=== PATIENT | male | born 1950 | race Caucasian/White ===

== ENCOUNTER 2016-06-27 01:14 | Inpatient (IN) | payer OTHER ==
[~2016-06-27] VITALS: Ht 172.7 cm; Wt 87.2 kg
[2016-06-27] VITALS (7 sets, daily range): BP systolic 112–150; BP diastolic 68–91; PULSE 66–81; RESP 16–22; TEMP 97–98.2; O2SAT 94–98
[~2016-06-27 01:14] MED LIST: HYDR-3583 PO; LEVA500T PO; TAMS5CAP PO
[2016-06-27] MEDS ORDERED: SODIUM CHLOR 0.9% 1000 ML INJ 1,000 ML IV SCH (01:55)
[2016-06-27] MEDS ORDERED: SODIUM CHLORIDE 0.9% FLUSH 5 ML FLUSH IVF PRN (02:00)
[2016-06-27] MEDS ORDERED: ONDANSETRON HCL 4 MG/2 ML VIAL IVP ONE (02:00)
[2016-06-27 02:39] LABS: AUTOMATED NEUTROPHIL # 8.5 TH/MM3 (1.8-7.7); BASOPHIL # 0.1 TH/MM3 (0-0.2); BASOPHIL % 0.7 % (0.0-2.0); EOSINOPHIL # 0.1 TH/MM3 (0-0.4); HEMATOCRIT 48.7 % (39.0-51.0); HEMO FLAGS DIFF FINAL; LYMPHOCYTE # 1.6 TH/MM3 (1.0-4.8); MEAN CELL VOLUME 86.3 FL (80.0-100.0); MEAN CORPUSCULAR HEMOGLOBIN 29.5 PG (27.0-34.0); MEAN CORPUSCULAR HGB CONC 34.1 % (32.0-36.0); MONO % 10.2 % (0.0-8.0); NEUT % 74.1 % (16.0-70.0); PLATELET COUNT 202 TH/MM3 (150-450); RED BLOOD COUNT 5.64 MIL/MM3 (4.50-5.90); RED CELL DISTRIBUTION WIDTH 14.2 % (11.6-17.2); WHITE BLOOD COUNT 11.4 TH/MM3 (4.0-11.0)
[2016-06-27 02:47] LABS: APTT (PATIENT) 28.5 SEC (24.3-30.1); PROTHROMBIN TIME - PATIENT 11.4 SEC (9.8-11.6)
--- NOTE | 2016-06-27 02:55 | RADRPT ---
EXAM DATE/TIME: 06/27/2016 02:05 [place] COMPARISON: CT ABDOMEN & PELVIS W/O CONTRAST, June 09, 2016, 2:24. INDICATIONS : Right lower quadrant and groin pain. ORAL CONTRAST: No oral contrast ingested. RADIATION DOSE: 10.47 CTDIvol (mGy) MEDICAL HISTORY : Renal calculi. SURGICAL HISTORY : None. ENCOUNTER: Initial ACUITY: 1 day PAIN SCALE: 7/10 LOCATION: Right lower quadrant abdomen TECHNIQUE: Volumetric scanning of the abdomen and pelvis was performed. Using automated exposure control and ad justment of the mA and/or kV according to patient size, radiation dose was kept as low as reasonably achievable to obtain optimal diagnostic quality images. FINDINGS: Examination of the lung bases demonstrates no abnormality. No pleural fluid is identified. No pulmona ry nodules are present. The liver and spleen are normal in size and no focal defects are identified. The gallbladder and pancreas are unremarkable. No intrahepatic or extrahepatic ductal dilatation is s een. The adrenal glands are unremarkable. There are nonobstructing stones measuring 3-4 mm in the mid pole of a small left kidney. The 7 mm stone at the right ureter pelvic junction is unchanged with mod erate right hydronephrosis. Examination of the pelvis demonstrates no evidence of free fluid or pelvic mass. No abnormally enlarg ed inguinal or retroperitoneal lymph nodes are present. The bladder is unremarkable. The prostate gla nd is moderately enlarged impinging on the bladder base. The prostate gland is moderately enlarged im pinging on the bladder base. CONCLUSION: 1. Persistent 7 mm x 5 mm stone at the right ureteropelvic junction unchanged from the prior exam. French Mahoney MD on June 27, 2016 at 2:40 Board Certified Radiologist. This report was verified electronically.
[2016-06-27 03:04] LABS: ALT (GPT) 20 U/L (12-78); ANION GAP 8 MEQ/L (5-15); AST (GOT) 11 U/L (15-37); BICARBONATE 24.3 MEQ/L (21.0-32.0); BLOOD UREA NITROGEN 23 MG/DL (7-18); CHLORIDE 108 MEQ/L (98-107); GLOMERULAR FILTRATION RATE 22 ML/MIN (>89); POTASSIUM 3.8 MEQ/L (3.5-5.1); SODIUM (NA) 140 MEQ/L (136-145)
[2016-06-27 03:05] LABS: ALKALINE PHOSPHATASE 101 U/L (45-117); TOTAL BILIRUBIN ADULT 0.4 MG/DL (0.2-1.0)
[2016-06-27] MEDS ORDERED: MORPHINE SULFATE 8 MG/ML INJ IV PUSH ONE (03:15)
--- NOTE | 2016-06-27 03:46 | PD ---
HPI Chief Complaint: Complaint Time Seen by Provider: 01:47 Travel History International Travel<30 days: No Contact w/Intl Traveler<30days: No Traveled to known affect area: No History of Present Illness HPI Patient is 66-year-old male with a history kidney stone being worked up by the MD presents emergency department with increasing right flank pain. Patient states he has a 10 mm kidney stone in the right renal system and given the level of pain decided to come in numerous permanent be seen. Patient was seen here in mid May and had kidney stone in the right system at that time. He also states the lab work at the MD shows that his kidney function had been gradually worsening. Denies any fever mild nausea without vomiting. PFSH Past Medical History Hx Anticoagulant Therapy: Yes (ASA) Autoimmune Disease: No Anxiety: No Depression: No Cancer: No Cardiac Catheterization: Yes Cardiovascular Problems: Yes (SVT) Endocrine: No Genitourinary: No Musculoskeletal: No Neurologic: No Psychiatric: No Respiratory: Yes (PNEUMONIA) Immunizations Current: Yes Tetanus Vaccination: Unknown Influenza Vaccination: No Past Surgical History Abdominal Surgery: No Cardiac Surgery: No Ear Surgery: No Endocrine Surgery: No Eye Surgery: No Genitourinary Surgery: No Gynecologic Surgery: No Oral Surgery: No Thoracic Surgery: No Other Surgery: Yes (LEFT CHEST TUBE) Social History Alcohol Use: No Tobacco Use: Yes (2 PPD) Substance Use: No Allergies-Medications (Allergen,Severity, Reaction): Coded Allergies: No Known Allergies (Verified , 06/27/16) Reported Meds & Prescriptions Reported Meds & Active Scripts Active Flomax (Tamsulosin HCl) 0.4 Mg Cap 0.4 Mg PO HS Reported Hydrocodone-Acetaminophen 10-325 mg Tab 1 Tab PO DAILY PRN Review of Systems Except as stated in HPI: all other systems reviewed are Neg Physical Exam Narrative GENERAL: Well-developed and well-nourished in no apparent distress. Disheveled. SKIN: Warm and dry. HEAD: Atraumatic. Normocephalic. EYES: Pupils equal and round. No scleral icterus. No injection or drainage. ENT: No nasal bleeding or discharge. Mucous membranes pink and moist. NECK: Trachea midline. No JVD. CARDIOVASCULAR: Regular rate and rhythm. No murmur appreciated. RESPIRATORY: No accessory muscle use. Clear to auscultation. Breath sounds equal bilaterally. GASTROINTESTINAL: Abdomen soft, non-tender, nondistended. Hepatic and splenic margins not palpable. MUSCULOSKELETAL: No obvious deformities. No clubbing. No cyanosis. No edema. NEUROLOGICAL: Awake and alert. No obvious cranial nerve deficits. Motor grossly within normal limits. Normal speech. PSYCHIATRIC: Appropriate mood and affect; insight and judgment normal. Data Data Last Documented VS Vital Signs Date Time Temp Pulse Resp B/P Pulse Ox O2 Delivery O2 Flow Rate FiO2 06/27/16 01:17 98.1 81 22 148/89 98 Room Air Orders Complete Blood Count With Diff (06/27/16 01:55) Comprehensive Metabolic Panel (06/27/16 01:55) Prothrombin Time / Inr (Pt) (06/27/16 01:55) Act Partial Throm Time (Ptt) (06/27/16 01:55) Urinalysis - C+S If Indicated (06/27/16 01:55) Ct Abd/Pel W/O Iv Contrast (06/27/16 01:55) Iv Access Insert/Monitor (06/27/16 01:55) Ecg Monitoring (06/27/16 01:55) Oximetry (06/27/16 01:55) Ondansetron Inj (Zofran Inj) (06/27/16 02:00) Sodium Chlor 0.9% 1000 Ml Inj (Ns 1000 M (06/27/16 01:55) Sodium Chloride 0.9% Flush (Ns Flush) (06/27/16 02:00) Electrocardiogram (06/27/16 01:55) Morphine Inj (Morphine Inj) (06/27/16 03:15) Admit Order (Ed Use Only) (06/27/16 ) Consult Urology (06/27/16 ) (Hub Use Only)Inp Phy Cons/Ref (06/27/16 ) Labs Laboratory Tests Test 06/27/16 06/27/16 02:21 03:40 White Blood Count 11.4 TH/MM3 Red Blood Count 5.64 MIL/MM3 Hemoglobin 16.6 GM/DL Hematocrit 48.7 % Mean Corpuscular Volume 86.3 FL Mean Corpuscular Hemoglobin 29.5 PG Mean Corpuscular Hemoglobin 34.1 % Concent Red Cell Distribution Width 14.2 % Platelet Count 202 TH/MM3 Mean Platelet Volume 8.3 FL Neutrophils (%) (Auto) 74.1 % Lymphocytes (%) (Auto) 14.0 % Monocytes (%) (Auto) 10.2 % Eosinophils (%) (Auto) 1.0 % Basophils (%) (Auto) 0.7 % Neutrophils # (Auto) 8.5 TH/MM3 Lymphocytes # (Auto) 1.6 TH/MM3 Monocytes # (Auto) 1.2 TH/MM3 Eosinophils # (Auto) 0.1 TH/MM3 Basophils # (Auto) 0.1 TH/MM3 CBC Comment DIFF FINAL Differential Comment Prothrombin Time 11.4 SEC Prothromb Time International 1.0 RATIO Ratio Activated Partial 28.5 SEC Thromboplast Time Sodium Level 140 MEQ/L Potassium Level 3.8 MEQ/L Chloride Level 108 MEQ/L Carbon Dioxide Level 24.3 MEQ/L Anion Gap 8 MEQ/L Blood Urea Nitrogen 23 MG/DL Creatinine 2.94 MG/DL Estimat Glomerular Filtration 22 ML/MIN Rate Random Glucose 103 MG/DL Calcium Level 8.5 MG/DL Total Bilirubin 0.4 MG/DL Aspartate Amino Transf 11 U/L (AST/SGOT) Alanine Aminotransferase 20 U/L (ALT/SGPT) Alkaline Phosphatase 101 U/L Total Protein 6.7 GM/DL Albumin 3.3 GM/DL Urine Color YELLOW Urine Turbidity CLEAR Urine pH 5.5 Urine Specific [place] 1.014 Urine Protein 30 mg/dL Urine Glucose (UA) NEG mg/dL Urine Ketones NEG mg/dL Urine Occult Blood MOD Urine Nitrite NEG Urine Bilirubin NEG Urine Urobilinogen LESS THAN 2.0 MG/DL Urine Leukocyte Esterase NEG Urine RBC 7 /hpf Urine WBC 3 /hpf Urine Squamous Epithelial <1 /hpf Cells Urine Hyaline Casts 1 /lpf Microscopic Urinalysis Comment CULT NOT INDICATED MDM Medical Decision Making Medical Screen Exam Complete: Yes Emergency Medical Condition: Yes Differential Diagnosis Kidney stone, obstructive uropathy, UTI. Narrative Course Patient seen and examined by me hasn't 8 mm obstructing kidney stone in the right system proximal ureter. Significant obstructive uropathy. Creatinine has increased approximately 50% since he was seen in May and the kidney stone has not moved since then. Discussed with the patient he should strongly consider intervention at this time given his starting to affect his kidneys. He is agreeable this time. Patient discussed with Dr. Quiñonez, nothing by mouth probable intervention the morning. Admitted to Dr. Celaya Diagnosis Primary Impression: Right ureteral stone Additional Impression: Renal insufficiency Admitting Information Admitting Physician Requests: Admit Condition: Stable Brown Ansari MD Jun 27, 2016 03:46
[2016-06-27] MEDS ORDERED: ONDANSETRON HCL 4 MG/2 ML VIAL IVP PRN (04:00)
[2016-06-27] MEDS ORDERED: ACETAMINOPHEN 325 MG TAB PO PRN (04:00)
[2016-06-27] MEDS ORDERED: BISACODYL 10 MG SUPP PR PRN (04:00)
[2016-06-27] MEDS ORDERED: SODIUM CHLORIDE 0.9% FLUSH 5 ML FLUSH FLUSH PRN (04:00)
[2016-06-27 04:05] LABS: BLOOD, URINE MOD (NEG); COMMENT (UR) CULT NOT INDICATED; CULTURE IF INDICATED CULT NOT INDICATED; GLUCOSE,URINE NEG (NEG); HYALINE CAST, URINE 1 /lpf (RARE); KETONE, URINE NEG (NEG); NITRITE,URINE NEG (NEG); PH, URINE 5.5 (5.0-8.5); SQUAMOUS EPITHELIAL CELL URINE <1 /hpf (0-5); URINE COLOR YELLOW (YELLW/STRAW)
[2016-06-27] MEDS: cefTRIAXone INJ 1,000 MG in SODIUM CHLORIDE 0.9% INJ 100 ML IV SCH (04:29)
[2016-06-27] MEDS: SODIUM CHLOR 0.9% 1000 ML INJ 1,000 ML IV SCH ×3 (04:30→21:25)
--- NOTE | 2016-06-27 08:25 | HHI.HP ---
[facility] Service [facility] Primary Care Physician [facility] Admission Diagnosis Obstructive Uropathy, Kidney stone Diagnoses: Chief Complaint: right flank pain Travel History International Travel<30 Days: No Contact w/Intl Traveler <30 Da: No Traveled to Known Affected Are: No History of Present Illness 66-year-old male with PMH of tobacco use, history of kidney stone being worked up by the [place] presents emergency department with increasing right flank pain. Patient states he has a 10 mm kidney stone in the right renal system and given the level of pain decided to come in numerous permanent be seen. Patient was seen here in mid May and had kidney stone in the right system at that time. He also states the lab work at the [place] shows that his kidney function had been gradually worsening. Denies any fever mild nausea without vomiting. Review of Systems Other ROS: 14 point review of systems otherwise negative. Past Family Social History Past Medical History Tobacco Abuse Past Surgical History Chest Tube. Right wrist fracture and surgery Reported Medications Reported Meds & Active Scripts Active Flomax (Tamsulosin HCl) 0.4 Mg Cap 0.4 Mg PO HS Reported Hydrocodone-Acetaminophen 10-325 mg Tab 1 Tab PO DAILY PRN Allergies: Coded Allergies: No Known Allergies (Verified , 06/27/16) Family History No h/o DM or CAD Social History Denies alcohol or drugs use. + Tobacco Abuse, previously 6ppd, now down to 3ppd. Physical Exam Vital Signs Vital Signs Date Time Temp Pulse Resp B/P Pulse Ox O2 Delivery O2 Flow Rate FiO2 06/27/16 05:09 69 16 124/79 98 06/27/16 03:53 98.2 75 18 138/84 97 06/27/16 01:17 98.1 81 22 148/89 98 Room Air Physical Exam GENERAL: This is a well-nourished, well-developed patient, in no apparent distress. SKIN: No rashes, ecchymoses or lesions. Cool and dry. HEAD: Atraumatic. Normocephalic. No temporal or scalp tenderness. EYES: Pupils equal round and reactive. Extraocular motions intact. No scleral icterus. No injection or drainage. ENT: Nose without bleeding, purulent drainage or septal hematoma. Throat without erythema, tonsillar hypertrophy or exudate. Uvula midline. Airway patent. NECK: Trachea midline. No JVD or lymphadenopathy. Supple, nontender, no meningeal signs. CARDIOVASCULAR: Regular rate and rhythm without murmurs, gallops, or rubs. RESPIRATORY: Clear to auscultation. Breath sounds equal bilaterally. No wheezes , rales, or rhonchi. GASTROINTESTINAL: Abdomen soft, non-tender, nondistended. No hepato-splenomegaly , or palpable masses. No guarding. MUSCULOSKELETAL: Extremities without clubbing, cyanosis, or edema. No joint tenderness, effusion, or edema noted. No calf tenderness. Negative Homans sign bilaterally. NEUROLOGICAL: Awake and alert. Cranial nerves II through XII intact. Motor and sensory grossly within normal limits. Five out of 5 muscle strength in all muscle groups. Normal speech. Laboratory Laboratory Tests Test 06/27/16 06/27/16 02:21 03:40 White Blood Count 11.4 Red Blood Count 5.64 Hemoglobin 16.6 Hematocrit 48.7 Mean Corpuscular Volume 86.3 Mean Corpuscular Hemoglobin 29.5 Mean Corpuscular Hemoglobin 34.1 Concent Red Cell Distribution Width 14.2 Platelet Count 202 Mean Platelet Volume 8.3 Neutrophils (%) (Auto) 74.1 Lymphocytes (%) (Auto) 14.0 Monocytes (%) (Auto) 10.2 Eosinophils (%) (Auto) 1.0 Basophils (%) (Auto) 0.7 Neutrophils # (Auto) 8.5 Lymphocytes # (Auto) 1.6 Monocytes # (Auto) 1.2 Eosinophils # (Auto) 0.1 Basophils # (Auto) 0.1 CBC Comment DIFF FINAL Differential Comment Prothrombin Time 11.4 Prothromb Time International 1.0 Ratio Activated Partial 28.5 Thromboplast Time Sodium Level 140 Potassium Level 3.8 Chloride Level 108 Carbon Dioxide Level 24.3 Anion Gap 8 Blood Urea Nitrogen 23 Creatinine 2.94 Estimat Glomerular Filtration 22 Rate Random Glucose 103 Calcium Level 8.5 Total Bilirubin 0.4 Aspartate Amino Transf 11 (AST/SGOT) Alanine Aminotransferase 20 (ALT/SGPT) Alkaline Phosphatase 101 Total Protein 6.7 Albumin 3.3 Urine Color YELLOW Urine Turbidity CLEAR Urine pH 5.5 Urine Specific [place] 1.014 Urine Protein 30 Urine Glucose (UA) NEG Urine Ketones NEG Urine Occult Blood MOD Urine Nitrite NEG Urine Bilirubin NEG Urine Urobilinogen LESS THAN 2.0 Urine Leukocyte Esterase NEG Urine RBC 7 Urine WBC 3 Urine Squamous Epithelial <1 Cells Urine Hyaline Casts 1 Microscopic Urinalysis Comment CULT NOT INDICATED Result Diagram: 06/27/1622006/27/16 022 Imaging Last Impressions Abdomen/Pelvis CT 06/27/16 0155 Signed Impressions: Service Date/Time: Wednesday, June 27, 2016 02:05 - CONCLUSION: 1. Persistent 7 mm x 5 mm stone at the right ureteropelvic junction unchanged from the prior exam. French Mahoney MD Assessment and Plan Assessment and Plan Right ureteral stone. CT reviewed: persistent 7 mm x 5 mm stone at the right ureteropelvic junction unchanged from the prior exam. NPO, Dr Quiñonez nephro plan for surgical intervention 06/27/16 stent placement Pain meds per pain scale IVF Antiemetics as need. Laxatives/stool softeners as need. Renal Insufficiency: Acute on Chronic. IVF, repeat labs in am. H/O Lung Nodule: per previous records CT Chest w/ 8mm LLL nodule, recommendation for repeat CT in 3-6 months as pt is high risk due to h/o heavy tobacco abuse. Pt is aware of need to repeat CT. DuoNeb prn. Tobacco Abuse: h/o 6ppd, now cut down to 3ppd. Pt counselled on the need to quit. NicoDerm prn if needed. Liver Lesion: CT Abd/Pelvis w/ 1.7cm nondescript low density lesion of right lobe of liver, recommendation for outpatient MRI to further evaluate. Pt aware. DVT Prophylaxis: SCD/Teds. CM for d/c planning as needed. DC plan: DC home today per Dr Quiñonez after stent placed Diet: Healthy heart diet Activity: Ambulate ad gino Meds per med reconciliations F/u as OP with PCP and consultants Code Status full Discussed Condition With patient, nurse, Dr Quiñonez from urology Physician Certification 2 Midnight Certification Type: Admission for Inpatient Services Order for Inpatient Services The services are ordered in accordance with Medicare regulations or non- Medicare payer requirements, as applicable. In the case of services not specified as inpatient-only, they are appropriately provided as inpatient services in accordance with the 2-midnight benchmark. Estimated LOS (days): 3 days is the estimated time the patient will need to remain in the hospital, assuming treatment plan goals are met and no additional complications. Post-Hospital Plan: Home Dominga Kaur MD Jun 27, 2016 08:25
[2016-06-27] MEDS: MORPHINE SULFATE 4 MG/ML INJ IV PRN ×3 (08:55→23:57)
[2016-06-27] MEDS: SODIUM CHLORIDE 0.9% FLUSH 5 ML FLUSH FLUSH SCH ×2 (09:00→20:17)
--- NOTE | 2016-06-27 09:37 | PD.CONS ---
[facility] Service Urology Consult Requested By Reason for Consult Right ureteral calculus. Primary Care Physician [facility] Diagnosis: History of Present Illness Consulted to evaluate this 66 year-old gentleman with history nephrolithiasis for an obstructing right proximal ureteral calculus. Patient presented to the emergency room back in May 2016 with symptoms of right flank pain and was diagnosed with an 8 mm right proximal ureteral stone. Patient was treated and released and advised to follow up with a urologist as an outpatient. He presents now with worsening symptoms and a subsequent CT scan once again demonstrated an approximately 8 mm right proximal ureteral stone. Due to the severity of the patient's symptoms he was admitted for further management. Patient has been afebrile. Review of Systems Constitutional: DENIES: Fever, Night Sweats Endocrine: DENIES: Heat/cold intolerance Eyes: DENIES: Blurred vision Ears, nose, mouth, throat: DENIES: Tinnitus Respiratory: DENIES: Cough Cardiovascular: DENIES: Chest pain Gastrointestinal: DENIES: Abdominal pain Genitourinary: DENIES: Hematuria Musculoskeletal: COMPLAINS OF: Back pain (right flank) Integumentary: DENIES: Rash Hematologic/lymphatic: DENIES: Bruising Immunologic/allergic: DENIES: Eczema Neurologic: DENIES: Abnormal gait Psychiatric: DENIES: Anxiety Other All others negative. Past Family Social History Past Medical History Nephrolithiasis Past Surgical History Status post placement of chest tube in the past Reported Medications Refer to EMR Allergies: Coded Allergies: No Known Allergies (Verified , 06/27/16) Active Ordered Medications Refer to EMR Family History Reviewed and noncontributory Social History Heavy smoker times many years, presently smokes 2 packs per day Denies alcohol or intravenous drug abuse Physical Exam Vital Signs Vital Signs Date Time Temp Pulse Resp B/P Pulse Ox O2 Delivery O2 Flow Rate FiO2 06/27/16 08:00 97.2 69 18 137/77 98 06/27/16 05:09 69 16 124/79 98 06/27/16 03:53 98.2 75 18 138/84 97 06/27/16 01:17 98.1 81 22 148/89 98 Room Air Physical Exam GENERAL: This is a well-nourished, well-developed patient, in no apparent distress. SKIN: No rashes, ecchymoses or lesions. Cool and dry. HEAD: Atraumatic. Normocephalic. No temporal or scalp tenderness. EYES: Pupils equal round and reactive. Extraocular motions intact. No scleral icterus. No injection or drainage. ENT: Nose without bleeding, purulent drainage or septal hematoma. Throat without erythema, tonsillar hypertrophy or exudate. Uvula midline. Airway patent. NECK: Trachea midline. No JVD or lymphadenopathy. Supple, nontender, no meningeal signs. CARDIOVASCULAR: Regular rate and rhythm without murmurs, gallops, or rubs. RESPIRATORY: Clear to auscultation. Breath sounds equal bilaterally. No wheezes , rales, or rhonchi. GASTROINTESTINAL: Abdomen soft, non-tender, nondistended. No hepato-splenomegaly , or palpable masses. No guarding. MUSCULOSKELETAL: Extremities without clubbing, cyanosis, or edema. No joint tenderness, effusion, or edema noted. No calf tenderness. Negative Homans sign bilaterally. NEUROLOGICAL: Awake and alert. Cranial nerves II through XII intact. Motor and sensory grossly within normal limits. Five out of 5 muscle strength in all muscle groups. Normal speech. Laboratory Laboratory Tests Test 06/27/16 06/27/16 02:21 03:40 White Blood Count 11.4 Red Blood Count 5.64 Hemoglobin 16.6 Hematocrit 48.7 Mean Corpuscular Volume 86.3 Mean Corpuscular Hemoglobin 29.5 Mean Corpuscular Hemoglobin 34.1 Concent Red Cell Distribution Width 14.2 Platelet Count 202 Mean Platelet Volume 8.3 Neutrophils (%) (Auto) 74.1 Lymphocytes (%) (Auto) 14.0 Monocytes (%) (Auto) 10.2 Eosinophils (%) (Auto) 1.0 Basophils (%) (Auto) 0.7 Neutrophils # (Auto) 8.5 Lymphocytes # (Auto) 1.6 Monocytes # (Auto) 1.2 Eosinophils # (Auto) 0.1 Basophils # (Auto) 0.1 CBC Comment DIFF FINAL Differential Comment Prothrombin Time 11.4 Prothromb Time International 1.0 Ratio Activated Partial 28.5 Thromboplast Time Sodium Level 140 Potassium Level 3.8 Chloride Level 108 Carbon Dioxide Level 24.3 Anion Gap 8 Blood Urea Nitrogen 23 Creatinine 2.94 Estimat Glomerular Filtration 22 Rate Random Glucose 103 Calcium Level 8.5 Total Bilirubin 0.4 Aspartate Amino Transf 11 (AST/SGOT) Alanine Aminotransferase 20 (ALT/SGPT) Alkaline Phosphatase 101 Total Protein 6.7 Albumin 3.3 Urine Color YELLOW Urine Turbidity CLEAR Urine pH 5.5 Urine Specific [place] 1.014 Urine Protein 30 Urine Glucose (UA) NEG Urine Ketones NEG Urine Occult Blood MOD Urine Nitrite NEG Urine Bilirubin NEG Urine Urobilinogen LESS THAN 2.0 Urine Leukocyte Esterase NEG Urine RBC 7 Urine WBC 3 Urine Squamous Epithelial <1 Cells Urine Hyaline Casts 1 Microscopic Urinalysis Comment CULT NOT INDICATED Result Diagram: 06/27/1622006/27/16[address] scan with findings as outlined above Assessment and Plan Assessment and Plan Urologic impression: Right flank pain secondary to 8 mm obstructing right proximal ureteral calculus Plan: #1 keep patient nothing by mouth #2 bring the patient to the OR suite this morning for cystoscopy, right retrograde pyelogram and right ureteral stent placement #3 anticipate discharge home later today #4 patient will require shockwave lithotripsy of the stone as an outpatient Evans Quiñonez MD Jun 27, 2016 09:37
--- NOTE | 2016-06-27 11:35 | HHI.DCPOC ---
Discharge Care Plan Goals to Promote Your Health * To prevent worsening of your condition and complications * To maintain your health at the optimal level Directions to Meet Your Goals Take your medications as prescribed Follow your dietary instruction Follow activity as directed Keep your appointments as scheduled Take your immunizations and boosters as scheduled If your symptoms worsen call your PCP, if no PCP go to Urgent Care Center or Emergency Room Smoking is Dangerous to Your Health. Avoid second hand smoke Call the 24-hour hour crisis hotline for domestic abuse at Dominga Kaur MD Jun 27, 2016 11:35
[2016-06-27] MEDS ORDERED: PROPOFOL 200 MG/20 ML AMP IV ONE (11:53)
[2016-06-27] MEDS ORDERED: ONDANSETRON HCL 4 MG/2 ML VIAL IV PUSH ONE (11:53)
--- NOTE | 2016-06-27 14:25 | EKG ---
Date Performed: 06/27/2016 Time Performed: 02:21:54 PTAGE: 66 years EKG: Sinus rhythm INCOMPLETE RIGHT BUNDLE BRANCH BLOCK POSSIBLE RIGHT VENTRICULAR HYPERTROPHY ABNORMAL ECG Compared to prior tracing no significant change PREVIOUS TRACING : 06/09/2016 01.06 DOCTOR: Lul Bal Interpretating Date/Time 06/27/2016 14:24:04
[2016-06-27] MEDS ORDERED: ceFAZolin INJ 1,000 MG VIAL ONE (15:56)
[2016-06-27] MEDS ORDERED: IOHEXOL 350 MG/ML 50 ML BTL (for Cath Lab) ONE (16:50)
[2016-06-27] MEDS ORDERED: CEPH-459 PO (17:09)
[2016-06-27] MEDS ORDERED: *morphine SULFATE 8 MG/ML PERIprocedure ONLY ONE (17:15)
[2016-06-27] MEDS ORDERED: DO NOT ADM ANY ANTICOAGULANT DRUGS XX PRN (17:30)
[2016-06-27] MEDS: ACETAMINOPHEN/HYDROcodone 325 MG/5 MG TAB PO PRN ×2 (18:27→22:33)
[2016-06-27 18:50] LABS: POTASSIUM 3.7 MEQ/L (3.5-5.1)
[2016-06-27] MEDS ORDERED: TAMSULOSIN HCL 0.4 MG CAP PO SCH (21:00)
[2016-06-28] VITALS: BP 105/64; PULSE 68; RESP 18; TEMP 97.4; O2SAT 96
[2016-06-28] MEDS: cefTRIAXone INJ 1,000 MG in SODIUM CHLORIDE 0.9% INJ 100 ML IV SCH (03:39)
[2016-06-28] MEDS: ACETAMINOPHEN/HYDROcodone 325 MG/5 MG TAB PO PRN (03:41)
[2016-06-28 04:00] VITALS: BP 108/64; PULSE 78; RESP 18; TEMP 97.5; O2SAT 96
[2016-06-28] MEDS: SODIUM CHLOR 0.9% 1000 ML INJ 1,000 ML IV SCH (05:25)
[2016-06-28 07:10] LABS: AUTOMATED NEUTROPHIL # 6.2 TH/MM3 (1.8-7.7); BASOPHIL # 0.1 TH/MM3 (0-0.2); BASOPHIL % 0.6 % (0.0-2.0); EOSINOPHIL # 0.2 TH/MM3 (0-0.4); EOSINOPHIL % 1.9 % (0.0-4.0); HEMATOCRIT 48.1 % (39.0-51.0); HEMO FLAGS DIFF FINAL; LYMPH % 18.5 % (9.0-44.0); LYMPHOCYTE # 1.6 TH/MM3 (1.0-4.8); MEAN CELL VOLUME 86.7 FL (80.0-100.0); MEAN CORPUSCULAR HEMOGLOBIN 29.2 PG (27.0-34.0); MEAN CORPUSCULAR HGB CONC 33.7 % (32.0-36.0); MONO % 6.9 % (0.0-8.0); NEUT % 72.1 % (16.0-70.0); PLATELET COUNT 200 TH/MM3 (150-450); RED BLOOD COUNT 5.55 MIL/MM3 (4.50-5.90); RED CELL DISTRIBUTION WIDTH 14.8 % (11.6-17.2); WHITE BLOOD COUNT 8.6 TH/MM3 (4.0-11.0)
[2016-06-28 07:35] VITALS: O2SAT 94
[2016-06-28 07:37] LABS: ALKALINE PHOSPHATASE 103 U/L (45-117); ALT (GPT) 16 U/L (12-78); ANION GAP 10 MEQ/L (5-15); AST (GOT) 8 U/L (15-37); BICARBONATE 23.8 MEQ/L (21.0-32.0); BLOOD UREA NITROGEN 21 MG/DL (7-18); CHLORIDE 108 MEQ/L (98-107); GLOMERULAR FILTRATION RATE 31 ML/MIN (>89); POTASSIUM 3.8 MEQ/L (3.5-5.1); SODIUM (NA) 142 MEQ/L (136-145); TOTAL BILIRUBIN ADULT 0.3 MG/DL (0.2-1.0)
[2016-06-28 08:00] VITALS: BP 127/69; PULSE 81; RESP 20; TEMP 96.6; O2SAT 97
[2016-06-28] MEDS: SODIUM CHLORIDE 0.9% FLUSH 5 ML FLUSH FLUSH SCH (08:35)
--- NOTE | 2016-06-28 09:06 | HHI.PR ---
Subjective Remarks Patient says he had pain and could not urinate last night after the procedure. He has good urine output now and he has less pain. No fever or chills. Denies chest pain. Denies n/v/d/c. Objective Vitals Vital Signs Date Time Temp Pulse Resp B/P Pulse Ox O2 Delivery O2 Flow Rate FiO2 06/28/16 07:35 94 21 06/28/16 04:41 18 06/28/16 04:00 97.5 78 18 108/64 96 06/28/16 00:06 17 06/28/16 00:00 97.4 68 18 105/64 96 06/27/16 20:00 97.1 78 20 112/68 98 06/27/16 17:30 81 14 152/90 95 Nasal Cannula 4 06/27/16 17:15 72 14 147/83 97 Nasal Cannula 4 06/27/16 17:10 97.4 71 14 112/74 99 Nasal Cannula 4 06/27/16 16:00 98.1 78 16 150/91 94 06/27/16 12:00 97.4 66 18 127/77 97 I/O 06/27/16 06/27/16 06/27/16 06/28/16 06/28/16 06/28/16 07:00 15:00 23:00 07:00 15:00 23:00 Intake Total 0 ml 2241 ml Output Total 900 ml 2000 ml 125 ml Balance -900 ml 241 ml -125 ml Intake Oral 0 ml 480 ml IV Total 1611 ml Other 150 ml Output Urine Total 900 ml 2000 ml 125 ml Estimated Blood Loss 0 ml Other 0 ml Result Diagram: 06/28/16 0642 06/28/16 0642 Imaging Last Impressions Abdomen/Pelvis CT 06/27/16 0155 Signed Impressions: Service Date/Time: Monday, June 27, 2016 02:05 - CONCLUSION: 1. Persistent 7 mm x 5 mm stone at the right ureteropelvic junction unchanged from the prior exam. French Mahoney MD Objective Remarks GENERAL: This is a well-nourished, well-developed patient, in no apparent distress. SKIN: No rashes, ecchymoses or lesions. Cool and dry. HEAD: Atraumatic. Normocephalic. No temporal or scalp tenderness. EYES: Pupils equal round and reactive. Extraocular motions intact. No scleral icterus. No injection or drainage. ENT: Nose without bleeding, purulent drainage or septal hematoma. Throat without erythema, tonsillar hypertrophy or exudate. Uvula midline. Airway patent. NECK: Trachea midline. No JVD or lymphadenopathy. Supple, nontender, no meningeal signs. CARDIOVASCULAR: Regular rate and rhythm without murmurs, gallops, or rubs. RESPIRATORY: Clear to auscultation. Breath sounds equal bilaterally. No wheezes , rales, or rhonchi. GASTROINTESTINAL: Abdomen soft, non-tender, nondistended. No hepato-splenomegaly , or palpable masses. No guarding. MUSCULOSKELETAL: Extremities without clubbing, cyanosis, or edema. No joint tenderness, effusion, or edema noted. No calf tenderness. Negative Homans sign bilaterally. NEUROLOGICAL: Awake and alert. Cranial nerves II through XII intact. Motor and sensory grossly within normal limits. Five out of 5 muscle strength in all muscle groups. Normal speech. A/P Assessment and Plan Right ureteral stone. CT reviewed: persistent 7 mm x 5 mm stone at the right ureteropelvic junction unchanged from the prior exam. Dr Quiñonez nephro consulted 06/27/16 s/p cystoscopy, right retrograde pyelogram and right ureteral stent placement by Dr Quiñonez, urology Patient will require shockwave lithotripsy of the stone as an outpatient per DR Quiñonez urology. Pain meds per pain scale IVF Antiemetics as need. Laxatives/stool softeners as need. Renal Insufficiency: Acute on Chronic. IVF, repeat labs in am. H/O Lung Nodule: per previous records CT Chest w/ 8mm LLL nodule, recommendation for repeat CT in 3-6 months as pt is high risk due to h/o heavy tobacco abuse. Pt is aware of need to repeat CT. DuoNeb prn. Tobacco Abuse: h/o 6ppd, now cut down to 3ppd. Pt counselled on the need to quit. NicoDerm prn if needed. Liver Lesion: CT Abd/Pelvis w/ 1.7cm nondescript low density lesion of right lobe of liver, recommendation for outpatient MRI to further evaluate. Pt aware. DVT Prophylaxis: SCD/Teds. CM for d/c planning as needed. DC plan: DC home today per Dr Quiñonez after stent placed Diet: Healthy heart diet Activity: Ambulate ad gino Meds per med reconciliations F/u as OP with PCP and consultants Code Status full Discussed Condition With patient, nurse, Dr Quiñonez from urology Dominga Kaur MD Jun 28, 2016 09:06
--- NOTE | 2016-07-01 08:25 | MP ---
cc: HARLEEN QUIÑONEZ MD DATE OF SURGERY: June 27, 2016 INDICATIONS FOR PROCEDURE Case of a pleasant 66-year-old gentleman with a history of recurrent nephrolithiasis, who presented to the emergency room with an obstructing 8 mm right proximal ureteral calculus. The patient presents now for cystoscopy, right retrograde pyelogram study and right ureteral stent placement. PREOPERATIVE DIAGNOSIS Obstructing right proximal ureteral calculus. POSTOPERATIVE DIAGNOSIS Obstructing right proximal ureteral calculus. ATTENDING SURGEON Dr. Quiñonez. ANESTHESIA General. PROCEDURES PERFORMED Cystoscopy, right retrograde pyelogram, right stone manipulation and insertion of right ureteral stent. COMPLICATIONS None. ESTIMATED BLOOD LOSS None. SPECIMENS None. OPERATIVE PROCEDURE IN DETAIL The patient was brought to the operating room suite, placed supine on the cystoscopy table. He was then placed under general anesthesia. He was then repositioned in the dorsal lithotomy position and prepped and draped in normal sterile fashion. After an appropriate time-out was undertaken I proceeded with cystoscopic evaluation utilizing the rigid cystoscope with the 20-Salvadorean sheath and 30 degree lens. There was some narrowing of the bulbar urethra. However, by virtue of passing the cystoscope I was able to gently dilate this area. Further passage of the cystoscope demonstrated bladder wall trabeculation. Both right and left ureteral orifices were in correct anatomic position. There was clear efflux on the left, no efflux on the right. Next a sensor .035 wire was advanced up the patient's right ureter, negotiated around the proximal stone and further advanced within the right kidney. I then advanced a 6-Salvadorean open-ended ureteral catheter over the wire and was able to gently manipulate the stone back up into the right renal pelvis. The guidewire was removed and a retrograde pyelogram study was performed. Next, the guidewire was reintroduced through the open-ended catheter back up into the kidney and the open-ended catheter was exchanged for a 6-Salvadorean 24 cm double-J stent. The stent was passed under both cystoscopic and fluoroscopic guidance without difficulty. Once the stent was in proper position the trailing string was removed. The bladder was next drained of all irrigant fluid and a 16-Salvadorean 10 cc Valladares catheter was placed and connected to gravity drainage. The patient tolerated the procedures without complications and was transferred to the PACU in satisfactory condition. MD AGUSTÍN Donald/ROGER /5:08 PM /8:11 AM
== END 2016-06-28 13:57 | disposition home or self-care (01) | DRG 670 ==
LOC: NEPC 01:14 → NEDA 03:48 → HOCB 05:28
PROVIDERS: ADMIT Hospitalist; ATTEND Hospitalist
PROC: 0T768DZ Dilation of Right Ureter with Intraluminal Device, Via Natural or Artificial Opening Endoscopic (ICD-10-PCS; 2016-06-27)
PROC: 0TC68ZZ Extirpation of Matter from Right Ureter, Via Natural or Artificial Opening Endoscopic (ICD-10-PCS; principal; 2016-06-27 16:16)
DX: N20.2 Calculus of kidney with calculus of ureter (principal); F17.210 Nicotine dependence, cigarettes, uncomplicated; K76.9 Liver disease, unspecified; N18.9 Chronic kidney disease, unspecified
CPT/HCPCS: 74176; 74420; 80048; 80053; 81001; 85025; 85610; 85730; 93005; 96361; 96374; 96375; C1769; C2617; J0690; J0696; J2270; J2405; J7030; Q9967

== ENCOUNTER 2016-11-26 17:42 | Emergency (ER) | payer OTHER ==
[~2016-11-26 17:42] MED LIST changes: +CEPH-459 PO; -LEVA500T PO
[2016-11-26 17:44] VITALS: BP 173/97; PULSE 91; RESP 24; TEMP 97.7; O2SAT 95
--- NOTE | 2016-11-26 17:49 | PD ---
Physical Exam Time Seen by Provider: 17:46 Narrative 66yo M c/o abd pain started this morning; mostly LLQ. Went to [facility] and was given antibiotics. Was told to come to ER if worsened. Denies fever,. +nausea w/o vomiting. Denies urinary symptoms. Difficulty having bowel movements. Patient seen in triage. VS reviewed. Awaiting bed placement. Data Data Last Documented VS Vital Signs Date Time Temp Pulse Resp B/P Pulse Ox O2 Delivery O2 Flow Rate FiO2 11/26/16 17:44 97.7 91 24 173/97 95 Room Air MDM Supervised Visit with RUBEN: Shawanda Wallace Nov 26, 2016 17:49
[2016-11-26 18:25] VITALS: BP 193/104; PULSE 92; RESP 22; TEMP 98.2; O2SAT 97
[2016-11-26] MEDS ORDERED: MORPHINE SULFATE 4 MG/ML INJ IV PUSH ONE (18:30)
[2016-11-26] MEDS ORDERED: SODIUM CHLORIDE 0.9% FLUSH 10 ML FLUSH IV FLUSH PRN (18:30)
[2016-11-26] MEDS ORDERED: ONDANSETRON HCL 4 MG/2 ML VIAL IVP ONE (18:30)
[2016-11-26 18:32] VITALS: O2SAT 97
--- NOTE | 2016-11-26 18:35 | PD ---
HPI Chief Complaint: GI Complaint Time Seen by Provider: 18:31 Travel History International Travel<30 days: No Contact w/Intl Traveler<30days: No Traveled to known affect area: No History of Present Illness HPI Patient comes in complaining of sharp stabbing left lower quadrant abdominal pain that began earlier today. Patient states he went to the [place] was prescribed Flagyl and Cipro for possible diverticulitis. Patient states he took one dose of each however the pain is not getting any better he was told if it did not get better or if it became Worse to come to the emergency department. Patient states he was told not to take his hydrocodone so as to not mask the abdominal pain. He states he takes hydrocodone for his back pain. Patient reports associated nausea and feeling the need to go to have bowel movements frequently however only has a little bit of stool come out each time. Patient denies any blood in the stool or darkening of the stool. Patient states he has white so much he's started getting some blood on the toilet paper though. Patient denies any history of diverticulitis. Patient denies anything like this in the past. Denies any fevers, chest pain, shortness of breath, vomiting, loss or change of bladder, or radiation of the pain. PFSH Past Medical History Hx Anticoagulant Therapy: Yes (ASA) Autoimmune Disease: No Anxiety: No Depression: No Cancer: No Cardiac Catheterization: Yes Cardiovascular Problems: Yes (SVT) Endocrine: No Genitourinary: Yes (kidney stones) Kidney Stones: Yes Musculoskeletal: No Neurologic: No Psychiatric: No Respiratory: Yes (PNEUMONIA) Immunizations Current: Yes Renal Failure: No Past Surgical History Abdominal Surgery: No Body Medical Devices: titanium plate in right wrist Cardiac Surgery: No Ear Surgery: No Endocrine Surgery: No Eye Surgery: No Genitourinary Surgery: No Gynecologic Surgery: No Oral Surgery: No Thoracic Surgery: No Other Surgery: Yes (LEFT CHEST TUBE) Social History Alcohol Use: No Tobacco Use: Yes (2 PPD) Substance Use: No Allergies-Medications (Allergen,Severity, Reaction): Coded Allergies: No Known Allergies (Verified , 11/26/16) Reported Meds & Prescriptions Reported Meds & Active Scripts Active Flomax (Tamsulosin HCl) 0.4 Mg Cap 0.4 Mg PO HS Reported Metronidazole 500 Mg Tab 500 Mg PO TID Ciprofloxacin (Ciprofloxacin HCl) 500 Mg Tab 500 Mg PO BID Hydrocodone-Acetaminophen 10-325 mg Tab 1 Tab PO DAILY PRN Review of Systems Except as stated in HPI: all other systems reviewed are Neg Physical Exam Narrative GENERAL: Well-developed, overly nourished, in no acute distress, and non-ill appearing. SKIN: Focused skin assessment warm and dry. HEAD: Atraumatic. Normocephalic. EYES: Pupils equal and round. EOMI. No scleral icterus. No injection or drainage. ENT: No nasal bleeding or discharge. Mucous membranes pink and moist. NECK: Trachea midline. Supple. No nuclear rigidity. CARDIOVASCULAR: Regular rate and rhythm. No murmur appreciated. RESPIRATORY: No accessory muscle use. No respiratory distress. Clear to auscultation. Breath sounds equal bilaterally. GASTROINTESTINAL: Abdomen soft, nondistended, and without guarding. Hepatic and splenic margins not palpable. Normal bowel sounds 4. No pulsatile mass. Patient reports tenderness to palpation left lower quadrant. MUSCULOSKELETAL: No obvious deformities. No clubbing. No cyanosis. No edema. Full range of motion. NEUROLOGICAL: Awake and alert. No obvious cranial nerve deficits. Motor grossly within normal limits. Normal speech. PSYCHIATRIC: Appropriate mood and affect; insight and judgment normal. Data Data Last Documented VS Vital Signs Date Time Temp Pulse Resp B/P Pulse Ox O2 Delivery O2 Flow Rate FiO2 11/26/16 19:22 84 18 158/90 96 Room Air 11/26/16 18:25 98.2 Orders Complete Blood Count With Diff (11/26/16 17:50) Comprehensive Metabolic Panel (11/26/16 17:50) Urinalysis - C+S If Indicated (11/26/16 17:50) Iv Access Insert/Monitor (11/26/16 17:50) Lipase (11/26/16 17:50) Ct Abd/Pel W/O Iv Contrast (11/26/16 18:30) Ecg Monitoring (11/26/16 18:30) Oximetry (11/26/16 18:30) Morphine Inj (Morphine Inj) (11/26/16 18:30) Ondansetron Inj (Zofran Inj) (11/26/16 18:30) Sodium Chloride 0.9% Flush (Ns Flush) (11/26/16 18:30) Ketorolac Inj (Toradol Inj) (11/26/16 19:15) Labs Laboratory Tests Test 11/26/16 11/26/16 18:00 18:05 Urine Color YELLOW Urine Turbidity CLEAR Urine pH 5.5 Urine Specific [place] 1.026 Urine Protein 30 mg/dL Urine Glucose (UA) NEG mg/dL Urine Ketones NEG mg/dL Urine Occult Blood LARGE Urine Nitrite NEG Urine Bilirubin NEG Urine Urobilinogen LESS THAN 2.0 MG/DL Urine Leukocyte Esterase NEG Urine RBC 122 /hpf Urine WBC 1 /hpf Urine Squamous Epithelial <1 /hpf Cells Urine Mucus FEW /lpf Microscopic Urinalysis Comment CULT NOT INDICATED White Blood Count 14.6 TH/MM3 Red Blood Count 6.38 MIL/MM3 Hemoglobin 18.5 GM/DL Hematocrit 56.0 % Mean Corpuscular Volume 87.8 FL Mean Corpuscular Hemoglobin 29.0 PG Mean Corpuscular Hemoglobin 33.0 % Concent Red Cell Distribution Width 14.7 % Platelet Count 231 TH/MM3 Mean Platelet Volume 8.3 FL Neutrophils (%) (Auto) 79.0 % Lymphocytes (%) (Auto) 12.0 % Monocytes (%) (Auto) 8.0 % Eosinophils (%) (Auto) 0.2 % Basophils (%) (Auto) 0.8 % Neutrophils # (Auto) 11.5 TH/MM3 Lymphocytes # (Auto) 1.7 TH/MM3 Monocytes # (Auto) 1.2 TH/MM3 Eosinophils # (Auto) 0.0 TH/MM3 Basophils # (Auto) 0.1 TH/MM3 CBC Comment DIFF FINAL Differential Comment Sodium Level 137 MEQ/L Potassium Level 4.0 MEQ/L Chloride Level 105 MEQ/L Carbon Dioxide Level 21.0 MEQ/L Anion Gap 11 MEQ/L Blood Urea Nitrogen 19 MG/DL Creatinine 1.56 MG/DL Estimat Glomerular Filtration 45 ML/MIN Rate Random Glucose 102 MG/DL Calcium Level 9.1 MG/DL Total Bilirubin 0.4 MG/DL Aspartate Amino Transf 13 U/L (AST/SGOT) Alanine Aminotransferase 26 U/L (ALT/SGPT) Alkaline Phosphatase 108 U/L Total Protein 7.8 GM/DL Albumin 3.8 GM/DL Lipase 171 U/L [facility] Medical Decision Making Medical Screen Exam Complete: Yes Emergency Medical Condition: Yes Interpretation(s) CT abdomen and pelvis read by the radiologist shows: Stones of the left ureterovesical junction and distal ureter with moderate obstructive uropathy. Differential Diagnosis Diverticulitis, constipation, ulcerative colitis, renal calculi, UTI, electrolyte abnormality, other Narrative Course The patient presented with history, exam and evaluation consistent with kidney stone. CT scan showed evidence of stone with obstruction and hydronephrosis/ hydroureter. There was no evidence to suggest obstructive infection. The patient s pain was well controlled and the patient is tolerating fluids. There was no clinical evidence to support appendicitis, bowel obstruction, cholecystitis/ cholelithiasis, pancreatitis, perforation of gastric ulcer, colitis, diverticulitis, bacterial peritonitis, obstruction, volvulus, hernial incarceration or strangulation at this time. There was no evidence to support vascular pathology such as AAA, mesenteric ischemia. There was also no clinical evidence by history, exam or risk factors to suggest atypical presentation of cardiac disease such as ACS, AMI or atypical angina. Diagnosis, plan of care, management and acute outpatient follow up with with primary care and/or Urology was discussed with the patient. Warnings to return immediately, such as worsening pain not controlled by pain medications, vomiting, fever or chills or worsening of condition were discussed. The patient agreed with plan. Patient in no obvious distress upon re-evaluation. All pertinent laboratory/ Radiology result(s) discussed with patient. Patient reports he has a full prescription of 800 mg ibuprofen at home with his hydrocodone for pain. Discussed patient with Dr. Urrutia, who saw and evaluated the patient and is in agreement with plan of care and disposition. Any questions/concerns in reference to patient diagnosis/condition discussed and clarified prior to patient's discharge. Reinforced sheer importance of close follow up with patient 's primary physician or primary care clinic and/or urologist. Instructed patient to return to ED immediately, if symptoms return/worsen. Pt showed understanding of above instructions. Further instructions and recommendations were detailed in discharge paperwork. Pt ambulated without difficulty out of ED at discharge. Diagnosis Primary Impression: Kidney stone on left side Patient Instructions: General Instructions, Kidney Stones (ED) Additional Instructions: Follow-up with your primary care physician and/or urologist in one to 3 days for reevaluation. Take all medication as prescribed. Take your hydrocodone and 800 mg ibuprofen as prescribed for pain control. Return to the emergency department if symptoms get worse. Med/Other Pt SpecificInfo: Prescription(s) given Scripts Tamsulosin (Flomax)0.4 Mg Cap0.4 Mg PO HS #7 CAP Ref 0 Prov:Sara Urrutia MD 11/26/16 Disposition: 01 DISCHARGE HOME Condition: Stable [place] Nov 26, 2016 18:35
[2016-11-26 18:37] LABS: AUTOMATED NEUTROPHIL # 11.5 TH/MM3 (1.8-7.7); BASOPHIL # 0.1 TH/MM3 (0-0.2); BASOPHIL % 0.8 % (0.0-2.0); EOSINOPHIL % 0.2 % (0.0-4.0); HEMO FLAGS DIFF FINAL; LYMPHOCYTE # 1.7 TH/MM3 (1.0-4.8); MEAN CELL VOLUME 87.8 FL (80.0-100.0); PLATELET COUNT 231 TH/MM3 (150-450); RED BLOOD COUNT 6.38 MIL/MM3 (4.50-5.90); RED CELL DISTRIBUTION WIDTH 14.7 % (11.6-17.2); WHITE BLOOD COUNT 14.6 TH/MM3 (4.0-11.0)
[2016-11-26] MEDS ORDERED: CIPR500T2 PO (18:45)
[2016-11-26] MEDS ORDERED: METR500T10 PO ×2 (18:45)
[2016-11-26 18:56] LABS: ANION GAP 11 MEQ/L (5-15); AST (GOT) 13 U/L (15-37); BLOOD UREA NITROGEN 19 MG/DL (7-18); CHLORIDE 105 MEQ/L (98-107); GLOMERULAR FILTRATION RATE 45 ML/MIN (>89); SODIUM (NA) 137 MEQ/L (136-145)
[2016-11-26 18:57] LABS: ALT (GPT) 26 U/L (12-78)
[2016-11-26 18:59] LABS: ALKALINE PHOSPHATASE 108 U/L (45-117); TOTAL BILIRUBIN ADULT 0.4 MG/DL (0.2-1.0)
[2016-11-26 19:00] LABS: BLOOD, URINE LARGE (NEG); COMMENT (UR) CULT NOT INDICATED; CULTURE IF INDICATED CULT NOT INDICATED; GLUCOSE,URINE NEG (NEG); KETONE, URINE NEG (NEG); MUCUS URINE FEW /lpf (OCC); NITRITE,URINE NEG (NEG); PH, URINE 5.5 (5.0-8.5); SQUAMOUS EPITHELIAL CELL URINE <1 /hpf (0-5); URINE COLOR YELLOW (YELLW/STRAW)
[2016-11-26] MEDS ORDERED: KETOROLAC TROMETHAMINE 30 MG/ML (IVP) VIAL IV PUSH ONE (19:15)
[2016-11-26 19:22] VITALS: BP 158/90; PULSE 84; RESP 18; O2SAT 96
--- NOTE | 2016-11-26 20:09 | RADRPT ---
EXAM DATE/TIME: 11/26/2016 19:40 [facility] COMPARISON: CT ABDOMEN & PELVIS W/O CONTRAST, June 27, 2016, 2:05. INDICATIONS : Left lower quadrant pain. ORAL CONTRAST: No oral contrast ingested. RADIATION DOSE: 10.29 CTDIvol (mGy) MEDICAL HISTORY : Renal calculi. SURGICAL HISTORY : None. ENCOUNTER: Initial ACUITY: 1 day PAIN SCALE: 8/10 LOCATION: Left lower quadrant abdomen TECHNIQUE: Volumetric scanning of the abdomen and pelvis was performed. Using automated exposure control and ad justment of the mA and/or kV according to patient size, radiation dose was kept as low as reasonably achievable to obtain optimal diagnostic quality images. FINDINGS: There is a 2 mm stone at the left ureterovesical junction, a 3 mm stone just above it and a 4 mm ston e about 1 cm more proximal. There is associated moderate hydroureter and hydronephrosis. Mild left pe rinephric edema. There is a 3 mm nonobstructing stone in the left upper pole. There is a 2 mm nonobstructing stone in the mid zone of the right kidney. No right ureteral calculus or hydronephrosis/hydroureter. Noncontrast appearance of the liver, spleen, pancreas and adrenal glands within normal limits. No obs truction or acute inflammatory changes are seen in the gastrointestinal tract. There is no free fluid . Mild atelectasis seen at both lung bases. No acute osseous abnormality demonstrated. There is atherosclerosis of the abdominal aorta. No aneurysm. CONCLUSION: 1. Stones of the left ureterovesical junction and distal ureter with moderate obstructive uropathy. P lease see above. 2. Solitary nonobstructing stones in both kidneys. George Lopez MD on November 26, 2016 at 20:02 Board Certified Radiologist. This report was verified electronically.
[2016-11-26] MEDS ORDERED: TAMS5CAP PO (20:28)
--- NOTE | 2016-11-26 20:32 | PD ---
Data Data Last Documented VS Vital Signs Date Time Temp Pulse Resp B/P Pulse Ox O2 Delivery O2 Flow Rate FiO2 11/26/16 19:22 84 18 158/90 96 Room Air 11/26/16 18:25 98.2 Orders Complete Blood Count With Diff (11/26/16 17:50) Comprehensive Metabolic Panel (11/26/16 17:50) Urinalysis - C+S If Indicated (11/26/16 17:50) Iv Access Insert/Monitor (11/26/16 17:50) Lipase (11/26/16 17:50) Ct Abd/Pel W/O Iv Contrast (11/26/16 18:30) Ecg Monitoring (11/26/16 18:30) Oximetry (11/26/16 18:30) Morphine Inj (Morphine Inj) (11/26/16 18:30) Ondansetron Inj (Zofran Inj) (11/26/16 18:30) Sodium Chloride 0.9% Flush (Ns Flush) (11/26/16 18:30) Ketorolac Inj (Toradol Inj) (11/26/16 19:15) Labs Laboratory Tests Test 11/26/16 11/26/16 18:00 18:05 Urine Color YELLOW Urine Turbidity CLEAR Urine pH 5.5 Urine Specific [place] 1.026 Urine Protein 30 mg/dL Urine Glucose (UA) NEG mg/dL Urine Ketones NEG mg/dL Urine Occult Blood LARGE Urine Nitrite NEG Urine Bilirubin NEG Urine Urobilinogen LESS THAN 2.0 MG/DL Urine Leukocyte Esterase NEG Urine RBC 122 /hpf Urine WBC 1 /hpf Urine Squamous Epithelial <1 /hpf Cells Urine Mucus FEW /lpf Microscopic Urinalysis Comment CULT NOT INDICATED White Blood Count 14.6 TH/MM3 Red Blood Count 6.38 MIL/MM3 Hemoglobin 18.5 GM/DL Hematocrit 56.0 % Mean Corpuscular Volume 87.8 FL Mean Corpuscular Hemoglobin 29.0 PG Mean Corpuscular Hemoglobin 33.0 % Concent Red Cell Distribution Width 14.7 % Platelet Count 231 TH/MM3 Mean Platelet Volume 8.3 FL Neutrophils (%) (Auto) 79.0 % Lymphocytes (%) (Auto) 12.0 % Monocytes (%) (Auto) 8.0 % Eosinophils (%) (Auto) 0.2 % Basophils (%) (Auto) 0.8 % Neutrophils # (Auto) 11.5 TH/MM3 Lymphocytes # (Auto) 1.7 TH/MM3 Monocytes # (Auto) 1.2 TH/MM3 Eosinophils # (Auto) 0.0 TH/MM3 Basophils # (Auto) 0.1 TH/MM3 CBC Comment DIFF FINAL Differential Comment Sodium Level 137 MEQ/L Potassium Level 4.0 MEQ/L Chloride Level 105 MEQ/L Carbon Dioxide Level 21.0 MEQ/L Anion Gap 11 MEQ/L Blood Urea Nitrogen 19 MG/DL Creatinine 1.56 MG/DL Estimat Glomerular Filtration 45 ML/MIN Rate Random Glucose 102 MG/DL Calcium Level 9.1 MG/DL Total Bilirubin 0.4 MG/DL Aspartate Amino Transf 13 U/L (AST/SGOT) Alanine Aminotransferase 26 U/L (ALT/SGPT) Alkaline Phosphatase 108 U/L Total Protein 7.8 GM/DL Albumin 3.8 GM/DL Lipase 171 U/L MDM Supervised Visit with RUBEN: Yes Narrative Course The history, exam, and medical decision-making in the associated midlevel provider note were completed with my assistance. I reviewed and agree with the findings presented. I attest that I had a [id number] encounter with the patient on the same day, and personally performed and documented my assessment and findings in the medical record. *My assessment and Findings: This is a 66-year-old male who presents to the emergency department with headache and high blood pressure. He has a normal neurologic exam. Blood pressure was quite high on arrival. He was given hydralazine and clonidine by Dr. Weaver. CT of the head was reassuring. Patient's blood pressure continues to be high. He'll be placed on a Cardene drip and admitted to the CICU. I discussed the patient with Dr. Godfrey. Critical Care Narrative Aggregate critical care time was 35 minutes. Time to perform other separately billable procedures was not included in the critical care time. My time did not include minutes spent treating any other patients simultaneously or on activities that did not directly contribute to the patient's treatment. The services I provided to this patient were to treat and/or prevent clinically significant deterioration that could result in: Disability, I provided critical care services requiring my management, as noted below: Chart data review, documentation time, medication orders and management, vital sign assessments/reviewing monitor data, ordering and reviewing lab tests, ordering and interpreting/reviewing x-rays and diagnostic studies, care of the patient and discussion of the patient with the admitting physicians. Physician Communication Physician Communication Discussed with Dr. Godfrey Diagnosis Primary Impression: Kidney stone on left side Admitting Information Admitting Physician Requests: Admit Patient Instructions: General Instructions, Kidney Stones (ED) Additional Instruction: Follow-up with your primary care physician and/or urologist in one to 3 days for reevaluation. Take all medication as prescribed. Take your hydrocodone and 800 mg ibuprofen as prescribed for pain control. Return to the emergency department if symptoms get worse. Scripts Tamsulosin (Flomax)0.4 Mg Cap0.4 Mg PO HS #7 CAP Ref 0 Prov:Sara Urrutia MD 11/26/16 Disposition: 01 DISCHARGE HOME Condition: Stable Sara Urrutia MD Nov 26, 2016 20:32
--- NOTE | 2016-11-26 21:12 | PD ---
Data Data Last Documented VS Vital Signs Date Time Temp Pulse Resp B/P Pulse Ox O2 Delivery O2 Flow Rate FiO2 11/26/16 19:22 84 18 158/90 96 Room Air 11/26/16 18:25 98.2 Orders Complete Blood Count With Diff (11/26/16 17:50) Comprehensive Metabolic Panel (11/26/16 17:50) Urinalysis - C+S If Indicated (11/26/16 17:50) Iv Access Insert/Monitor (11/26/16 17:50) Lipase (11/26/16 17:50) Ct Abd/Pel W/O Iv Contrast (11/26/16 18:30) Ecg Monitoring (11/26/16 18:30) Oximetry (11/26/16 18:30) Morphine Inj (Morphine Inj) (11/26/16 18:30) Ondansetron Inj (Zofran Inj) (11/26/16 18:30) Sodium Chloride 0.9% Flush (Ns Flush) (11/26/16 18:30) Ketorolac Inj (Toradol Inj) (11/26/16 19:15) Labs Laboratory Tests Test 11/26/16 11/26/16 18:00 18:05 Urine Color YELLOW Urine Turbidity CLEAR Urine pH 5.5 Urine Specific Mccammon 1.026 Urine Protein 30 mg/dL Urine Glucose (UA) NEG mg/dL Urine Ketones NEG mg/dL Urine Occult Blood LARGE Urine Nitrite NEG Urine Bilirubin NEG Urine Urobilinogen LESS THAN 2.0 MG/DL Urine Leukocyte Esterase NEG Urine RBC 122 /hpf Urine WBC 1 /hpf Urine Squamous Epithelial <1 /hpf Cells Urine Mucus FEW /lpf Microscopic Urinalysis Comment CULT NOT INDICATED White Blood Count 14.6 TH/MM3 Red Blood Count 6.38 MIL/MM3 Hemoglobin 18.5 GM/DL Hematocrit 56.0 % Mean Corpuscular Volume 87.8 FL Mean Corpuscular Hemoglobin 29.0 PG Mean Corpuscular Hemoglobin 33.0 % Concent Red Cell Distribution Width 14.7 % Platelet Count 231 TH/MM3 Mean Platelet Volume 8.3 FL Neutrophils (%) (Auto) 79.0 % Lymphocytes (%) (Auto) 12.0 % Monocytes (%) (Auto) 8.0 % Eosinophils (%) (Auto) 0.2 % Basophils (%) (Auto) 0.8 % Neutrophils # (Auto) 11.5 TH/MM3 Lymphocytes # (Auto) 1.7 TH/MM3 Monocytes # (Auto) 1.2 TH/MM3 Eosinophils # (Auto) 0.0 TH/MM3 Basophils # (Auto) 0.1 TH/MM3 CBC Comment DIFF FINAL Differential Comment Sodium Level 137 MEQ/L Potassium Level 4.0 MEQ/L Chloride Level 105 MEQ/L Carbon Dioxide Level 21.0 MEQ/L Anion Gap 11 MEQ/L Blood Urea Nitrogen 19 MG/DL Creatinine 1.56 MG/DL Estimat Glomerular Filtration 45 ML/MIN Rate Random Glucose 102 MG/DL Calcium Level 9.1 MG/DL Total Bilirubin 0.4 MG/DL Aspartate Amino Transf 13 U/L (AST/SGOT) Alanine Aminotransferase 26 U/L (ALT/SGPT) Alkaline Phosphatase 108 U/L Total Protein 7.8 GM/DL Albumin 3.8 GM/DL Lipase 171 U/L MDM Supervised Visit with RUBEN: Yes Narrative Course The history, exam, and medical decision-making in the associated midlevel provider note were completed with my assistance. I reviewed and agree with the findings presented. I attest that I had a [id number] encounter with the patient on the same day, and personally performed and documented my assessment and findings in the medical record. *My assessment and Findings: This is a 66-year-old male who presents to the emergency department with left-sided abdominal pain. He has a history of kidney stones in the past. He has several small stones at the UVJ on the left. He is otherwise well-appearing with no evidence of infection in his urine. He does have a white blood cell count of 14 which I suspect is a stress response. Patient will be discharged on pain control. He will follow-up with the urologist as needed. Diagnosis Primary Impression: Kidney stone on left side Patient Instructions: General Instructions, Kidney Stones (ED) Departure Forms: Tests/Procedures Additional Instruction: Follow-up with your primary care physician and/or urologist in one to 3 days for reevaluation. Take all medication as prescribed. Take your hydrocodone and 800 mg ibuprofen as prescribed for pain control. Return to the emergency department if symptoms get worse. Scripts Tamsulosin (Flomax)0.4 Mg Cap0.4 Mg PO HS #7 CAP Ref 0 Prov:Sara Urrutia MD 6/15/17 Disposition: 01 DISCHARGE HOME Condition: Stable Highet,Sara H. MD Nov 26, 2016 21:12
== END 2016-11-26 20:55 | disposition home or self-care (01) ==
LOC: NEPE 17:42
DX: N20.0 Calculus of kidney (principal); Z87.442 Personal history of urinary calculi; I47.1 Supraventricular tachycardia
CPT/HCPCS: 74176; 80053; 81001; 83690; 85025; 96374; 96375; 99291; J1885; J2270; J2405

== ENCOUNTER 2017-09-15 16:56 | Inpatient (IN) | payer OTHER, MEDICARE ==
[~2017-09-15] VITALS: Ht 172.7 cm; Wt 98.4 kg
[~2017-09-15 16:56] MED LIST changes: -CEPH-459 PO; +CIPR500T2 PO; +METR1TAB76 PO
[2017-09-15 17:02] VITALS: BP 138/72; PULSE 94; RESP 24; O2SAT 96
[2017-09-15] MEDS ORDERED: IBUP1TAB7 PO (17:27)
[2017-09-15] MEDS ORDERED: ALBUAER3 INH (17:27)
[2017-09-15] MEDS ORDERED: ZOLP10TA3 PO (17:27)
[2017-09-15] MEDS ORDERED: VIAG100T PO (17:27)
[2017-09-15] MEDS ORDERED: SODIUM CHLORIDE 0.9% FLUSH 10 ML FLUSH IVF PRN (17:45)
[2017-09-15] MEDS ORDERED: NITROGLYCERIN 0.4 MG SL 25 TABS/BTL SL ONE (18:00)
--- NOTE | 2017-09-15 18:21 | RADRPT ---
EXAM DATE/TIME: 09/15/2017 17:59 [facility] COMPARISON: CHEST SINGLE AP, April 24, 2016, 23:09. INDICATIONS : Chest pain starting today MEDICAL HISTORY : Chronic obstructive pulmonary disease SURGICAL HISTORY : None. ENCOUNTER: Initial ACUITY: 1 day PAIN SCORE: 5/10 LOCATION: Bilateral chest FINDINGS: The lungs are clear. The heart is minimally enlarged. The pulmonary vascularity is normal. There is n o evidence for infiltrate or failure. The portion of the bony skeleton visualized is unremarkable. CONCLUSION: Compensated cardiomegaly otherwise negative Nabil Lawson MD FACR on September 15, 2017 at 18:19 Board Certified Radiologist. This report was verified electronically.
[2017-09-15 18:34] LABS: AUTOMATED NEUTROPHIL # 6.7 TH/MM3 (1.8-7.7); BASOPHIL # 0.1 TH/MM3 (0-0.2); BASOPHIL % 1.2 % (0.0-2.0); EOSINOPHIL # 0.1 TH/MM3 (0-0.4); EOSINOPHIL % 1.3 % (0.0-4.0); HEMATOCRIT 53.4 % (39.0-51.0); HEMOGLOBIN 18.6 GM/DL (13.0-17.0); LYMPH % 20.9 % (9.0-44.0); LYMPHOCYTE # 2.1 TH/MM3 (1.0-4.8); MEAN CELL VOLUME 87.8 FL (80.0-100.0); MEAN CORPUSCULAR HEMOGLOBIN 30.6 PG (27.0-34.0); MEAN CORPUSCULAR HGB CONC 34.9 % (32.0-36.0); MEAN PLATELET VOLUME 8.7 FL (7.0-11.0); MONO % 9.4 % (0.0-8.0); MONOCYTE # 0.9 TH/MM3 (0-0.9); NEUT % 67.2 % (16.0-70.0); PLATELET COUNT 256 TH/MM3 (150-450); RED BLOOD COUNT 6.09 MIL/MM3 (4.50-5.90); WHITE BLOOD COUNT 9.9 TH/MM3 (4.0-11.0)
[2017-09-15 18:42] LABS: PROTHROMBIN TIME - PATIENT 10.6 SEC (9.8-11.6)
[2017-09-15 18:49] LABS: ALBUMIN 3.4 GM/DL (3.4-5.0); AST (GOT) 27 U/L (15-37); BICARBONATE 22.1 MEQ/L (21.0-32.0); BLOOD UREA NITROGEN 18 MG/DL (7-18); CALCIUM 8.6 MG/DL (8.5-10.1); CHLORIDE 109 MEQ/L (98-107); GLOMERULAR FILTRATION RATE 55 ML/MIN (>89); GLUCOSE,RANDOM 106 MG/DL (74-106); MAGNESIUM 2.2 MG/DL (1.5-2.5); SODIUM (NA) 141 MEQ/L (136-145)
[2017-09-15 18:54] LABS: ALKALINE PHOSPHATASE 111 U/L (45-117); ALT (GPT) 32 U/L (12-78); TOTAL BILIRUBIN ADULT 0.4 MG/DL (0.2-1.0); TOTAL PROTEIN 7.3 GM/DL (6.4-8.2); TROPONIN I LESS THAN 0.02 NG/ML (0.02-0.05)
[2017-09-15 19:05] VITALS: BP 137/82; PULSE 87; RESP 18; O2SAT 98
[2017-09-15] MEDS ORDERED: IOHEXOL 350 MG/ML 100 ML BTL (for Cath Lab) OTHER ONE ×2 (19:38)
[2017-09-15] MEDS ORDERED: SODIUM CHLORIDE 0.9% FLUSH 10 ML FLUSH IV FLUSH PRN (19:45)
[2017-09-15] MEDS ORDERED: ACETAMINOPHEN 500 MG CPLT PO PRN (19:45)
--- NOTE | 2017-09-15 19:45 | PD ---
HPI Chief Complaint: Chest Pain Time Seen by Provider: 17:39 Travel History International Travel<30 days: No Contact w/Intl Traveler<30days: No Traveled to known affect area: No History of Present Illness HPI 67-year-old male that presents to the ED for evaluation of chest pain. Patient was brought here by ambulance for evaluation of this. Per patient has a history of heart disease in the past. Per patient he had a heart cath and had what appears to be an ablation for an arrhythmia about 2 years ago. Per patient he has not followed with any bail bondsman since and [facility] He does continue to smoke and has a history of high blood pressure and high cholesterol. He states that today he developed severe chest pain that moves to both sides of his chest and causes numbness and tingling to both arms. He denies ever having to like this over time when he had his episode 2 years ago. He denies any palpitations. States that the pain feels like a burning underneath his stroke but states in his mid chest. Denies any urinary or bowel movement issues. No trauma. Patient was given nitroglycerin as well as aspirin by ambulance. Patient was brought here by ambulance as the [facility] told [facility] that he needed to get [facility] out. Patient states that his pain currently is 1 out of 10 and appears to have improved from the nitroglycerin when I went into the room he tells me that he is also feeling like is coming back. 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 ) Genitourinary: Yes (HEMATURIA, MALEERECTILE DISORDER) Kidney Stones: Yes Medical other: Yes (BLEPHARITIS, PRESBYOPHIA) Musculoskeletal: Yes (LUMBAR RADICULOPATHY , DISC DEGENERATIVE, ARTHROPATHY) Neurologic: No Psychiatric: No Respiratory: Yes (PNEUMOTHORAX, PLEURISY) Immunizations Current: Yes Pneumonia: Yes Renal Failure: No Past Surgical History Abdominal Surgery: No Body Medical Devices: titanium plate in right wrist Cardiac Surgery: No Ear Surgery: No Endocrine Surgery: No Eye Surgery: No Genitourinary Surgery: No Gynecologic Surgery: No Oral Surgery: No Thoracic Surgery: No Other Surgery: Yes (LEFT CHEST TUBE) Social History Alcohol Use: Yes Tobacco Use: Yes ( PPD) Substance Use: No Allergies-Medications (Allergen,Severity, Reaction): Coded Allergies: No Known Allergies (Verified Adverse Reaction, Unknown, 09/15/17) Reported Meds & Prescriptions Reported Meds & Active Scripts Active Reported Viagra (Sildenafil Citrate) 100 Mg Tab 100 Mg PO DAILY PRN Zolpidem (Zolpidem Tartrate) 10 Mg Tab 10 Mg PO HS PRN Ibuprofen 800 Mg Tab 800 Mg PO Q12HR PRN Proair Hfa 8.5 GM Inh (Albuterol Sulfate) 90 Mcg/Act Aer 2 Puff INH Q6H PRN 108 mcg/actuation Hydrocodone-Acetaminophen 10-325 mg Tab 1 Tab PO DAILY PRN Review of Systems Except as stated in HPI: all other systems reviewed are Neg Physical Exam Narrative GENERAL: SKIN: Warm and dry. HEAD: Atraumatic. Normocephalic. EYES: Pupils equal and round. No scleral icterus. No injection or drainage. ENT: No nasal bleeding or discharge. Mucous membranes pink and moist. Tongue is midline. No uvula deviation. NECK: Trachea midline. No JVD. CARDIOVASCULAR: Regular rate and rhythm. No murmurs, S3, S4. RESPIRATORY: No accessory muscle use. Clear to auscultation. Breath sounds equal bilaterally. GASTROINTESTINAL: Abdomen soft, non-tender, nondistended. Hepatic and splenic margins not palpable. MUSCULOSKELETAL: Extremities without clubbing, cyanosis, or edema. No obvious deformities. Full range of motion of the upper and lower extremities bilaterally. 2+ pulses bilaterally. NEUROLOGICAL: Awake and alert. No obvious cranial nerve deficits. Motor grossly within normal limits. Five out of 5 muscle strength in the arms and legs. Normal speech. PSYCHIATRIC: Appropriate mood and affect; insight and judgment normal. Data Data Last Documented VS Vital Signs Date Time Temp Pulse Resp B/P (MAP) Pulse Ox O2 Delivery O2 Flow Rate FiO2 09/15/17 19:05 87 18 137/82 (100) 98 Nasal Cannula 2.00 Orders Orders Electrocardiogram (09/15/17 17:41) Ckmb (Isoenzyme) Profile (09/15/17 17:41) Complete Blood Count With Diff (09/15/17 17:41) Comprehensive Metabolic Panel (09/15/17 17:41) Magnesium (Mg) (09/15/17 17:41) Prothrombin Time / Inr (Pt) (09/15/17 17:41) Act Partial Throm Time (Ptt) (09/15/17 17:41) Troponin I (09/15/17 17:41) Lipase (09/15/17 17:41) Chest, Single Ap (09/15/17 17:41) Ecg Monitoring (09/15/17 17:41) Bilateral Bp Monitoring (09/15/17 17:41) Iv Access Insert/Monitor (09/15/17 17:41) Oximetry (09/15/17 17:41) Oxygen Administration (09/15/17 17:41) Sodium Chloride 0.9% Flush (Ns Flush) (09/15/17 17:45) Nitroglycerin Sl (Nitrostat Sl) (09/15/17 18:00) Admit Order (Ed Use Only) (09/15/17 19:36) Activity Bed Rest With Brp (09/15/17 19:37) Vital Signs (Adult) Q4H (09/15/17 19:37) Cardiac Rhythm .As Directed (09/15/17 19:37) Notify Dr: Other .PRN (09/15/17 19:37) Notify DrYin Parameters (09/15/17:37) Resp Oxygen Nasal Cannula (09/15/17 ) Diet Npo (09/16/17 Breakfast) Ckmb (Isoenzyme) Profile (09/15/17 20:10) Ckmb (Isoenzyme) Profile (09/15/17 23:10) Troponin I (09/15/17 20:10) Troponin I (09/15/17 23:10) Electrocardiogram (09/15/17 20:10) Electrocardiogram (09/15/17 23:10) ^ Obtain (09/15/17 19:37) Sodium Chloride 0.9% Flush (Ns Flush) (09/15/17 19:45) Sodium Chloride 0.9% Flush (Ns Flush) (09/15/17 21:00) Acetaminophen (Tylenol) (09/15/17 19:45) Sign Erector And Repairer / Telemetry VITALY.Q8H (09/15/17 19:37) Labs Laboratory Tests Test 09/15/17 17:10 White Blood Count 9.9 TH/MM3 Red Blood Count 6.09 MIL/MM3 Hemoglobin 18.6 GM/DL Hematocrit 53.4 % Mean Corpuscular Volume 87.8 FL Mean Corpuscular Hemoglobin 30.6 PG Mean Corpuscular Hemoglobin Concent 34.9 % Red Cell Distribution Width 15.0 % Platelet Count 256 TH/MM3 Mean Platelet Volume 8.7 FL Neutrophils (%) (Auto) 67.2 % Lymphocytes (%) (Auto) 20.9 % Monocytes (%) (Auto) 9.4 % Eosinophils (%) (Auto) 1.3 % Basophils (%) (Auto) 1.2 % Neutrophils # (Auto) 6.7 TH/MM3 Lymphocytes # (Auto) 2.1 TH/MM3 Monocytes # (Auto) 0.9 TH/MM3 Eosinophils # (Auto) 0.1 TH/MM3 Basophils # (Auto) 0.1 TH/MM3 CBC Comment DIFF FINAL Differential Comment Prothrombin Time 10.6 SEC Prothromb Time International Ratio 1.0 RATIO Activated Partial Thromboplast Time 27.0 SEC Blood Urea Nitrogen 18 MG/DL Creatinine 1.30 MG/DL Random Glucose 106 MG/DL Total Protein 7.3 GM/DL Albumin 3.4 GM/DL Calcium Level 8.6 MG/DL Magnesium Level 2.2 MG/DL Alkaline Phosphatase 111 U/L Aspartate Amino Transf (AST/SGOT) 27 U/L Alanine Aminotransferase (ALT/SGPT) 32 U/L Total Bilirubin 0.4 MG/DL Sodium Level 141 MEQ/L Potassium Level 4.0 MEQ/L Chloride Level 109 MEQ/L Carbon Dioxide Level 22.1 MEQ/L Anion Gap 10 MEQ/L Estimat Glomerular Filtration Rate 55 ML/MIN Total Creatine Kinase 78 U/L Troponin I LESS THAN 0.02 NG/ML Lipase 159 U/L [facility] Medical Decision Making Medical Screen Exam Complete: Yes Emergency Medical Condition: Yes Medical Record Reviewed: Yes Interpretation(s) CBC & BMP Diagram 09/15/17 17:10 Total Protein 7.3, Albumin 3.4, Calcium Level 8.6, Magnesium Level 2.2, Alkaline Phosphatase 111, Aspartate Amino Transf (AST/SGOT) 27, Alanine Aminotransferase (ALT/SGPT) 32, Total Bilirubin 0.4 Last Impressions Chest X-Ray 09/15/17 [id number] Signed Impressions: Service Date/Time: Friday, September 15, 2017 17:59 - CONCLUSION: Compensated cardiomegaly otherwise negative Nabil Lawson MD FACR troponin and CKMB negative Differential Diagnosis Chest pain versus atypical chest pain versus ACS versus angina versus WI versus NSTEMI Narrative Course 67-year-old male that presents to the ED for evaluation of chest pain. Patient was properly examined and was found to have signs and symptoms consistent appears to be chest pain. The concern for ACS as patient had improvement of symptoms with nitroglycerin. Labs and imaging order. Patient was given nitroglycerin here. Patient agrees to aspirin today. Labs and imaging were essentially unremarkable. The recommend admission to the chest pain center for further evaluation of the chest discomfort as I am concerned for ACS as patient does have risk factors including smoking, high blood pressure and cholesterol as well as age. Patient agrees with this plan. Patient was admitted to the chest pain center. Diagnosis Primary Impression: Chest pain in adult Admitting Information Admitting Physician Requests: Observation Eliu De La Rosa Sep 15, 2017 19:45
[2017-09-15 20:13] VITALS: BP 123/69; PULSE 92; RESP 14; TEMP 98.5; O2SAT 97
[2017-09-15] MEDS ORDERED: SODIUM CHLORIDE 0.9% FLUSH 10 ML FLUSH IV FLUSH SCH (21:00)
[2017-09-15 22:44] LABS: TROPONIN I 0.06 NG/ML (0.02-0.05)
[2017-09-16] VITALS (14 sets, daily range): BP systolic 90–159; BP diastolic 55–91; PULSE 74–120; RESP 12–20; TEMP 97.6–99.8; O2SAT 91–99
[2017-09-16 00:31] LABS: TROPONIN I 0.07 NG/ML (0.02-0.05)
[2017-09-16] MEDS ORDERED: SODIUM CHLOR 0.9% 1000 ML INJ 1,000 ML IV SCH (02:58)
[2017-09-16] MEDS ORDERED: BISACODYL 10 MG SUPP RECTAL PRN (03:00)
[2017-09-16] MEDS ORDERED: ACETAMINOPHEN 325 MG TAB PO PRN (03:00)
[2017-09-16] MEDS ORDERED: LACTULOSE SYRUP 20 GM/30 ML CUP PO PRN (03:00)
[2017-09-16] MEDS ORDERED: NALOXONE HCL 0.4 MG/ML AMP IV PUSH PRN (03:00)
[2017-09-16] MEDS ORDERED: SODIUM CHLORIDE 0.9% FLUSH 10 ML FLUSH IV FLUSH PRN ×2 (03:00→10:00)
[2017-09-16] MEDS ORDERED: HEPARIN SODIUM - SQ 10,000 UNITS/ML VIAL SQ SCH (03:00)
[2017-09-16] MEDS ORDERED: MAGNESIUM HYDROXIDE SUSP 30 ML CUP PO PRN (03:00)
[2017-09-16] MEDS ORDERED: SENNOSIDES 8.6 MG TAB PO PRN (03:00)
--- NOTE | 2017-09-16 05:09 | HHI.HP ---
[facility] Service [facility] Primary Care Physician [facility] Admission Diagnosis acute chest pain, r/o ACS Diagnoses: Travel History International Travel<30 Days: No Contact w/Intl Traveler <30 Da: No Traveled to Known Affected Are: No History of Present Illness 67-year-old male with a past medical history significant for chronic back pain presents to the emergency department evaluation of chest and abdominal pain. The patient states that his chest pain began yesterday which started as a burning in his throat and became a bilateral chest pressure that radiated to his bilateral shoulders and down his arms. He went to the MD for evaluation and was told he was diaphoretic with blue lips at that time. He was sent to the ED for further evaluation and admitted to the chest pain center. The patient's initial troponin was less than 0.02 with subsequent troponin 0.06 and 0.07. He is not currently having any chest pain. His chief complaint is 5/10 abdominal pain which she describes as crampy and tender. He denies any nausea/ vomiting/diarrhea. No shortness of breath. No lateralizing signs/symptoms. Review of Systems Except as stated in HPI: all other systems reviewed are Neg Past Family Social History Past Medical History Chronic low back pain Unspecified cardiac dysrhythmia Past Surgical History Cardiac ablation for dysrhythmia Right wrist surgery Reported Medications Reported Meds & Active Scripts Active Reported Viagra (Sildenafil Citrate) 100 Mg Tab 100 Mg PO DAILY PRN Zolpidem (Zolpidem Tartrate) 10 Mg Tab 10 Mg PO HS PRN Ibuprofen 800 Mg Tab 800 Mg PO Q12HR PRN Proair Hfa 8.5 GM Inh (Albuterol Sulfate) 90 Mcg/Act Aer 2 Puff INH Q6H PRN 108 mcg/actuation Hydrocodone-Acetaminophen 10-325 mg Tab 1 Tab PO DAILY PRN Allergies: Coded Allergies: No Known Allergies (Verified Adverse Reaction, Unknown, 09/15/17) Family History Negative for CAD/DM Social History Smokes approximately 2-3 packs per day. Denies alcohol and illicit drugs. Physical Exam Vital Signs Vital Signs Date Time Temp Pulse Resp B/P (MAP) Pulse Ox O2 Delivery O2 Flow Rate FiO2 09/16/17 04:42 97.6 86 16 125/85 (98) 96 09/16/17 00:59 97.8 74 12 159/87 (111) 99 09/15/17 20:13 98.5 92 14 123/69 (87) 97 09/15/17 20:00 09/15/17 19:05 87 18 137/82 (100) 98 Nasal Cannula 2.00 09/15/17 17:15 Room Air 09/15/17 17:05 100 Nasal Cannula 2.00 09/15/17 17:02 94 24 138/72 (94) 96 09/15/17 17:02 94 138/72 (94) Physical Exam GENERAL: male lying in bed SKIN: No rashes, ecchymoses or lesions. Cool and dry. HEAD: Atraumatic. Normocephalic. No temporal or scalp tenderness. EYES: Pupils equal round and reactive. Extraocular motions intact. No scleral icterus. No injection or drainage. ENT: Nose without bleeding, purulent drainage or septal hematoma. Throat without erythema, tonsillar hypertrophy or exudate. Uvula midline. Airway patent. NECK: Trachea midline. No JVD or lymphadenopathy. Supple, nontender, no meningeal signs. CARDIOVASCULAR: Regular rate and rhythm without murmurs, gallops, or rubs. RESPIRATORY: Bilateral expiratory wheezes GASTROINTESTINAL: Abdomen soft, non-tender, nondistended. No hepato-splenomegaly , or palpable masses. No guarding. MUSCULOSKELETAL: Extremities without clubbing, cyanosis, or edema. No joint tenderness, effusion, or edema noted. No calf tenderness. Negative Homans sign bilaterally. NEUROLOGICAL: Awake and alert. Cranial nerves II through XII intact. Motor and sensory grossly within normal limits. Five out of 5 muscle strength in all muscle groups. Normal speech. Laboratory Laboratory Tests Test 09/15/17 17:10 09/15/17 20:40 09/15/17 23:50 White Blood Count 9.9 Red Blood Count 6.09 Hemoglobin 18.6 Hematocrit 53.4 Mean Corpuscular Volume 87.8 Mean Corpuscular Hemoglobin 30.6 Mean Corpuscular Hemoglobin Concent 34.9 Red Cell Distribution Width 15.0 Platelet Count 256 Mean Platelet Volume 8.7 Neutrophils (%) (Auto) 67.2 Lymphocytes (%) (Auto) 20.9 Monocytes (%) (Auto) 9.4 Eosinophils (%) (Auto) 1.3 Basophils (%) (Auto) 1.2 Neutrophils # (Auto) 6.7 Lymphocytes # (Auto) 2.1 Monocytes # (Auto) 0.9 Eosinophils # (Auto) 0.1 Basophils # (Auto) 0.1 CBC Comment DIFF FINAL Differential Comment Prothrombin Time 10.6 Prothromb Time International Ratio 1.0 Activated Partial Thromboplast Time 27.0 Blood Urea Nitrogen 18 Creatinine 1.30 Random Glucose 106 Total Protein 7.3 Albumin 3.4 Calcium Level 8.6 Magnesium Level 2.2 Alkaline Phosphatase 111 Aspartate Amino Transf (AST/SGOT) 27 Alanine Aminotransferase (ALT/SGPT) 32 Total Bilirubin 0.4 Sodium Level 141 Potassium Level 4.0 Chloride Level 109 Carbon Dioxide Level 22.1 Anion Gap 10 Estimat Glomerular Filtration Rate 55 Total Creatine Kinase 78 65 56 Troponin I LESS THAN 0.02 0.06 0.07 Lipase 159 Result Diagram: 09/15/17 1710 09/15/17 1710 Caprini VTE Risk Assessment Caprini VTE Risk Assessment: Mod/High Risk (score >= 2) Caprini Risk Assessment Model Point Value = 1 Point Value = 2 Point Value = 3 Point Value = 5 Age 41-60 Minor surgery BMI > 25 kg/m2 Swollen legs Varicose veins or History of unexplained or recurrent spontaneous Oral contraceptives or hormone replacement Sepsis (< 1 month) Serious lung disease, including pneumonia (< 1 month) Abnormal pulmonary function Acute myocardial infarction Congestive heart failure (< 1 month) History of inflammatory bowel disease Medical patient at bed rest Age 61-74 Arthroscopic surgery Major open surgery (> 45 min) Laparoscopic surgery (> 45 min) Malignancy Confined to bed (> 72 hours) Immobilizing plaster cast Central venous access Age >= 75 History of VTE Family history of VTE Factor V Leiden Prothrombin [id number] Lupus anticoagulant Anticardiolipin antibodies Elevated serum homocysteine Heparin-induced thrombocytopenia Other congenital or acquired thrombophilia Stroke (< 1 month) Elective arthroplasty Hip, pelvis, or leg fracture Acute spinal cord injury (< 1 month) Prophylaxis Regimen Total Risk Factor Score Risk Level Prophylaxis Regimen 0-1 Low Early ambulation 2 Moderate Order ONE of the following: *Sequential Compression Device (SCD) *Heparin 5000 units SQ BID 3-4 Higher Order ONE of the following medications: *Heparin 5000 units SQ TID *Enoxaparin/Lovenox 40 mg SQ daily (WT < 150 kg, CrCl > 30 mL/min) *Enoxaparin/Lovenox 30 mg SQ daily (WT < 150 kg, CrCl > 10-29 mL/min) *Enoxaparin/Lovenox 30 mg SQ BID (WT < 150 kg, CrCl > 30 mL/min) AND/OR *Sequential Compression Device (SCD) 5 or more Highest Order ONE of the following medications: *Heparin 5000 units SQ TID (Preferred with Epidurals) *Enoxaparin/Lovenox 40 mg SQ daily (WT < 150 kg, CrCl > 30 mL/min) *Enoxaparin/Lovenox 30 mg SQ daily (WT < 150 kg, CrCl > 10-29 mL/min) *Enoxaparin/Lovenox 30 mg SQ BID (WT < 150 kg, CrCl > 30 mL/min) AND *Sequential Compression Device (SCD) Assessment and Plan Assessment and Plan Assessment/plan: 1. Chest pain/elevated troponin Chest pain resolved EKG significant for an incomplete right bundle-branch block, no ST segment elevations or depressions, personally reviewed Troponins 0.02, 0.06, 0.07 Cardiology consulted, appreciate recommendations 2. Chronic back pain Holding home narcotics 3. Wheezing Patient was significant tobacco history without diagnosis of COPD DuoNeb's FEN NPO Electrolytes: Monitor and replete when necessary NS 100 cc/hr Heparin Farzaneh Moya MD Sep 16, 2017 05:09
[2017-09-16] MEDS ORDERED: RESP: ALBUTEROL 2.5 MG/IPRATROPIUM 0.5 MG NEB (PRN) NEB (05:15)
[2017-09-16] MEDS: SODIUM CHLOR 0.9% 1000 ML INJ 1,000 ML IV SCH ×2 (05:40→10:53)
--- NOTE | 2017-09-16 08:25 | HHI.PR ---
Subjective Remarks Follow up for chest pain, abdominal pain. The patient reports continue diffuse abdominal pain, worse at epigastric and periumbilical region. He reports associated belching. Denies nausea/vomiting. He did have a loose stool yesterday , but no intractable diarrhea. Prior to symptom onset, he ate pizza the night before, and then the next morning he ate a bologna sandwich, then symptoms began 1-2 hours later. He reports taking 1-2 ibuprofen 800mg tablets daily for his chronic back pain. He has not had any further chest pain since yesterday. He states the pain was located near the upper anterior sternum without any radiation, but this was relieved by nitro spray administered en route via [facility]. He denies any prior cardiac history. He reports a walking treadmill test 10+ years ago that was reportedly unremarkable. Denies any recent cardiac work up. He initially tells me that he's never had a cardiac catheterization, then later states he may have had this done but he is not sure and it would've been many years ago. Objective Vitals Vital Signs Date Time Temp Pulse Resp B/P (MAP) Pulse Ox O2 Delivery O2 Flow Rate FiO2 09/16/17 07:27 97.8 83 20 126/79 (95) 96 09/16/17 04:42 97.6 86 16 125/85 (98) 96 09/16/17 00:59 97.8 74 12 159/87 (111) 99 09/15/17 20:13 98.5 92 14 123/69 (87) 97 09/15/17 20:00 09/15/17 19:05 87 18 137/82 (100) 98 Nasal Cannula 2.00 09/15/17 17:15 Room Air 09/15/17 17:05 100 Nasal Cannula 2.00 09/15/17 17:02 94 24 138/72 (94) 96 09/15/17 17:02 94 138/72 (94) Result Diagram: 09/15/17 1710 09/15/17 1710 Imaging Last Impressions Chest X-Ray 09/15/17 1741 Signed Impressions: Service Date/Time: Friday, September 15, 2017 17:59 - CONCLUSION: Compensated cardiomegaly otherwise negative Nabil Lawson MD FACR Objective Remarks GENERAL: Well-nourished, well-developed pleasant male patient in NAD. SKIN: Warm and dry. No rash. Multiple tattoos. HEENT: Normocephalic. Atraumatic.Pupils equal and round. Mucous membranes pink and moist. NECK: Trachea midline. CARDIOVASCULAR: Regular rate and rhythm. No murmur appreciated. RESPIRATORY: No accessory muscle use. Clear to auscultation. Breath sounds equal bilaterally. GASTROINTESTINAL: Abdomen soft, nondistended, diffuse abdominal TTP, worse at epigastric area, with +Reno's sign. Normoactive bowel sounds x4. MUSCULOSKELETAL: No obvious deformities. Extremities without clubbing, cyanosis , or edema. NEUROLOGICAL: Awake and alert. No obvious cranial nerve deficits. Motor grossly within normal limits. Normal speech. PSYCHIATRIC: Appropriate mood and affect; insight and judgment normal. Medications and IVs Current Medications Medications (Trade) Dose Ordered Sig/Anny Route Start Time Stop Time Status Last Admin (Tylenol) 500 mg Q4H PRN PO 09/15/17 19:45 (NS Flush) 2 ml UNSCH PRN IV FLUSH 09/16/17 03:00 (NS Flush) 2 ml BID IV FLUSH 09/16/17 09:00 (Tylenol) 650 mg Q4H PRN PO 09/16/17 03:00 (Zofran Inj) 4 mg Q6H PRN IVP 09/16/17 03:00 (Heparin Inj) 5,000 units Q8H SQ 09/16/17 03:00 09/16/17 03:47 (Narcan Inj) 0.4 mg UNSCH PRN IV PUSH 09/16/17 03:00 (Bernadette-Colace) 1 tab BID PO 09/16/17 09:00 (Milk Of Magnesia Liq) 30 ml Q12H PRN PO 09/16/17 03:00 (Senokot) 17.2 mg Q12H PRN PO 09/16/17 03:00 (Dulcolax Supp) 10 mg DAILY PRN RECTAL 09/16/17 03:00 (Lactulose Liq) 30 ml DAILY PRN PO 09/16/17 03:00 (Duoneb Neb) 1 ampule Q4HR NEB PRN NEB 09/16/17 05:15 Sodium Chloride 1,000 ml @ 100 mls/hr Q10H IV 09/16/17 05:15 09/16/17 05:40 (Flonase Elgin Spr) 2 spray DAILY EACH NARE 09/16/17 09:00 A/P Assessment and Plan 67-year-old male with history of chronic back pain, tobacco use, presents with acute onset of chest and abdominal pain. Initially presented to the CT, then sent to [place] [facility] via [facility]. Chest Pain, suspected NSTEMI: No reports of CAD, however pain relieved by nitro , and +risk factors with tobacco use -Troponins trended, 0.02 --> 0.06 --> 0.07 -EKG reviewed, shows incomplete RBBB, otherwise no acute ischemic changes -Monitor on telemetry -Given aspirin, start on metoprolol 25mg bid, and start on statin for now pending lipid panel (LFTs wnl) -Check lipid panel and HgbA1c -Consult cardiology, seen by Dr. Mata, plan for cardiac catheterization today Abdominal Pain: patient's main complaint is abdominal pain. Symptom onset after eating pizza and bologna sandwich. +RUQ tenderness on exam. Also takes ibuprofen 800mg 1-2x per day. -Lipase and LFTs wnl -check abdominal CT -supportive treatment with IVF, antiemetics prn Tobacco Abuse: chronic -counseled on cessation -avoid nicotine patch due to vasoconstriction Chronic Back Pain: patient denies any acute worsening -continue patient's [place] prn DVT Prophylaxis: heparin sq Discharge Planning Discharge pending cardiac catheterization, and abdominal CT. Ashley Le PA-C Sep 16, 2017 8:24 am
[2017-09-16] MEDS ORDERED: HEPARIN-NS/PF FLUSH BAG 1,000 ML IV FLUSH ONE ×2 (08:39→09:29)
[2017-09-16] MEDS ORDERED: HEPARIN SODIUM - IV 10,000 UNITS/10 ML VIAL ONE (08:45)
[2017-09-16] MEDS ORDERED: SODIUM CHLORIDE 0.9% FLUSH 10 ML FLUSH IV FLUSH SCH (09:00)
[2017-09-16] MEDS: DOCUSATE SODIUM 50 MG/SENNA 8.6 MG TAB PO SCH ×2 (09:00→20:21)
[2017-09-16] MEDS ORDERED: LIDOCAINE HCL 1% PF 30 ML VIAL ONE ×2 (09:02→09:03)
[2017-09-16] MEDS ORDERED: MIDAZOLAM HCL 2 MG/2 ML VIAL ONE (09:03)
[2017-09-16] MEDS ORDERED: TIROFIBAN INFUSION INJ 250 ML IV ONE (09:21)
--- NOTE | 2017-09-16 09:22 | MB ---
cc: Esvin Mata MD DATE: 09/16/2017 HISTORY OF PRESENT ILLNESS: Holger is a very pleasant 67-year-old gentleman who is followed at the [place]. He states he had some sort of procedure years ago. He presents with moderate to severe chest pain, abdominal pain, still having the pain actually as I am speaking to him this morning. Otherwise, denies any fevers, chills, cough, GI or bleeding, orthopnea, syncope or dizziness. In the ER, it was noted that his pain improved with nitro. PAST MEDICAL HISTORY: Includes SVT, coronary artery disease, colonic polyps, hematuria, kidney stones, lumbar radiculopathy, disk degenerative arthropathy, pneumothorax. He is a titanium plate in the right wrist. He has a left chest tube. SOCIAL HISTORY: He does drink alcohol and he does smoke a pack of cigarettes a day. ALLERGIES: NONE. MEDICATIONS PRIOR TO ADMISSION: 1. Viagra. 2. Zolpidem. 3. Ibuprofen. 4. ProAir. 5. Hydrocodone. MEDICATIONS IN THE HOSPITAL: 1. Fluticasone. 2. Heparin 5000 subcutaneous every 8 hours. PHYSICAL EXAMINATION: VITAL SIGNS: Blood pressure 126/79, pulse 83, respiratory rate 20, temperature 97.8. GENERAL: He is alert and oriented x3, in no acute distress. NECK: Supple. No JVD or bruit. CARDIOVASCULAR: S1, S2. No murmurs, rubs, gallops. LUNGS: Clear to auscultation bilaterally. ABDOMEN: Soft, nontender, nondistended with positive bowel sounds. EXTREMITIES: No lower extremity edema. LABORATORY DATA: Chest x-ray shows compensated cardiomegaly, otherwise negative. LABORATORY DATA: White count 9.9, hemoglobin 18.6, hematocrit 53.4, platelet count 256. Troponin is 0.02, 0.06 and 0.7. Sodium 141, potassium 4.0, chloride 109, bicarbonate 22.1, BUN 18, creatinine 1.30. LFTs normal. INR is 1.0. First EKG: Normal sinus rhythm at 94 beats per minute, nonspecific ST-T wave changes. Second EKG: Normal sinus rhythm at 78 beats per minute, normal sinus rhythm at 72 beats per minutes, otherwise normal. DIAGNOSES: 1. Non-ST elevation myocardial infarction. 2. Tobacco abuse. 3. Polycythemia. DISCUSSION: At this point in time, the patient is having active chest pain. His troponins continue to rise. He has multiple cardiac risk factors, high pretest probability for significant coronary artery disease. Therefore, I do think left heart catheterization is urgently indicated. I explained to the patient that the risk of catheterization with PCI has a 5-10% chance of , stroke, heart attack, bleeding, infection, need for bypass surgery, dialysis, blood transfusion, bleeding, infection anaphylaxis and arrhythmia. The patient understands and consents to proceed with the procedure. MD RONIT Casillas/WILBER , 09:06 AM , 09:22 AM
[2017-09-16] MEDS ORDERED: ASPIRIN 81 MG CHEW TAB ONE (09:24)
[2017-09-16] MEDS ORDERED: PRASUGREL 10 MG TAB ONE (09:37)
[2017-09-16] MEDS: TIROFIBAN INFUSION INJ 250 ML IV SCH ×2 (09:54→22:07)
[2017-09-16] MEDS ORDERED: MISC INFORMATION XX ONE (10:00)
[2017-09-16] MEDS ORDERED: PRASUGREL 10 MG TAB PO ONE (10:00)
--- NOTE | 2017-09-16 10:01 | CATHPROC ---
Energy Excelerator HIS Report Study Information Study Number Admission Scheduled Start Study Start [id number] Sep 15 2017 7:37PM 09/16/2017 Sep 16 2017 8:42AM [facility] Cardiac Catheterization Admit Source Facility Department Emergency department [facility] - Dental Director Physician and Clinical Staff Initial Esvin Bell Porcelain Enamel RepairerAbbie Marlow RN Porcelain Enamel RepairerTejinder Verdin RN Other Radha Lopez RN Recorder Connie Singh,RELAY DISPATCHER TECH2 Recorder Madonna Bhandari,RT(R) (BS) Scrub Levi Shi,RT(R) Procedures Performed Procedure Location (Site) Vessel Name L Heart Cath LV Gram-hand inj. LV LV Ventricle PTCA ADD ON'S Stent PDA Prox Right Coronary Wire insertion Fem Art (right) Femoral Art Equipment Time Packaging Engineer Description Size Mfg Part Number Used/Scraped [id number] 09:25 [employer] WIRE, ASAHI PROWATER 180CM 180CM Used *[id number] 09:25 [employer] WIRE, ASAHI PROWATER 180CM 180CM Used *[id number] TRANSDUCER, TRUWAVE [id number] 09:02 BOX [place] * Used W/STOCKCOCK *[id number] *[id number] *[id number] *[id number] 08:43 [employer] INDUSTRIES PACK, CCL CUSTOM * Used *[id number] 09:02 [employer] PACER PEN, SKIN DUAL W/ RULER * Used *[id number] 09:30 [employer] STENT, 2.5 8 INTEGRITY 2.5 8 Used *[id number] 09:24 [employer] MEDICAL 30 YOLA INDEFLATOR Used *[id number] 09:25 [employer] MEDICAL SHEATH, FR6.5 PRELUDE 11CM FR 6.5 038ACT Used *[id number] 09:02 [employer] MEDICAL WIRE, 3MMJ .035 180CM 180CM Used *[id number] 08:43 [employer] MEDICAL WIRE, 3MMJ .035 180CM 180CM Used *[id number] 08:43 NAMIC MANIFOLD, 4 PORT * Used *[id number] 08:43 [employer] OMNIPAQUE, 350 MG, 150ML 150ML [id number] Used 09:02 [employer]ED OMNIPAQUE, 350 MG, 150ML 150ML [id number] Used [id number] 09:02 [employer] MEDICAL BLANKET,WARM AIR CCL * Used *[id number] 08:43 [employer]UM[employer] MEDICAL SHEATH, FR4 TERUMO (10CM) FR 4 Used *[id number] Equipment Model, Serial, Lot Number and Expiration Data Description Model Number Serial Number Lot Number Expiration Date STENT, 2.5 8 INTEGRITY [id number] 12-17-2018 History: Current Medications Medication Dosage/Unit Route Frequency Last Date/Time Taken ASA History: Allergies Allergy Reaction No Known Allergies History: Risk Factors Family History of Hypertension Dyslipidemia Previous ME Previous Heart Failure Premature CAD Yes No No No No Prior Valve Prior PCI Prior CABG Surgery No No No Cerebrovascular Peripheral Artery Chronic Lung On Dialysis Diabetes Disease Disease Disease No No No No No History: Stress Tests Stress or Imaging Studies Performed No History: Other Current Smoker Method Packs a Day Years Used Pack Years Yes Cigarettes 3 58 174 Labs Hgb (g/dl) Hct (%) WBC (l/cumm) Platelets (thousands) 11.60-17.00 35.00-51.00 4.00-11.00 150.00-450.00 18.6 53.4 9.9 256 Glucose (mg/dl) BUN (mg/dl) Creatinine (mg/dl) BUN:Creatinine (1:x) 74.00-106.00 7.00-18.00 0.50-1.30 10.00-20.00 106 18 1.3 13.8 Na (meq/l) K (meq/l) 136.00-145.00 3.50-5.10 141 4 INR (PTT:PT) 0.90-1.10 1 Troponin I (ng/ml) CPK (u/l) CPK-MB (ng/ML) 0.02-0.05 26.00-308.00 0.50-3.60 6.07 56 Not Drawn Medication Medication Total Dose (Bolus/Oral) Medication Total Dosage/Unit 1% XYLOCAINE 20 mL AGGRASTAT BOLUS 47.5 mL ASPIRIN 162 mg EFFIENT 60 mg FENTANYL 37.5 mcg HEPARIN 6600 units NTG (IC) 200 mcg Medications (Bolus/Oral) Medication Time Given Dosage/Unit Administered By Reason 1% XYLOCAINE 09/16/2017 9:16:40 AM 20 mL Esvin Mata 20 mL 1% XYLOCAINE given in lab by Esvin Mata in Right Groin via Subcutaneous. FENTANYL 09/16/2017 9:18:10 AM 12.5 mcg Radha Lopez 12.5 mcg FENTANYL given in lab by Radha Lopez RN in Left Forearm via Peripheral IV. HEPARIN 09/16/2017 9:25:26 AM 6600 units Radha Lopez 6600 units HEPARIN given in lab by Radha Lopez RN in Left Forearm via Peripheral IV. FENTANYL 09/16/2017 9:25:57 AM 12.5 mcg Radha Lopez 12.5 mcg FENTANYL given in lab by Radha Lopez RN in Left Forearm via Peripheral IV. FENTANYL 09/16/2017 9:26:48 AM 12.5 mcg Radha Lopez 12.5 mcg FENTANYL given in lab by Radha Lopez RN in Left Forearm via Peripheral IV. ASPIRIN 09/16/2017 9:29:41 AM 162 mg Radha Lopez 162 mg ASPIRIN given in lab by Radha Lopez RN via Oral. NTG (IC) 09/16/2017 9:37:38 AM 200 mcg Levi Shi 200 mcg NTG (IC) given in lab by Levi Shi, RT(R) in Right Groin via Intra-coronary. AGGRASTAT BOLUS 09/16/2017 9:42:42 AM 47.5 mL Radha Lopez 47.5 mL AGGRASTAT BOLUS given in lab by Radha Lopez RN via Peripheral IV. EFFIENT 09/16/2017 9:48:22 AM 60 mg Radha Lopez 60 mg EFFIENT given in lab by Radha Lpoez RN via Oral. Medication (Drip) Medication Time Given Dosage/Unit Concentration/Unit Diluent (ml) Solution AGGRASTAT DRIP 09/16/2017 9:44:54 AM 0.15 mcg/kg/min 12.5 mg 250 NaCl .9 0.15 mcg/kg/min AGGRASTAT DRIP given in lab by Radha Lopez RN via Peripheral IV. Pump/Drip Flow = 17.1 ml/hr using NaCl .9 with a concentration of 12.5 mg in 250 ml. IV Solutions 09/16/2017 8:58:07 AM 0 mL (IV) 500 NaCl .9 IV Solutions given in lab by Radha Lopez RN in Left Forearm via Peripheral IV. Pump/Drip Flow = 30 ml/hr using NaCl .9. Initial Case Assessment Cardiovascular HR Rhythm NIBP Chest Pain 79 reg 144/83 0 Edema Present Skin color Skin None Normal Warm Dry Circulatory - Right Pulses Dorsalis Pedis Femoral 2 2 Scale (0,1,2,3,4,d) Circulatory - Left Pulses Dorsalis Pedis Femoral 2 2 Scale (0,1,2,3,4,d) Circulatory - Lower Extremities Color Lower Right Color Lower Left Normal Normal Neurological State Oriented to time-place- Alert Moves all extremities person Respiration - General Respiration Rate SpO2 (%) (B/min) 11 96 Chronological Log Time Study Chronological Log 8:55:48 Patient arrived via Bed. 8:55:51 Patient Name, D.O.B, / Armband Verified By R.N. 8:57:54 Consent signed by the physician and the patient and verified by the Dental Director staff. 8:57:54 Pre-op and post- op instructions given; patient acknowledges understanding of instructions. 8:57:56 Verbal Stimulation=2 Physical Stimulation=2 Airway=2 Respiration=2 TOTAL=8. (0=absent, 1=li mited, 2=present) 8:57:58 Presedation assessment performed by Dental Director RN. 8:58:01 Patient has been NPO for More than 6Hrs. 8:58:03 Skin Breakdown none per pt 8:58:04 Patient Warmer Placed on the Table. 8:58:05 Sharee Prominences Protected 8:58:07 A # 20 IV was noted in the Forearm (left). Grade = 0 IV Solutions given in lab by Radha Lopez, RN in Left Forearm via Peripheral IV. Pump/Drip Flow = 30 ml/hr using 8:58:07 NaCl .9. 8:58:08 History and physical on the chart or being dictated. Assessment: Initial Case, HR=79 BPM, Rhythm=reg, VAZY=796/83 mmhg, Chest Pain=0, Edema=None, Col or=Normal, Skin = Warm, Dry Right Pulses: Mumtaz Ped=2, Femoral=2 Left Pulses: Mumtaz Ped=2, Femoral=2 8:58:12 Lower Right Extremities: Color=Normal Lower Left Extremities: Color=Normal Neurological: State=Alert, Ox3, ESTRELLA Respiration: Resp=11 B/min, SpO2=96 % Vitals capture started with the following parameters, Patient=Adult, Interval=5 min, Initial Pre lldph=394 mmHg, 9:02:50 Deflation Rate=5 mmHg, Cuff placed on Unknown 9:03:12 Bilateral groins prepped with 2% chlorhexidine, and draped after a 3 minute waiting time. 9:03:30 HR=76 bpm, QVNQ=838/83 mmhg, SpO2=97.0 %, Resp=7 B/min, Pain=0, Cisco=10, Escobedo=2 9:06:39 MD paged 9:06:56 MD responded 9:08:27 HR=83 bpm, LAAD=362/85 mmhg, SpO2=95.0 %, Resp=20 B/min, Pain=0, Cisco=10, Escobedo=2 9:09:33 Pressure channel 1 zeroed. 9:13:07 MD arrived. 9:13:24 HR=87 bpm, JORG=586/109 mmhg, SpO2=97.0 %, Resp=15 B/min, Pain=0, Cisco=10, Escobedo=2 9:15:16 Reference ECG taken Time Out. Correct patient, correct procedure, correct physician, power injector not loaded with contrast with surgical 9:15:57 team present. Time Out Concurred by MD and individual staff in procedure. 9:16:13 Case Start 9:16:40 20 mL 1% XYLOCAINE given in lab by Esvin Mata in Right Groin via Subcutaneous. 9:17:45 Access site was Right Femoral Artery. 9:17:55 A SHEATH, FR4 TERUMO (10CM) FR 4 was advanced into the Fem Art (right) using the Percutaneou s technique. 9:18:10 12.5 mcg FENTANYL given in lab by Radha Lopez, ASHTYN in Left Forearm via Peripheral IV. A JR 4.0 INFINITI CATHETER FR 4 was advanced over a wire. OMNIPAQUE, 350 MG, 150ML 150ML was use d for 9:18:21 injections. 9:18:27 HR=81 bpm, DPDI=193/85 mmhg, SpO2=97.0 %, Resp=11 B/min, Pain=0, Cisco=10, Escobedo=2 Recorded Pressure: LV, HR=77, Condition=Condition 1 9:18:59 (Left Ventricle) LV 140/14/24 9:19:05 The LV was manually injected with 8 cc's and visualized. OMNIPAQUE, 350 MG, 150ML 150ML used . Recorded Pressure: LV, Ao, HR=76, Condition=Condition 1 9:19:09 (Left Ventricle) LV 131/19/17, (Aorta) Ao 122/75/95 Recorded Pressure: Ao, HR=79, Condition=Condition 1 9:19:59 (Aorta) Ao 138/82/106 9:20:46 Catheter was removed A JL 4.0 INFINITI CATHETER FR 4 was advanced over a wire. OMNIPAQUE, 350 MG, 150ML 150ML was use d for ::49 injections. 9:22:39 Catheter was removed 9:24:03 HR=85 bpm, MZQI=729/94 mmhg, SpO2=95.0 %, Resp=22 B/min, Pain=0, Cisco=10, Escobedo=2 9:24:07 OMNIPAQUE, 350 MG, 150ML 150ML and 30 YOLA INDEFLATOR added. A SHEATH, FR6.5 PRELUDE 11CM FR 6.5 was exchanged in the Fem Art (right). This was necessary in order to 9:24:49 accomodate a larger catheter. 9:25:26 6600 units HEPARIN given in lab by Radha Lopez RN in Left Forearm via Peripheral IV. 9:25:57 12.5 mcg FENTANYL given in lab by Radha Lopez RN in Left Forearm via Peripheral IV. 9:26:48 12.5 mcg FENTANYL given in lab by Radha Lopez RN in Left Forearm via Peripheral IV. A JR 4.0 GUIDE CATHETER FR 6 was advanced over a wire. OMNIPAQUE, 350 MG, 150ML 150ML was used f or ::49 injections. 9:28:27 A WIRE, [employer] PROWATER 180CM 180CM was inserted via Fem Art (right). 9:28:30 HR=85 bpm, BVOX=225/100 mmhg, SpO2=96.0 %, Resp=18 B/min, Pain=0, Cisco=10, Escobedo=2 9:29:41 162 mg ASPIRIN given in lab by Radha Lopez, RN via Oral. 9:31:38 A WIRE, ASAHI PROWATER 180CM 180CM was inserted via Fem Art (right). 9:32:46 Called DOCU. Advised pt is undergoing intervention and will need a bed. 9:32:53 Activated Clotting Time Drawn An STENT, 2.5 8 INTEGRITY 2.5 8 Bare Metal Stent was inserted through a JR 4.0 GUIDE CATHETER F R 6 over a 9:33:24 WIRE, ASAHI PROWATER 180CM 180CM. 9:33:33 HR=81 bpm, ZSHC=735/87 mmhg, SpO2=96.0 %, Resp=18 B/min, Pain=0, Cisco=10, Escobedo=2 A STENT, 2.5 8 INTEGRITY 2.5 8 was deployed using a 30 YOLA INDEFLATOR at 10 atmospheres for 10 seconds in the 9:34:52 PDA Prox. 9:36:01 Delivery device removed 9:37:38 200 mcg NTG (IC) given in lab by Levi Shi, RT(R) in Right Groin via Intra-coronary. 9:38:28 HR=86 bpm, YOMW=675/82 mmhg, SpO2=95.0 %, Resp=16 B/min, Pain=0, Cisco=10, Escobedo=2 9:39:35 Wire removed 9:39:37 Wire removed 9:40:18 Catheter was removed 9:40:29 Case End 9:42:08 DOCU called. Advised a-line needed. Pt will go to DOCU 9. 9:42:36 Catheter(s) removed without difficulty 9:42:40 In the Fem Art (right) the SHEATH, FR6.5 PRELUDE 11CM FR 6.[address] by Levi Dougherty RT(R). 9:42:42 47.5 mL AGGRASTAT BOLUS given in lab by Radha Lopez, RN via Peripheral IV. 9:42:48 No case complications noted. 9:43:13 Implantable Device card placed in patient's chart. 9:43:18 A Left Heart Cath was performed. 9:43:33 HR=85 bpm, ESHT=913/74 mmhg, SpO2=91.0 %, Resp=19 B/min, Pain=0, Cisco=10, Escobedo=2 0.15 mcg/kg/min AGGRASTAT DRIP given in lab by Radha Lopez, ASHTYN via Peripheral IV. Pump/Dri p Flow = 17.1 9:44:54 ml/hr using NaCl .9 with a concentration of 12.5 mg in 250 ml. 9:48:22 60 mg EFFIENT given in lab by Radha Lopez, ASHTYN via Oral. 9:48:31 Vitals capture stopped. 9:50:[address] [facility] End Study - Contrast Media Used In Study Contrast Total Opened (mL) Total Used (mL) Total Wasted (mL) Omnipaque 60 60 0 End Study - Maximum Contrast Load Max Contrast Load (mL) 365.4 End Study - Radiation Exposure Fluoro Time (minutes) 5.6 End Study - Patient Disposition Complications Transferred To Interventional Outcome No Dental Director Holding successful
--- NOTE | 2017-09-16 10:03 | EKG ---
Date Performed: 09/15/2017 Time Performed: 23:43:02 PTAGE: 67 years EKG: Sinus rhythm INCOMPLETE RIGHT BUNDLE BRANCH BLOCK POSSIBLE RIGHT VENTRICULAR HYPERTROPHY ABNORMAL ECG No change PREVIOUS TRACING : 09/15/2017 22.05 DOCTOR: Lul Bal Interpretating Date/Time 09/16/2017 10:02:15
--- NOTE | 2017-09-16 10:04 | EKG ---
Date Performed: 09/15/2017 Time Performed: 17:07:34 PTAGE: 67 years EKG: Sinus rhythm MARKED LEFT AXIS DEVIATION INCOMPLETE RIGHT BUNDLE BRANCH BLOCK ABNORMAL ECG No significant change NO PREVIOUS TRACING DOCTOR: Lul Bal Interpretating Date/Time 09/17/2017 06:47:21
--- NOTE | 2017-09-16 10:04 | EKG ---
Date Performed: 09/15/2017 Time Performed: 22:05:56 PTAGE: 67 years EKG: Sinus rhythm WITH 2ND DEGREE AV BLOCK, MOBITZ TYPE II INCOMPLETE RIGHT BUNDLE BRANCH BLOCK POSSIBLE RIGHT VENTRIC ULAR HYPERTROPHY ABNORMAL ECG No significant change PREVIOUS TRACING : 09/15/2017 17.07 DOCTOR: Lul Bal Interpretating Date/Time 09/16/2017 10:03:02
[2017-09-16] MEDS: FLUTICASONE PROPIONATE 50 MCG/ACT 16 GM NASAL SPRAY EACH NARE SCH (10:39)
[2017-09-16] MEDS ORDERED: DIATRIZOATE MEGLUM/DIATRIZOATE SOD 9 ML CUP PO ONE (12:15)
--- NOTE | 2017-09-16 12:18 | MA ---
cc: Esvin Mata MD DATE: 09/16/2017 PROCEDURE PERFORMED: Left heart catheterization, left ventriculography, coronary angiography, direct PCI with bare metal stent of the ostial proximal right PDA. INDICATIONS FOR SURGERY: Non-STEMI. Coronary artery disease. PROCEDURE: The patient was brought to the cardiac catheterization laboratory, prepped and draped in the usual sterile fashion. A 10 mL of 1% lidocaine was used to locally anesthetize the right common femoral artery. A 4-Central African sheath with placed in the right common femoral artery. 4-Central African JR4 and JL4 catheter were used to perform left and right coronary angiography, left ventriculography. FINDINGS: The LV pressure is 150/9-10. EF is 60%. The right coronary artery is dominant; it has moderate diffuse disease in the proximal midsegment up to perhaps 50% angiographically. The right PDA has an ostial proximal 90% stenosis. The right posterolateral artery has an ostial proximal 70% stenosis. The left main coronary artery has no significant disease angiographically, but it does appear to be angiographically small. No focal obstructive disease. Reference vessel diameter probably 3.25 mm in diameter. The left circumflex vessel has mild diffuse disease in the proximal AV groove up to 10% angiographically. First obtuse marginal vessel has mild to moderate ostial proximal disease up to 30-40% angiographically, reference vessel diameter 2.5 mm. There is a bifurcation in the midsegment. Second and third obtuse marginal vessels are small vessels, 1-1.5 mm vessels with no significant obstructive disease. The LAD is transapical. There is a 60-70% stenosis at a bifurcation with a small to medium-sized diagonal vessel, which probably has a reference vessel diameter of 2 mm. The LAD is transapical. DISCUSSION: The highest grade lesion is the ostial proximal right PDA. I do think this is the culprit lesion. I discussed with the patient the option of considering bypass, although prior to consideration of any revascularization of the LAD, I do think FFR would be indicated to document this is hemodynamically significant as angiographically it is not definitely significant. The patient declined CABG. INTERVENTION: Therefore, the 6-Central African sheath was exchanged for a 4-Central African sheath. 70 units per kilo of heparin was given. ACT 252. A 6-Central African JR4 guide with 0.014 [place] guidewire was placed into the right PDA and then a second 0.014 [place] guide wire was placed into the right ELLIOT to protect the ELLIOT. I then placed a 2.5/8 Integrity stent at the ostial proximal segment of the right PDA. Without the stent deployed the patient developed his typical angina. When the stent was deployed to 10 atmospheres, his angina intensified. The stent was deployed to 10 atmospheres. Stenosis went from 90% to 0% with SANDY-3 flow. There was no significant compromise of the right posterolateral artery. I did try to place this stent just distal to the os of the right ELLIOT, although angiographically it does appear that a corner of the stent is possibly jailing the right ELLIOT. Again, the os of the ELLIOT remained at about 60-70% angiographically. The patient's chest pain completely resolved. He also had some jaw pain which also completely resolved at the end of the case. Flow was SANDY-3 into the right ELLIOT. CONCLUSION: 1. [id number] myocardial infarction, culprit 90% ostial proximal right posterior diagonal artery, as detailed above. 2. A 70% proximal mid-left anterior descending at a bifurcation with a small to medium-sized diagonal vessel, as detailed above. 3. Mild to moderate diffuse disease in the proximal mid-right coronary artery. There is also a 50-60% stenosis in the mid-right posterior diagonal artery. 4. Normal left ventricular systolic function with ejection fraction 60%. 5. Successful direct percutaneous coronary intervention with bare metal stent of the ostial proximal right posterior descending artery from 90% to 0% with SANDY-3 flow. NOTE: ACT was 252. RECOMMENDATIONS: 1. The patient was given 162 mg of aspirin in the label tacker as he did not receive any aspirin in the ER. 2. Also, we will start him on 60 of Effient at 10 mg p.o. daily. 3. Aggrastat drip per protocol and aspirin mg daily. 4. We will check fasting lipids, ALT and treat to NCCP guidelines. 5. MARY inhibitor and beta blockers as clinically and hemodynamically tolerated. 6. I strongly recommended to the patient that he stop smoking. Esvin Mata MD AWC/SB/johny , 09:53 AM , 10:38 AM
[2017-09-16] MEDS ORDERED: LORazepam 2 MG/ML VIAL IV PUSH ONE (14:30)
[2017-09-16] MEDS ORDERED: METOPROLOL TARTRATE 5 MG/5 ML VIAL ONE ×2 (15:57→16:11)
[2017-09-16] MEDS ORDERED: RAMIPRIL 2.5 MG CAP PO ONE (16:00)
[2017-09-16] MEDS ORDERED: ENALAPRILAT 1.25 MG/ML VIAL IV PUSH PRN (16:00)
[2017-09-16] MEDS: METOPROLOL TARTRATE 5 MG/5 ML VIAL IV PUSH SCH ×2 (16:21→16:25)
[2017-09-16] MEDS: ONDANSETRON HCL 4 MG/2 ML VIAL IVP PRN (16:22)
[2017-09-16] MEDS: METOPROLOL TARTRATE 25 MG TAB PO SCH ×2 (16:26→23:45)
[2017-09-16] MEDS: ACETAMINOPHEN/HYDROcodone 325 MG/10 MG TAB PO PRN (17:10)
--- NOTE | 2017-09-16 20:10 | EKG ---
Date Performed: 09/16/2017 Time Performed: 15:51:58 PTAGE: 67 years EKG: Sinus rhythm with bigeminal PVCs. Right axis deviation rSr'(V1) - probable normal variant Inferior T wave changes are nonspecific Abnormal ECG PREVIOUS TRACING : 09/15/2017 23.43 Compared to previous tracing, PVCs are now present. DOCTOR: Jared Lenz Interpretating Date/Time 09/16/2017 20:09:58
[2017-09-16] MEDS: SODIUM CHLORIDE 0.9% FLUSH 10 ML FLUSH IV FLUSH SCH (20:22)
[2017-09-16] MEDS: CARVEDILOL 3.125 MG TAB PO SCH (20:22)
[2017-09-16 21:00] LABS: CHOLESTEROL 217 MG/DL (120-200); TRIGLYCERIDES 393 MG/DL (42-150)
[2017-09-16] MEDS ORDERED: ATORVASTATIN 20 MG TAB PO SCH (21:00)
[2017-09-16] MEDS ORDERED: ATORVASTATIN 10 MG TAB PO SCH (21:00)
[2017-09-16] MEDS ORDERED: METOPROLOL TARTRATE 25 MG TAB PO SCH (21:00)
[2017-09-16 21:03] LABS: CHOLESTEROL/ HDL RATIO 10.58 RATIO; HDL CHOLESTEROL 20.5 MG/DL (40.0-60.0); LDL CHOLESTEROL 118 MG/DL (0-99)
[2017-09-17] VITALS (25 sets, daily range): BP systolic 93–110; BP diastolic 62–70; PULSE 54–122; RESP 18; TEMP 97.9–99.5; O2SAT 94–97
[2017-09-17] MEDS: SODIUM CHLOR 0.9% 1000 ML INJ 1,000 ML IV SCH ×2 (01:15→14:00)
[2017-09-17] MEDS: METOPROLOL TARTRATE 25 MG TAB PO SCH ×2 (05:12→13:11)
[2017-09-17 06:53] LABS: AUTOMATED NEUTROPHIL # 13.1 TH/MM3 (1.8-7.7); BASOPHIL # 0.1 TH/MM3 (0-0.2); BASOPHIL % 0.4 % (0.0-2.0); EOSINOPHIL # 0.3 TH/MM3 (0-0.4); EOSINOPHIL % 2.3 % (0.0-4.0); HEMATOCRIT 53.2 % (39.0-51.0); HEMOGLOBIN 18.2 GM/DL (13.0-17.0); LYMPH % 5.3 % (9.0-44.0); LYMPHOCYTE # 0.8 TH/MM3 (1.0-4.8); MEAN CELL VOLUME 88.2 FL (80.0-100.0); MEAN CORPUSCULAR HEMOGLOBIN 30.2 PG (27.0-34.0); MEAN CORPUSCULAR HGB CONC 34.3 % (32.0-36.0); MEAN PLATELET VOLUME 8.5 FL (7.0-11.0); MONO % 3.8 % (0.0-8.0); MONOCYTE # 0.6 TH/MM3 (0-0.9); NEUT % 88.2 % (16.0-70.0); PLATELET COUNT 239 TH/MM3 (150-450); RED BLOOD COUNT 6.03 MIL/MM3 (4.50-5.90); RED CELL DISTRIBUTION WIDTH 14.6 % (11.6-17.2); WHITE BLOOD COUNT 14.9 TH/MM3 (4.0-11.0)
[2017-09-17 07:20] LABS: BICARBONATE 21.2 MEQ/L (21.0-32.0); CREATININE 1.76 MG/DL (0.60-1.30)
[2017-09-17 07:25] LABS: CHOLESTEROL/ HDL RATIO 8.48 RATIO; HDL CHOLESTEROL 21.1 MG/DL (40.0-60.0)
--- NOTE | 2017-09-17 08:46 | EKG ---
Date Performed: 09/17/2017 Time Performed: 05:22:06 PTAGE: 67 years EKG: Sinus tachycardia with frequent PVCs Right axis deviation Abnormal ECG PREVIOUS TRACING : 09/16/2017 15.51 No significant change from previous tracing noted. DOCTOR: Jared Lenz Interpretating Date/Time 09/17/2017 08:44:16
[2017-09-17] MEDS ORDERED: RAMIPRIL 2.5 MG CAP PO SCH (09:00)
[2017-09-17] MEDS: DOCUSATE SODIUM 50 MG/SENNA 8.6 MG TAB PO SCH ×2 (09:00→20:52)
[2017-09-17] MEDS: CARVEDILOL 3.125 MG TAB PO SCH (09:05)
[2017-09-17] MEDS: PRASUGREL 10 MG TAB PO SCH (09:06)
[2017-09-17] MEDS: SODIUM CHLORIDE 0.9% FLUSH 10 ML FLUSH IV FLUSH SCH ×2 (09:07→20:53)
[2017-09-17] MEDS: FLUTICASONE PROPIONATE 50 MCG/ACT 16 GM NASAL SPRAY EACH NARE SCH (09:07)
[2017-09-17] MEDS: ASPIRIN 81 MG CHEW TAB PO SCH (09:07)
[2017-09-17] MEDS ORDERED: SODIUM CHLOR 0.9% 1000 ML INJ 1,000 ML IV ONE (13:45)
--- NOTE | 2017-09-17 14:36 | RADRPT ---
EXAM DATE/TIME: 09/17/2017 14:16 [facility] COMPARISON: CT ABDOMEN & PELVIS W/O CONTRAST, November 26, 2016, 19:40. INDICATIONS : Abdominal pain, hematuria, blood in stool for 2 days. ORAL CONTRAST: No oral contrast ingested. RADIATION DOSE: 13.50 CTDIvol (mGy) MEDICAL HISTORY : Cardiovascular disease. Renal calculi. Renal disease, polyps in colon, epiditimytis, supraventricular tachycardia. SURGICAL HISTORY : None. ENCOUNTER: Initial ACUITY: 1 day PAIN SCALE: 4/10 LOCATION: Abdomen TECHNIQUE: Volumetric scanning of the abdomen and pelvis was performed. Using automated exposure control and ad justment of the mA and/or kV according to patient size, radiation dose was kept as low as reasonably achievable to obtain optimal diagnostic quality images. DICOM format image data is available electro nically for review and comparison. FINDINGS: LOWER LUNGS: Minimal groundglass opacities at the lung bases LIVER: Homogeneous density without lesion. There is no dilation of the biliary tree. Dense material in the gallbladder which may reflect sludge. SPLEEN: Normal size without lesion. PANCREAS: Within normal limits. KIDNEYS: Asymmetric renal size with smaller left kidney. 5 x 6 mm calcified calculus in the mid left kidney. N o hydronephrosis or significant contour deforming abnormality. ADRENAL GLANDS: Within normal limits. VASCULAR: There is no aortic aneurysm. 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 BOWEL/MESENTERY: The stomach, small bowel, and colon demonstrate no acute abnormality. Mild scattered colonic divertic ulosis. Appendix is within normal limits. There is no free intraperitoneal air or fluid. ABDOMINAL WALL: Within normal limits. RETROPERITONEUM: There is no lymphadenopathy. BLADDER: Unremarkable. No radiopaque bladder calculi. REPRODUCTIVE: Within normal limits. INGUINAL: Small bilateral fat-containing inguinal hernias. MUSCULOSKELETAL: Within normal limits for patient age. CONCLUSION: 1. No acute CT abnormality in the abdomen or pelvis. 2. 5 x 6 mm nonobstructing calcified calyceal calculus in the mid left kidney. 3. Mild scattered colonic diverticulosis without evidence for diverticulitis. 4. Additional ancillary findings include probable gallbladder sludge, asymmetrical renal size, and sm all fat-containing inguinal hernias. Dann Azar MD on September 17, 2017 at 14:25 Board Certified Radiologist. This report was verified electronically.
[2017-09-17] MEDS ORDERED: HEPARIN-NS/PF FLUSH BAG 2,000 ML IV FLUSH ONE (14:51)
[2017-09-17] MEDS ORDERED: MIDAZOLAM HCL 2 MG/2 ML VIAL ONE (15:03)
[2017-09-17] MEDS ORDERED: HEPARIN SODIUM - IV 10,000 UNITS/10 ML VIAL ONE (15:04)
--- NOTE | 2017-09-17 15:34 | HHI.PR ---
Subjective Remarks 67-year-old male with a past medical history significant for chronic back pain presents to the emergency department evaluation of chest and abdominal pain. The patient states that his chest pain began yesterday which started as a burning in his throat and became a bilateral chest pressure that radiated to his bilateral shoulders and down his arms. He went to the [place] for evaluation and was told he was diaphoretic with blue lips at that time. He was sent to the ED for further evaluation and admitted to the chest pain center. The patient's initial troponin was less than 0.02 with subsequent troponin 0.06 and 0.07. He is not currently having any chest pain. His chief complaint is 5/10 abdominal pain which she describes as crampy and tender. He denies any nausea/ vomiting/diarrhea. No shortness of breath. No lateralizing signs/symptoms. Follow up for chest pain, abdominal pain. The patient reports continue diffuse abdominal pain, worse at epigastric and periumbilical region. He reports associated belching. Denies nausea/vomiting. He did have a loose stool yesterday , but no intractable diarrhea. Prior to symptom onset, he ate pizza the night before, and then the next morning he ate a bologna sandwich, then symptoms began 1-2 hours later. He reports taking 1-2 ibuprofen 800mg tablets daily for his chronic back pain. He has not had any further chest pain since yesterday. He states the pain was located near the upper anterior sternum without any radiation, but this was relieved by nitro spray administered en route via [facility]. He denies any prior cardiac history. He reports a walking treadmill test 10+ years ago that was reportedly unremarkable. Denies any recent cardiac work up. He initially tells me that he's never had a cardiac catheterization, then later states he may have had this done but he is not sure and it would've been many years ago. 4-6 had a catheterization yesterday. Going for another cardiac catheterization later today with cardiology AM LABS RENAL FUNCTIONS DW PATIENT AND RN AND CM CONTINUE IV FLUIDS Objective Vitals Vital Signs Date Time Temp Pulse Resp B/P (MAP) Pulse Ox O2 Delivery O2 Flow Rate FiO2 09/17/17 13:00 87 09/17/17 12:00 84 09/17/17 11:30 98.6 79 18 106/64 (78) 94 09/17/17 11:00 86 09/17/17 10:00 98 09/17/17 09:49 97 21 09/17/17 09:00 90 09/17/17 08:00 84 09/17/17 07:30 99.0 90 18 93/62 (72) 94 09/17/17 07:00 86 09/17/17 05:00 100 09/17/17 04:12 99.5 96 104/70 (81) 96 09/17/17 04:00 102 09/17/17 03:00 97 09/17/17 02:00 100 09/17/17 01:00 102 09/17/17 00:00 100 09/16/17 23:50 99.1 101 90/55 (67) 91 09/16/17 23:00 102 09/16/17 22:00 110 09/16/17 21:00 102 09/16/17 20:00 99.8 105 111/75 (87) 94 09/16/17 20:00 108 09/16/17 20:00 95 09/16/17 19:00 108 09/16/17 18:00 106 09/16/17 17:01 99.1 108 18 137/91 (106) 97 09/16/17 17:00 108 09/16/17 15:45 98.9 120 20 97 Automatic Cuff I/O 09/16/17 09/16/17 09/16/17 09/17/17 09/17/17 09/17/17 07:00 15:00 23:00 07:00 15:00 23:00 Intake Total 0 ml 1240 ml 240 ml 1000 ml Output Total 200 ml Balance 0 ml 1240 ml 40 ml 1000 ml Intake Oral 240 ml 240 ml IV Total 0 ml 1000 ml 1000 ml Output Urine Total 200 ml # Voids 1 # Bowel Movements 2 Result Diagram: 09/17/17 0449 09/17/17 0449 Other Results Laboratory Tests Test 09/15/17 17:10 09/15/17 20:40 09/15/17 23:50 09/16/17 20:08 White Blood Count 9.9 TH/MM3 Red Blood Count 6.09 MIL/MM3 Hemoglobin 18.6 GM/DL Hematocrit 53.4 % Mean Corpuscular Volume 87.8 FL Mean Corpuscular Hemoglobin 30.6 PG Mean Corpuscular Hemoglobin Concent 34.9 % Red Cell Distribution Width 15.0 % Platelet Count 256 TH/MM3 Mean Platelet Volume 8.7 FL Neutrophils (%) (Auto) 67.2 % Lymphocytes (%) (Auto) 20.9 % Monocytes (%) (Auto) 9.4 % Eosinophils (%) (Auto) 1.3 % Basophils (%) (Auto) 1.2 % Neutrophils # (Auto) 6.7 TH/MM3 Lymphocytes # (Auto) 2.1 TH/MM3 Monocytes # (Auto) 0.9 TH/MM3 Eosinophils # (Auto) 0.1 TH/MM3 Basophils # (Auto) 0.1 TH/MM3 CBC Comment DIFF FINAL Differential Comment Prothrombin Time 10.6 SEC Prothromb Time International Ratio 1.0 RATIO Activated Partial Thromboplast Time 27.0 SEC Blood Urea Nitrogen 18 MG/DL Creatinine 1.30 MG/DL Random Glucose 106 MG/DL Total Protein 7.3 GM/DL Albumin 3.4 GM/DL Calcium Level 8.6 MG/DL Magnesium Level 2.2 MG/DL Alkaline Phosphatase 111 U/L Aspartate Amino Transf (AST/SGOT) 27 U/L Alanine Aminotransferase (ALT/SGPT) 32 U/L Total Bilirubin 0.4 MG/DL Sodium Level 141 MEQ/L Potassium Level 4.0 MEQ/L Chloride Level 109 MEQ/L Carbon Dioxide Level 22.1 MEQ/L Anion Gap 10 MEQ/L Estimat Glomerular Filtration Rate 55 ML/MIN Total Creatine Kinase 78 U/L 65 U/L 56 U/L Troponin I LESS THAN 0.02 NG/ML 0.06 NG/ML 0.07 NG/ML Lipase 159 U/L Triglycerides Level 393 MG/DL Cholesterol Level 217 MG/DL LDL Cholesterol 118 MG/DL HDL Cholesterol 20.5 MG/DL Cholesterol/HDL Ratio 10.58 RATIO Test 09/17/17 04:49 White Blood Count 14.9 TH/MM3 Red Blood Count 6.03 MIL/MM3 Hemoglobin 18.2 GM/DL Hematocrit 53.2 % Mean Corpuscular Volume 88.2 FL Mean Corpuscular Hemoglobin 30.2 PG Mean Corpuscular Hemoglobin Concent 34.3 % Red Cell Distribution Width 14.6 % Platelet Count 239 TH/MM3 Mean Platelet Volume 8.5 FL Neutrophils (%) (Auto) 88.2 % Lymphocytes (%) (Auto) 5.3 % Monocytes (%) (Auto) 3.8 % Eosinophils (%) (Auto) 2.3 % Basophils (%) (Auto) 0.4 % Neutrophils # (Auto) 13.1 TH/MM3 Lymphocytes # (Auto) 0.8 TH/MM3 Monocytes # (Auto) 0.6 TH/MM3 Eosinophils # (Auto) 0.3 TH/MM3 Basophils # (Auto) 0.1 TH/MM3 CBC Comment DIFF FINAL Differential Comment Blood Urea Nitrogen 23 MG/DL Creatinine 1.76 MG/DL Random Glucose 90 MG/DL Calcium Level 8.0 MG/DL Sodium Level 137 MEQ/L Potassium Level 3.8 MEQ/L Chloride Level 105 MEQ/L Carbon Dioxide Level 21.2 MEQ/L Anion Gap 11 MEQ/L Estimat Glomerular Filtration Rate 39 ML/MIN Total Creatine Kinase 69 U/L Triglycerides Level 289 MG/DL Cholesterol Level 179 MG/DL LDL Cholesterol 100 MG/DL HDL Cholesterol 21.1 MG/DL Cholesterol/HDL Ratio 8.48 RATIO Imaging Last Impressions Abdomen/Pelvis CT 09/17/17 0000 Signed Impressions: Service Date/Time: Sunday, September 17, 2017 14:16 - CONCLUSION: 1. No acute CT abnormality in the abdomen or pelvis. 2. 5 x 6 mm nonobstructing calcified calyceal calculus in the mid left kidney. 3. Mild scattered colonic diverticulosis without evidence for diverticulitis. 4. Additional ancillary findings include probable gallbladder sludge, asymmetrical renal size, and small fat-containing inguinal hernias. Dann Azar MD Chest X-Ray 09/15/17 1741 Signed Impressions: Service Date/Time: Friday, September 15, 2017 17:59 - CONCLUSION: Compensated cardiomegaly otherwise negative Nabil Lawson MD FACR Objective Remarks GENERAL: Awake alert and oriented 3 talkative and cooperative appears to be in no acute distress at this time SKIN: Warm and dry. Multiple tattoos HEAD: Atraumatic. Normocephalic. EYES: Pupils equal and round. No scleral icterus. No injection or drainage. Extraocular muscles intact ENT: No nasal bleeding or discharge. Mucous membranes pink and moist. Tongue is midline NECK: Trachea midline. No JVD. Supple CARDIOVASCULAR: Regular rate and rhythm. S1-S2 no S3 or S4 RESPIRATORY: No accessory muscle use. Clear to auscultation. Breath sounds equal bilaterally. GASTROINTESTINAL: Abdomen soft, non-tender, nondistended. Hepatic and splenic margins not palpable. Obese MUSCULOSKELETAL: Extremities without clubbing, cyanosis, or edema. No obvious deformities. NEUROLOGICAL: Awake and alert. No obvious cranial nerve deficits. Motor grossly within normal limits. Five out of 5 muscle strength in the arms and legs. Normal speech. PSYCHIATRIC: Appropriate mood and affect; insight and judgment normal. Procedures 09/16/2017 PROCEDURE PERFORMED: Left heart catheterization, left ventriculography, coronary angiography, direct PCI with bare metal stent of the ostial proximal right PDA. INDICATIONS FOR SURGERY: Non-STEMI. Coronary artery disease. PROCEDURE: The patient was brought to the cardiac catheterization laboratory, prepped and draped in the usual sterile fashion. A 10 mL of 1% lidocaine was used to locally anesthetize the right common femoral artery. A 4-[place] sheath with placed in the right common femoral artery. 4-[place] JR4 and JL4 catheter were used to perform left and right coronary angiography, left ventriculography. FINDINGS: The LV pressure is 150/9-10. EF is 60%. The right coronary artery is dominant; it has moderate diffuse disease in the proximal midsegment up to perhaps 50% angiographically. The right PDA has an ostial proximal 90% stenosis. The right posterolateral artery has an ostial proximal 70% stenosis. The left main coronary artery has no significant disease angiographically, but it does appear to be angiographically small. No focal obstructive disease. Reference vessel diameter probably 3.25 mm in diameter. The left circumflex vessel has mild diffuse disease in the proximal AV groove up to 10% angiographically. First obtuse marginal vessel has mild to moderate ostial proximal disease up to 30-40% angiographically, reference vessel diameter 2.5 mm. There is a bifurcation in the midsegment. Second and third obtuse marginal vessels are small vessels, 1-1.5 mm vessels with no significant obstructive disease. The LAD is transapical. There is a 60-70% stenosis at a bifurcation with a small to medium-sized diagonal vessel, which probably has a reference vessel diameter of 2 mm. The LAD is transapical. DISCUSSION: The highest grade lesion is the ostial proximal right PDA. I do think this is the culprit lesion. I discussed with the patient the option of considering bypass, although prior to consideration of any revascularization of the LAD, I do think FFR would be indicated to document this is hemodynamically significant as angiographically it is not definitely significant. The patient declined CABG. INTERVENTION: Therefore, the 6-[place] sheath was exchanged for a 4-[place] sheath. 70 units per kilo of heparin was given. ACT 252. A 6-[place] JR4 guide with 0.014 [place] guidewire was placed into the right PDA and then a second 0.014 [place] guide wire was placed into the right ELLIOT to protect the ELLIOT. I then placed a 2.5/8 Integrity stent at the ostial proximal segment of the right PDA. Without the stent deployed the patient developed his typical angina. When the stent was deployed to 10 atmospheres, his angina intensified. The stent was deployed to 10 atmospheres. Stenosis went from 90% to 0% with SANDY-3 flow. There was no significant compromise of the right posterolateral artery. I did try to place this stent just distal to the os of the right ELLIOT, although angiographically it does appear that a corner of the stent is possibly jailing the right ELLIOT. Again, the os of the ELLIOT remained at about 60-70% angiographically. The patient's chest pain completely resolved. He also had some jaw pain which also completely resolved at the end of the case. Flow was SANDY-3 into the right ELLIOT. CONCLUSION: 1. [id number] myocardial infarction, culprit 90% ostial proximal right posterior diagonal artery, as detailed above. 2. A 70% proximal mid-left anterior descending at a bifurcation with a small to medium-sized diagonal vessel, as detailed above. 3. Mild to moderate diffuse disease in the proximal mid-right coronary artery. There is also a 50-60% stenosis in the mid-right posterior diagonal artery. 4. Normal left ventricular systolic function with ejection fraction 60%. 5. Successful direct percutaneous coronary intervention with bare metal stent of the ostial proximal right posterior descending artery from 90% to 0% with SANDY-3 flow. NOTE: ACT was 252. RECOMMENDATIONS: 1. The patient was given 162 mg of aspirin in the oil laboratory analyst as he did not receive any aspirin in the ER. 2. Also, we will start him on 60 of Effient at 10 mg p.o. daily. 3. Aggrastat drip per protocol and aspirin mg daily. 4. We will check fasting lipids, ALT and treat to NCCP guidelines. 5. MARY inhibitor and beta blockers as clinically and hemodynamically tolerated. 6. I strongly recommended to the patient that he stop smoking. Medications and IVs Current Medications Sodium Chloride (NS Flush) 2 ml UNSCH PRN IVF FLUSH AFTER USING IV ACCESS; Start 09/15/17 at 17:45; Stop 09/16/17 at 03:07; Status DC Nitroglycerin (Nitrostat Sl) 0.4 mg ONCE ONCE SL Last administered on at 19:06; Start 09/15/17 at 18:00; Stop 09/15/17 at 18:01; Status DC Sodium Chloride (NS Flush) 2 ml UNSCH PRN IV FLUSH FLUSH AFTER USING IV ACCESS ; Start 09/15/17 at 19:45; Stop 09/16/17 at 03:07; Status DC Sodium Chloride (NS Flush) 2 ml BID IV FLUSH ; Start 09/15/17 at 21:00; Stop 09/16 at 03:07; Status DC Acetaminophen (Tylenol) 500 mg Q4H PRN PO HEADACHE; Start 09/15/17 at 19:45 Sodium Chloride 1,000 ml @ 100 mls/hr Q10H IV ; Start 09/16/17 at 02:58; Stop at 05:25; Status DC Sodium Chloride (NS Flush) 2 ml UNSCH PRN IV FLUSH FLUSH AFTER USING IV ACCESS ; Start 09/16/17 at 03:00; Stop 09/16/17 at 10:11; Status DC Sodium Chloride (NS Flush) 2 ml BID IV FLUSH ; Start 09/16/17 at 09:00; Stop 09/16 at 10:11; Status DC Acetaminophen (Tylenol) 650 mg Q4H PRN PO TEMP > 100.4; Start 09/16/17 at 03:00 Ondansetron HCl (Zofran Inj) 4 mg Q6H PRN IVP NAUSEA OR VOMITING Last administered on 09/16/17at 16:22; Start 09/16/17 at 03:00 Heparin Sodium (Porcine) (Heparin Inj) 5,000 units Q8H SQ Last administered on 09/16/17at 03:47; Start 09/16/17 at 03:00; Stop 09/16/17 at 10:05; Status DC Naloxone HCl (Narcan Inj) 0.4 mg UNSCH PRN IV PUSH SEE LABEL COMMENTS; Start at 03:00 Senna/Docusate Sodium (Bernadette-Colace) 1 tab BID PO ; Start 09/16/17 at 09:00 Magnesium Hydroxide (Milk Of Magnesia Liq) 30 ml Q12H PRN PO Mild constipation ; Start 09/16/17 at 03:00 Sennosides (Senokot) 17.2 mg Q12H PRN PO Moderate constipation; Start 09/16/17 at 03:00 Bisacodyl (Dulcolax Supp) 10 mg DAILY PRN RECTAL SEVERE CONSITIPATION; Start at 03:00 Lactulose (Lactulose Liq) 30 ml DAILY PRN PO SEVERE CONSITIPATION; Start at 03:00 Albuterol/ Ipratropium (Duoneb Neb) 1 ampule Q4HR NEB PRN NEB SOB/Wheezing; Start 09/16/17 at 05:15 Sodium Chloride 1,000 ml @ 100 mls/hr Q10H IV Last administered on 09/17/17at 01 :15; Start 09/16/17 at 05:15; Stop 09/17/17 at 13:36; Status DC Fluticasone Propionate (Flonase [place] Spr) 2 spray DAILY EACH NARE Last administered on 09/17/17at 09:07; Start 09/16/17 at 09:00 Heparin Sodium/ Sodium Chloride 1,000 ml @ As Directed STK-MED ONCE IV FLUSH Last administered on 09/16/17at 08:39; Start 09/16/17 at 08:39; Stop 09/16/17 at 08: 40; Status DC Heparin Sodium (Porcine) (Heparin Inj) 10,000 units STK-MED ONCE .ROUTE Last administered on 09/16/17at 09:25; Start 09/16/17 at 08:45; Stop 09/16/17 at 08:46; Status DC Lidocaine HCl (Xylocaine-Mpf 1% Inj) 30 ml STK-MED ONCE .ROUTE Last administered on 09/16/17at 09:02; Start 09/16/17 at 09:02; Stop 09/16/17 at 09:03; Status DC Lidocaine HCl (Xylocaine-Mpf 1% Inj) 30 ml STK-MED ONCE .ROUTE Last administered on 09/16/17 09:03; Start 09/16/17 at 09:03; Stop 09/16/17 at 09:04; Status DC Midazolam HCl (Versed Inj) 2 mg STK-MED ONCE .ROUTE ; Start 09/16/17 at 09:03; Stop 09/16/17 at 09:04; Status DC Fentanyl Citrate (fentaNYL INJ) 100 mcg STK-MED ONCE .ROUTE Last administered on 09/16/17 09:18; Start 09/16/17 at 09:04; Stop 09/16/17 at 09:05; Status DC Tirofiban/Sodium Chloride 250 ml @ As Directed STK-MED ONCE IV Last administered on 09/16/17 09:42; Start 09/16/17 at 09:21; Stop 09/16/17 at 09:22; Status DC Aspirin (Aspirin Chew) 162 mg STK-MED ONCE .ROUTE Last administered on 09:29; Start 09/16/17 at 09:24; Stop 09/16/17 at 09:25; Status DC Heparin Sodium/ Sodium Chloride 1,000 ml @ As Directed STK-MED ONCE IV FLUSH Last administered on 09/16/17at 09:29; Start 09/16/17 at 09:29; Stop 09/16/17 at 09: 30; Status DC Prasugrel (Effient) 60 mg STK-MED ONCE .ROUTE Last administered on 09/16/17 09: 48; Start 09/16/17 at 09:37; Stop 09/16/17 at 09:38; Status DC Metoprolol Tartrate (Lopressor) 25 mg Q12HR PO ; Start 09/16/17 at 21:00; Stop at 21:00; Status DC Atorvastatin Calcium (Lipitor) 20 mg HS PO ; Start 09/16/17 at 21:00; Status UNV Acetaminophen/ Hydrocodone Bitart ([place] 10-325 Mg) 1 tab Q8H PRN PO pain scale 3-10 Last administered on 09/16/17at 17:10; Start 09/16/17 at 10:00 Sodium Chloride (NS Flush) 2 ml UNSCH PRN IV FLUSH FLUSH AFTER USING IV ACCESS ; Start 09/16/17 at 10:00 Sodium Chloride (NS Flush) 2 ml BID IV FLUSH Last administered on 09/17/17 09: 07; Start 09/16/17 at 21:00 Aspirin (Aspirin Chew) 162 mg DAILY PO Last administered on 09/17/17at 09:07; Start 09/17/17 at 09:00 Prasugrel (Effient) 60 mg ONCE ONCE PO ; Start 09/16/17 at 10:00; Stop 09/16/17 at 10:11; Status DC Prasugrel (Effient) 10 mg DAILY PO Last administered on 09/17/17at 09:06; Start 09/17/17 at 09:00 Tirofiban/Sodium Chloride 250 ml @ 17.1 mls/hr [id number] IV Last administered on 09/16/17 22:07; Start 09/16/17 at 09:54; Stop 09/17/17 at 03:53; Status DC Miscellaneous Information 1 ONCE ONCE XX ; Start 09/16/17 at 10:00; Stop at 10:05; Status DC Carvedilol (Coreg) 3.125 mg BID PO Last administered on 09/17/17at 09:05; Start 09/16/17 at 21:00 Ramipril (Altace) 2.5 mg DAILY PO Last administered on 09/17/17 09:05; Start at 09:00 Atorvastatin Calcium (Lipitor) 10 mg HS PO Last administered on 09/16/17at 20:21 ; Start 09/16/17 at 21:00 Diatrizoate Meglum/ Diatrizoate Sod ( Gastroview Liq) 18 ml ONCE ONCE PO ; Start 09/16/17 at 12:15; Stop 09/16/17 at 12:16; Status DC Iohexol (OMNIPAQUE 350 INJ (Reeling And Tubing Machine Operator)) 100 ml STK-MED ONCE OTHER Last administered on 09/15/17at 19:38; Start 09/15/17 at 19:38; Stop 09/16/17 at 13:23; Status DC Lorazepam (Ativan Inj) 0.5 mg ONCE ONCE IV PUSH Last administered on 09/16/17at 14:45; Start 09/16/17 at 14:30; Stop 09/16/17 at 15:31; Status DC Ramipril (Altace) 2.5 mg ONCE ONCE PO Last administered on 09/16/17at 17:09; Start 09/16/17 at 16:00; Stop 09/17/17 at 10:24; Status DC Enalaprilat (Vasotec Inj) 1.25 mg Q6H PRN IV PUSH SBP> OR = 180, DBP> OR = 100 ; Start 09/16/17 at 16:00 Metoprolol Tartrate (Lopressor Inj) 5 mg STK-MED ONCE .ROUTE Last administered on 09/16/17at 16:01; Start 09/16/17 at 15:57; Stop 09/16/17 at 15:58; Status DC Metoprolol Tartrate (Lopressor Inj) 5 mg Q5M IV PUSH Last administered on at 16:21; Start 09/16/17 at 16:15; Stop 09/16/17 at 16:26; Status DC Metoprolol Tartrate (Lopressor) 25 mg Q6HR PO Last administered on 09/17/17at 13: 11; Start 09/16/17 at 16:11 Metoprolol Tartrate (Lopressor Inj) 5 mg STK-MED ONCE .ROUTE Last administered on 09/16/17at 16:12; Start 09/16/17 at 16:11; Stop 09/16/17 at 16:12; Status DC Sodium Chloride 1,000 ml @ 1,000 mls/hr Q1H ONCE IV Last administered on at 13:45; Start 09/17/17 at 13:45; Stop 09/17/17 at 14:44; Status DC Sodium Chloride 1,000 ml @ 150 mls/hr Q6H40M IV Last administered on 09/17/17at 14:00; Start 09/17/17 at 14:00 Heparin Sodium/ Sodium Chloride 2,000 ml @ As Directed STK-MED ONCE IV FLUSH ; Start 09/17/17 at 14:51; Stop 09/17/17 at 14:52; Status DC Midazolam HCl (Versed Inj) 2 mg STK-MED ONCE .ROUTE ; Start 09/17/17 at 15:03; Stop 09/17/17 at 15:04; Status DC Fentanyl Citrate (fentaNYL INJ) 100 mcg STK-MED ONCE .ROUTE ; Start 4/6/18 at 15:04; Stop 09/17/17 at 15:05; Status DC Heparin Sodium (Porcine) (Heparin Inj) 10,000 units STK-MED ONCE .ROUTE ; Start 09/17/17 at 15:04; Stop 09/17/17 at 15:05; Status DC A/P Assessment and Plan 67-year-old male with history of chronic back pain, tobacco use, presents with acute onset of chest and abdominal pain. Initially presented to the [place], then sent to [place] [facility] via [facility]. Chest Pain, suspected NSTEMI: No reports of CAD, however pain relieved by nitro , and +risk factors with tobacco use -Troponins trended, 0.02 --> 0.06 --> 0.07 -EKG reviewed, shows incomplete RBBB, otherwise no acute ischemic changes -Monitor on telemetry -Given aspirin, start on metoprolol 25mg bid, and start on statin for now pending lipid panel (LFTs wnl) -Check lipid panel and HgbA1c -Consult cardiology, seen by Dr. Mata, plan for cardiac catheterization today HAD CATH 4-5 HAVING REPEAT CATH 4-6 Abdominal Pain: patient's main complaint is abdominal pain. Symptom onset after eating pizza and bologna sandwich. +RUQ tenderness on exam. Also takes ibuprofen 800mg 1-2x per day. -Lipase and LFTs wnl -check abdominal CT -supportive treatment with IVF, antiemetics prn CAT SCAN OF ABDOMEN SHOWS NOW ACUTE ISSUES RENAL INSUFFICIENCY AM LABS Tobacco Abuse: chronic -counseled on cessation -avoid nicotine patch due to vasoconstriction Chronic Back Pain: patient denies any acute worsening -continue patient's [place] prn DVT Prophylaxis: heparin sq Discharge Planning HOPEFULLY TOMORROW IF RENAL FUNCTIONS ARE STABLE AND CLEARED BY CARDIOLOGY Nabil Chase DO Sep 17, 2017 15:34
[2017-09-17] MEDS ORDERED: TIROFIBAN INFUSION INJ 250 ML IV ONE (15:44)
--- NOTE | 2017-09-17 16:01 | CATHPROC ---
[facility] HIS Report Study Information Study Number Admission Scheduled Start Study Start [id number] Sep 15 2017 7:37PM 09/17/2017 Sep 17 2017 2:32PM [place] [facility] Cardiac Catheterization Admit Source Facility Department Emergency department [facility] - Clinical Technician Physician and Clinical Staff Initial Esvin Bell Change Control Specialist Tejinder Rowe,RN Recorder Valentín CHAMORRO, Alok Gutierrez, Silvino,RT(R) Procedures Performed Procedure Location (Site) Vessel Name Coronary Angiograms LCA Left Coronary Coronary Angiograms RCA Right Coronary Drug Eluting Inflatio LAD Mid Left Coronary L Heart Cath LV Gram-hand inj. LV LV Ventricle Wire insertion Fem Art (right) Femoral Art Equipment Time Videogame Designer Description Size Mfg Part Number Used/Scraped [id number] 15:30 [employer] WIRE, ASAHI PROWATER 180CM 180CM Used *[id number] TRANSDUCER, TRUWAVE [id number] 15:07 Drivable STOCKTON * Used W/STOCKCOCK *[id number] [id number] *[id number] [id number] *[id number] 05- *[id number] 15:07 MEDLINE IND[employer] PACK, CCL CUSTOM * Used *[id number] 15:07 RRsat PACER PEN, SKIN DUAL W/ RULER * Used *[id number] 15:31 MEDTRONIC STENT, 3.0 9 INTEGRITY 3.0 9 Used *[id number] 15:35 [employer] MEDICAL 30 YOLA INDEFLATOR Used *[id number] 15:23 [employer] MEDICAL SHEATH, FR6.5 PRELUDE 11CM FR 6.5 038ACT Used *[id number] 15:07 [employer] MEDICAL WIRE, 3MMJ .035 180CM 180CM Used *[id number] 15:07 NAMIC MANIFOLD, 4 PORT * Used *[id number] 15:07 NYCOMED OMNIPAQUE, 350 MG, 150ML 150ML [id number] Used [id number] 15:07 ONEIL MEDICAL BLANKET,WARM AIR CCL * Used *[id number] 15:07 TERUMO MEDICAL SHEATH, FR4 TERUMO (10CM) FR 4 Used *[id number] 15:25 [employer] PRIME WIRE, VERRATA 185CM 185CM 39932 *[id number] Used Equipment Model, Serial, Lot Number and Expiration Data Description Model Number Serial Number Lot Number Expiration Date SYD ZAVALA 185CM [id number] 08-11-2020 STENT, 3.0 9 INTEGRITY [id number] 03-25-2019 History: Current Medications Medication Dosage/Unit Route Frequency Last Date/Time Taken ASA EFFIENT History: Allergies Allergy Reaction No Known Allergies History: Risk Factors Family History of Hypertension Dyslipidemia Previous CA Previous Heart Failure Premature CAD Yes Yes No No No Prior Valve Prior PCI Prior PCIDate Prior CABG Surgery No Yes 09/16/2017 No Cerebrovascular Peripheral Artery Chronic Lung On Dialysis Diabetes Disease Disease Disease No No No No No History: Risk Factors Selection Items Current Smoker History: Symptoms/Diagnosis Selection Items Chest pain Palpitations History: Stress Tests Stress or Imaging Studies Performed No History: Arrhythmias Selection Items Non-sustained VT History: Other Current Smoker Method Packs a Day Years Used Pack Years Yes Cigarettes 1 60 60 Labs Hgb (g/dl) Hct (%) WBC (l/cumm) Platelets (thousands) 11.60-17.00 35.00-51.00 4.00-11.00 150.00-450.00 18.2 53.2 14.9 239 Glucose (mg/dl) BUN (mg/dl) Creatinine (mg/dl) BUN:Creatinine (1:x) 74.00-106.00 7.00-18.00 0.50-1.30 10.00-20.00 90 23 1.7 13.5 Na (meq/l) K (meq/l) 136.00-145.00 3.50-5.10 137 3.8 INR (PTT:PT) 0.90-1.10 1 Troponin I (ng/ml) CPK-MB (ng/ML) 0.02-0.05 0.50-3.60 0.07 Not Drawn Medication Medication Total Dose (Bolus/Oral) Medication Total Dosage/Unit 1% XYLOCAINE 20 mL AGGRASTAT BOLUS 0.519 meq/kg FENTANYL 87.5 mcg HEPARIN 6700 units NTG (IC) 200 mcg VERSED 1 mg Medications (Bolus/Oral) Medication Time Given Dosage/Unit Administered By Reason FENTANYL 09/17/2017 3:08:28 PM 25 mcg Tejinder Rowe Patient arrived on 25 mcg FENTANYL given by Tejinder Rowe RN in Left Forearm via Peripheral IV. Ord ered by Esvin Maat. VERSED 09/17/2017 3:08:50 PM 1 mg Tejinder Rowe 1 mg VERSED given in lab by Tejinder Rowe RN in Left Forearm via Peripheral IV. FENTANYL 09/17/2017 3:08:53 PM 25 mcg Tejinder Rowe 25 mcg FENTANYL given in lab by Tejinder Rowe RN via Peripheral IV. FENTANYL 09/17/2017 3:13:13 PM 12.5 mcg Tejinder Rowe 12.5 mcg FENTANYL given in lab by Tejinder Rowe RN via Peripheral IV. Ordered by Esvin Mata. 1% XYLOCAINE 09/17/2017 3:17:01 PM 20 mL Esvin Mata 20 mL 1% XYLOCAINE given in lab by Esvin Mata in Right Groin via Subcutaneous. FENTANYL 09/17/2017 3:17:22 PM 12.5 mcg Tejinder Rowe 12.5 mcg FENTANYL given in lab by Tejinder Rowe RN via Peripheral IV. FENTANYL 09/17/2017 3:17:44 PM 12.5 mcg Tejinder Rowe 12.5 mcg FENTANYL given in lab by Tejinder Rowe RN via Peripheral IV. Ordered by Esvin Mata. HEPARIN 09/17/2017 3:24:40 PM 6700 units Tejinder Rowe 6700 units HEPARIN given in lab by Tejinder Rowe RN via Peripheral IV. NTG (IC) 09/17/2017 3:38:45 PM 200 mcg Esvin Mata 200 mcg NTG (IC) given in lab by Esvin Mata via Intra-coronary. AGGRASTAT BOLUS 09/17/2017 3:48:56 PM 0.519 meq/kg Tejinder Rowe 0.519 meq/kg AGGRASTAT BOLUS given in lab by Tejinder Rowe RN via Peripheral IV. Amount given = 50 meq. Medication (Drip) Medication Time Given Dosage/Unit Concentration/Unit Diluent (ml) Solution AGGRASTAT DRIP 09/17/2017 3:53:17 PM 0.078 mcg/kg/min 12.5 mg 250 NaCl .9 0.078 mcg/kg/min AGGRASTAT DRIP given in lab by Tejinder Rowe, ASHTYN via Peripheral IV. Pump/Drip Flow = 9 ml/hr using NaCl .9 with a concentration of 12.5 mg in 250 ml. IV Solutions 09/17/2017 2:49:15 PM 0 mL (IV) 1000 NaCl .9 Patient arrived on IV Solutions in Left Forearm via Peripheral IV. Pump/Drip Flow = 20 ml/hr using Na Cl .9. Initial Case Assessment Cardiovascular HR Rhythm NIBP Chest Pain 81 sr 119/65 0 Circulatory - Right Pulses Dorsalis Pedis Femoral 1 2 Scale (0,1,2,3,4,d) Circulatory - Left Pulses Dorsalis Pedis Femoral d 2 Scale (0,1,2,3,4,d) Neurological State Oriented to time-place- Alert Moves all extremities person Respiration - General Respiration Rate SpO2 (%) (B/min) 24 97 Final Case Assessment Cardiovascular HR Rhythm NIBP Chest Pain 84 reg 110/55 0 Edema Present Skin color Skin None Normal Warm Neurological State Oriented to time-place- Alert Moves all extremities person Chronological Log Time Study Chronological Log 14:47:27 Patient arrived via Bed. 14:47:35 Patient Name, D.O.B, / Armband Verified By R.N. 14:48:36 Consent signed by the physician and the patient and verified by the Clinical Technician staff. 14:48:38 Pre-op and post- op instructions given; patient acknowledges understanding of instructions. 14:48:40 Verbal Stimulation=2 Physical Stimulation=2 Airway=2 Respiration=2 TOTAL=8. (0=absent, 1=li mited, 2=present) 14:48:49 Presedation assessment performed by Clinical Technician RN. 14:49:09 Patient has been NPO for More than 6Hrs. 14:49:10 Skin Breakdown-eccymotic right groin from YESTERDAYS cath 14:49:12 Sharee Prominences Protected 14:49:15 A # 20 IV was noted in the Forearm (left). Grade = patent 14:49:15 Patient arrived on IV Solutions in Left Forearm via Peripheral IV. Pump/Drip Flow = 20 ml/h r using NaCl .9. 14:49:17 History and physical on the chart or being dictated. Vitals capture started with the following parameters, Patient=Adult, Interval=5 min, Initial Pr elvlkw=437 mmHg, 14:58:31 Deflation Rate=5 mmHg, Cuff placed on Left Arm 14:58:33 Reference ECG taken 14:59:09 HR=82 bpm, JFHL=751/65 mmhg, SpO2=97.0 %, Resp=22 B/min Assessment: Initial Case, HR=81 BPM, Rhythm=sr, FCXV=630/65 mmhg, Chest Pain=0 Right Pulses: Mumtaz Ped=1, Femoral=2 15:00:16 Left Pulses: Mumtaz Ped=d, Femoral=2 Neurological: State=Alert, Ox3, ESTRELLA Respiration: Resp=24 B/min, SpO2=97 % 15:02:22 MD arrived. 15:03:33 Bilateral groins prepped with 2% chlorhexidine, and draped after a 3 minute waiting time. 15:04:06 HR=83 bpm, KULN=200/74 mmhg, SpO2=99.0 %, Resp=25 B/min Patient arrived on 25 mcg FENTANYL given by Tejinder Rowe RN in Left Forearm via Peripheral I V. Ordered by 15:08:28 Esvin Mata. 15:08:50 1 mg VERSED given in lab by Tejinder Rowe RN in Left Forearm via Peripheral IV. 15:08:53 25 mcg FENTANYL given in lab by Tejinder Rowe RN via Peripheral IV. 15:09:11 HR=82 bpm, BIHO=387/73 mmhg, SpO2=99.0 %, Resp=19 B/min 15:10:01 Pressure channel 1 zeroed. 15:13:13 12.5 mcg FENTANYL given in lab by Tejinder Rowe RN via Peripheral IV. Ordered by Esvin Mata. 15:14:10 HR=82 bpm, OOUK=012/68 mmhg, SpO2=96.0 %, Resp=20 B/min, Pain=0, Cisco=10, [place]=2 15:16:27 Case Start 15:16:30 Verbal Stimulation=2 Physical Stimulation=2 Airway=2 Respiration=2 TOTAL=8. (0=absent, 1=li mited, 2=present) 15:17:01 20 mL 1% XYLOCAINE given in lab by Esvin Mata in Right Groin via Subcutaneous. 15:17:22 12.5 mcg FENTANYL given in lab by Tejinder Rowe, ASHTYN via Peripheral IV. 15:17:44 12.5 mcg FENTANYL given in lab by Tejinder Rowe RN via Peripheral IV. Ordered by Esvin Mata. 15:18:36 Access site was Right Femoral Artery. 15:18:41 A wire was inserted via Fem Art (right). 15:18:48 A SHEATH, FR4 TERUMO (10CM) FR 4 was advanced into the Fem Art (right) using the [place] us technique. 15:19:09 HR=82 bpm, RMVH=461/64 mmhg, Resp=16 B/min, Pain=0, Cisco=10, [place]=2 A JR 4.0 INFINITI CATHETER FR 4 was advanced over a wire. OMNIPAQUE, 350 MG, 150ML 150ML was us ed for 15:19:46 injections. Recorded Pressure: LV, HR=85, Condition=Condition 1 15:20:36 (Left Ventricle) LV 95/13/21 15:20:49 The LV was manually injected with 8 cc's and visualized. OMNIPAQUE, 350 MG, 150ML 150ML use d. Recorded Pressure: LV, Ao, UZ=644, Condition=Condition 1 15:20:52 (Left Ventricle) LV 117/14/61, (Aorta) Ao 80/35/62 15:21:27 The RCA was injected and visualized at various angles. OMNIPAQUE, 350 MG, 150ML 150ML used . Recorded Pressure: Ao, HR=83, Condition=Condition 1 15:21:44 (Aorta) Ao 89/58/72 15:21:46 Catheter was removed A SHEATH, FR6.5 PRELUDE 11CM FR 6.5 was exchanged in the Fem Art (right). This was necessary in order to 15:23:13 accomodate a larger catheter. 15:24:08 HR=86 bpm, IPKG=941/63 mmhg, SpO2=94.0 %, Resp=13 B/min, Pain=0, Cisco=10, [place]=2 15:24:40 6700 units HEPARIN given in lab by Tejinder Rowe, ASHTYN via Peripheral IV. A XB 3.5 GUIDE CATHETER FR 6 was advanced over a wire. OMNIPAQUE, 350 MG, 150ML 150ML was used for 15:24:57 injections. 15:25:38 The LCA was injected and visualized at various angles. OMNIPAQUE, 350 MG, 150ML 150ML used . 15:27:43 A PRIME WIRE, VERRATA 185CM 185CM was inserted via Fem Art (right). 15:29:07 HR=86 bpm, NIBP=97/62 mmhg, Resp=24 B/min, Pain=0, Cisco=10, [place]=2 15:29:43 Interventional wire has crossed the lesion 15:31:17 Flow Wire was was placed in the LAD Mid. The FFR measures ~FFR~ percent. The IFR measures 0 .76 Percent. 15:32:43 A WIRE, [employer] PROWATER 180CM 180CM was inserted via Fem Art (right). diagonal 15:33:27 Activated Clotting Time Drawn A STENT, 3.0 9 INTEGRITY 3.0 9 was advanced through a XB 3.5 GUIDE CATHETER FR 6 over a PRIME W DANIELA, 15:34:04 VERRATA 185CM 185CM. 15:34:07 HR=82 bpm, SEDX=559/66 mmhg, SpO2=96 %, Resp=22 B/min, Pain=0, Cisco=10, [place]=2 A STENT, 3.0 9 INTEGRITY 3.0 9 was deployed using a 30 YOLA INDEFLATOR at 9 atmospheres for 16 s econds in the 15:34:45 LAD Mid. 15:35:55 Delivery device removed 15:36:00 The LCA was injected and visualized at various angles. OMNIPAQUE, 350 MG, 150ML 150ML used . 15:38:10 repositioned flow wire into diagonal. 15:38:36 prowater Wire removed 15:38:45 200 mcg NTG (IC) given in lab by Esvin Mata via Intra-coronary. 15:39:08 HR=84 bpm, YWAC=515/78 mmhg, SpO2=98.0 %, Resp=18 B/min, Pain=0, Cisco=10, [place]=2 15:40:00 The LCA was injected and visualized at various angles. OMNIPAQUE, 350 MG, 150ML 150ML used . 15:41:41 Ifr was not done in diagonal 15:43:05 ACT (Normal Range 90-180) = 266 15:44:15 HR=83 bpm, GHZK=536/55 mmhg, SpO2=94.0 %, Resp=21 B/min, Pain=0, Cisco=10, [place]=2 15:44:48 The PRIME WIRE, VERRATA 185CM 185CM was removed. 15:45:06 Case End Assessment: Final Case, HR=84 BPM, Rhythm=reg, KXUC=719/55 mmhg, Chest Pain=0, Edema=None, [place] r=Normal, 15:45:10 Skin = Warm Neurological: State=Alert, Ox3, ESTRELLA 15:46:24 Catheter(s) removed without difficulty 15:46:26 In the Fem Art (right) the SHEATH, FR6.5 PRELUDE 11CM FR 6.[address] by Esvin Aj. 15:46:31 Sterile dressing applied to site 15:46:31 No case complications noted. 15:46:32 Cine recording checked. 15:46:35 Bedside Report will be given. 15:46:38 Implantable Device card placed in patient's chart. 15:46:47 A Left Heart Cath was performed. 15:47:02 Clinical correlaton risk stratification. 15:48:56 0.519 meq/kg AGGRASTAT BOLUS given in lab by Tejinder Rowe, ASHTYN via Peripheral IV. Amount g iven = 50 meq. 15:49:12 HR=81 bpm, OPBZ=624/63 mmhg, SpO2=93.0 %, Resp=22 B/min, Pain=0, Cisco=10, [place]=2 0.078 mcg/kg/min AGGRASTAT DRIP given in lab by Teijnder Rowe, RN via Peripheral IV. Pump/Drip Flow = 9 ml/hr 15:53:17 using NaCl .9 with a concentration of 12.5 mg in 250 ml. 15:53:56 Vitals capture stopped. End Study - Contrast Media Used In Study Contrast Total Opened (mL) Total Used (mL) Total Wasted (mL) Omnipaque 80 80 0 End Study - Maximum Contrast Load Max Contrast Load (mL) 283.3 End Study - Radiation Exposure Fluoro Time (minutes) 4.4 End Study - Patient Disposition Complications Transferred To Interventional Outcome No Regular Bed successful
[2017-09-17] MEDS ORDERED: TIROFIBAN INFUSION INJ 250 ML IV SCH (16:20)
[2017-09-17] MEDS ORDERED: MISC INFORMATION XX ONE (16:30)
[2017-09-17] MEDS ORDERED: BACITRACIN OINT 0.9 GM PKT TOP ONE (16:30)
[2017-09-17] MEDS ORDERED: SODIUM CHLORIDE 0.9% FLUSH 10 ML FLUSH IV FLUSH PRN (16:30)
--- NOTE | 2017-09-17 16:42 | MA ---
cc: Esvin Mata MD DATE: 09/16/2017 PROCEDURE: 1. Left heart catheterization. 2. Left ventriculography. 3. Coronary angiography. 4. IFR of the proximal mid-LAD and direct stent of the proximal LAD. INDICATION: Nonsustained ventricular tachycardia, frequent ectopy, post-PCI of the ostial right PDA on 09/16/2017, coronary artery disease, multiple cardiac risk factors. PROCEDURE: The patient was brought to the Cardiac Catheterization Laboratory and prepped in the usual sterile fashion. 10 mL of 1% lidocaine was used to locally anesthetize the right common femoral artery. A 4-[place] sheath was placed in the right common femoral artery. A 4-[place] JR4 and 6-[place] XB 3.5 guide catheters were used to perform the left and right coronary angiography, left ventriculography. FINDINGS: LV pressure is 95/15-18. Ejection fraction is 60%. The posterior wall and mid-inferior wall appeared to be at least mildly hypokinetic. The right coronary artery is dominant, has a 50-60% proximal stenosis, mild diffuse disease at the mid-segment up to 30% angiographically. The stent in the ostial right PDA is widely patent. There remains a 70% stenosis at the ostium of the right posterolateral artery. The left main coronary artery has no significant disease angiographically, actually has some subtle tapering distally. It is a relatively small vessel for a left main, reference vessel diameter is probably 3.25 mm with about a 20% tapering stenosis distally. The LAD has a 70% proximal mid-stenosis at a bifurcation with a small to medium-sized diagonal vessel, which has reference vessel diameter of 2.25 mm diameter, which has an ostial smooth 30% stenosis. Based on the patient's frequent ectopy, frequent nonsustained V-tach, I did not think it was medically necessary perform FFR of the proximal LAD. I did discuss prior to the procedure with the patient the option of doing bypass surgery. The patient ultimately deferred the decision to me as this was in the proximal mid-segment and technically actually mid because it was slightly beyond the first diagonal artery. I did not think it was appropriate to perform PCI should the IFR or FFR be positive. INTERVENTION: The patient was given 70 units per kilo of heparin. ACT was 266. A 6-[place] sheath was replaced for the 4-[place] sheath, 6-[place] XB 3.5 guide and a 0.014 [place] pressure wire was placed in the proximal LAD. The introducer was removed. The guide catheter was thoroughly flushed with 20 mL of normal saline. Pressure waveforms were then normalized. The 0.014 [place] pressure wire was placed into the distal LAD. IFR was 0.76. Therefore, decision was made to proceed with PCI of the proximal mid-LAD. I placed a 0.014 [place] wire into the diagonal vessel to protect it. We did a direct stent of the proximal LAD with a 3.0/9 Integrity stent, one inflation at 10 atmospheres for 20 seconds. Stenosis went from 70% to 0% with SANDY-3 flow. The patient had a burning-like chest pain with the stent balloon inflated that was similar to the pain he had prior to admission. His pain improved significantly; however, there was a slight ostial jailing of a diagonal vessel. SANDY-3 flow did remain into the diagonal vessel. We gave the patient 200 mcg of intracoronary nitroglycerin. Within about 5 minutes, the patient's chest pain was completely resolved. I did multiple INDONESIAN cranial views of the diagonal vessel. I was actually able to rewire it as well with the [place] pressure wire and I removed the original Prowater which was essentially jailed between the os and the LAD stent. Multiple views revealed no significant change in stenosis at the ostium of the diagonal vessel still remained to have about a 30% stenosis. Flow is SANDY-3 in the vessel and the patient was completely chest pain free at the end of the procedure. CONCLUSION: 1. Nonsustained ventricular tachycardia, frequent ectopy, 70% proximal mid-left anterior descending lesion with an IFR of 0.76. 2. Widely patent stent in the ostial proximal right posterior descending artery. 3. A 70% stenosis in the ostial proximal right posterolateral artery. 4. Normal left ventricular systolic function with ejection fraction of 60%. 5. Successful direct percutaneous coronary intervention with bare metal stent of the proximal left anterior descending from 70% to 0% with SANDY-3 flow. NOTE: The patient was chest pain free. There is SANDY-3 flow into the jailed diagonal artery with no significant change in the ostial 20-30% stenosis seen prior to stenting. Note also that after stenting the left anterior descending, the patient's blood pressure increased from about 90 systolic to about 120 systolic. RECOMMENDATIONS: 1. We will continue Effient 10 mg daily. 2. Aspirin 162 mg daily. 3. We will start Aggrastat drip per renal dose protocol. 4. The patient was given 1 liter of normal saline periprocedurally. We will also hang another liter of normal saline after this bag is completed. Esvin Mata MD AWJuan/SB , 03:55 PM , 04:41 PM
[2017-09-17 17:23] LABS: HEMOGLOBIN A1C 5.5 % (4.3-6.0)
[2017-09-17] MEDS: ATORVASTATIN 40 MG TAB PO SCH (20:51)
[2017-09-17] MEDS: ACETAMINOPHEN/HYDROcodone 325 MG/10 MG TAB PO PRN (20:53)
[2017-09-17] MEDS ORDERED: CARVEDILOL 3.125 MG TAB PO SCH (21:00)
[2017-09-17] MEDS: ONDANSETRON HCL 4 MG/2 ML VIAL IVP PRN (22:15)
[2017-09-17] MEDS ORDERED: LORazepam 2 MG/ML VIAL IV PUSH ONE (22:45)
[2017-09-18] VITALS (26 sets, daily range): BP systolic 93–126; BP diastolic 43–79; PULSE 50–119; RESP 20; TEMP 97.7–100; O2SAT 93–99
[2017-09-18] MEDS ORDERED: CARVEDILOL 3.125 MG TAB PO ONE (00:45)
[2017-09-18] MEDS: SODIUM CHLOR 0.9% 1000 ML INJ 1,000 ML IV SCH ×4 (03:20→23:20)
[2017-09-18 07:07] LABS: AUTOMATED NEUTROPHIL # 8.9 TH/MM3 (1.8-7.7); BASOPHIL % 0.2 % (0.0-2.0); EOSINOPHIL # 0.4 TH/MM3 (0-0.4); EOSINOPHIL % 3.7 % (0.0-4.0); HEMATOCRIT 46.5 % (39.0-51.0); LYMPH % 5.7 % (9.0-44.0); LYMPHOCYTE # 0.6 TH/MM3 (1.0-4.8); MEAN CELL VOLUME 88.6 FL (80.0-100.0); MEAN CORPUSCULAR HEMOGLOBIN 30.5 PG (27.0-34.0); MEAN CORPUSCULAR HGB CONC 34.4 % (32.0-36.0); MEAN PLATELET VOLUME 8.4 FL (7.0-11.0); MONO % 3.6 % (0.0-8.0); MONOCYTE # 0.4 TH/MM3 (0-0.9); NEUT % 86.8 % (16.0-70.0); PLATELET COUNT 206 TH/MM3 (150-450); RED BLOOD COUNT 5.24 MIL/MM3 (4.50-5.90); RED CELL DISTRIBUTION WIDTH 14.5 % (11.6-17.2); WHITE BLOOD COUNT 10.2 TH/MM3 (4.0-11.0)
[2017-09-18 07:23] LABS: ALBUMIN 2.5 GM/DL (3.4-5.0); ALKALINE PHOSPHATASE 83 U/L (45-117); ALT (GPT) 21 U/L (12-78); AST (GOT) 16 U/L (15-37); BICARBONATE 18.8 MEQ/L (21.0-32.0); BLOOD UREA NITROGEN 24 MG/DL (7-18); CALCIUM 7.7 MG/DL (8.5-10.1); CHLORIDE 110 MEQ/L (98-107); CREATININE 1.52 MG/DL (0.60-1.30); FREE T4 0.94 NG/DL (0.76-1.46); GLOMERULAR FILTRATION RATE 46 ML/MIN (>89); GLUCOSE,RANDOM 87 MG/DL (74-106); MAGNESIUM 1.8 MG/DL (1.5-2.5); PHOSPHORUS 2.2 MG/DL (2.5-4.9); SODIUM (NA) 139 MEQ/L (136-145); TOTAL PROTEIN 5.6 GM/DL (6.4-8.2)
[2017-09-18] MEDS: SODIUM CHLORIDE 0.9% FLUSH 10 ML FLUSH IV FLUSH SCH ×2 (07:43→21:07)
[2017-09-18] MEDS: DOCUSATE SODIUM 50 MG/SENNA 8.6 MG TAB PO SCH ×2 (09:25→21:08)
[2017-09-18] MEDS: PRASUGREL 10 MG TAB PO SCH (09:26)
[2017-09-18] MEDS: ASPIRIN 81 MG CHEW TAB PO SCH (09:26)
[2017-09-18] MEDS: FLUTICASONE PROPIONATE 50 MCG/ACT 16 GM NASAL SPRAY EACH NARE SCH (09:26)
[2017-09-18] MEDS: CARVEDILOL 6.25 MG TAB PO SCH ×2 (09:26→21:07)
--- NOTE | 2017-09-18 09:39 | PD.CARD.PN ---
Subjective Subjective Remarks assymptomatic, states he feels much better Objective Medications Current Medications Medications (Trade) Dose Ordered Sig/Anny Route Start Time Stop Time Status Last Admin (Tylenol) 500 mg Q4H PRN PO 09/15/17 19:45 (Tylenol) 650 mg Q4H PRN PO 09/16/17 03:00 (Zofran Inj) 4 mg Q6H PRN IVP 09/16/17 03:00 09/17/17 22:15 (Narcan Inj) 0.4 mg UNSCH PRN IV PUSH 09/16/17 03:00 (Bernadette-Colace) 1 tab BID PO 09/16/17 09:00 (Milk Of Magnesia Liq) 30 ml Q12H PRN PO 09/16/17 03:00 (Senokot) 17.2 mg Q12H PRN PO 09/16/17 03:00 (Dulcolax Supp) 10 mg DAILY PRN RECTAL 09/16/17 03:00 (Lactulose Liq) 30 ml DAILY PRN PO 09/16/17 03:00 (Duoneb Neb) 1 ampule Q4HR NEB PRN NEB 09/16/17 05:15 (Flonase [place] Spr) 2 spray DAILY EACH NARE 09/16/17 09:00 09/18/17 09:26 ([place] 10-325 Mg) 1 tab Q8H PRN PO 09/16/17 10:00 09/17/17 20:53 (Aspirin Chew) 162 mg DAILY PO 09/17/17 09:00 09/18/17 09:26 (Effient) 10 mg DAILY PO 09/17/17 09:00 09/18/17 09:26 (Vasotec Inj) 1.25 mg Q6H PRN IV PUSH 09/16/17 16:00 Sodium Chloride 1,000 ml @ 150 mls/hr Q6H40M IV 09/17/17 14:00 09/18/17 09:26 (NS Flush) 2 ml UNSCH PRN IV FLUSH 09/17/17 16:30 (NS Flush) 2 ml BID IV FLUSH 09/17/17 21:00 09/17/17 20:53 (Lipitor) 40 mg HS PO 09/17/17 21:00 09/17/17 20:51 (Coreg) 6.25 mg Q12HR PO 09/18/17 09:00 09/18/17 09:26 Vital Signs / I&O Vital Signs Date Time Temp Pulse Resp B/P (MAP) Pulse Ox O2 Delivery O2 Flow Rate FiO2 09/18/17 09:30 93 21 09/18/17 07:00 93 09/18/17 06:12 111 09/18/17 05:04 103 09/18/17 04:29 99.7 78 117/54 (75) 95 09/18/17 04:00 104 09/18/17 03:00 103 09/18/17 02:00 110 09/18/17 01:00 116 09/18/17 00:00 98.0 119 101/43 (62) 96 09/18/17 00:00 116 09/17/17 23:00 119 09/17/17 22:00 122 09/17/17 21:00 112 09/17/17 20:00 97.9 101 110/62 (78) 97 09/17/17 20:00 98 09/17/17 19:00 95 09/17/17 18:00 89 09/17/17 17:00 89 09/17/17 16:06 82 18 99/69 (79) 97 09/17/17 13:00 87 09/17/17 12:00 84 09/17/17 11:30 98.6 79 18 106/64 (78) 94 09/17/17 11:00 86 09/17/17 10:00 98 09/17/17 09:49 97 21 I/O 09/17/17 09/17/17 09/17/17 09/18/17 09/18/17 09/18/17 07:00 15:00 23:00 07:00 15:00 23:00 Intake Total 240 ml 1000 ml 600 ml 240 ml 1000 ml Output Total 200 ml 640 ml 400 ml Balance 40 ml 1000 ml -40 ml -160 ml 1000 ml Intake Oral 240 ml 600 ml 240 ml IV Total 1000 ml 1000 ml Output Urine Total 200 ml 640 ml 400 ml # Bowel Movements 2 Laboratory Laboratory Tests Test 09/18/17 04:19 White Blood Count 10.2 TH/MM3 Red Blood Count 5.24 MIL/MM3 Hemoglobin 16.0 GM/DL Hematocrit 46.5 % Mean Corpuscular Volume 88.6 FL Mean Corpuscular Hemoglobin 30.5 PG Mean Corpuscular Hemoglobin Concent 34.4 % Red Cell Distribution Width 14.5 % Platelet Count 206 TH/MM3 Mean Platelet Volume 8.4 FL Neutrophils (%) (Auto) 86.8 % Lymphocytes (%) (Auto) 5.7 % Monocytes (%) (Auto) 3.6 % Eosinophils (%) (Auto) 3.7 % Basophils (%) (Auto) 0.2 % Neutrophils # (Auto) 8.9 TH/MM3 Lymphocytes # (Auto) 0.6 TH/MM3 Monocytes # (Auto) 0.4 TH/MM3 Eosinophils # (Auto) 0.4 TH/MM3 Basophils # (Auto) 0.0 TH/MM3 CBC Comment DIFF FINAL Differential Comment Blood Urea Nitrogen 24 MG/DL Creatinine 1.52 MG/DL Random Glucose 87 MG/DL Total Protein 5.6 GM/DL Albumin 2.5 GM/DL Calcium Level 7.7 MG/DL Phosphorus Level 2.2 MG/DL Magnesium Level 1.8 MG/DL Alkaline Phosphatase 83 U/L Aspartate Amino Transf (AST/SGOT) 16 U/L Alanine Aminotransferase (ALT/SGPT) 21 U/L Total Bilirubin 1.0 MG/DL Sodium Level 139 MEQ/L Potassium Level 3.6 MEQ/L Chloride Level 110 MEQ/L Carbon Dioxide Level 18.8 MEQ/L Anion Gap 10 MEQ/L Estimat Glomerular Filtration Rate 46 ML/MIN Total Creatine Kinase 54 U/L Free Thyroxine 0.94 NG/DL Thyroid Stimulating Hormone 3rd Gen 3.120 uIU/ML Imaging GENERAL: SKIN: Warm and dry. HEAD: Normocephalic. EYES: No scleral icterus. No injection or drainage. NECK: Supple, trachea midline. No JVD or lymphadenopathy. CARDIOVASCULAR: Regular rate and rhythm without murmurs, gallops, or rubs. RESPIRATORY: Breath sounds equal bilaterally. No accessory muscle use. GASTROINTESTINAL: Abdomen soft, non-tender, nondistended. MUSCULOSKELETAL: No cyanosis, or edema. BACK: Nontender without obvious deformity. No CVA tenderness. Assessment and Plan Problem List: (1) NSVT (nonsustained ventricular tachycardia) ICD Codes: I47.2 - Ventricular tachycardia (2) CAD (coronary artery disease) ICD Codes: I25.10 - Atherosclerotic heart disease of [place] coronary artery without angina pectoris (3) NSTEMI (non-ST elevated myocardial infarction) ICD Codes: I21.4 - Non-ST elevation (NSTEMI) myocardial infarction (4) Renal insufficiency ICD Codes: N28.9 - Disorder of kidney and ureter, unspecified Status: Acute (5) Tobacco abuse ICD Codes: Z72.0 - Tobacco use Status: Acute Assessment and Plan 1.) CAD - s/p bms ost rpda and mid lad, continue aspirin, effient, coreg, lipitor; robert held due to arf; creatinine improving 2.) NSVT - unimproved after bms mid lad, he may need ptca of ostial rpla; will get EP consult with Dr Demarco 09/20/17; replete electrolytes; unable to increase coreg due to relative hypotension and resolving arf Esvin Mata MD Sep 18, 2017 09:39
[2017-09-18] MEDS ORDERED: MAGNESIUM OXIDE 400 MG TAB PO ONE (10:00)
[2017-09-18] MEDS: MAGNESIUM SULFATE 1 GM PREMIX 100 ML IV SCH ×2 (10:52→11:54)
--- NOTE | 2017-09-18 12:28 | HHI.PR ---
Subjective Remarks 67-year-old male with a past medical history significant for chronic back pain presents to the emergency department evaluation of chest and abdominal pain. The patient states that his chest pain began yesterday which started as a burning in his throat and became a bilateral chest pressure that radiated to his bilateral shoulders and down his arms. He went to the [place] for evaluation and was told he was diaphoretic with blue lips at that time. He was sent to the ED for further evaluation and admitted to the chest pain center. The patient's initial troponin was less than 0.02 with subsequent troponin 0.06 and 0.07. He is not currently having any chest pain. His chief complaint is 5/10 abdominal pain which she describes as crampy and tender. He denies any nausea/ vomiting/diarrhea. No shortness of breath. No lateralizing signs/symptoms. Follow up for chest pain, abdominal pain. The patient reports continue diffuse abdominal pain, worse at epigastric and periumbilical region. He reports associated belching. Denies nausea/vomiting. He did have a loose stool yesterday , but no intractable diarrhea. Prior to symptom onset, he ate pizza the night before, and then the next morning he ate a bologna sandwich, then symptoms began 1-2 hours later. He reports taking 1-2 ibuprofen 800mg tablets daily for his chronic back pain. He has not had any further chest pain since yesterday. He states the pain was located near the upper anterior sternum without any radiation, but this was relieved by nitro spray administered en route via [facility]. He denies any prior cardiac history. He reports a walking treadmill test 10+ years ago that was reportedly unremarkable. Denies any recent cardiac work up. He initially tells me that he's never had a cardiac catheterization, then later states he may have had this done but he is not sure and it would've been many years ago. 4-6 had a catheterization yesterday. Going for another cardiac catheterization later today with cardiology AM LABS RENAL FUNCTIONS DW PATIENT AND RN AND CM CONTINUE IV FLUIDS CAD - s/p bms ost rpda and mid lad, continue aspirin, effient, coreg, lipitor; mary held due to arf; creatinine improving 4-7 HAD BMS TO OST RPDA AND MID LAD ON - DR LOCKETT HAS BEEN CONSULTED FOR NSVT NOT CLEARED BY CARDIOLOGY FOR DISCHARGE YET AM LABS WATCH RENAL FUNCTIONS Objective Vitals Vital Signs Date Time Temp Pulse Resp B/P (MAP) Pulse Ox O2 Delivery O2 Flow Rate FiO2 09/18/17 11:00 97.7 88 20 93/55 (68) 94 09/18/17 11:00 88 09/18/17 10:00 97 09/18/17 09:30 93 21 09/18/17 09:30 98.2 09/18/17 09:00 98 09/18/17 08:20 100.0 105 20 106/65 (79) 96 09/18/17 08:20 105 09/18/17 07:00 93 09/18/17 06:12 111 09/18/17 05:04 103 09/18/17 04:29 99.7 78 117/54 (75) 95 09/18/17 04:00 104 09/18/17 03:00 103 09/18/17 02:00 110 09/18/17 01:00 116 09/18/17 00:00 98.0 119 101/43 (62) 96 09/18/17 00:00 116 09/17/17 23:00 119 09/17/17 22:00 122 09/17/17 21:00 112 09/17/17 20:00 97.9 101 110/62 (78) 97 09/17/17 20:00 98 09/17/17 19:00 95 09/17/17 18:00 89 09/17/17 17:00 89 09/17/17 16:06 82 18 99/69 (79) 97 09/17/17 13:00 87 I/O 09/17/17 09/17/17 09/17/17 09/18/17 09/18/17 09/18/17 07:00 15:00 23:00 07:00 15:00 23:00 Intake Total 240 ml 1000 ml 600 ml 240 ml 1350 ml Output Total 200 ml 640 ml 400 ml Balance 40 ml 1000 ml -40 ml -160 ml 1350 ml Intake Oral 240 ml 600 ml 240 ml IV Total 1000 ml 1350 ml Output Urine Total 200 ml 640 ml 400 ml # Bowel Movements 2 Result Diagram: 09/18/17 0419 09/18/17 0419 Other Results Laboratory Tests Test 09/15/17 17:10 09/15/17 20:40 09/15/17 23:50 09/16/17 20:08 White Blood Count 9.9 TH/MM3 Red Blood Count 6.09 MIL/MM3 Hemoglobin 18.6 GM/DL Hematocrit 53.4 % Mean Corpuscular Volume 87.8 FL Mean Corpuscular Hemoglobin 30.6 PG Mean Corpuscular Hemoglobin Concent 34.9 % Red Cell Distribution Width 15.0 % Platelet Count 256 TH/MM3 Mean Platelet Volume 8.7 FL Neutrophils (%) (Auto) 67.2 % Lymphocytes (%) (Auto) 20.9 % Monocytes (%) (Auto) 9.4 % Eosinophils (%) (Auto) 1.3 % Basophils (%) (Auto) 1.2 % Neutrophils # (Auto) 6.7 TH/MM3 Lymphocytes # (Auto) 2.1 TH/MM3 Monocytes # (Auto) 0.9 TH/MM3 Eosinophils # (Auto) 0.1 TH/MM3 Basophils # (Auto) 0.1 TH/MM3 CBC Comment DIFF FINAL Differential Comment Prothrombin Time 10.6 SEC Prothromb Time International Ratio 1.0 RATIO Activated Partial Thromboplast Time 27.0 SEC Blood Urea Nitrogen 18 MG/DL Creatinine 1.30 MG/DL Random Glucose 106 MG/DL Total Protein 7.3 GM/DL Albumin 3.4 GM/DL Calcium Level 8.6 MG/DL Magnesium Level 2.2 MG/DL Alkaline Phosphatase 111 U/L Aspartate Amino Transf (AST/SGOT) 27 U/L Alanine Aminotransferase (ALT/SGPT) 32 U/L Total Bilirubin 0.4 MG/DL Sodium Level 141 MEQ/L Potassium Level 4.0 MEQ/L Chloride Level 109 MEQ/L Carbon Dioxide Level 22.1 MEQ/L Anion Gap 10 MEQ/L Estimat Glomerular Filtration Rate 55 ML/MIN Total Creatine Kinase 78 U/L 65 U/L 56 U/L Troponin I LESS THAN 0.02 NG/ML 0.06 NG/ML 0.07 NG/ML Lipase 159 U/L Hemoglobin A1c 5.5 % Triglycerides Level 393 MG/DL Cholesterol Level 217 MG/DL LDL Cholesterol 118 MG/DL HDL Cholesterol 20.5 MG/DL Cholesterol/HDL Ratio 10.58 RATIO Test 09/17/17 04:49 09/18/17 04:19 White Blood Count 14.9 TH/MM3 10.2 TH/MM3 Red Blood Count 6.03 MIL/MM3 5.24 MIL/MM3 Hemoglobin 18.2 GM/DL 16.0 GM/DL Hematocrit 53.2 % 46.5 % Mean Corpuscular Volume 88.2 FL 88.6 FL Mean Corpuscular Hemoglobin 30.2 PG 30.5 PG Mean Corpuscular Hemoglobin Concent 34.3 % 34.4 % Red Cell Distribution Width 14.6 % 14.5 % Platelet Count 239 TH/MM3 206 TH/MM3 Mean Platelet Volume 8.5 FL 8.4 FL Neutrophils (%) (Auto) 88.2 % 86.8 % Lymphocytes (%) (Auto) 5.3 % 5.7 % Monocytes (%) (Auto) 3.8 % 3.6 % Eosinophils (%) (Auto) 2.3 % 3.7 % Basophils (%) (Auto) 0.4 % 0.2 % Neutrophils # (Auto) 13.1 TH/MM3 8.9 TH/MM3 Lymphocytes # (Auto) 0.8 TH/MM3 0.6 TH/MM3 Monocytes # (Auto) 0.6 TH/MM3 0.4 TH/MM3 Eosinophils # (Auto) 0.3 TH/MM3 0.4 TH/MM3 Basophils # (Auto) 0.1 TH/MM3 0.0 TH/MM3 CBC Comment DIFF FINAL DIFF FINAL Differential Comment Blood Urea Nitrogen 23 MG/DL 24 MG/DL Creatinine 1.76 MG/DL 1.52 MG/DL Random Glucose 90 MG/DL 87 MG/DL Calcium Level 8.0 MG/DL 7.7 MG/DL Sodium Level 137 MEQ/L 139 MEQ/L Potassium Level 3.8 MEQ/L 3.6 MEQ/L Chloride Level 105 MEQ/L 110 MEQ/L Carbon Dioxide Level 21.2 MEQ/L 18.8 MEQ/L Anion Gap 11 MEQ/L 10 MEQ/L Estimat Glomerular Filtration Rate 39 ML/MIN 46 ML/MIN Total Creatine Kinase 69 U/L 54 U/L Triglycerides Level 289 MG/DL Cholesterol Level 179 MG/DL LDL Cholesterol 100 MG/DL HDL Cholesterol 21.1 MG/DL Cholesterol/HDL Ratio 8.48 RATIO Total Protein 5.6 GM/DL Albumin 2.5 GM/DL Phosphorus Level 2.2 MG/DL Magnesium Level 1.8 MG/DL Alkaline Phosphatase 83 U/L Aspartate Amino Transf (AST/SGOT) 16 U/L Alanine Aminotransferase (ALT/SGPT) 21 U/L Total Bilirubin 1.0 MG/DL Free Thyroxine 0.94 NG/DL Thyroid Stimulating Hormone 3rd Gen 3.120 uIU/ML Imaging Last Impressions Abdomen/Pelvis CT 09/17/17 0000 Signed Impressions: Service Date/Time: Sunday, September 17, 2017 14:16 - CONCLUSION: 1. No acute CT abnormality in the abdomen or pelvis. 2. 5 x 6 mm nonobstructing calcified calyceal calculus in the mid left kidney. 3. Mild scattered colonic diverticulosis without evidence for diverticulitis. 4. Additional ancillary findings include probable gallbladder sludge, asymmetrical renal size, and small fat-containing inguinal hernias. Dann Azar MD Chest X-Ray 09/15/17 1741 Signed Impressions: Service Date/Time: Friday, September 15, 2017 17:59 - CONCLUSION: Compensated cardiomegaly otherwise negative Nabil Lawson MD FACR Objective Remarks GENERAL: Awake alert and oriented 3 talkative and cooperative appears to be in no acute distress at this time SKIN: Warm and dry. Multiple tattoos HEAD: Atraumatic. Normocephalic. EYES: Pupils equal and round. No scleral icterus. No injection or drainage. Extraocular muscles intact ENT: No nasal bleeding or discharge. Mucous membranes pink and moist. Tongue is midline NECK: Trachea midline. No JVD. Supple CARDIOVASCULAR: Regular rate and rhythm. S1-S2 no S3 or S4 RESPIRATORY: No accessory muscle use. Clear to auscultation. Breath sounds equal bilaterally. GASTROINTESTINAL: Abdomen soft, non-tender, nondistended. Hepatic and splenic margins not palpable. Obese MUSCULOSKELETAL: Extremities without clubbing, cyanosis, or edema. No obvious deformities. NEUROLOGICAL: Awake and alert. No obvious cranial nerve deficits. Motor grossly within normal limits. Five out of 5 muscle strength in the arms and legs. Normal speech. PSYCHIATRIC: Appropriate mood and affect; insight and judgment normal. Procedures 09/16/2017 PROCEDURE PERFORMED: Left heart catheterization, left ventriculography, coronary angiography, direct PCI with bare metal stent of the ostial proximal right PDA. INDICATIONS FOR SURGERY: Non-STEMI. Coronary artery disease. PROCEDURE: The patient was brought to the cardiac catheterization laboratory, prepped and draped in the usual sterile fashion. A 10 mL of 1% lidocaine was used to locally anesthetize the right common femoral artery. A 4-Azerbaijani sheath with placed in the right common femoral artery. 4-Azerbaijani JR4 and JL4 catheter were used to perform left and right coronary angiography, left ventriculography. FINDINGS: The LV pressure is 150/9-10. EF is 60%. The right coronary artery is dominant; it has moderate diffuse disease in the proximal midsegment up to perhaps 50% angiographically. The right PDA has an ostial proximal 90% stenosis. The right posterolateral artery has an ostial proximal 70% stenosis. The left main coronary artery has no significant disease angiographically, but it does appear to be angiographically small. No focal obstructive disease. Reference vessel diameter probably 3.25 mm in diameter. The left circumflex vessel has mild diffuse disease in the proximal AV groove up to 10% angiographically. First obtuse marginal vessel has mild to moderate ostial proximal disease up to 30-40% angiographically, reference vessel diameter 2.5 mm. There is a bifurcation in the midsegment. Second and third obtuse marginal vessels are small vessels, 1-1.5 mm vessels with no significant obstructive disease. The LAD is transapical. There is a 60-70% stenosis at a bifurcation with a small to medium-sized diagonal vessel, which probably has a reference vessel diameter of 2 mm. The LAD is transapical. DISCUSSION: The highest grade lesion is the ostial proximal right PDA. I do think this is the culprit lesion. I discussed with the patient the option of considering bypass, although prior to consideration of any revascularization of the LAD, I do think FFR would be indicated to document this is hemodynamically significant as angiographically it is not definitely significant. The patient declined CABG. INTERVENTION: Therefore, the 6-Azerbaijani sheath was exchanged for a 4-Azerbaijani sheath. 70 units per kilo of heparin was given. ACT 252. A 6-Azerbaijani JR4 guide with 0.014 Prowater guidewire was placed into the right PDA and then a second 0.014 Prowater guide wire was placed into the right ELLIOT to protect the ELLIOT. I then placed a 2.5/8 Integrity stent at the ostial proximal segment of the right PDA. Without the stent deployed the patient developed his typical angina. When the stent was deployed to 10 atmospheres, his angina intensified. The stent was deployed to 10 atmospheres. Stenosis went from 90% to 0% with SANDY-3 flow. There was no significant compromise of the right posterolateral artery. I did try to place this stent just distal to the os of the right ELLIOT, although angiographically it does appear that a corner of the stent is possibly jailing the right ELLIOT. Again, the os of the ELLIOT remained at about 60-70% angiographically. The patient's chest pain completely resolved. He also had some jaw pain which also completely resolved at the end of the case. Flow was SANDY-3 into the right ELLIOT. CONCLUSION: 1. Vnc-RN-makzghdsg myocardial infarction, culprit 90% ostial proximal right posterior diagonal artery, as detailed above. 2. A 70% proximal mid-left anterior descending at a bifurcation with a small to medium-sized diagonal vessel, as detailed above. 3. Mild to moderate diffuse disease in the proximal mid-right coronary artery. There is also a 50-60% stenosis in the mid-right posterior diagonal artery. 4. Normal left ventricular systolic function with ejection fraction 60%. 5. Successful direct percutaneous coronary intervention with bare metal stent of the ostial proximal right posterior descending artery from 90% to 0% with SANDY-3 flow. NOTE: ACT was 252. RECOMMENDATIONS: 1. The patient was given 162 mg of aspirin in the radiographer cardiac catheterization as he did not receive any aspirin in the ER. 2. Also, we will start him on 60 of Effient at 10 mg p.o. daily. 3. Aggrastat drip per protocol and aspirin mg daily. 4. We will check fasting lipids, ALT and treat to NCCP guidelines. 5. MARY inhibitor and beta blockers as clinically and hemodynamically tolerated. 6. I strongly recommended to the patient that he stop smoking. Medications and IVs Current Medications Sodium Chloride (NS Flush) 2 ml UNSCH PRN IVF FLUSH AFTER USING IV ACCESS; Start 09/15/17 at 17:45; Stop 09/16/17 at 03:07; Status DC Nitroglycerin (Nitrostat Sl) 0.4 mg ONCE ONCE SL Last administered on at 19:06; Start 09/15/17 at 18:00; Stop 09/15/17 at 18:01; Status DC Sodium Chloride (NS Flush) 2 ml UNSCH PRN IV FLUSH FLUSH AFTER USING IV ACCESS ; Start 09/15/17 at 19:45; Stop 09/16/17 at 03:07; Status DC Sodium Chloride (NS Flush) 2 ml BID IV FLUSH ; Start 09/15/17 at 21:00; Stop 09/16 at 03:07; Status DC Acetaminophen (Tylenol) 500 mg Q4H PRN PO HEADACHE; Start 09/15/17 at 19:45 Sodium Chloride 1,000 ml @ 100 mls/hr Q10H IV ; Start 09/16/17 at 02:58; Stop at 05:25; Status DC Sodium Chloride (NS Flush) 2 ml UNSCH PRN IV FLUSH FLUSH AFTER USING IV ACCESS ; Start 09/16/17 at 03:00; Stop 09/16/17 at 10:11; Status DC Sodium Chloride (NS Flush) 2 ml BID IV FLUSH ; Start 09/16/17 at 09:00; Stop 09/16 at 10:11; Status DC Acetaminophen (Tylenol) 650 mg Q4H PRN PO TEMP > 100.4; Start 09/16/17 at 03:00 Ondansetron HCl (Zofran Inj) 4 mg Q6H PRN IVP NAUSEA OR VOMITING Last administered on 09/17/17at 22:15; Start 09/16/17 at 03:00 Heparin Sodium (Porcine) (Heparin Inj) 5,000 units Q8H SQ Last administered on 09/16/17at 03:47; Start 09/16/17 at 03:00; Stop 09/16/17 at 10:05; Status DC Naloxone HCl (Narcan Inj) 0.4 mg UNSCH PRN IV PUSH SEE LABEL COMMENTS; Start at 03:00 Senna/Docusate Sodium (Bernadette-Colace) 1 tab BID PO ; Start 09/16/17 at 09:00 Magnesium Hydroxide (Milk Of Magnesia Liq) 30 ml Q12H PRN PO Mild constipation ; Start 09/16/17 at 03:00 Sennosides (Senokot) 17.2 mg Q12H PRN PO Moderate constipation; Start 09/16/17 at 03:00 Bisacodyl (Dulcolax Supp) 10 mg DAILY PRN RECTAL SEVERE CONSITIPATION; Start at 03:00 Lactulose (Lactulose Liq) 30 ml DAILY PRN PO SEVERE CONSITIPATION; Start at 03:00 Albuterol/ Ipratropium (Duoneb Neb) 1 ampule Q4HR NEB PRN NEB SOB/Wheezing; Start 09/16/17 at 05:15 Sodium Chloride 1,000 ml @ 100 mls/hr Q10H IV Last administered on 09/17/17at 01 :15; Start 09/16/17 at 05:15; Stop 09/17/17 at 13:36; Status DC Fluticasone Propionate (Flonase Elgin Spr) 2 spray DAILY EACH NARE Last administered on 09/18/17at 09:26; Start 09/16/17 at 09:00 Heparin Sodium/ Sodium Chloride 1,000 ml @ As Directed STK-MED ONCE IV FLUSH Last administered on 09/16/17at 08:39; Start 09/16/17 at 08:39; Stop 09/16/17 at 08: 40; Status DC Heparin Sodium (Porcine) (Heparin Inj) 10,000 units STK-MED ONCE .ROUTE Last administered on 09/16/17at 09:25; Start 09/16/17 at 08:45; Stop 09/16/17 at 08:46; Status DC Lidocaine HCl (Xylocaine-Mpf 1% Inj) 30 ml STK-MED ONCE .ROUTE Last administered on 09/16/17at 09:02; Start 09/16/17 at 09:02; Stop 09/16/17 at 09:03; Status DC Lidocaine HCl (Xylocaine-Mpf 1% Inj) 30 ml STK-MED ONCE .ROUTE Last administered on 09/16/17at 09:03; Start 09/16/17 at 09:03; Stop 09/16/17 at 09:04; Status DC Midazolam HCl (Versed Inj) 2 mg STK-MED ONCE .ROUTE ; Start 09/16/17 at 09:03; Stop 09/16/17 at 09:04; Status DC Fentanyl Citrate (fentaNYL INJ) 100 mcg STK-MED ONCE .ROUTE Last administered on 09/16/17at 09:18; Start 09/16/17 at 09:04; Stop 09/16/17 at 09:05; Status DC Tirofiban/Sodium Chloride 250 ml @ As Directed STK-MED ONCE IV Last administered on 09/16/17at 09:42; Start 09/16/17 at 09:21; Stop 09/16/17 at 09:22; Status DC Aspirin (Aspirin Chew) 162 mg STK-MED ONCE .ROUTE Last administered on at 09:29; Start 09/16/17 at 09:24; Stop 09/16/17 at 09:25; Status DC Heparin Sodium/ Sodium Chloride 1,000 ml @ As Directed STK-MED ONCE IV FLUSH Last administered on 09/16/17at 09:29; Start 09/16/17 at 09:29; Stop 09/16/17 at 09: 30; Status DC Prasugrel (Effient) 60 mg STK-MED ONCE .ROUTE Last administered on 09/16/17at 09: 48; Start 09/16/17 at 09:37; Stop 09/16/17 at 09:38; Status DC Metoprolol Tartrate (Lopressor) 25 mg Q12HR PO ; Start 09/16/17 at 21:00; Stop at 21:00; Status DC Atorvastatin Calcium (Lipitor) 20 mg HS PO ; Start 09/16/17 at 21:00; Status UNV Acetaminophen/ Hydrocodone Bitart ([facility] 10-325 Mg) 1 tab Q8H PRN PO pain scale 3-10 Last administered on 09/17/17at 20:53; Start 09/16/17 at 10:00 Sodium Chloride (NS Flush) 2 ml UNSCH PRN IV FLUSH FLUSH AFTER USING IV ACCESS ; Start 09/16/17 at 10:00; Stop 09/17/17 at 16:28; Status DC Sodium Chloride (NS Flush) 2 ml BID IV FLUSH Last administered on 09/17/17at 09: 07; Start 09/16/17 at 21:00; Stop 09/17/17 at 16:28; Status DC Aspirin (Aspirin Chew) 162 mg DAILY PO Last administered on 09/18/17at 09:26; Start 09/17/17 at 09:00 Prasugrel (Effient) 60 mg ONCE ONCE PO ; Start 09/16/17 at 10:00; Stop 09/16/17 at 10:11; Status DC Prasugrel (Effient) 10 mg DAILY PO Last administered on 09/18/17at 09:26; Start 09/17/17 at 09:00 Tirofiban/Sodium Chloride 250 ml @ 17.1 mls/hr [id number] IV Last administered on 09/16/17at 22:07; Start 09/16/17 at 09:54; Stop 09/17/17 at 03:53; Status DC Miscellaneous Information 1 ONCE ONCE XX ; Start 09/16/17 at 10:00; Stop at 10:05; Status DC Carvedilol (Coreg) 3.125 mg BID PO Last administered on 09/17/17at 09:05; Start 09/16/17 at 21:00; Stop 09/17/17 at 16:28; Status DC Ramipril (Altace) 2.5 mg DAILY PO Last administered on 09/17/17at 09:05; Start at 09:00; Stop 09/17/17 at 20:07; Status DC Atorvastatin Calcium (Lipitor) 10 mg HS PO Last administered on 09/16/17at 20:21 ; Start 09/16/17 at 21:00; Stop 09/17/17 at 20:07; Status DC Diatrizoate Meglum/ Diatrizoate Sod ( Gastroview Liq) 18 ml ONCE ONCE PO ; Start 09/16/17 at 12:15; Stop 09/16/17 at 12:16; Status DC Iohexol (OMNIPAQUE 350 INJ (Instructor Tap Dancing)) 100 ml STK-MED ONCE OTHER Last administered on 09/15/17at 19:38; Start 09/15/17 at 19:38; Stop 09/16/17 at 13:23; Status DC Lorazepam (Ativan Inj) 0.5 mg ONCE ONCE IV PUSH Last administered on 09/16/17at 14:45; Start 09/16/17 at 14:30; Stop 09/16/17 at 15:31; Status DC Ramipril (Altace) 2.5 mg ONCE ONCE PO Last administered on 09/16/17at 17:09; Start 09/16/17 at 16:00; Stop 09/17/17 at 10:24; Status DC Enalaprilat (Vasotec Inj) 1.25 mg Q6H PRN IV PUSH SBP> OR = 180, DBP> OR = 100 ; Start 09/16/17 at 16:00 Metoprolol Tartrate (Lopressor Inj) 5 mg STK-MED ONCE .ROUTE Last administered on 09/16/17 16:01; Start 09/16/17 at 15:57; Stop 09/16/17 at 15:58; Status DC Metoprolol Tartrate (Lopressor Inj) 5 mg Q5M IV PUSH Last administered on 16:21; Start 09/16/17 at 16:15; Stop 09/16/17 at 16:26; Status DC Metoprolol Tartrate (Lopressor) 25 mg Q6HR PO Last administered on 09/17/17at 13: 11; Start 09/16/17 at 16:11; Stop 09/17/17 at 16:27; Status DC Metoprolol Tartrate (Lopressor Inj) 5 mg STK-MED ONCE .ROUTE Last administered on 09/16/17 16:12; Start 09/16/17 at 16:11; Stop 09/16/17 at 16:12; Status DC Sodium Chloride 1,000 ml @ 1,000 mls/hr Q1H ONCE IV Last administered on at 13:45; Start 09/17/17 at 13:45; Stop 09/17/17 at 14:44; Status DC Sodium Chloride 1,000 ml @ 150 mls/hr Q6H40M IV Last administered on 09/18/17 09:26; Start 09/17/17 at 14:00 Heparin Sodium/ Sodium Chloride 2,000 ml @ As Directed STK-MED ONCE IV FLUSH ; Start 09/17/17 at 14:51; Stop 09/17/17 at 14:52; Status DC Midazolam HCl (Versed Inj) 2 mg STK-MED ONCE .ROUTE Last administered on at 15:03; Start 09/17/17 at 15:03; Stop 09/17/17 at 15:04; Status DC Fentanyl Citrate (fentaNYL INJ) 100 mcg STK-MED ONCE .ROUTE Last administered on 09/17/17 15:04; Start 09/17/17 at 15:04; Stop 09/17/17 at 15:05; Status DC Heparin Sodium (Porcine) (Heparin Inj) 10,000 units STK-MED ONCE .ROUTE Last administered on 09/17/17at 15:04; Start 09/17/17 at 15:04; Stop 09/17/17 at 15:05; Status DC Tirofiban/Sodium Chloride 250 ml @ As Directed STK-MED ONCE IV Last administered on 09/17/17at 15:44; Start 09/17/17 at 15:44; Stop 09/17/17 at 15:45; Status DC Sodium Chloride (NS Flush) 2 ml UNSCH PRN IV FLUSH FLUSH AFTER USING IV ACCESS ; Start 09/17/17 at 16:30 Sodium Chloride (NS Flush) 2 ml BID IV FLUSH Last administered on 09/17/17at 20: 53; Start 09/17/17 at 21:00 Tirofiban/Sodium Chloride 250 ml @ 8.667 mls/ hr Q24H IV ; Start 09/17/17 at 16: 20; Stop 09/18/17 at 06:46; Status DC Miscellaneous Information 1 ONCE ONCE XX ; Start 09/17/17 at 16:30; Stop at 16:31; Status DC Bacitracin (Bacitracin Oint Packet) 0.9 gm ONCE ONCE TOP ; Start 09/17/17 at 16: 30; Stop 09/17/17 at 16:31; Status DC Carvedilol (Coreg) 3.125 mg BID PO Last administered on 09/17/17at 20:53; Start 09/17/17 at 21:00; Stop 09/18/17 at 00:44; Status DC Iohexol (OMNIPAQUE 350 INJ (Instructor Tap Dancing)) 100 ml STK-MED ONCE OTHER ; Start at 19:38; Stop 09/17/17 at 16:34; Status DC Atorvastatin Calcium (Lipitor) 40 mg HS PO Last administered on 09/17/17at 20:51 ; Start 09/17/17 at 21:00 Lorazepam (Ativan Inj) 0.5 mg ONCE ONCE IV PUSH Last administered on 09/17/17at 22:53; Start 09/17/17 at 22:45; Stop 09/17/17 at 22:46; Status DC Carvedilol (Coreg) 3.125 mg NOW ONCE PO Last administered on 09/18/17at 00:53; Start 09/18/17 at 00:45; Stop 09/18/17 at 00:46; Status DC Carvedilol (Coreg) 6.25 mg Q12HR PO Last administered on 09/18/17at 09:26; Start 09/18/17 at 09:00 Magnesium Sulfate/ Dextrose 100 ml @ 100 mls/hr Q1H IV Last administered on 09/18/17at 11:54; Start 09/18/17 at 10:00; Stop 09/18/17 at 11:59; Status DC Magnesium Oxide (Mag-Ox) 400 mg ONCE ONCE PO Last administered on 09/18/17at 10: 52; Start 09/18/17 at 10:00; Stop 09/18/17 at 10:01; Status DC Magnesium Oxide (Mag-Ox) 400 mg Q12HR PO ; Start 09/18/17 at 21:00 A/P Assessment and Plan 67-year-old male with history of chronic back pain, tobacco use, presents with acute onset of chest and abdominal pain. Initially presented to the [place], then sent to [place] [facility] via [facility]. Chest Pain, suspected NSTEMI: No reports of CAD, however pain relieved by nitro , and +risk factors with tobacco use -Troponins trended, 0.02 --> 0.06 --> 0.07 -EKG reviewed, shows incomplete RBBB, otherwise no acute ischemic changes -Monitor on telemetry -Given aspirin, start on metoprolol 25mg bid, and start on statin for now pending lipid panel (LFTs wnl) -Check lipid panel and HgbA1c -Consult cardiology, seen by Dr. Mata, plan for cardiac catheterization today HAD CATH 4-5 HAVING REPEAT CATH 4-6 CAD - SP BMS TO OST RPDA AND MID LAD- ON ASPIRIN, EFFIENT, COREG, LIPITOR -- MARY ON HOLD DUE TO RENAL ISSUES NSVT - unimproved after BMS TO LAD- he may need ptca of ostial rpla; will get EP consult with Dr Lockett 09/20/17; replete electrolytes; unable to increase coreg due to relative hypotension and resolving arf Abdominal Pain: patient's main complaint is abdominal pain. Symptom onset after eating pizza and bologna sandwich. +RUQ tenderness on exam. Also takes ibuprofen 800mg 1-2x per day. -Lipase and LFTs wnl -check abdominal CT -supportive treatment with IVF, antiemetics prn CAT SCAN OF ABDOMEN SHOWS NOW ACUTE ISSUES RENAL INSUFFICIENCY AM LABS Tobacco Abuse: chronic -counseled on cessation -avoid nicotine patch due to vasoconstriction Chronic Back Pain: patient denies any acute worsening -continue patient's [facility] prn Discharge Planning NOT CLEARED BY CARDIOLOGY WANTS EPS STUDY WITH DR LOCKETT PRIOR TO DC Nabil Chase DO Sep 18, 2017 12:28
[2017-09-18] MEDS ORDERED: POTASSIUM PHOSPHATE INJ 30 MMOL in SODIUM CHLOR 0.9% 250 ML INJ 250 ML IV ONE (12:30)
[2017-09-18 13:00] LABS: HEMOGLOBIN A1C 5.3 % (4.3-6.0)
--- NOTE | 2017-09-18 14:51 | EKG ---
Date Performed: 09/17/2017 Time Performed: 11:55:14 PTAGE: 67 years EKG: Sinus rhythm Right axis deviation Low QRS voltages in limb leads Borderline ECG PREVIOUS TRACING : 09/17/2017 05.22 Since previous tracing, the PVCs have resolved. DOCTOR: Jim Srivastava Interpretating Date/Time 09/18/2017 14:49:54
--- NOTE | 2017-09-18 14:51 | EKG ---
Date Performed: 09/17/2017 Time Performed: 21:03:16 PTAGE: 67 years EKG: Sinus rhythm with frequent PVC runs in a bigeminy pattern Right axis deviation Low voltage in limb leads Abnormal ECG PREVIOUS TRACING : 09/17/2017 11.55 Since previous tracing, the PVCs are new. DOCTOR: Jim Srivastava Interpretating Date/Time 09/18/2017 14:50:56
--- NOTE | 2017-09-18 14:52 | EKG ---
Date Performed: 09/18/2017 Time Performed: 05:18:36 PTAGE: 67 years EKG: Sinus rhythm with bigeminal PVCs Right axis deviation Low QRS voltages in limb leads Abnormal ECG PREVIOUS TRACING : 09/17/2017 21.03 Since previous tracing, no significant change. DOCTOR: Jim Srivastava Interpretating Date/Time 09/18/2017 14:51:16
[2017-09-18] MEDS ORDERED: MAGNESIUM OXIDE 400 MG TAB PO SCH ×2 (21:00)
[2017-09-18] MEDS: ATORVASTATIN 40 MG TAB PO SCH (21:07)
--- NOTE | 2017-09-18 21:16 | MB ---
cc: Devin Whittington Vincent G DO DATE: 09/18/2017 REASON FOR CONSULTATION: Ectopy, covering for Dr. Demarco. HISTORY OF PRESENT ILLNESS: Blu Valdovinos is a pleasant 67-year-old male who originally presented to [facility] emergency room on 09/15/2017 due to chest pain. He was found to have an elevated troponin of 0.07 and has since been taken to the dental laboratory technician by Dr. Mata for PCI and bare metal stenting of his proximal PDA as well as his mid LAD. Afterwards, he states that he has had no further chest pain, shortness of breath or burning that he originally had when he came in. While here, he has been noted to have occasional bigeminy as well as ectopy, but no significant runs of nonsustained ventricular tachycardia. Dr. Demarco, my partner, has been consulted for further considerations from an electrophysiologic standpoint. PAST MEDICAL HISTORY: 1. Coronary artery disease. 2. Unspecified cardiac dysrhythmia. 3. Chronic low back pain. PAST SURGICAL HISTORY: 1. SVT ablation (per the patient done a number of years ago at the [facility] in [place], patient unsure of his diagnosis of SVT and what was done). 2. Right wrist surgery. 3. Cystoscopy with insertion of right ureteral stent (06/27/2016). 4. PCI on this admission as above ALLERGIES: NO KNOWN DRUG ALLERGIES MEDICATIONS: 1. ProAir 2 puffs every 6 hours as needed for shortness of breath. 2. Viagra 100 mg daily as needed for erectile dysfunction. 3. Ibuprofen 800 mg every 12 hours as needed for pain. 4. Hydrocodone/acetaminophen 10/325 daily. 5. Ambien 10 mg every night as needed for insomnia. FAMILY HISTORY: Denies premature coronary artery disease or sudden cardiac within the family. SOCIAL HISTORY: The patient smokes 2-3 packs per day. Denies alcohol or illicit drug abuse. REVIEW OF SYSTEMS: Fourteen systems were reviewed including osteopathic. Pertinent positives and negatives above, otherwise negative. PHYSICAL EXAMINATION: VITAL SIGNS: Temperature 99.1, heart rate 86, blood pressure 126/79, respirations 20, pulse oximetry 99% on room air. GENERAL: The patient appears well in no acute distress. Alert, awake and oriented x3. HEENT: Extraocular muscles intact. Mucous membranes moist. NECK: Supple. No JVD at 45 degrees. No carotid bruits heard bilaterally. Carotid upstroke is brisk in nature. HEART: Regular rate and rhythm. Positive first and second heart sounds with no murmurs, gallops or rubs. LUNGS: Clear to auscultation bilaterally. No wheezes, rales or rhonchi. ABDOMEN: Soft, nontender, nondistended, no organomegaly noted. EXTREMITIES: Show trace edema bilaterally. NEUROLOGIC: No focal deficits. SKIN: Warm, dry and intact. OSTEOPATHIC: No kyphoscoliosis, lordosis or paraspinal tender points. LABORATORY DATA: Hemoglobin 16.0, hematocrit 46.5, platelets 206. Potassium 3.6, BUN 24, creatinine 1.52, magnesium 1.8. Troponin 0.07. CARDIOLOGY STUDIES: Electrocardiogram (09/18/2017 at 0518) sinus rhythm with ventricular bigeminy, right axis deviation. IMPRESSIONS: 1. CAD/Elevated troponin s/p PCI as above 2. Ventricular ectopy/Bigeminy 3. History of SVT ablation (patient unsure what was done and diagnosis) RECOMMENDATIONS: 1. I was asked to see Mr. Valdovinos while covering for Dr. Demarco due to ventricular ectopy. 2. Apparently, the patient is asymptomatic and has not noticed his ectopy as well as bigeminy. 3. He has had no significant runs of ventricular tachycardia. 4. We will plan on cheek checking a 2-D echo to look at his overall left ventricular function, cardiac structure and possible valvulopathies. 5. Recommend keeping his electrolytes replenished. 6. We will plan to discuss further with Dr. Demarco tomorrow and have Dr. Demarco follow up on him on Wednesday for further recommendations depending on the results of the above testing with a consideration of possible electrophysiologic study. 7. Defer to Dr. Mata, his primary catering administrative assistant, for further recommendations from an overall cardiology standpoint. 8. Spoke to him for greater than 3 minutes about tobacco cessation 9. As he has had some borderline low blood pressures, would not increase his Coreg at this time. If blood pressure is overall better, would increase his Coreg as possible. Thank you for allowing me to see Blu Valdovinos. I f there are any questions, please do not hesitate to call. DO CHANO De La O/SA/rh , 05:32 PM , 08:16 PM [facility]
[2017-09-18] MEDS ORDERED: diphenhydrAMINE HCL 50 MG CAP PO ONE (22:45)
[2017-09-19] VITALS (27 sets, daily range): BP systolic 98–130; BP diastolic 56–74; PULSE 71–95; RESP 18–20; TEMP 97.8–99.8; O2SAT 94–96
[2017-09-19] MEDS ORDERED: FUROSEMIDE 40 MG TAB PO ONE (03:30)
[2017-09-19] MEDS ORDERED: diphenhydrAMINE HCL 50 MG CAP PO ONE (03:30)
[2017-09-19 04:35] LABS: AUTOMATED NEUTROPHIL # 6.2 TH/MM3 (1.8-7.7); BASOPHIL % 0.3 % (0.0-2.0); EOSINOPHIL # 0.4 TH/MM3 (0-0.4); EOSINOPHIL % 5.7 % (0.0-4.0); HEMATOCRIT 44.1 % (39.0-51.0); HEMOGLOBIN 15.3 GM/DL (13.0-17.0); LYMPH % 6.4 % (9.0-44.0); LYMPHOCYTE # 0.5 TH/MM3 (1.0-4.8); MEAN CELL VOLUME 87.1 FL (80.0-100.0); MEAN CORPUSCULAR HEMOGLOBIN 30.2 PG (27.0-34.0); MEAN CORPUSCULAR HGB CONC 34.6 % (32.0-36.0); MEAN PLATELET VOLUME 8.2 FL (7.0-11.0); MONO % 7.2 % (0.0-8.0); MONOCYTE # 0.6 TH/MM3 (0-0.9); NEUT % 80.4 % (16.0-70.0); PLATELET COUNT 194 TH/MM3 (150-450); RED BLOOD COUNT 5.06 MIL/MM3 (4.50-5.90); RED CELL DISTRIBUTION WIDTH 14.7 % (11.6-17.2); WHITE BLOOD COUNT 7.7 TH/MM3 (4.0-11.0)
[2017-09-19 04:51] LABS: ALBUMIN 2.7 GM/DL (3.4-5.0); ALT (GPT) 23 U/L (12-78); AST (GOT) 15 U/L (15-37); BICARBONATE 20.3 MEQ/L (21.0-32.0); BLOOD UREA NITROGEN 17 MG/DL (7-18); CALCIUM 7.8 MG/DL (8.5-10.1); CHLORIDE 109 MEQ/L (98-107); CREATININE 1.35 MG/DL (0.60-1.30); GLOMERULAR FILTRATION RATE 53 ML/MIN (>89); GLUCOSE,RANDOM 93 MG/DL (74-106); MAGNESIUM 2.1 MG/DL (1.5-2.5); PHOSPHORUS 2.2 MG/DL (2.5-4.9); SODIUM (NA) 138 MEQ/L (136-145)
[2017-09-19 04:54] LABS: ALKALINE PHOSPHATASE 83 U/L (45-117); TOTAL BILIRUBIN ADULT 0.7 MG/DL (0.2-1.0); TOTAL PROTEIN 6.1 GM/DL (6.4-8.2)
[2017-09-19] MEDS: SODIUM CHLOR 0.9% 1000 ML INJ 1,000 ML IV SCH ×3 (05:19→09:30)
--- NOTE | 2017-09-19 07:47 | PD.CARD.PN ---
Subjective Subjective Remarks c/o swelling and diffuse erythematous rash o/w assymptomatic Objective Medications Current Medications Medications (Trade) Dose Ordered Sig/Anny Route Start Time Stop Time Status Last Admin (Tylenol) 500 mg Q4H PRN PO 09/15/17 19:45 (Tylenol) 650 mg Q4H PRN PO 09/16/17 03:00 (Zofran Inj) 4 mg Q6H PRN IVP 09/16/17 03:00 09/17/17 22:15 (Narcan Inj) 0.4 mg UNSCH PRN IV PUSH 09/16/17 03:00 (Bernadette-Colace) 1 tab BID PO 09/16/17 09:00 09/18/17 21:08 (Milk Of Magnesia Liq) 30 ml Q12H PRN PO 09/16/17 03:00 (Senokot) 17.2 mg Q12H PRN PO 09/16/17 03:00 (Dulcolax Supp) 10 mg DAILY PRN RECTAL 09/16/17 03:00 (Lactulose Liq) 30 ml DAILY PRN PO 09/16/17 03:00 (Duoneb Neb) 1 ampule Q4HR NEB PRN NEB 09/16/17 05:15 (Flonase [place]gin Spr) 2 spray DAILY EACH NARE 09/16/17 09:00 09/18/17 09:26 ([place] 10-325 Mg) 1 tab Q8H PRN PO 09/16/17 10:00 09/17/17 20:53 (Aspirin Chew) 162 mg DAILY PO 09/17/17 09:00 09/18/17 09:26 (Effient) 10 mg DAILY PO 09/17/17 09:00 09/18/17 09:26 (Vasotec Inj) 1.25 mg Q6H PRN IV PUSH 09/16/17 16:00 Sodium Chloride 1,000 ml @ 150 mls/hr Q6H40M IV 09/17/17 14:00 09/19/17 05:19 (NS Flush) 2 ml UNSCH PRN IV FLUSH 09/17/17 16:30 (NS Flush) 2 ml BID IV FLUSH 09/17/17 21:00 09/18/17 21:07 (Lipitor) 40 mg HS PO 09/17/17 21:00 09/18/17 21:07 (Coreg) 6.25 mg Q12HR PO 09/18/17 09:00 09/18/17 21:07 (Mag-Ox) 400 mg Q12HR PO 09/18/17 21:00 Vital Signs / I&O Vital Signs Date Time Temp Pulse Resp B/P (MAP) Pulse Ox O2 Delivery O2 Flow Rate FiO2 09/19/17 06:03 83 09/19/17 05:00 91 09/19/17 04:00 88 09/19/17 03:46 98.6 91 122/74 (90) 95 09/19/17 03:00 92 09/19/17 02:00 88 09/19/17 01:00 94 09/19/17 00:22 99.8 95 130/64 (86) 96 09/19/17 00:00 94 09/18/17 23:00 88 09/18/17 22:00 92 09/18/17 21:00 92 09/18/17 20:00 94 09/18/17 19:22 21 09/18/17 19:00 92 09/18/17 19:00 99.5 93 108/66 (80) 96 09/18/17 18:01 89 09/18/17 17:00 88 09/18/17 16:00 99.1 86 20 126/79 (95) 99 09/18/17 16:00 86 09/18/17 15:00 89 09/18/17 14:00 86 09/18/17 13:00 83 09/18/17 12:00 83 09/18/17 11:00 97.7 88 20 93/55 (68) 94 09/18/17 11:00 88 09/18/17 10:00 97 09/18/17 09:30 93 21 09/18/17 09:30 98.2 09/18/17 09:00 98 09/18/17 08:20 100.0 105 20 106/65 (79) 96 09/18/17 08:20 105 I/O 09/18/17 09/18/17 09/18/17 09/19/17 09/19/17 09/19/17 07:00 15:00 23:00 07:00 15:00 23:00 Intake Total 1240 ml 1450 ml 2148 ml 400 ml Output Total 400 ml 500 ml 775 ml Balance 840 ml 1450 ml 1648 ml -375 ml Intake Oral 240 ml 480 ml 400 ml IV Total 1000 ml 1450 ml 1668 ml Output Urine Total 400 ml 500 ml 775 ml # Voids 5 # Bowel Movements 0 Physical Exam GENERAL: SKIN: Warm and dry. HEAD: Normocephalic. EYES: No scleral icterus. No injection or drainage. NECK: Supple, trachea midline. No JVD or lymphadenopathy. CARDIOVASCULAR: Regular rate and rhythm without murmurs, gallops, or rubs. RESPIRATORY: Breath sounds equal bilaterally. No accessory muscle use. GASTROINTESTINAL: Abdomen soft, non-tender, nondistended. MUSCULOSKELETAL: No cyanosis, or edema. BACK: Nontender without obvious deformity. No CVA tenderness. Laboratory Laboratory Tests Test 09/19/17 04:00 White Blood Count 7.7 TH/MM3 Red Blood Count 5.06 MIL/MM3 Hemoglobin 15.3 GM/DL Hematocrit 44.1 % Mean Corpuscular Volume 87.1 FL Mean Corpuscular Hemoglobin 30.2 PG Mean Corpuscular Hemoglobin Concent 34.6 % Red Cell Distribution Width 14.7 % Platelet Count 194 TH/MM3 Mean Platelet Volume 8.2 FL Neutrophils (%) (Auto) 80.4 % Lymphocytes (%) (Auto) 6.4 % Monocytes (%) (Auto) 7.2 % Eosinophils (%) (Auto) 5.7 % Basophils (%) (Auto) 0.3 % Neutrophils # (Auto) 6.2 TH/MM3 Lymphocytes # (Auto) 0.5 TH/MM3 Monocytes # (Auto) 0.6 TH/MM3 Eosinophils # (Auto) 0.4 TH/MM3 Basophils # (Auto) 0.0 TH/MM3 CBC Comment DIFF FINAL Differential Comment Blood Urea Nitrogen 17 MG/DL Creatinine 1.35 MG/DL Random Glucose 93 MG/DL Total Protein 6.1 GM/DL Albumin 2.7 GM/DL Calcium Level 7.8 MG/DL Phosphorus Level 2.2 MG/DL Magnesium Level 2.1 MG/DL Alkaline Phosphatase 83 U/L Aspartate Amino Transf (AST/SGOT) 15 U/L Alanine Aminotransferase (ALT/SGPT) 23 U/L Total Bilirubin 0.7 MG/DL Sodium Level 138 MEQ/L Potassium Level 3.7 MEQ/L Chloride Level 109 MEQ/L Carbon Dioxide Level 20.3 MEQ/L Anion Gap 9 MEQ/L Estimat Glomerular Filtration Rate 53 ML/MIN B-Type Natriuretic Peptide 52 PG/ML Assessment and Plan Problem List: (1) NSVT (nonsustained ventricular tachycardia) ICD Codes: I47.2 - Ventricular tachycardia (2) CAD (coronary artery disease) ICD Codes: I25.10 - Atherosclerotic heart disease of [place] coronary artery without angina pectoris (3) NSTEMI (non-ST elevated myocardial infarction) ICD Codes: I21.4 - Non-ST elevation (NSTEMI) myocardial infarction (4) Renal insufficiency ICD Codes: N28.9 - Disorder of kidney and ureter, unspecified Status: Acute (5) Tobacco abuse ICD Codes: Z72.0 - Tobacco use Status: Acute Assessment and Plan 1.) CAD - s/p bms ost rpda and mid lad, continue aspirin,coreg, lipitor; robert held due to arf; creatinine improving, change effient to plavix 75 mg qd due to rash and patient [facility] 2.) NSVT - resolved after bms mid lad and magnesium supplementation, no ectopy on the monitor this am, nurse reports minimal ectopy over [employer] appellate [employer], continue coreg, hold meagnesium supplementation due to rash Esvin Mata MD Sep 19, 2017 07:47
[2017-09-19] MEDS: SODIUM CHLORIDE 0.9% FLUSH 10 ML FLUSH IV FLUSH SCH ×2 (09:00→20:10)
[2017-09-19] MEDS: CLOPIDOGREL 75 MG TAB PO SCH (09:26)
[2017-09-19] MEDS: CARVEDILOL 6.25 MG TAB PO SCH ×2 (09:26→20:08)
[2017-09-19] MEDS: DOCUSATE SODIUM 50 MG/SENNA 8.6 MG TAB PO SCH ×2 (09:26→20:10)
[2017-09-19] MEDS: ASPIRIN 81 MG CHEW TAB PO SCH (09:26)
[2017-09-19] MEDS: FLUTICASONE PROPIONATE 50 MCG/ACT 16 GM NASAL SPRAY EACH NARE SCH (09:27)
--- NOTE | 2017-09-19 11:19 | HHI.PR ---
Subjective Remarks 67-year-old male with a past medical history significant for chronic back pain presents to the emergency department evaluation of chest and abdominal pain. The patient states that his chest pain began yesterday which started as a burning in his throat and became a bilateral chest pressure that radiated to his bilateral shoulders and down his arms. He went to the [facility] for evaluation and was told he was diaphoretic with blue lips at that time. He was sent to the ED for further evaluation and admitted to the chest pain center. The patient's initial troponin was less than 0.02 with subsequent troponin 0.06 and 0.07. He is not currently having any chest pain. His chief complaint is 5/10 abdominal pain which she describes as crampy and tender. He denies any nausea/ vomiting/diarrhea. No shortness of breath. No lateralizing signs/symptoms. Follow up for chest pain, abdominal pain. The patient reports continue diffuse abdominal pain, worse at epigastric and periumbilical region. He reports associated belching. Denies nausea/vomiting. He did have a loose stool yesterday , but no intractable diarrhea. Prior to symptom onset, he ate pizza the night before, and then the next morning he ate a bologna sandwich, then symptoms began 1-2 hours later. He reports taking 1-2 ibuprofen 800mg tablets daily for his chronic back pain. He has not had any further chest pain since yesterday. He states the pain was located near the upper anterior sternum without any radiation, but this was relieved by nitro spray administered en route via [facility]. He denies any prior cardiac history. He reports a walking treadmill test 10+ years ago that was reportedly unremarkable. Denies any recent cardiac work up. He initially tells me that he's never had a cardiac catheterization, then later states he may have had this done but he is not sure and it would've been many years ago. 4-6 had a catheterization yesterday. Going for another cardiac catheterization later today with cardiology [facility] RENAL FUNCTIONS DW PATIENT AND RN AND CM CONTINUE IV FLUIDS CAD - s/p bms ost rpda and mid lad, continue aspirin, effient, coreg, lipitor; mary held due to arf; creatinine improving 4-7 HAD BMS TO OST RPDA AND MID LAD ON -6 DR LOCKETT HAS BEEN CONSULTED FOR NSVT NOT CLEARED BY CARDIOLOGY FOR DISCHARGE YET AM [facility] WATCH RENAL FUNCTIONS 4-8 HAS RASH/SWELLING MEDS ADJUSTED DW RN AND PT AND CM [facility] MONITOR RENAL FUNCTIONS Objective Vitals Vital Signs Date Time Temp Pulse Resp B/P (MAP) Pulse Ox O2 Delivery O2 Flow Rate FiO2 09/19/17 08:00 98.9 80 18 98/56 (70) 94 09/19/17 06:03 83 09/19/17 05:00 91 09/19/17 04:00 88 09/19/17 03:46 98.6 91 122/74 (90) 95 09/19/17 03:00 92 09/19/17 02:00 88 09/19/17 01:00 94 09/19/17 00:22 99.8 95 130/64 (86) 96 09/19/17 00:00 94 09/18/17 23:00 88 09/18/17 22:00 92 09/18/17 21:00 92 09/18/17 20:00 94 09/18/17 19:22 21 09/18/17 19:00 92 09/18/17 19:00 99.5 93 108/66 (80) 96 09/18/17 18:01 89 09/18/17 17:00 88 09/18/17 16:00 99.1 86 20 126/79 (95) 99 09/18/17 16:00 86 09/18/17 15:00 89 09/18/17 14:00 86 09/18/17 13:00 83 09/18/17 12:00 83 I/O 09/18/17 09/18/17 09/18/17 09/19/17 09/19/17 09/19/17 07:00 15:00 23:00 07:00 15:00 23:00 Intake Total 1240 ml 1450 ml 2148 ml 400 ml Output Total 400 ml 500 ml 775 ml Balance 840 ml 1450 ml 1648 ml -375 ml Intake Oral 240 ml 480 ml 400 ml IV Total 1000 ml 1450 ml 1668 ml Output Urine Total 400 ml 500 ml 775 ml # Voids 5 # Bowel Movements 0 Result Diagram: 09/19/17 0400 09/19/17 0400 Other Results Laboratory Tests Test 09/16/17 20:08 09/17/17 04:49 09/18/17 04:19 09/19/17 04:00 Hemoglobin A1c 5.5 % 5.3 % Triglycerides Level 393 MG/DL 289 MG/DL Cholesterol Level 217 MG/DL 179 MG/DL LDL Cholesterol 118 MG/DL 100 MG/DL HDL Cholesterol 20.5 MG/DL 21.1 MG/DL Cholesterol/HDL Ratio 10.58 RATIO 8.48 RATIO White Blood Count 14.9 TH/MM3 10.2 TH/MM3 7.7 TH/MM3 Red Blood Count 6.03 MIL/MM3 5.24 MIL/MM3 5.06 MIL/MM3 Hemoglobin 18.2 GM/DL 16.0 GM/DL 15.3 GM/DL Hematocrit 53.2 % 46.5 % 44.1 % Mean Corpuscular Volume 88.2 FL 88.6 FL 87.1 FL Mean Corpuscular Hemoglobin 30.2 PG 30.5 PG 30.2 PG Mean Corpuscular Hemoglobin Concent 34.3 % 34.4 % 34.6 % Red Cell Distribution Width 14.6 % 14.5 % 14.7 % Platelet Count 239 TH/MM3 206 TH/MM3 194 TH/MM3 Mean Platelet Volume 8.5 FL 8.4 FL 8.2 FL Neutrophils (%) (Auto) 88.2 % 86.8 % 80.4 % Lymphocytes (%) (Auto) 5.3 % 5.7 % 6.4 % Monocytes (%) (Auto) 3.8 % 3.6 % 7.2 % Eosinophils (%) (Auto) 2.3 % 3.7 % 5.7 % Basophils (%) (Auto) 0.4 % 0.2 % 0.3 % Neutrophils # (Auto) 13.1 TH/MM3 8.9 TH/MM3 6.2 TH/MM3 Lymphocytes # (Auto) 0.8 TH/MM3 0.6 TH/MM3 0.5 TH/MM3 Monocytes # (Auto) 0.6 TH/MM3 0.4 TH/MM3 0.6 TH/MM3 Eosinophils # (Auto) 0.3 TH/MM3 0.4 TH/MM3 0.4 TH/MM3 Basophils # (Auto) 0.1 TH/MM3 0.0 TH/MM3 0.0 TH/MM3 CBC Comment DIFF FINAL DIFF FINAL DIFF FINAL Differential Comment Blood Urea Nitrogen 23 MG/DL 24 MG/DL 17 MG/DL Creatinine 1.76 MG/DL 1.52 MG/DL 1.35 MG/DL Random Glucose 90 MG/DL 87 MG/DL 93 MG/DL Calcium Level 8.0 MG/DL 7.7 MG/DL 7.8 MG/DL Sodium Level 137 MEQ/L 139 MEQ/L 138 MEQ/L Potassium Level 3.8 MEQ/L 3.6 MEQ/L 3.7 MEQ/L Chloride Level 105 MEQ/L 110 MEQ/L 109 MEQ/L Carbon Dioxide Level 21.2 MEQ/L 18.8 MEQ/L 20.3 MEQ/L Anion Gap 11 MEQ/L 10 MEQ/L 9 MEQ/L Estimat Glomerular Filtration Rate 39 ML/MIN 46 ML/MIN 53 ML/MIN Total Creatine Kinase 69 U/L 54 U/L Total Protein 5.6 GM/DL 6.1 GM/DL Albumin 2.5 GM/DL 2.7 GM/DL Phosphorus Level 2.2 MG/DL 2.2 MG/DL Magnesium Level 1.8 MG/DL 2.1 MG/DL Alkaline Phosphatase 83 U/L 83 U/L Aspartate Amino Transf (AST/SGOT) 16 U/L 15 U/L Alanine Aminotransferase (ALT/SGPT) 21 U/L 23 U/L Total Bilirubin 1.0 MG/DL 0.7 MG/DL Free Thyroxine 0.94 NG/DL Thyroid Stimulating Hormone 3rd Gen 3.120 uIU/ML B-Type Natriuretic Peptide 52 PG/ML Imaging Last Impressions Abdomen/Pelvis CT 09/17/17 0000 Signed Impressions: Service Date/Time: Sunday, September 17, 2017 14:16 - CONCLUSION: 1. No acute CT abnormality in the abdomen or pelvis. 2. 5 x 6 mm nonobstructing calcified calyceal calculus in the mid left kidney. 3. Mild scattered colonic diverticulosis without evidence for diverticulitis. 4. Additional ancillary findings include probable gallbladder sludge, asymmetrical renal size, and small fat-containing inguinal hernias. Dann Azar MD Chest X-Ray 09/15/17 1741 Signed Impressions: Service Date/Time: Friday, September 15, 2017 17:59 - CONCLUSION: Compensated cardiomegaly otherwise negative Nabil Lawson MD FACR Objective Remarks GENERAL: Awake alert and oriented 3 talkative and cooperative appears to be in no acute distress at this time SKIN: Warm and dry. Multiple tattoos rash will give steroid HEAD: Atraumatic. Normocephalic. EYES: Pupils equal and round. No scleral icterus. No injection or drainage. Extraocular muscles intact ENT: No nasal bleeding or discharge. Mucous membranes pink and moist. Tongue is midline NECK: Trachea midline. No JVD. Supple CARDIOVASCULAR: Regular rate and rhythm. S1-S2 no S3 or S4 RESPIRATORY: No accessory muscle use. Clear to auscultation. Breath sounds equal bilaterally. GASTROINTESTINAL: Abdomen soft, non-tender, nondistended. Hepatic and splenic margins not palpable. Obese MUSCULOSKELETAL: Extremities without clubbing, cyanosis, or edema. No obvious deformities. NEUROLOGICAL: Awake and alert. No obvious cranial nerve deficits. Motor grossly within normal limits. Five out of 5 muscle strength in the arms and legs. Normal speech. PSYCHIATRIC: Appropriate mood and affect; insight and judgment normal. Procedures 09/16/2017 PROCEDURE PERFORMED: Left heart catheterization, left ventriculography, coronary angiography, direct PCI with bare metal stent of the ostial proximal right PDA. INDICATIONS FOR SURGERY: Non-STEMI. Coronary artery disease. PROCEDURE: The patient was brought to the cardiac catheterization laboratory, prepped and draped in the usual sterile fashion. A 10 mL of 1% lidocaine was used to locally anesthetize the right common femoral artery. A 4-Wallisian sheath with placed in the right common femoral artery. 4-Wallisian JR4 and JL4 catheter were used to perform left and right coronary angiography, left ventriculography. FINDINGS: The LV pressure is 150/9-10. EF is 60%. The right coronary artery is dominant; it has moderate diffuse disease in the proximal midsegment up to perhaps 50% angiographically. The right PDA has an ostial proximal 90% stenosis. The right posterolateral artery has an ostial proximal 70% stenosis. The left main coronary artery has no significant disease angiographically, but it does appear to be angiographically small. No focal obstructive disease. Reference vessel diameter probably 3.25 mm in diameter. The left circumflex vessel has mild diffuse disease in the proximal AV groove up to 10% angiographically. First obtuse marginal vessel has mild to moderate ostial proximal disease up to 30-40% angiographically, reference vessel diameter 2.5 mm. There is a bifurcation in the midsegment. Second and third obtuse marginal vessels are small vessels, 1-1.5 mm vessels with no significant obstructive disease. The LAD is transapical. There is a 60-70% stenosis at a bifurcation with a small to medium-sized diagonal vessel, which probably has a reference vessel diameter of 2 mm. The LAD is transapical. DISCUSSION: The highest grade lesion is the ostial proximal right PDA. I do think this is the culprit lesion. I discussed with the patient the option of considering bypass, although prior to consideration of any revascularization of the LAD, I do think FFR would be indicated to document this is hemodynamically significant as angiographically it is not definitely significant. The patient declined CABG. INTERVENTION: Therefore, the 6-Wallisian sheath was exchanged for a 4-Wallisian sheath. 70 units per kilo of heparin was given. ACT 252. A 6-Wallisian JR4 guide with 0.014 Prowater guidewire was placed into the right PDA and then a second 0.014 Prowater guide wire was placed into the right ELLIOT to protect the ELLIOT. I then placed a 2.5/8 Integrity stent at the ostial proximal segment of the right PDA. Without the stent deployed the patient developed his typical angina. When the stent was deployed to 10 atmospheres, his angina intensified. The stent was deployed to 10 atmospheres. Stenosis went from 90% to 0% with SANDY-3 flow. There was no significant compromise of the right posterolateral artery. I did try to place this stent just distal to the os of the right ELLIOT, although angiographically it does appear that a corner of the stent is possibly jailing the right ELLIOT. Again, the os of the ELLIOT remained at about 60-70% angiographically. The patient's chest pain completely resolved. He also had some jaw pain which also completely resolved at the end of the case. Flow was SANDY-3 into the right ELLIOT. CONCLUSION: 1. [id number] myocardial infarction, culprit 90% ostial proximal right posterior diagonal artery, as detailed above. 2. A 70% proximal mid-left anterior descending at a bifurcation with a small to medium-sized diagonal vessel, as detailed above. 3. Mild to moderate diffuse disease in the proximal mid-right coronary artery. There is also a 50-60% stenosis in the mid-right posterior diagonal artery. 4. Normal left ventricular systolic function with ejection fraction 60%. 5. Successful direct percutaneous coronary intervention with bare metal stent of the ostial proximal right posterior descending artery from 90% to 0% with SANDY-3 flow. NOTE: ACT was 252. RECOMMENDATIONS: 1. The patient was given 162 mg of aspirin in the rags laborer as he did not receive any aspirin in the ER. 2. Also, we will start him on 60 of Effient at 10 mg p.o. daily. 3. Aggrastat drip per protocol and aspirin mg daily. 4. We will check fasting lipids, ALT and treat to NCCP guidelines. 5. MARY inhibitor and beta blockers as clinically and hemodynamically tolerated. 6. I strongly recommended to the patient that he stop smoking. Medications and IVs Current Medications Sodium Chloride (NS Flush) 2 ml UNSCH PRN IVF FLUSH AFTER USING IV ACCESS; Start 09/15/17 at 17:45; Stop 09/16/17 at 03:07; Status DC Nitroglycerin (Nitrostat Sl) 0.4 mg ONCE ONCE SL Last administered on at 19:06; Start 09/15/17 at 18:00; Stop 09/15/17 at 18:01; Status DC Sodium Chloride (NS Flush) 2 ml UNSCH PRN IV FLUSH FLUSH AFTER USING IV ACCESS ; Start 09/15/17 at 19:45; Stop 09/16/17 at 03:07; Status DC Sodium Chloride (NS Flush) 2 ml BID IV FLUSH ; Start 09/15/17 at 21:00; Stop 09/16 at 03:07; Status DC Acetaminophen (Tylenol) 500 mg Q4H PRN PO HEADACHE; Start 09/15/17 at 19:45 Sodium Chloride 1,000 ml @ 100 mls/hr Q10H IV ; Start 09/16/17 at 02:58; Stop at 05:25; Status DC Sodium Chloride (NS Flush) 2 ml UNSCH PRN IV FLUSH FLUSH AFTER USING IV ACCESS ; Start 09/16/17 at 03:00; Stop 09/16/17 at 10:11; Status DC Sodium Chloride (NS Flush) 2 ml BID IV FLUSH ; Start 09/16/17 at 09:00; Stop 09/16 at 10:11; Status DC Acetaminophen (Tylenol) 650 mg Q4H PRN PO TEMP > 100.4; Start 09/16/17 at 03:00 Ondansetron HCl (Zofran Inj) 4 mg Q6H PRN IVP NAUSEA OR VOMITING Last administered on 09/17/17 22:15; Start 09/16/17 at 03:00 Heparin Sodium (Porcine) (Heparin Inj) 5,000 units Q8H SQ Last administered on 09/16/17at 03:47; Start 09/16/17 at 03:00; Stop 09/16/17 at 10:05; Status DC Naloxone HCl (Narcan Inj) 0.4 mg UNSCH PRN IV PUSH SEE LABEL COMMENTS; Start at 03:00 Senna/Docusate Sodium (Bernadette-Colace) 1 tab BID PO Last administered on 09/19/17 09:26; Start 09/16/17 at 09:00 Magnesium Hydroxide (Milk Of Magnesia Liq) 30 ml Q12H PRN PO Mild constipation ; Start 09/16/17 at 03:00 Sennosides (Senokot) 17.2 mg Q12H PRN PO Moderate constipation; Start 09/16/17 at 03:00 Bisacodyl (Dulcolax Supp) 10 mg DAILY PRN RECTAL SEVERE CONSITIPATION; Start at 03:00 Lactulose (Lactulose Liq) 30 ml DAILY PRN PO SEVERE CONSITIPATION; Start at 03:00 Albuterol/ Ipratropium (Duoneb Neb) 1 ampule Q4HR NEB PRN NEB SOB/Wheezing; Start 09/16/17 at 05:15 Sodium Chloride 1,000 ml @ 100 mls/hr Q10H IV Last administered on 09/17/17 01 :15; Start 09/16/17 at 05:15; Stop 09/17/17 at 13:36; Status DC Fluticasone Propionate (Flonase Elgin Spr) 2 spray DAILY EACH NARE Last administered on 09/19/17 09:27; Start 09/16/17 at 09:00 Heparin Sodium/ Sodium Chloride 1,000 ml @ As Directed STK-MED ONCE IV FLUSH Last administered on 09/16/17at 08:39; Start 09/16/17 at 08:39; Stop 09/16/17 at 08: 40; Status DC Heparin Sodium (Porcine) (Heparin Inj) 10,000 units STK-MED ONCE .ROUTE Last administered on 09/16/17at 09:25; Start 09/16/17 at 08:45; Stop 09/16/17 at 08:46; Status DC Lidocaine HCl (Xylocaine-Mpf 1% Inj) 30 ml STK-MED ONCE .ROUTE Last administered on 09/16/17 09:02; Start 09/16/17 at 09:02; Stop 09/16/17 at 09:03; Status DC Lidocaine HCl (Xylocaine-Mpf 1% Inj) 30 ml STK-MED ONCE .ROUTE Last administered on 09/16/17 09:03; Start 09/16/17 at 09:03; Stop 09/16/17 at 09:04; Status DC Midazolam HCl (Versed Inj) 2 mg STK-MED ONCE .ROUTE ; Start 09/16/17 at 09:03; Stop 09/16/17 at 09:04; Status DC Fentanyl Citrate (fentaNYL INJ) 100 mcg STK-MED ONCE .ROUTE Last administered on 09/16/17 09:18; Start 09/16/17 at 09:04; Stop 09/16/17 at 09:05; Status DC Tirofiban/Sodium Chloride 250 ml @ As Directed STK-MED ONCE IV Last administered on 09/16/17 09:42; Start 09/16/17 at 09:21; Stop 09/16/17 at 09:22; Status DC Aspirin (Aspirin Chew) 162 mg STK-MED ONCE .ROUTE Last administered on 09:29; Start 09/16/17 at 09:24; Stop 09/16/17 at 09:25; Status DC Heparin Sodium/ Sodium Chloride 1,000 ml @ As Directed STK-MED ONCE IV FLUSH Last administered on 09/16/17 09:29; Start 09/16/17 at 09:29; Stop 09/16/17 at 09: 30; Status DC Prasugrel (Effient) 60 mg STK-MED ONCE .ROUTE Last administered on 09/16/17 09: 48; Start 09/16/17 at 09:37; Stop 09/16/17 at 09:38; Status DC Metoprolol Tartrate (Lopressor) 25 mg Q12HR PO ; Start 09/16/17 at 21:00; Stop at 21:00; Status DC Atorvastatin Calcium (Lipitor) 20 mg HS PO ; Start 09/16/17 at 21:00; Status UNV Acetaminophen/ Hydrocodone Bitart (Cromwell 10-325 Mg) 1 tab Q8H PRN PO pain scale 3-10 Last administered on 09/17/17at 20:53; Start 09/16/17 at 10:00 Sodium Chloride (NS Flush) 2 ml UNSCH PRN IV FLUSH FLUSH AFTER USING IV ACCESS ; Start 09/16/17 at 10:00; Stop 09/17/17 at 16:28; Status DC Sodium Chloride (NS Flush) 2 ml BID IV FLUSH Last administered on 09/17/17at 09: 07; Start 09/16/17 at 21:00; Stop 09/17/17 at 16:28; Status DC Aspirin (Aspirin Chew) 162 mg DAILY PO Last administered on 09/19/17at 09:26; Start 09/17/17 at 09:00 Prasugrel (Effient) 60 mg ONCE ONCE PO ; Start 09/16/17 at 10:00; Stop 09/16/17 at 10:11; Status DC Prasugrel (Effient) 10 mg DAILY PO Last administered on 09/18/17at 09:26; Start 09/17/17 at 09:00; Stop 09/19/17 at 07:43; Status DC Tirofiban/Sodium Chloride 250 ml @ 17.1 mls/hr [id number] IV Last administered on 09/16/17at 22:07; Start 09/16/17 at 09:54; Stop 09/17/17 at 03:53; Status DC Miscellaneous Information 1 ONCE ONCE XX ; Start 09/16/17 at 10:00; Stop at 10:05; Status DC Carvedilol (Coreg) 3.125 mg BID PO Last administered on 09/17/17 09:05; Start 09/16/17 at 21:00; Stop 09/17/17 at 16:28; Status DC Ramipril (Altace) 2.5 mg DAILY PO Last administered on 09/17/17at 09:05; Start at 09:00; Stop 09/17/17 at 20:07; Status DC Atorvastatin Calcium (Lipitor) 10 mg HS PO Last administered on 09/16/17at 20:21 ; Start 09/16/17 at 21:00; Stop 09/17/17 at 20:07; Status DC Diatrizoate Meglum/ Diatrizoate Sod ( Gastroview Liq) 18 ml ONCE ONCE PO ; Start 09/16/17 at 12:15; Stop 09/16/17 at 12:16; Status DC Iohexol (OMNIPAQUE 350 INJ (Plane Runner)) 100 ml STK-MED ONCE OTHER Last administered on 09/15/17at 19:38; Start 09/15/17 at 19:38; Stop 09/16/17 at 13:23; Status DC Lorazepam (Ativan Inj) 0.5 mg ONCE ONCE IV PUSH Last administered on 09/16/17at 14:45; Start 09/16/17 at 14:30; Stop 09/16/17 at 15:31; Status DC Ramipril (Altace) 2.5 mg ONCE ONCE PO Last administered on 09/16/17 17:09; Start 09/16/17 at 16:00; Stop 09/17/17 at 10:24; Status DC Enalaprilat (Vasotec Inj) 1.25 mg Q6H PRN IV PUSH SBP> OR = 180, DBP> OR = 100 ; Start 09/16/17 at 16:00 Metoprolol Tartrate (Lopressor Inj) 5 mg STK-MED ONCE .ROUTE Last administered on 09/16/17 16:01; Start 09/16/17 at 15:57; Stop 09/16/17 at 15:58; Status DC Metoprolol Tartrate (Lopressor Inj) 5 mg Q5M IV PUSH Last administered on at 16:21; Start 09/16/17 at 16:15; Stop 09/16/17 at 16:26; Status DC Metoprolol Tartrate (Lopressor) 25 mg Q6HR PO Last administered on 09/17/17at 13: 11; Start 09/16/17 at 16:11; Stop 09/17/17 at 16:27; Status DC Metoprolol Tartrate (Lopressor Inj) 5 mg STK-MED ONCE .ROUTE Last administered on 09/16/17 16:12; Start 09/16/17 at 16:11; Stop 09/16/17 at 16:12; Status DC Sodium Chloride 1,000 ml @ 1,000 mls/hr Q1H ONCE IV Last administered on at 13:45; Start 09/17/17 at 13:45; Stop 09/17/17 at 14:44; Status DC Sodium Chloride 1,000 ml @ 150 mls/hr Q6H40M IV Last administered on 09/19/17at 09:30; Start 09/17/17 at 14:00 Heparin Sodium/ Sodium Chloride 2,000 ml @ As Directed STK-MED ONCE IV FLUSH ; Start 09/17/17 at 14:51; Stop 09/17/17 at 14:52; Status DC Midazolam HCl (Versed Inj) 2 mg STK-MED ONCE .ROUTE Last administered on at 15:03; Start 09/17/17 at 15:03; Stop 09/17/17 at 15:04; Status DC Fentanyl Citrate (fentaNYL INJ) 100 mcg STK-MED ONCE .ROUTE Last administered on 09/17/17at 15:04; Start 09/17/17 at 15:04; Stop 09/17/17 at 15:05; Status DC Heparin Sodium (Porcine) (Heparin Inj) 10,000 units STK-MED ONCE .ROUTE Last administered on 09/17/17at 15:04; Start 09/17/17 at 15:04; Stop 09/17/17 at 15:05; Status DC Tirofiban/Sodium Chloride 250 ml @ As Directed STK-MED ONCE IV Last administered on 09/17/17at 15:44; Start 09/17/17 at 15:44; Stop 09/17/17 at 15:45; Status DC Sodium Chloride (NS Flush) 2 ml UNSCH PRN IV FLUSH FLUSH AFTER USING IV ACCESS ; Start 09/17/17 at 16:30 Sodium Chloride (NS Flush) 2 ml BID IV FLUSH Last administered on 09/18/17at 21: 07; Start 09/17/17 at 21:00 Tirofiban/Sodium Chloride 250 ml @ 8.667 mls/ hr Q24H IV ; Start 09/17/17 at 16: 20; Stop 09/18/17 at 06:46; Status DC Miscellaneous Information 1 ONCE ONCE XX ; Start 09/17/17 at 16:30; Stop at 16:31; Status DC Bacitracin (Bacitracin Oint Packet) 0.9 gm ONCE ONCE TOP ; Start 09/17/17 at 16: 30; Stop 09/17/17 at 16:31; Status DC Carvedilol (Coreg) 3.125 mg BID PO Last administered on 09/17/17at 20:53; Start 09/17/17 at 21:00; Stop 09/18/17 at 00:44; Status DC Iohexol (OMNIPAQUE 350 INJ (Plane Runner)) 100 ml STK-MED ONCE OTHER ; Start at 19:38; Stop 09/17/17 at 16:34; Status DC Atorvastatin Calcium (Lipitor) 40 mg HS PO Last administered on 09/18/17at 21:07 ; Start 09/17/17 at 21:00 Lorazepam (Ativan Inj) 0.5 mg ONCE ONCE IV PUSH Last administered on 09/17/17at 22:53; Start 09/17/17 at 22:45; Stop 09/17/17 at 22:46; Status DC Carvedilol (Coreg) 3.125 mg NOW ONCE PO Last administered on 09/18/17at 00:53; Start 09/18/17 at 00:45; Stop 09/18/17 at 00:46; Status DC Carvedilol (Coreg) 6.25 mg Q12HR PO Last administered on 09/19/17at 09:26; Start 09/18/17 at 09:00 Magnesium Sulfate/ Dextrose 100 ml @ 100 mls/hr Q1H IV Last administered on 09/18/17at 11:54; Start 09/18/17 at 10:00; Stop 09/18/17 at 11:59; Status DC Magnesium Oxide (Mag-Ox) 400 mg ONCE ONCE PO Last administered on 09/18/17at 10: 52; Start 09/18/17 at 10:00; Stop 09/18/17 at 10:01; Status DC Magnesium Oxide (Mag-Ox) 400 mg Q12HR PO Last administered on 09/18/17at 21:08; Start 09/18/17 at 21:00; Stop 09/19/17 at 03:21; Status DC Potassium Phosphate 30 mmol/ Sodium Chloride 260 ml @ 43.333 mls/ hr ONCE ONCE IV Last administered on 09/18/17at 14:06; Start 09/18/17 at 12:30; Stop at 18:29; Status DC Magnesium Oxide (Mag-Ox) 400 mg Q12HR PO ; Start 09/18/17 at 21:00; Stop 09/19/17 at 07:48; Status DC Diphenhydramine HCl (Benadryl) 50 mg ONCE ONCE PO Last administered on at 23:13; Start 09/18/17 at 22:45; Stop 09/18/17 at 22:48; Status DC Diphenhydramine HCl (Benadryl) 50 mg ONCE ONCE PO Last administered on at 03:32; Start 09/19/17 at 03:30; Stop 09/19/17 at 03:31; Status DC Furosemide (Lasix) 40 mg ONCE ONCE PO Last administered on 09/19/17at 03:32; Start 09/19/17 at 03:30; Stop 09/19/17 at 03:31; Status DC Clopidogrel Bisulfate (Plavix) 75 mg DAILY PO Last administered on 09/19/17at 09: 26; Start 09/19/17 at 09:00 A/P Assessment and Plan 67-year-old male with history of chronic back pain, tobacco use, presents with acute onset of chest and abdominal pain. Initially presented to the [facility], then sent to [place] [facility] via [facility]. Chest Pain, suspected NSTEMI: No reports of CAD, however pain relieved by nitro , and +risk factors with tobacco use -Troponins trended, 0.02 --> 0.06 --> 0.07 -EKG reviewed, shows incomplete RBBB, otherwise no acute ischemic changes -Monitor on telemetry -Given aspirin, start on metoprolol 25mg bid, and start on statin for now pending lipid panel (LFTs wnl) -Check lipid panel and HgbA1c -Consult cardiology, seen by Dr. Mata, plan for cardiac catheterization today HAD CATH 4-5 HAVING REPEAT CATH 4-6 CAD - SP BMS TO OST RPDA AND MID LAD- ON ASPIRIN, EFFIENT, COREG, LIPITOR -- MARY ON HOLD DUE TO RENAL ISSUES NSVT - unimproved after BMS TO LAD- he may need ptca of ostial rpla; will get EP consult with Dr Lockett 09/20/17; replete electrolytes; unable to increase coreg due to relative hypotension and resolving arf Abdominal Pain: patient's main complaint is abdominal pain. Symptom onset after eating pizza and bologna sandwich. +RUQ tenderness on exam. Also takes ibuprofen 800mg 1-2x per day. -Lipase and LFTs wnl -check abdominal CT -supportive treatment with IVF, antiemetics prn CAT SCAN OF ABDOMEN SHOWS NOW ACUTE ISSUES RENAL INSUFFICIENCY- HEPLOCK IV AM LABS AM LABS Tobacco Abuse: chronic -counseled on cessation -avoid nicotine patch due to vasoconstriction Chronic Back Pain: patient denies any acute worsening -continue patient's Cromwell prn RASH GIVE STEROIDS SCHEDULED 10MG BID HEPLOCK IV Discharge Planning NOT CLEARED BY CARDIOLOGY WANTS EPS EVAL WITH DR LOCKETT PRIOR TO DC Nabil Chase DO Sep 19, 2017 11:19
--- NOTE | 2017-09-19 12:58 | ECHRPT ---
Indication: ectopy CONCLUSIONS The left ventricle is not well visualized. Normal left ventricular size. The left ventricular systolic function is grossly normal on limited imaging. The left ventricular systolic function is low normal with an estimated ejection fraction in the rang e of 50- 55%. There is trace tricuspid valve regurgitation. The estimated pulmonary arterial pressure is 15 mmHg. The pulmonary valve is not well visualized. BP: / HR: Rhythm: MEASUREMENTS (Male / Female) Normal Values Technical Quality: 2D ECHO LV Diastolic Diameter PLAX 5.0 cm 4.2 - 5.9 / 3.9 - 5.3 cm LV Systolic Diameter PLAX 4.0 cm IVS Diastolic Thickness 1.0 cm 0.6 - 1.0 / 0.6 - 0.9 cm LVPW Diastolic Thickness 0.7 cm 0.6 - 1.0 / 0.6 - 0.9 cm LV Relative Wall Thickness 0.3 RV Internal Dim ED PLAX 2.5 cm LA Systolic Diameter LX 4.0 cm 3.0 - 4.0 / 2.7 - 3.8 cm M-MODE Aortic Root Diameter MM 3.5 cm AV Cusp Separation MM 2.2 cm DOPPLER Mitral E Point Velocity 48.9 cm/s Mitral A Point Velocity 67.1 cm/s Mitral E to A Ratio 0.7 TR Peak Velocity 161.0 cm/s TR Peak Gradient 10.4 mmHg FINDINGS LEFT VENTRICLE The left ventricle is not well visualized. Normal left ventricular size. The left ventricular systolic function is grossly normal on limited imaging. The left ventricular systolic function is low normal with an estimated ejection fraction in the rang e of 50- 55%. RIGHT VENTRICLE Normal right ventricular size and systolic function. LEFT ATRIUM The left atrial size is normal. RIGHT ATRIUM The right atrial size is normal. ATRIAL SEPTUM Normal atrial septal thickness without atrial level shunting by limited color doppler interrogation. AORTA The aortic root and proximal ascending aorta are normal in size on limited imaging. MITRAL VALVE Structurally normal mitral valve. No mitral valve stenosis or regurgitation. AORTIC VALVE Trileaflet aortic valve. No aortic valve stenosis or regurgitation. TRICUSPID VALVE There is trace tricuspid valve regurgitation. The estimated pulmonary arterial pressure is 15 mmHg. PULMONARY VALVE The pulmonary valve is not well visualized. VESSELS The inferior vena cava is normal in size. PERICARDIUM No pericardial effusion. Vasiliy Shearer MD, FACC (Electronically Signed) Final Date:19 September 2017 12:57
[2017-09-19] MEDS: predniSONE 10 MG TAB PO SCH ×2 (13:45→20:09)
--- NOTE | 2017-09-19 13:52 | PD.CARD.PN ---
Subjective Subjective Remarks Covering for Dr. Demarco No events overnight No further ectopy noted Objective Medications Current Medications Medications (Trade) Dose Ordered Sig/Anny Route Start Time Stop Time Status Last Admin (Tylenol) 500 mg Q4H PRN PO 09/15/17 19:45 (Tylenol) 650 mg Q4H PRN PO 09/16/17 03:00 (Zofran Inj) 4 mg Q6H PRN IVP 09/16/17 03:00 09/17/17 22:15 (Narcan Inj) 0.4 mg UNSCH PRN IV PUSH 09/16/17 03:00 (Bernadette-Colace) 1 tab BID PO 09/16/17 09:00 09/19/17 09:26 (Milk Of Magnesia Liq) 30 ml Q12H PRN PO 09/16/17 03:00 (Senokot) 17.2 mg Q12H PRN PO 09/16/17 03:00 (Dulcolax Supp) 10 mg DAILY PRN RECTAL 09/16/17 03:00 (Lactulose Liq) 30 ml DAILY PRN PO 09/16/17 03:00 (Duoneb Neb) 1 ampule Q4HR NEB PRN NEB 09/16/17 05:15 (Flonase [place]gin Spr) 2 spray DAILY EACH NARE 09/16/17 09:00 09/19/17 09:27 ([place] 10-325 Mg) 1 tab Q8H PRN PO 09/16/17 10:00 09/17/17 20:53 (Aspirin Chew) 162 mg DAILY PO 09/17/17 09:00 09/19/17 09:26 (Vasotec Inj) 1.25 mg Q6H PRN IV PUSH 09/16/17 16:00 Sodium Chloride 1,000 ml @ 150 mls/hr Q6H40M IV 09/17/17 14:00 Future Hold 09/19/17 09:30 (NS Flush) 2 ml UNSCH PRN IV FLUSH 09/17/17 16:30 (NS Flush) 2 ml BID IV FLUSH 09/17/17 21:00 09/18/17 21:07 (Lipitor) 40 mg HS PO 09/17/17 21:00 09/18/17 21:07 (Coreg) 6.25 mg Q12HR PO 09/18/17 09:00 4/8/18 09:26 (Plavix) 75 mg DAILY PO 09/19/17 09:00 09/19/17 09:26 (Deltasone) 10 mg BID PO 09/19/17 12:00 09/19/17 13:45 Vital Signs / I&O Vital Signs Date Time Temp Pulse Resp B/P (MAP) Pulse Ox O2 Delivery O2 Flow Rate FiO2 09/19/17 08:00 84 09/19/17 08:00 98.9 80 18 98/56 (70) 94 09/19/17 06:03 83 09/19/17 05:00 91 09/19/17 04:00 88 09/19/17 03:46 98.6 91 122/74 (90) 95 09/19/17 03:00 92 09/19/17 02:00 88 09/19/17 01:00 94 09/19/17 00:22 99.8 95 130/64 (86) 96 09/19/17 00:00 94 09/18/17 23:00 88 09/18/17 22:00 92 09/18/17 21:00 92 09/18/17 20:00 94 09/18/17 19:22 21 09/18/17 19:00 92 09/18/17 19:00 99.5 93 108/66 (80) 96 09/18/17 18:01 89 09/18/17 17:00 88 09/18/17 16:00 99.1 86 20 126/79 (95) 99 09/18/17 16:00 86 09/18/17 15:00 89 09/18/17 14:00 86 I/O 09/18/17 09/18/17 09/18/17 09/19/17 09/19/17 09/19/17 07:00 15:00 23:00 07:00 15:00 23:00 Intake Total 1240 ml 1450 ml 2148 ml 400 ml 500 ml Output Total 400 ml 500 ml 775 ml Balance 840 ml 1450 ml 1648 ml -375 ml 500 ml Intake Oral 240 ml 480 ml 400 ml IV Total 1000 ml 1450 ml 1668 ml 500 ml Output Urine Total 400 ml 500 ml 775 ml # Voids 5 # Bowel Movements 0 Physical Exam GENERAL: NAD, AAOx3 SKIN: Warm and dry. HEAD: Atraumatic. Normocephalic. EYES: Pupils equal and round. No scleral icterus. No injection or drainage. ENT: No nasal bleeding or discharge. Mucous membranes pink and moist. NECK: Trachea midline. No JVD. CARDIOVASCULAR: Regular rate and rhythm. RESPIRATORY: No accessory muscle use. Clear to auscultation. Breath sounds equal bilaterally. GASTROINTESTINAL: Abdomen soft, non-tender, nondistended. Hepatic and splenic margins not palpable. MUSCULOSKELETAL: Extremities without clubbing, cyanosis, or edema. No obvious deformities. NEUROLOGICAL: Awake and alert. No obvious cranial nerve deficits. Motor grossly within normal limits. Five out of 5 muscle strength in the arms and legs. Normal speech. PSYCHIATRIC: Appropriate mood and affect; insight and judgment normal. Laboratory Laboratory Tests Test 09/19/17 04:00 White Blood Count 7.7 TH/MM3 Red Blood Count 5.06 MIL/MM3 Hemoglobin 15.3 GM/DL Hematocrit 44.1 % Mean Corpuscular Volume 87.1 FL Mean Corpuscular Hemoglobin 30.2 PG Mean Corpuscular Hemoglobin Concent 34.6 % Red Cell Distribution Width 14.7 % Platelet Count 194 TH/MM3 Mean Platelet Volume 8.2 FL Neutrophils (%) (Auto) 80.4 % Lymphocytes (%) (Auto) 6.4 % Monocytes (%) (Auto) 7.2 % Eosinophils (%) (Auto) 5.7 % Basophils (%) (Auto) 0.3 % Neutrophils # (Auto) 6.2 TH/MM3 Lymphocytes # (Auto) 0.5 TH/MM3 Monocytes # (Auto) 0.6 TH/MM3 Eosinophils # (Auto) 0.4 TH/MM3 Basophils # (Auto) 0.0 TH/MM3 CBC Comment DIFF FINAL Differential Comment Blood Urea Nitrogen 17 MG/DL Creatinine 1.35 MG/DL Random Glucose 93 MG/DL Total Protein 6.1 GM/DL Albumin 2.7 GM/DL Calcium Level 7.8 MG/DL Phosphorus Level 2.2 MG/DL Magnesium Level 2.1 MG/DL Alkaline Phosphatase 83 U/L Aspartate Amino Transf (AST/SGOT) 15 U/L Alanine Aminotransferase (ALT/SGPT) 23 U/L Total Bilirubin 0.7 MG/DL Sodium Level 138 MEQ/L Potassium Level 3.7 MEQ/L Chloride Level 109 MEQ/L Carbon Dioxide Level 20.3 MEQ/L Anion Gap 9 MEQ/L Estimat Glomerular Filtration Rate 53 ML/MIN B-Type Natriuretic Peptide 52 PG/ML Assessment and Plan Problem List: (1) NSVT (nonsustained ventricular tachycardia) ICD Codes: I47.2 - Ventricular tachycardia (2) CAD (coronary artery disease) ICD Codes: I25.10 - Atherosclerotic heart disease of [place] coronary artery without angina pectoris (3) NSTEMI (non-ST elevated myocardial infarction) ICD Codes: I21.4 - Non-ST elevation (NSTEMI) myocardial infarction (4) Renal insufficiency ICD Codes: N28.9 - Disorder of kidney and ureter, unspecified Status: Acute (5) Tobacco abuse ICD Codes: Z72.0 - Tobacco use Status: Acute Assessment and Plan 1) Covering for Dr. Demarco, asked to see Mr. Valdovinos for ectopy 2) No further episodes for PVCs/Bigeminy after electrolytes replenished Patient asymptomatic with ectopy No significant runs of VT 3) EF 50-55% on echo 4) Discussed with Dr. Demarco He will plan to see tomorrow or discuss with Dr. Mata further about treatment 5) Defer to Dr. Mata, his primary torch solderer, for further recommendations from an overall cardiology standpoint. 6) Tobacco cessation Devin Whittington DO Sep 19, 2017 13:52
[2017-09-19] MEDS: ACETAMINOPHEN/HYDROcodone 325 MG/10 MG TAB PO PRN (16:21)
[2017-09-19] MEDS: ATORVASTATIN 40 MG TAB PO SCH (20:09)
[2017-09-20] VITALS (20 sets, daily range): BP systolic 118–136; BP diastolic 71–82; PULSE 61–77; RESP 18–20; TEMP 97–98.3; O2SAT 96–99
[2017-09-20] MEDS: predniSONE 10 MG TAB PO SCH (09:06)
[2017-09-20] MEDS: CLOPIDOGREL 75 MG TAB PO SCH (09:06)
[2017-09-20] MEDS: ASPIRIN 81 MG CHEW TAB PO SCH (09:06)
[2017-09-20 09:07] LABS: BASOPHIL % 0.3 % (0.0-2.0); EOSINOPHIL # 0.3 TH/MM3 (0-0.4); EOSINOPHIL % 3.6 % (0.0-4.0); HEMATOCRIT 45.9 % (39.0-51.0); HEMOGLOBIN 15.8 GM/DL (13.0-17.0); LYMPH % 13.4 % (9.0-44.0); LYMPHOCYTE # 1.1 TH/MM3 (1.0-4.8); MEAN CELL VOLUME 87.6 FL (80.0-100.0); MEAN CORPUSCULAR HEMOGLOBIN 30.2 PG (27.0-34.0); MEAN CORPUSCULAR HGB CONC 34.5 % (32.0-36.0); MEAN PLATELET VOLUME 8.6 FL (7.0-11.0); MONO % 9.6 % (0.0-8.0); MONOCYTE # 0.8 TH/MM3 (0-0.9); NEUT % 73.1 % (16.0-70.0); PLATELET COUNT 245 TH/MM3 (150-450); RED BLOOD COUNT 5.24 MIL/MM3 (4.50-5.90); RED CELL DISTRIBUTION WIDTH 14.6 % (11.6-17.2); WHITE BLOOD COUNT 8.3 TH/MM3 (4.0-11.0)
[2017-09-20] MEDS: CARVEDILOL 6.25 MG TAB PO SCH (09:07)
[2017-09-20] MEDS: DOCUSATE SODIUM 50 MG/SENNA 8.6 MG TAB PO SCH (09:07)
[2017-09-20] MEDS: FLUTICASONE PROPIONATE 50 MCG/ACT 16 GM NASAL SPRAY EACH NARE SCH (09:08)
[2017-09-20] MEDS: SODIUM CHLORIDE 0.9% FLUSH 10 ML FLUSH IV FLUSH SCH (09:08)
[2017-09-20] MEDS ORDERED: diphenhydrAMINE HCL 2%/ZINC ACETATE 0.1% CREAM 30 APPLIC/30 GM TUBE TOPICAL PRN (09:30)
[2017-09-20] MEDS ORDERED: diphenhydrAMINE HCL 25 MG CAP PO PRN (09:30)
[2017-09-20 09:49] LABS: BICARBONATE 21.6 MEQ/L (21.0-32.0); BLOOD UREA NITROGEN 17 MG/DL (7-18); CALCIUM 8.4 MG/DL (8.5-10.1); CHLORIDE 109 MEQ/L (98-107); MAGNESIUM 2.5 MG/DL (1.5-2.5); SODIUM (NA) 139 MEQ/L (136-145)
[2017-09-20 09:51] LABS: AST (GOT) 14 U/L (15-37); CREATININE 1.14 MG/DL (0.60-1.30); GLOMERULAR FILTRATION RATE 64 ML/MIN (>89); GLUCOSE,RANDOM 104 MG/DL (74-106)
[2017-09-20 10:01] LABS: ALKALINE PHOSPHATASE 88 U/L (45-117); ALT (GPT) 24 U/L (12-78); PHOSPHORUS 3.4 MG/DL (2.5-4.9); TOTAL BILIRUBIN ADULT 0.4 MG/DL (0.2-1.0); TOTAL PROTEIN 6.7 GM/DL (6.4-8.2)
--- NOTE | 2017-09-20 11:23 | HHI.PR ---
Subjective Remarks 67-year-old male with a past medical history significant for chronic back pain presents to the emergency department evaluation of chest and abdominal pain. The patient states that his chest pain began yesterday which started as a burning in his throat and became a bilateral chest pressure that radiated to his bilateral shoulders and down his arms. He went to the [facility] for evaluation and was told he was diaphoretic with blue lips at that time. He was sent to the ED for further evaluation and admitted to the chest pain center. The patient's initial troponin was less than 0.02 with subsequent troponin 0.06 and 0.07. He is not currently having any chest pain. His chief complaint is 5/10 abdominal pain which she describes as crampy and tender. He denies any nausea/ vomiting/diarrhea. No shortness of breath. No lateralizing signs/symptoms. Follow up for chest pain, abdominal pain. The patient reports continue diffuse abdominal pain, worse at epigastric and periumbilical region. He reports associated belching. Denies nausea/vomiting. He did have a loose stool yesterday , but no intractable diarrhea. Prior to symptom onset, he ate pizza the night before, and then the next morning he ate a bologna sandwich, then symptoms began 1-2 hours later. He reports taking 1-2 ibuprofen 800mg tablets daily for his chronic back pain. He has not had any further chest pain since yesterday. He states the pain was located near the upper anterior sternum without any radiation, but this was relieved by nitro spray administered en route via [facility]. He denies any prior cardiac history. He reports a walking treadmill test 10+ years ago that was reportedly unremarkable. Denies any recent cardiac work up. He initially tells me that he's never had a cardiac catheterization, then later states he may have had this done but he is not sure and it would've been many years ago. 4-6 had a catheterization yesterday. Going for another cardiac catheterization later today with cardiology AM LABS RENAL FUNCTIONS DW PATIENT AND RN AND CM CONTINUE IV FLUIDS CAD - s/p bms ost rpda and mid lad, continue aspirin, effient, coreg, lipitor; mary held due to arf; creatinine improving 4-7 HAD BMS TO OST RPDA AND MID LAD ON -6 DR LOCKETT HAS BEEN CONSULTED FOR NSVT NOT CLEARED BY CARDIOLOGY FOR DISCHARGE YET AM LABS WATCH RENAL FUNCTIONS 4-8 HAS RASH/SWELLING MEDS ADJUSTED DW RN AND PT AND CM [facility] MONITOR RENAL FUNCTIONS 4- AWAIT CARDIAC CLEARANCE -- CLEARED BY [facility]- DC DR LOCKETT CONSULT HAS SOME RASH STARTED ON BENADRYL AND PREDNISONE DW RN AND CM AND PT AND FAMILY DC TO HOME TODAY NO SMOKING DW RN AND PT DC HOME Objective Vitals Vital Signs Date Time Temp Pulse Resp B/P (MAP) Pulse Ox O2 Delivery O2 Flow Rate FiO2 09/20/17 10:00 77 09/20/17 09:00 69 09/20/17 08:03 77 09/20/17 07:56 97.8 68 18 136/82 (100) 96 09/20/17 07:00 70 09/20/17 06:02 62 09/20/17 05:22 70 09/20/17 04:08 61 09/20/17 03:21 98.3 69 20 132/80 (97) 96 Manual Cuff/Auscultation 09/20/17 03:00 61 09/20/17 02:32 70 09/20/17 01:27 72 09/20/17 00:36 69 09/19/17 23:10 98.5 76 20 114/72 (86) 96 09/19/17 23:00 71 09/19/17 22:00 82 09/19/17 21:20 72 09/19/17 20:12 75 09/19/17 19:31 98.3 75 19 111/65 (80) 95 09/19/17 19:00 81 09/19/17 18:00 84 09/19/17 17:21 18 09/19/17 17:00 82 09/19/17 16:16 97.8 77 18 116/74 (88) 96 09/19/17 15:00 82 09/19/17 14:00 82 09/19/17 13:00 82 09/19/17 12:00 98.0 92 18 102/62 (75) 94 09/19/17 12:00 82 I/O 09/19/17 09/19/17 09/19/17 09/20/17 09/20/17 09/20/17 07:00 15:00 23:00 07:00 15:00 23:00 Intake Total 400 ml 500 ml 600 ml Output Total 775 ml 550 ml Balance -375 ml 500 ml 50 ml Intake Oral 400 ml 600 ml IV Total 500 ml Output Urine Total 775 ml 550 ml # Voids 5 Result Diagram: 09/20/17 0725 09/20/17 0725 Other Results Laboratory Tests Test 09/18/17 04:19 09/19/17 04:00 09/20/17 07:25 White Blood Count 10.2 TH/MM3 7.7 TH/MM3 8.3 TH/MM3 Red Blood Count 5.24 MIL/MM3 5.06 MIL/MM3 5.24 MIL/MM3 Hemoglobin 16.0 GM/DL 15.3 GM/DL 15.8 GM/DL Hematocrit 46.5 % 44.1 % 45.9 % Mean Corpuscular Volume 88.6 FL 87.1 FL 87.6 FL Mean Corpuscular Hemoglobin 30.5 PG 30.2 PG 30.2 PG Mean Corpuscular Hemoglobin Concent 34.4 % 34.6 % 34.5 % Red Cell Distribution Width 14.5 % 14.7 % 14.6 % Platelet Count 206 TH/MM3 194 TH/MM3 245 TH/MM3 Mean Platelet Volume 8.4 FL 8.2 FL 8.6 FL Neutrophils (%) (Auto) 86.8 % 80.4 % 73.1 % Lymphocytes (%) (Auto) 5.7 % 6.4 % 13.4 % Monocytes (%) (Auto) 3.6 % 7.2 % 9.6 % Eosinophils (%) (Auto) 3.7 % 5.7 % 3.6 % Basophils (%) (Auto) 0.2 % 0.3 % 0.3 % Neutrophils # (Auto) 8.9 TH/MM3 6.2 TH/MM3 6.0 TH/MM3 Lymphocytes # (Auto) 0.6 TH/MM3 0.5 TH/MM3 1.1 TH/MM3 Monocytes # (Auto) 0.4 TH/MM3 0.6 TH/MM3 0.8 TH/MM3 Eosinophils # (Auto) 0.4 TH/MM3 0.4 TH/MM3 0.3 TH/MM3 Basophils # (Auto) 0.0 TH/MM3 0.0 TH/MM3 0.0 TH/MM3 CBC Comment DIFF FINAL DIFF FINAL DIFF FINAL Differential Comment Blood Urea Nitrogen 24 MG/DL 17 MG/DL 17 MG/DL Creatinine 1.52 MG/DL 1.35 MG/DL 1.14 MG/DL Random Glucose 87 MG/DL 93 MG/DL 104 MG/DL Total Protein 5.6 GM/DL 6.1 GM/DL 6.7 GM/DL Albumin 2.5 GM/DL 2.7 GM/DL 3.0 GM/DL Calcium Level 7.7 MG/DL 7.8 MG/DL 8.4 MG/DL Phosphorus Level 2.2 MG/DL 2.2 MG/DL 3.4 MG/DL Magnesium Level 1.8 MG/DL 2.1 MG/DL 2.5 MG/DL Alkaline Phosphatase 83 U/L 83 U/L 88 U/L Aspartate Amino Transf (AST/SGOT) 16 U/L 15 U/L 14 U/L Alanine Aminotransferase (ALT/SGPT) 21 U/L 23 U/L 24 U/L Total Bilirubin 1.0 MG/DL 0.7 MG/DL 0.4 MG/DL Sodium Level 139 MEQ/L 138 MEQ/L 139 MEQ/L Potassium Level 3.6 MEQ/L 3.7 MEQ/L 3.9 MEQ/L Chloride Level 110 MEQ/L 109 MEQ/L 109 MEQ/L Carbon Dioxide Level 18.8 MEQ/L 20.3 MEQ/L 21.6 MEQ/L Anion Gap 10 MEQ/L 9 MEQ/L 8 MEQ/L Estimat Glomerular Filtration Rate 46 ML/MIN 53 ML/MIN 64 ML/MIN Hemoglobin A1c 5.3 % Total Creatine Kinase 54 U/L Free Thyroxine 0.94 NG/DL Thyroid Stimulating Hormone 3rd Gen 3.120 uIU/ML B-Type Natriuretic Peptide 52 PG/ML Imaging Last Impressions Abdomen/Pelvis CT 09/17/17 0000 Signed Impressions: Service Date/Time: Sunday, September 17, 2017 14:16 - CONCLUSION: 1. No acute CT abnormality in the abdomen or pelvis. 2. 5 x 6 mm nonobstructing calcified calyceal calculus in the mid left kidney. 3. Mild scattered colonic diverticulosis without evidence for diverticulitis. 4. Additional ancillary findings include probable gallbladder sludge, asymmetrical renal size, and small fat-containing inguinal hernias. Dann Azar MD Chest X-Ray 09/15/17 1741 Signed Impressions: Service Date/Time: Friday, September 15, 2017 17:59 - CONCLUSION: Compensated cardiomegaly otherwise negative Nabil Lawson MD FACR Objective Remarks GENERAL: Awake alert and oriented 3 talkative and cooperative appears to be in no acute distress at this time SKIN: Warm and dry. Multiple tattoos rash will give steroid HEAD: Atraumatic. Normocephalic. EYES: Pupils equal and round. No scleral icterus. No injection or drainage. Extraocular muscles intact ENT: No nasal bleeding or discharge. Mucous membranes pink and moist. Tongue is midline NECK: Trachea midline. No JVD. Supple CARDIOVASCULAR: Regular rate and rhythm. S1-S2 no S3 or S4 RESPIRATORY: No accessory muscle use. Clear to auscultation. Breath sounds equal bilaterally. GASTROINTESTINAL: Abdomen soft, non-tender, nondistended. Hepatic and splenic margins not palpable. Obese MUSCULOSKELETAL: Extremities without clubbing, cyanosis, or edema. No obvious deformities. NEUROLOGICAL: Awake and alert. No obvious cranial nerve deficits. Motor grossly within normal limits. Five out of 5 muscle strength in the arms and legs. Normal speech. PSYCHIATRIC: Appropriate mood and affect; insight and judgment normal. Procedures 09/16/2017 PROCEDURE PERFORMED: Left heart catheterization, left ventriculography, coronary angiography, direct PCI with bare metal stent of the ostial proximal right PDA. INDICATIONS FOR SURGERY: Non-STEMI. Coronary artery disease. PROCEDURE: The patient was brought to the cardiac catheterization laboratory, prepped and draped in the usual sterile fashion. A 10 mL of 1% lidocaine was used to locally anesthetize the right common femoral artery. A 4-[place] Citizen sheath with placed in the right common femoral artery. 4-[place] JR4 and JL4 catheter were used to perform left and right coronary angiography, left ventriculography. FINDINGS: The LV pressure is 150/9-10. EF is 60%. The right coronary artery is dominant; it has moderate diffuse disease in the proximal midsegment up to perhaps 50% angiographically. The right PDA has an ostial proximal 90% stenosis. The right posterolateral artery has an ostial proximal 70% stenosis. The left main coronary artery has no significant disease angiographically, but it does appear to be angiographically small. No focal obstructive disease. Reference vessel diameter probably 3.25 mm in diameter. The left circumflex vessel has mild diffuse disease in the proximal AV groove up to 10% angiographically. First obtuse marginal vessel has mild to moderate ostial proximal disease up to 30-40% angiographically, reference vessel diameter 2.5 mm. There is a bifurcation in the midsegment. Second and third obtuse marginal vessels are small vessels, 1-1.5 mm vessels with no significant obstructive disease. The LAD is transapical. There is a 60-70% stenosis at a bifurcation with a small to medium-sized diagonal vessel, which probably has a reference vessel diameter of 2 mm. The LAD is transapical. DISCUSSION: The highest grade lesion is the ostial proximal right PDA. I do think this is the culprit lesion. I discussed with the patient the option of considering bypass, although prior to consideration of any revascularization of the LAD, I do think FFR would be indicated to document this is hemodynamically significant as angiographically it is not definitely significant. The patient declined CABG. INTERVENTION: Therefore, the 6-[place] Citizen sheath was exchanged for a 4-[place] Citizen sheath. 70 units per kilo of heparin was given. ACT 252. A 6-[place] Citizen JR4 guide with 0.014 [place] guidewire was placed into the right PDA and then a second 0.014 [place] guide wire was placed into the right ELLIOT to protect the ELLIOT. I then placed a 2.5/8 Integrity stent at the ostial proximal segment of the right PDA. Without the stent deployed the patient developed his typical angina. When the stent was deployed to 10 atmospheres, his angina intensified. The stent was deployed to 10 atmospheres. Stenosis went from 90% to 0% with SANDY-3 flow. There was no significant compromise of the right posterolateral artery. I did try to place this stent just distal to the os of the right ELLIOT, although angiographically it does appear that a corner of the stent is possibly jailing the right ELLIOT. Again, the os of the ELLIOT remained at about 60-70% angiographically. The patient's chest pain completely resolved. He also had some jaw pain which also completely resolved at the end of the case. Flow was SANDY-3 into the right ELLIOT. CONCLUSION: 1. [id number] myocardial infarction, culprit 90% ostial proximal right posterior diagonal artery, as detailed above. 2. A 70% proximal mid-left anterior descending at a bifurcation with a small to medium-sized diagonal vessel, as detailed above. 3. Mild to moderate diffuse disease in the proximal mid-right coronary artery. There is also a 50-60% stenosis in the mid-right posterior diagonal artery. 4. Normal left ventricular systolic function with ejection fraction 60%. 5. Successful direct percutaneous coronary intervention with bare metal stent of the ostial proximal right posterior descending artery from 90% to 0% with SANDY-3 flow. NOTE: ACT was 252. RECOMMENDATIONS: 1. The patient was given 162 mg of aspirin in the specialist employee labor relations as he did not receive any aspirin in the ER. 2. Also, we will start him on 60 of Effient at 10 mg p.o. daily. 3. Aggrastat drip per protocol and aspirin mg daily. 4. We will check fasting lipids, ALT and treat to NCCP guidelines. 5. MARY inhibitor and beta blockers as clinically and hemodynamically tolerated. 6. I strongly recommended to the patient that he stop smoking. Medications and IVs Current Medications Sodium Chloride (NS Flush) 2 ml UNSCH PRN IVF FLUSH AFTER USING IV ACCESS; Start 09/15/17 at 17:45; Stop 09/16/17 at 03:07; Status DC Nitroglycerin (Nitrostat Sl) 0.4 mg ONCE ONCE SL Last administered on at 19:06; Start 09/15/17 at 18:00; Stop 09/15/17 at 18:01; Status DC Sodium Chloride (NS Flush) 2 ml UNSCH PRN IV FLUSH FLUSH AFTER USING IV ACCESS ; Start 09/15/17 at 19:45; Stop 09/16/17 at 03:07; Status DC Sodium Chloride (NS Flush) 2 ml BID IV FLUSH ; Start 09/15/17 at 21:00; Stop 09/16 at 03:07; Status DC Acetaminophen (Tylenol) 500 mg Q4H PRN PO HEADACHE; Start 09/15/17 at 19:45 Sodium Chloride 1,000 ml @ 100 mls/hr Q10H IV ; Start 09/16/17 at 02:58; Stop at 05:25; Status DC Sodium Chloride (NS Flush) 2 ml UNSCH PRN IV FLUSH FLUSH AFTER USING IV ACCESS ; Start 09/16/17 at 03:00; Stop 09/16/17 at 10:11; Status DC Sodium Chloride (NS Flush) 2 ml BID IV FLUSH ; Start 09/16/17 at 09:00; Stop 09/16 at 10:11; Status DC Acetaminophen (Tylenol) 650 mg Q4H PRN PO TEMP > 100.4; Start 09/16/17 at 03:00 Ondansetron HCl (Zofran Inj) 4 mg Q6H PRN IVP NAUSEA OR VOMITING Last administered on 09/17/17at 22:15; Start 09/16/17 at 03:00 Heparin Sodium (Porcine) (Heparin Inj) 5,000 units Q8H SQ Last administered on 09/16/17at 03:47; Start 09/16/17 at 03:00; Stop 09/16/17 at 10:05; Status DC Naloxone HCl (Narcan Inj) 0.4 mg UNSCH PRN IV PUSH SEE LABEL COMMENTS; Start at 03:00 Senna/Docusate Sodium (Bernadette-Colace) 1 tab BID PO Last administered on 09/19/17at 09:26; Start 09/16/17 at 09:00 Magnesium Hydroxide (Milk Of Magnesia Liq) 30 ml Q12H PRN PO Mild constipation ; Start 09/16/17 at 03:00 Sennosides (Senokot) 17.2 mg Q12H PRN PO Moderate constipation; Start 09/16/17 at 03:00 Bisacodyl (Dulcolax Supp) 10 mg DAILY PRN RECTAL SEVERE CONSITIPATION; Start at 03:00 Lactulose (Lactulose Liq) 30 ml DAILY PRN PO SEVERE CONSITIPATION; Start at 03:00 Albuterol/ Ipratropium (Duoneb Neb) 1 ampule Q4HR NEB PRN NEB SOB/Wheezing; Start 09/16/17 at 05:15 Sodium Chloride 1,000 ml @ 100 mls/hr Q10H IV Last administered on 09/17/17at 01 :15; Start 09/16/17 at 05:15; Stop 09/17/17 at 13:36; Status DC Fluticasone Propionate (Flonase [place] Spr) 2 spray DAILY EACH NARE Last administered on 09/20/17at 09:08; Start 09/16/17 at 09:00 Heparin Sodium/ Sodium Chloride 1,000 ml @ As Directed STK-MED ONCE IV FLUSH Last administered on 09/16/17at 08:39; Start 09/16/17 at 08:39; Stop 09/16/17 at 08: 40; Status DC Heparin Sodium (Porcine) (Heparin Inj) 10,000 units STK-MED ONCE .ROUTE Last administered on 09/16/17 09:25; Start 09/16/17 at 08:45; Stop 09/16/17 at 08:46; Status DC Lidocaine HCl (Xylocaine-Mpf 1% Inj) 30 ml STK-MED ONCE .ROUTE Last administered on 09/16/17 09:02; Start 09/16/17 at 09:02; Stop 09/16/17 at 09:03; Status DC Lidocaine HCl (Xylocaine-Mpf 1% Inj) 30 ml STK-MED ONCE .ROUTE Last administered on 09/16/17 09:03; Start 09/16/17 at 09:03; Stop 09/16/17 at 09:04; Status DC Midazolam HCl (Versed Inj) 2 mg STK-MED ONCE .ROUTE ; Start 09/16/17 at 09:03; Stop 09/16/17 at 09:04; Status DC Fentanyl Citrate (fentaNYL INJ) 100 mcg STK-MED ONCE .ROUTE Last administered on 09/16/17 09:18; Start 09/16/17 at 09:04; Stop 09/16/17 at 09:05; Status DC Tirofiban/Sodium Chloride 250 ml @ As Directed STK-MED ONCE IV Last administered on 09/16/17 09:42; Start 09/16/17 at 09:21; Stop 09/16/17 at 09:22; Status DC Aspirin (Aspirin Chew) 162 mg STK-MED ONCE .ROUTE Last administered on 09:29; Start 09/16/17 at 09:24; Stop 09/16/17 at 09:25; Status DC Heparin Sodium/ Sodium Chloride 1,000 ml @ As Directed STK-MED ONCE IV FLUSH Last administered on 09/16/17 09:29; Start 09/16/17 at 09:29; Stop 09/16/17 at 09: 30; Status DC Prasugrel (Effient) 60 mg STK-MED ONCE .ROUTE Last administered on 09/16/17 09: 48; Start 09/16/17 at 09:37; Stop 09/16/17 at 09:38; Status DC Metoprolol Tartrate (Lopressor) 25 mg Q12HR PO ; Start 09/16/17 at 21:00; Stop at 21:00; Status DC Atorvastatin Calcium (Lipitor) 20 mg HS PO ; Start 09/16/17 at 21:00; Status UNV Acetaminophen/ Hydrocodone Bitart ([place] 10-325 Mg) 1 tab Q8H PRN PO pain scale 3-10 Last administered on 09/19/17at 16:21; Start 09/16/17 at 10:00 Sodium Chloride (NS Flush) 2 ml UNSCH PRN IV FLUSH FLUSH AFTER USING IV ACCESS ; Start 09/16/17 at 10:00; Stop 09/17/17 at 16:28; Status DC Sodium Chloride (NS Flush) 2 ml BID IV FLUSH Last administered on 09/17/17at 09: 07; Start 09/16/17 at 21:00; Stop 09/17/17 at 16:28; Status DC Aspirin (Aspirin Chew) 162 mg DAILY PO Last administered on 09/20/17at 09:06; Start 09/17/17 at 09:00 Prasugrel (Effient) 60 mg ONCE ONCE PO ; Start 09/16/17 at 10:00; Stop 09/16/17 at 10:11; Status DC Prasugrel (Effient) 10 mg DAILY PO Last administered on 09/18/17at 09:26; Start 09/17/17 at 09:00; Stop 09/19/17 at 07:43; Status DC Tirofiban/Sodium Chloride 250 ml @ 17.1 mls/hr [id number] IV Last administered on 09/16/17at 22:07; Start 09/16/17 at 09:54; Stop 09/17/17 at 03:53; Status DC Miscellaneous Information 1 ONCE ONCE XX ; Start 09/16/17 at 10:00; Stop at 10:05; Status DC Carvedilol (Coreg) 3.125 mg BID PO Last administered on 09/17/17at 09:05; Start 09/16/17 at 21:00; Stop 09/17/17 at 16:28; Status DC Ramipril (Altace) 2.5 mg DAILY PO Last administered on 09/17/17at 09:05; Start at 09:00; Stop 09/17/17 at 20:07; Status DC Atorvastatin Calcium (Lipitor) 10 mg HS PO Last administered on 09/16/17 20:21 ; Start 09/16/17 at 21:00; Stop 09/17/17 at 20:07; Status DC Diatrizoate Meglum/ Diatrizoate Sod ( Gastroview Liq) 18 ml ONCE ONCE PO ; Start 09/16/17 at 12:15; Stop 09/16/17 at 12:16; Status DC Iohexol (OMNIPAQUE 350 INJ (Machine Former)) 100 ml STK-MED ONCE OTHER Last administered on 09/15/17at 19:38; Start 09/15/17 at 19:38; Stop 09/16/17 at 13:23; Status DC Lorazepam (Ativan Inj) 0.5 mg ONCE ONCE IV PUSH Last administered on 09/16/17 14:45; Start 09/16/17 at 14:30; Stop 09/16/17 at 15:31; Status DC Ramipril (Altace) 2.5 mg ONCE ONCE PO Last administered on 09/16/17 17:09; Start 09/16/17 at 16:00; Stop 09/17/17 at 10:24; Status DC Enalaprilat (Vasotec Inj) 1.25 mg Q6H PRN IV PUSH SBP> OR = 180, DBP> OR = 100 ; Start 09/16/17 at 16:00 Metoprolol Tartrate (Lopressor Inj) 5 mg STK-MED ONCE .ROUTE Last administered on 09/16/17 16:01; Start 09/16/17 at 15:57; Stop 09/16/17 at 15:58; Status DC Metoprolol Tartrate (Lopressor Inj) 5 mg Q5M IV PUSH Last administered on at 16:21; Start 09/16/17 at 16:15; Stop 09/16/17 at 16:26; Status DC Metoprolol Tartrate (Lopressor) 25 mg Q6HR PO Last administered on 09/17/17at 13: 11; Start 09/16/17 at 16:11; Stop 09/17/17 at 16:27; Status DC Metoprolol Tartrate (Lopressor Inj) 5 mg STK-MED ONCE .ROUTE Last administered on 09/16/17at 16:12; Start 09/16/17 at 16:11; Stop 09/16/17 at 16:12; Status DC Sodium Chloride 1,000 ml @ 1,000 mls/hr Q1H ONCE IV Last administered on at 13:45; Start 09/17/17 at 13:45; Stop 09/17/17 at 14:44; Status DC Sodium Chloride 1,000 ml @ 150 mls/hr Q6H40M IV Last administered on 09/19/17at 09:30; Start 09/17/17 at 14:00; Status Future Hold Heparin Sodium/ Sodium Chloride 2,000 ml @ As Directed STK-MED ONCE IV FLUSH ; Start 09/17/17 at 14:51; Stop 09/17/17 at 14:52; Status DC Midazolam HCl (Versed Inj) 2 mg STK-MED ONCE .ROUTE Last administered on at 15:03; Start 09/17/17 at 15:03; Stop 09/17/17 at 15:04; Status DC Fentanyl Citrate (fentaNYL INJ) 100 mcg STK-MED ONCE .ROUTE Last administered on 09/17/17at 15:04; Start 09/17/17 at 15:04; Stop 09/17/17 at 15:05; Status DC Heparin Sodium (Porcine) (Heparin Inj) 10,000 units STK-MED ONCE .ROUTE Last administered on 09/17/17at 15:04; Start 09/17/17 at 15:04; Stop 09/17/17 at 15:05; Status DC Tirofiban/Sodium Chloride 250 ml @ As Directed STK-MED ONCE IV Last administered on 09/17/17at 15:44; Start 09/17/17 at 15:44; Stop 09/17/17 at 15:45; Status DC Sodium Chloride (NS Flush) 2 ml UNSCH PRN IV FLUSH FLUSH AFTER USING IV ACCESS ; Start 09/17/17 at 16:30 Sodium Chloride (NS Flush) 2 ml BID IV FLUSH Last administered on 09/20/17at 09: 08; Start 09/17/17 at 21:00 Tirofiban/Sodium Chloride 250 ml @ 8.667 mls/ hr Q24H IV ; Start 09/17/17 at 16: 20; Stop 09/18/17 at 06:46; Status DC Miscellaneous Information 1 ONCE ONCE XX ; Start 09/17/17 at 16:30; Stop at 16:31; Status DC Bacitracin (Bacitracin Oint Packet) 0.9 gm ONCE ONCE TOP ; Start 09/17/17 at 16: 30; Stop 09/17/17 at 16:31; Status DC Carvedilol (Coreg) 3.125 mg BID PO Last administered on 09/17/17at 20:53; Start 09/17/17 at 21:00; Stop 09/18/17 at 00:44; Status DC Iohexol (OMNIPAQUE 350 INJ (Machine Former)) 100 ml STK-MED ONCE OTHER ; Start at 19:38; Stop 09/17/17 at 16:34; Status DC Atorvastatin Calcium (Lipitor) 40 mg HS PO Last administered on 09/19/17at 20:09 ; Start 09/17/17 at 21:00 Lorazepam (Ativan Inj) 0.5 mg ONCE ONCE IV PUSH Last administered on 09/17/17at 22:53; Start 09/17/17 at 22:45; Stop 09/17/17 at 22:46; Status DC Carvedilol (Coreg) 3.125 mg NOW ONCE PO Last administered on 09/18/17at 00:53; Start 09/18/17 at 00:45; Stop 09/18/17 at 00:46; Status DC Carvedilol (Coreg) 6.25 mg Q12HR PO Last administered on 09/20/17at 09:07; Start 09/18/17 at 09:00 Magnesium Sulfate/ Dextrose 100 ml @ 100 mls/hr Q1H IV Last administered on 09/18/17at 11:54; Start 09/18/17 at 10:00; Stop 09/18/17 at 11:59; Status DC Magnesium Oxide (Mag-Ox) 400 mg ONCE ONCE PO Last administered on 09/18/17at 10: 52; Start 09/18/17 at 10:00; Stop 09/18/17 at 10:01; Status DC Magnesium Oxide (Mag-Ox) 400 mg Q12HR PO Last administered on 09/18/17at 21:08; Start 09/18/17 at 21:00; Stop 09/19/17 at 03:21; Status DC Potassium Phosphate 30 mmol/ Sodium Chloride 260 ml @ 43.333 mls/ hr ONCE ONCE IV Last administered on 09/18/17at 14:06; Start 09/18/17 at 12:30; Stop at 18:29; Status DC Magnesium Oxide (Mag-Ox) 400 mg Q12HR PO ; Start 09/18/17 at 21:00; Stop 09/19/17 at 07:48; Status DC Diphenhydramine HCl (Benadryl) 50 mg ONCE ONCE PO Last administered on at 23:13; Start 09/18/17 at 22:45; Stop 09/18/17 at 22:48; Status DC Diphenhydramine HCl (Benadryl) 50 mg ONCE ONCE PO Last administered on 03:32; Start 09/19/17 at 03:30; Stop 09/19/17 at 03:31; Status DC Furosemide (Lasix) 40 mg ONCE ONCE PO Last administered on 09/19/17at 03:32; Start 09/19/17 at 03:30; Stop 09/19/17 at 03:31; Status DC Clopidogrel Bisulfate (Plavix) 75 mg DAILY PO Last administered on 09/20/17 09: 06; Start 09/19/17 at 09:00 Prednisone (Deltasone) 10 mg BID PO Last administered on 09/20/17 09:06; Start 09/19/17 at 12:00 Diphenhydramine HCl (Benadryl) 25 mg Q4H PRN PO itching Last administered on 09/20/17at 09:59; Start 09/20/17 at 09:30 Diphenhydramine HCl (Benadryl 2% Cream) 1 applic TID PRN TOPICAL ITCHING; Start 09/20/17 at 09:30 A/P Assessment and Plan 67-year-old male with history of chronic back pain, tobacco use, presents with acute onset of chest and abdominal pain. Initially presented to the [facility], then sent to [facility] via [facility]. Chest Pain, suspected NSTEMI: No reports of CAD, however pain relieved by nitro , and +risk factors with tobacco use -Troponins trended, 0.02 --> 0.06 --> 0.07 -EKG reviewed, shows incomplete RBBB, otherwise no acute ischemic changes -Monitor on telemetry -Given aspirin, start on metoprolol 25mg bid, and start on statin for now pending lipid panel (LFTs wnl) -Check lipid panel and HgbA1c -Consult cardiology, seen by Dr. Mata, plan for cardiac catheterization today HAD CATH 4-5 HAVING REPEAT CATH 4-6 CAD - SP BMS TO OST RPDA AND MID LAD- ON ASPIRIN, EFFIENT, COREG, LIPITOR -- MARY ON HOLD DUE TO RENAL ISSUES NSVT - unimproved after BMS TO LAD- he may need ptca of ostial rpla; will get EP consult with Dr Lockett 09/20/17; replete electrolytes; unable to increase coreg due to relative hypotension and resolving arf Abdominal Pain: patient's main complaint is abdominal pain. Symptom onset after eating pizza and bologna sandwich. +RUQ tenderness on exam. Also takes ibuprofen 800mg 1-2x per day. -Lipase and LFTs wnl -check abdominal CT -supportive treatment with IVF, antiemetics prn CAT SCAN OF ABDOMEN SHOWS NOW ACUTE ISSUES RENAL INSUFFICIENCY- HEPLOCK IV AM LABS- SLOW IMPROVEMENT AM LABS IF STILL HERE RASH/ITCHING STARTED ON PREDNISONE AND BENADRYL Tobacco Abuse: chronic -counseled on cessation -avoid nicotine patch due to vasoconstriction Chronic Back Pain: patient denies any acute worsening -continue patient's [place] prn RASH GIVE STEROIDS SCHEDULED 10MG BID HEPLOCK IV Discharge Planning CLEARED BY CARDIOLOGY [facility] Nabil Chase DO Sep 20, 2017 11:23
--- NOTE | 2017-09-20 15:35 | PD.CARD.PN ---
Subjective Subjective Remarks swelling and diffuse erythematous rash resolved, assymptomatic Objective Medications Current Medications Medications (Trade) Dose Ordered Sig/Anny Route Start Time Stop Time Status Last Admin (Tylenol) 500 mg Q4H PRN PO 09/15/17 19:45 (Tylenol) 650 mg Q4H PRN PO 09/16/17 03:00 (Zofran Inj) 4 mg Q6H PRN IVP 09/16/17 03:00 09/17/17 22:15 (Narcan Inj) 0.4 mg UNSCH PRN IV PUSH 09/16/17 03:00 (Bernadette-Colace) 1 tab BID PO 09/16/17 09:00 09/19/17 09:26 (Milk Of Magnesia Liq) 30 ml Q12H PRN PO 09/16/17 03:00 (Senokot) 17.2 mg Q12H PRN PO 09/16/17 03:00 (Dulcolax Supp) 10 mg DAILY PRN RECTAL 09/16/17 03:00 (Lactulose Liq) 30 ml DAILY PRN PO 09/16/17 03:00 (Duoneb Neb) 1 ampule Q4HR NEB PRN NEB 09/16/17 05:15 (Flonase Elgin Spr) 2 spray DAILY EACH NARE 09/16/17 09:00 09/20/17 09:08 (Canon 10-325 Mg) 1 tab Q8H PRN PO 09/16/17 10:00 09/19/17 16:21 (Aspirin Chew) 162 mg DAILY PO 09/17/17 09:00 09/20/17 09:06 (Vasotec Inj) 1.25 mg Q6H PRN IV PUSH 09/16/17 16:00 Sodium Chloride 1,000 ml @ 150 mls/hr Q6H40M IV 09/17/17 14:00 Future Hold 09/19/17 09:30 (NS Flush) 2 ml UNSCH PRN IV FLUSH 09/17/17 16:30 (NS Flush) 2 ml BID IV FLUSH 09/17/17 21:00 09/20/17 09:08 (Lipitor) 40 mg HS PO 09/17/17 21:00 09/19/17 20:09 (Coreg) 6.25 mg Q12HR PO 09/18/17 09:00 09/20/17 09:07 (Plavix) 75 mg DAILY PO 09/19/17 09:00 09/20/17 09:06 (Deltasone) 10 mg BID PO 09/19/17 12:00 09/20/17 09:06 (Benadryl) 25 mg Q4H PRN PO 09/20/17 09:30 09/20/17 09:59 (Benadryl 2% Cream) 1 applic TID PRN TOPICAL 09/20/17 09:30 Vital Signs / I&O Vital Signs Date Time Temp Pulse Resp B/P (MAP) Pulse Ox O2 Delivery O2 Flow Rate FiO2 09/20/17 14:00 76 09/20/17 13:00 70 09/20/17 12:00 64 09/20/17 11:00 97.0 64 19 118/71 (87) 98 09/20/17 11:00 72 09/20/17 10:00 77 09/20/17 09:00 69 09/20/17 08:03 77 09/20/17 07:56 97.8 68 18 136/82 (100) 96 09/20/17 07:00 70 09/20/17 06:02 62 09/20/17 05:22 70 09/20/17 04:08 61 09/20/17 03:21 98.3 69 20 132/80 (97) 96 Manual Cuff/Auscultation 09/20/17 03:00 61 09/20/17 02:32 70 09/20/17 01:27 72 09/20/17 00:36 69 09/19/17 23:10 98.5 76 20 114/72 (86) 96 09/19/17 23:00 71 09/19/17 22:00 82 09/19/17 21:20 72 09/19/17 20:12 75 09/19/17 19:31 98.3 75 19 111/65 (80) 95 09/19/17 19:00 81 09/19/17 18:00 84 09/19/17 17:21 18 09/19/17 17:00 82 09/19/17 16:16 97.8 77 18 116/74 (88) 96 I/O 09/19/17 09/19/17 09/19/17 09/20/17 09/20/1709/20/18 07:00 15:00 23:00 07:00 15:00 23:00 Intake Total 400 ml 500 ml 600 ml Output Total 775 ml 550 ml Balance -375 ml 500 ml 50 ml Intake Oral 400 ml 600 ml IV Total 500 ml Output Urine Total 775 ml 550 ml # Voids 5 Physical Exam GENERAL: SKIN: Warm and dry. HEAD: Normocephalic. EYES: No scleral icterus. No injection or drainage. NECK: Supple, trachea midline. No JVD or lymphadenopathy. CARDIOVASCULAR: Regular rate and rhythm without murmurs, gallops, or rubs. RESPIRATORY: Breath sounds equal bilaterally. No accessory muscle use. GASTROINTESTINAL: Abdomen soft, non-tender, nondistended. MUSCULOSKELETAL: No cyanosis, or edema. BACK: Nontender without obvious deformity. No CVA tenderness. Laboratory Laboratory Tests Test 09/20/17 07:25 White Blood Count 8.3 TH/MM3 Red Blood Count 5.24 MIL/MM3 Hemoglobin 15.8 GM/DL Hematocrit 45.9 % Mean Corpuscular Volume 87.6 FL Mean Corpuscular Hemoglobin 30.2 PG Mean Corpuscular Hemoglobin Concent 34.5 % Red Cell Distribution Width 14.6 % Platelet Count 245 TH/MM3 Mean Platelet Volume 8.6 FL Neutrophils (%) (Auto) 73.1 % Lymphocytes (%) (Auto) 13.4 % Monocytes (%) (Auto) 9.6 % Eosinophils (%) (Auto) 3.6 % Basophils (%) (Auto) 0.3 % Neutrophils # (Auto) 6.0 TH/MM3 Lymphocytes # (Auto) 1.1 TH/MM3 Monocytes # (Auto) 0.8 TH/MM3 Eosinophils # (Auto) 0.3 TH/MM3 Basophils # (Auto) 0.0 TH/MM3 CBC Comment DIFF FINAL Differential Comment Blood Urea Nitrogen 17 MG/DL Creatinine 1.14 MG/DL Random Glucose 104 MG/DL Total Protein 6.7 GM/DL Albumin 3.0 GM/DL Calcium Level 8.4 MG/DL Phosphorus Level 3.4 MG/DL Magnesium Level 2.5 MG/DL Alkaline Phosphatase 88 U/L Aspartate Amino Transf (AST/SGOT) 14 U/L Alanine Aminotransferase (ALT/SGPT) 24 U/L Total Bilirubin 0.4 MG/DL Sodium Level 139 MEQ/L Potassium Level 3.9 MEQ/L Chloride Level 109 MEQ/L Carbon Dioxide Level 21.6 MEQ/L Anion Gap 8 MEQ/L Estimat Glomerular Filtration Rate 64 ML/MIN Assessment and Plan Problem List: (1) NSVT (nonsustained ventricular tachycardia) ICD Codes: I47.2 - Ventricular tachycardia (2) CAD (coronary artery disease) ICD Codes: I25.10 - Atherosclerotic heart disease of [place] coronary artery without angina pectoris (3) NSTEMI (non-ST elevated myocardial infarction) ICD Codes: I21.4 - Non-ST elevation (NSTEMI) myocardial infarction (4) Renal insufficiency ICD Codes: N28.9 - Disorder of kidney and ureter, unspecified Status: Acute (5) Tobacco abuse ICD Codes: Z72.0 - Tobacco use Status: Acute Assessment and Plan 1.) CAD - s/p bms ost rpda and mid lad, continue aspirin,coreg, lipitor; robert held due to arf; creatinine improving, change effient to plavix 75 mg qd due to rash and [facility] 2.) NSVT - resolved after bms mid lad and magnesium supplementation, no ectopy on the monitor this am, continue coreg, 3.) ok to dc from cv standpoint, f[facility], D/w nurse; strongly advised patient to stop smoking and be compliant with aspirin and plavix due to risk of life threatening stent thrombosis Esvin Mata MD Sep 20, 2017 15:35
[2017-09-20] MEDS ORDERED: CARV6.25 PO (16:01)
[2017-09-20] MEDS ORDERED: ATOR40TA16 PO (16:01)
[2017-09-20] MEDS ORDERED: FLUT50SP EACH NARE (16:01)
[2017-09-20] MEDS ORDERED: PRED10 PO (16:01)
[2017-09-20] MEDS ORDERED: PLAV75TA29 PO (16:01)
[2017-09-20] MEDS ORDERED: HYDR-3583 PO (16:01)
[2017-09-20] MEDS ORDERED: NICO14DI4 T-DERMAL (16:01)
[2017-09-20] MEDS ORDERED: ALBUAER3 INH (16:01)
[2017-09-20] MEDS ORDERED: ASPI81 PO (16:01)
[2017-09-20] MEDS ORDERED: SM A2CRE3 TOPICAL (16:01)
[2017-09-20] MEDS ORDERED: BENA25CA4 PO (16:01)
--- NOTE | 2017-09-20 16:03 | HHI.DS ---
Discharge Summary Admission Date Sep 17, 2017 at 16:22 Discharge Date: Sep 20, 2017 Admitting Diagnosis acute chest pain, r/o ACS (1) NSVT (nonsustained ventricular tachycardia) ICD Code: I47.2 - Ventricular tachycardia Diagnosis: Principal (2) NSTEMI (non-ST elevated myocardial infarction) ICD Code: I21.4 - Non-ST elevation (NSTEMI) myocardial infarction Diagnosis: Principal (3) Tobacco abuse ICD Code: Z72.0 - Tobacco use Diagnosis: Principal Status: Acute (4) Renal insufficiency ICD Code: N28.9 - Disorder of kidney and ureter, unspecified Diagnosis: Principal Status: Acute (5) CAD (coronary artery disease) ICD Code: I25.10 - Atherosclerotic heart disease of [place] coronary artery without angina pectoris Diagnosis: Principal (6) Chest pain in adult ICD Code: R07.9 - Chest pain, unspecified Diagnosis: Principal Status: Acute Procedures 09/16/2017 PROCEDURE PERFORMED: Left heart catheterization, left ventriculography, coronary angiography, direct PCI with bare metal stent of the ostial proximal right PDA. INDICATIONS FOR SURGERY: Non-STEMI. Coronary artery disease. PROCEDURE: The patient was brought to the cardiac catheterization laboratory, prepped and draped in the usual sterile fashion. A 10 mL of 1% lidocaine was used to locally anesthetize the right common femoral artery. A 4-Uzbek sheath with placed in the right common femoral artery. 4-Uzbek JR4 and JL4 catheter were used to perform left and right coronary angiography, left ventriculography. FINDINGS: The LV pressure is 150/9-10. EF is 60%. The right coronary artery is dominant; it has moderate diffuse disease in the proximal midsegment up to perhaps 50% angiographically. The right PDA has an ostial proximal 90% stenosis. The right posterolateral artery has an ostial proximal 70% stenosis. The left main coronary artery has no significant disease angiographically, but it does appear to be angiographically small. No focal obstructive disease. Reference vessel diameter probably 3.25 mm in diameter. The left circumflex vessel has mild diffuse disease in the proximal AV groove up to 10% angiographically. First obtuse marginal vessel has mild to moderate ostial proximal disease up to 30-40% angiographically, reference vessel diameter 2.5 mm. There is a bifurcation in the midsegment. Second and third obtuse marginal vessels are small vessels, 1-1.5 mm vessels with no significant obstructive disease. The LAD is transapical. There is a 60-70% stenosis at a bifurcation with a small to medium-sized diagonal vessel, which probably has a reference vessel diameter of 2 mm. The LAD is transapical. DISCUSSION: The highest grade lesion is the ostial proximal right PDA. I do think this is the culprit lesion. I discussed with the patient the option of considering bypass, although prior to consideration of any revascularization of the LAD, I do think FFR would be indicated to document this is hemodynamically significant as angiographically it is not definitely significant. The patient declined CABG. INTERVENTION: Therefore, the 6-Uzbek sheath was exchanged for a 4-Uzbek sheath. 70 units per kilo of heparin was given. ACT 252. A 6-Uzbek JR4 guide with 0.014 [place] guidewire was placed into the right PDA and then a second 0.014 [place] guide wire was placed into the right ELLIOT to protect the ELLIOT. I then placed a 2.5/8 Integrity stent at the ostial proximal segment of the right PDA. Without the stent deployed the patient developed his typical angina. When the stent was deployed to 10 atmospheres, his angina intensified. The stent was deployed to 10 atmospheres. Stenosis went from 90% to 0% with SANDY-3 flow. There was no significant compromise of the right posterolateral artery. I did try to place this stent just distal to the os of the right ELLIOT, although angiographically it does appear that a corner of the stent is possibly jailing the right ELLIOT. Again, the os of the ELLIOT remained at about 60-70% angiographically. The patient's chest pain completely resolved. He also had some jaw pain which also completely resolved at the end of the case. Flow was SANDY-3 into the right ELLIOT. CONCLUSION: 1. [id number] myocardial infarction, culprit 90% ostial proximal right posterior diagonal artery, as detailed above. 2. A 70% proximal mid-left anterior descending at a bifurcation with a small to medium-sized diagonal vessel, as detailed above. 3. Mild to moderate diffuse disease in the proximal mid-right coronary artery. There is also a 50-60% stenosis in the mid-right posterior diagonal artery. 4. Normal left ventricular systolic function with ejection fraction 60%. 5. Successful direct percutaneous coronary intervention with bare metal stent of the ostial proximal right posterior descending artery from 90% to 0% with SANDY-3 flow. NOTE: ACT was 252. RECOMMENDATIONS: 1. The patient was given 162 mg of aspirin in the chemical laboratory technician as he did not receive any aspirin in the ER. 2. Also, we will start him on 60 of Effient at 10 mg p.o. daily. 3. Aggrastat drip per protocol and aspirin mg daily. 4. We will check fasting lipids, ALT and treat to NCCP guidelines. 5. MARY inhibitor and beta blockers as clinically and hemodynamically tolerated. 6. I strongly recommended to the patient that he stop smoking. Brief History - From Admission 67-year-old male with a past medical history significant for chronic back pain presents to the emergency department evaluation of chest and abdominal pain. The patient states that his chest pain began yesterday which started as a burning in his throat and became a bilateral chest pressure that radiated to his bilateral shoulders and down his arms. He went to the [facility] for evaluation and was told he was diaphoretic with blue lips at that time. He was sent to the ED for further evaluation and admitted to the chest pain center. The patient's initial troponin was less than 0.02 with subsequent troponin 0.06 and 0.07. He is not currently having any chest pain. His chief complaint is 5/10 abdominal pain which she describes as crampy and tender. He denies any nausea/ vomiting/diarrhea. No shortness of breath. No lateralizing signs/symptoms. CBC/BMP: 09/20/17 0725 09/20/17 0725 Significant Findings Laboratory Tests Test 09/18/17 04:19 09/19/17 04:00 09/20/17 07:25 Neutrophils (%) (Auto) 86.8 % (16.0-70.0) 80.4 % (16.0-70.0) 73.1 % (16.0-70.0) Lymphocytes (%) (Auto) 5.7 % (9.0-44.0) 6.4 % (9.0-44.0) Neutrophils # (Auto) 8.9 TH/MM3 (1.8-7.7) Lymphocytes # (Auto) 0.6 TH/MM3 (1.0-4.8) 0.5 TH/MM3 (1.0-4.8) Blood Urea Nitrogen 24 MG/DL (7-18) Creatinine 1.52 MG/DL (0.60-1.30) 1.35 MG/DL (0.60-1.30) Total Protein 5.6 GM/DL (6.4-8.2) 6.1 GM/DL (6.4-8.2) Albumin 2.5 GM/DL (3.4-5.0) 2.7 GM/DL (3.4-5.0) 3.0 GM/DL (3.4-5.0) Calcium Level 7.7 MG/DL (8.5-10.1) 7.8 MG/DL (8.5-10.1) 8.4 MG/DL (8.5-10.1) Phosphorus Level 2.2 MG/DL (2.5-4.9) 2.2 MG/DL (2.5-4.9) Chloride Level 110 MEQ/L (98-107) 109 MEQ/L (98-107) 109 MEQ/L (98-107) Carbon Dioxide Level 18.8 MEQ/L (21.0-32.0) 20.3 MEQ/L (21.0-32.0) Estimat Glomerular Filtration Rate 46 ML/MIN (>89) 53 ML/MIN (>89) 64 ML/MIN (>89) Eosinophils (%) (Auto) 5.7 % (0.0-4.0) Monocytes (%) (Auto) 9.6 % (0.0-8.0) Aspartate Amino Transf (AST/SGOT) 14 U/L (15-37) Imaging Last Impressions Abdomen/Pelvis CT 09/17/17 0000 Signed Impressions: Service Date/Time: Sunday, September 17, 2017 14:16 - CONCLUSION: 1. No acute CT abnormality in the abdomen or pelvis. 2. 5 x 6 mm nonobstructing calcified calyceal calculus in the mid left kidney. 3. Mild scattered colonic diverticulosis without evidence for diverticulitis. 4. Additional ancillary findings include probable gallbladder sludge, asymmetrical renal size, and small fat-containing inguinal hernias. Dann Azar MD Chest X-Ray 09/15/17 [id number] Signed Impressions: Service Date/Time: Friday, September 15, 2017 17:59 - CONCLUSION: Compensated cardiomegaly otherwise negative Nabil Lawson MD FACR PE at Discharge GENERAL: Awake alert and oriented 3 talkative and cooperative appears to be in no acute distress at this time SKIN: Warm and dry. Multiple tattoos rash will give steroid HEAD: Atraumatic. Normocephalic. EYES: Pupils equal and round. No scleral icterus. No injection or drainage. Extraocular muscles intact ENT: No nasal bleeding or discharge. Mucous membranes pink and moist. Tongue is midline NECK: Trachea midline. No JVD. Supple CARDIOVASCULAR: Regular rate and rhythm. S1-S2 no S3 or S4 RESPIRATORY: No accessory muscle use. Clear to auscultation. Breath sounds equal bilaterally. GASTROINTESTINAL: Abdomen soft, non-tender, nondistended. Hepatic and splenic margins not palpable. Obese MUSCULOSKELETAL: Extremities without clubbing, cyanosis, or edema. No obvious deformities. NEUROLOGICAL: Awake and alert. No obvious cranial nerve deficits. Motor grossly within normal limits. Five out of 5 muscle strength in the arms and legs. Normal speech. PSYCHIATRIC: Appropriate mood and affect; insight and judgment normal. Hospital Course 67-year-old male with a past medical history significant for chronic back pain presents to the emergency department evaluation of chest and abdominal pain. The patient states that his chest pain began yesterday which started as a burning in his throat and became a bilateral chest pressure that radiated to his bilateral shoulders and down his arms. He went to the [facility] for evaluation and was told he was diaphoretic with blue lips at that time. He was sent to the ED for further evaluation and admitted to the chest pain center. The patient's initial troponin was less than 0.02 with subsequent troponin 0.06 and 0.07. He is not currently having any chest pain. His chief complaint is 5/10 abdominal pain which she describes as crampy and tender. He denies any nausea/ vomiting/diarrhea. No shortness of breath. No lateralizing signs/symptoms. Follow up for chest pain, abdominal pain. The patient reports continue diffuse abdominal pain, worse at epigastric and periumbilical region. He reports associated belching. Denies nausea/vomiting. He did have a loose stool yesterday , but no intractable diarrhea. Prior to symptom onset, he ate pizza the night before, and then the next morning he ate a bologna sandwich, then symptoms began 1-2 hours later. He reports taking 1-2 ibuprofen 800mg tablets daily for his chronic back pain. He has not had any further chest pain since yesterday. He states the pain was located near the upper anterior sternum without any radiation, but this was relieved by nitro spray administered en route via [facility]. He denies any prior cardiac history. He reports a walking treadmill test 10+ years ago that was reportedly unremarkable. Denies any recent cardiac work up. He initially tells me that he's never had a cardiac catheterization, then later states he may have had this done but he is not sure and it would've been many years ago. 4-6 had a catheterization yesterday. Going for another cardiac catheterization later today with cardiology AM LABS RENAL FUNCTIONS DW PATIENT AND RN AND CM CONTINUE IV FLUIDS CAD - s/p bms ost rpda and mid lad, continue aspirin, effient, coreg, lipitor; mary held due to arf; creatinine improving 4-7 HAD BMS TO OST RPDA AND MID LAD ON 4-6 DR LOCKETT HAS BEEN CONSULTED FOR NSVT NOT CLEARED BY CARDIOLOGY FOR DISCHARGE YET AM LABS WATCH RENAL FUNCTIONS 4-8 HAS RASH/SWELLING MEDS ADJUSTED DW RN AND PT AND CM AM LABS MONITOR RENAL FUNCTIONS 4-9 AWAIT CARDIAC CLEARANCE -- CLEARED BY [facility] ERICK LOCKETT CONSULT HAS SOME RASH STARTED ON BENADRYL AND PREDNISONE DW RN AND CM AND PT AND FAMILY DC TO HOME TODAY NO SMOKING DW RN AND PT DC HOME Pt Condition on Discharge: Good Discharge Disposition: Discharge Home Discharge Time: > 30 minutes Discharge Instructions DIET: Follow Instructions for: Heart Healthy Diet, Diabetic Diet Speech Therapy-Diet Recommends: Regular Additional Diet Instructions: Stop smoking Activities you can perform: Regular-No Restrictions, Shower Only-No Bath Other Activity Instructions: Stop smoking Follow up Referrals: PCP Follow-up - 2 Days @ [facility] New Medications: Nicotine Patch (Nicoderm CQ Patch) 14 Mg/24 Hr Patch 14 MG T-DERMAL DAILY for Smoking Cessation, #30 PATCH 0 Refills Aspirin (Tgt Aspirin) 81 Mg Chw 162 MG PO DAILY for Blood Clot Prevention, #180 EA Atorvastatin (Atorvastatin) 40 Mg Tab 40 MG PO HS for Cholesterol Management, #90 TAB Carvedilol (Coreg) 6.25 Mg Tab 6.25 MG PO Q12HR for Blood Pressure Management, #180 TAB Clopidogrel (Plavix) 75 Mg Tab 75 MG PO DAILY for Blood Clot Prevention, #90 TAB Diphenhydramine HCl (Benadryl Allergy) 25 Mg Cap 25 MG PO Q4H PRN for itching, #60 CAP Diphenhydramine-Zinc Acetate (Sm Anti-Itch Extra Streng 2-0.1 %) 2 %-0.1 % Cre 1 APPLIC TOPICAL TID PRN for ITCHING, #1 TUBE Fluticasone Nasal [place] (Fluticasone Nasal [place]) 50 Mcg/Act Naspr 2 SPRAY EACH NARE DAILY for Allergies, #1 BOTTLE 50 mcg/spray Prednisone (Prednisone) 10 Mg Tab 10 MG PO DAILY for Inflammation, #30 TAB TAKE WITH FOOD Continued Medications: Albuterol 8.5 GM Inh (Proair Hfa 8.5 GM Inh) 90 Mcg/Act Aer 2 PUFF INH Q6H PRN for SHORTNESS OF BREATH, #1 INHALER 0 Refills (This prescription has been renewed) 108 mcg/actuation Hydrocodone-Acetaminophen (Hydrocodone-Acetaminophen) 10-325 mg Tab 1 TAB PO DAILY PRN for PAIN, #10 TAB 0 Refills (This prescription has been renewed) Ibuprofen (Ibuprofen) 800 Mg Tab 800 MG PO Q12HR PRN for PAIN, #40 TAB 0 Refills Zolpidem (Zolpidem) 10 Mg Tab 10 MG PO HS PRN for INSOMNIA, TAB 0 Refills Discontinued Medications: Sildenafil (Viagra) 100 Mg Tab 100 MG PO DAILY PRN for ERECTILE DYSFUNCTION, TAB 0 Refills Nabil Chase DO Sep 20, 2017 16:03
== END 2017-09-20 17:34 | disposition home or self-care (01) | DRG 249 ==
LOC: NEPE 16:56 → NEDA 19:37 → NEPHCDU 20:12 → HCIS 09-16 09:20 → OBSVTOIN 09-17 16:22
PROVIDERS: ADMIT Hospitalist; ATTEND Hospitalist
PROC: 4A023N7 Measurement of Cardiac Sampling and Pressure, Left Heart, Percutaneous Approach (ICD-10-PCS; 2017-09-16)
PROC: B2151ZZ Fluoroscopy of Left Heart using Low Osmolar Contrast (ICD-10-PCS; 2017-09-16)
PROC: B2111ZZ Fluoroscopy of Multiple Coronary Arteries using Low Osmolar Contrast (ICD-10-PCS; 2017-09-16)
PROC: 02703DZ Dilation of Coronary Artery, One Artery with Intraluminal Device, Percutaneous Approach (ICD-10-PCS; principal; 2017-09-16 07:15)
PROC: 02703DZ Dilation of Coronary Artery, One Artery with Intraluminal Device, Percutaneous Approach (ICD-10-PCS; 2017-09-17)
PROC: 4A023N7 Measurement of Cardiac Sampling and Pressure, Left Heart, Percutaneous Approach (ICD-10-PCS; 2017-09-17)
PROC: B2111ZZ Fluoroscopy of Multiple Coronary Arteries using Low Osmolar Contrast (ICD-10-PCS; 2017-09-17)
PROC: B2151ZZ Fluoroscopy of Left Heart using Low Osmolar Contrast (ICD-10-PCS; 2017-09-17)
DX: I21.4 Non-ST elevation (NSTEMI) myocardial infarction (principal); N17.9 Acute kidney failure, unspecified; I47.2 Ventricular tachycardia; I95.9 Hypotension, unspecified; D75.1 Secondary polycythemia; F17.210 Nicotine dependence, cigarettes, uncomplicated; E78.00 Pure hypercholesterolemia, unspecified; I25.119 Atherosclerotic heart disease of native coronary artery with unspecified angina pectoris; G89.29 Other chronic pain; M54.5 Low back pain; I45.10 Unspecified right bundle-branch block; R06.2 Wheezing; M19.90 Unspecified osteoarthritis, unspecified site; R21 Rash and other nonspecific skin eruption; R03.0 Elevated blood-pressure reading, without diagnosis of hypertension
CPT/HCPCS: 71045; 74176; 80048; 80053; 80061; 82550; 82948; 83036; 83690; 83735; 83880; 84100; 84439; 84443; 84484; 85002; 85025; 85347; 85610; 85730; 92928; 93005; 93306; 93458; 93571; 99152; 99153; C1769; C1876; C1887; C1893; G0378; J1644; J2060; J2250; J2405; J3010; J3246; J3475; J7030; J7050; J7512; Q0163; Q9967

== ENCOUNTER 2017-10-09 05:15 | Emergency (ER) | payer MEDICARE, OTHER ==
[~2017-10-09] VITALS: Ht 172.7 cm; Wt 95.5 kg
[~2017-10-09 05:15] MED LIST changes: +ALBUAER3 INH; +ASPI81 PO; +ATOR40TA16 PO; +BENA25CA4 PO; +CARV6.25 PO; -CIPR500T2 PO; +FLUT50SP EACH NARE; +IBUP1TAB7 PO; -METR1TAB76 PO; +NICO14DI4 T-DERMAL; +PLAV75TA29 PO; +PRED10 PO; +SM A2CRE3 TOPICAL; -TAMS5CAP PO; +ZOLP10TA3 PO
[2017-10-09 05:17] VITALS: BP 131/78; PULSE 75; RESP 18; TEMP 97.4; O2SAT 100
--- NOTE | 2017-10-09 05:57 | PD ---
HPI Chief Complaint: Skin Problem Time Seen by Provider: 05:53 Travel History International Travel<30 days: No Contact w/Intl Traveler<30days: No Traveled to known affect area: No History of Present Illness HPI This is a 67-year-old male who presents for evaluation of a rash. Symptoms started just a few hours prior to arrival. The rash is primarily localized to the buttocks and is quite pruritic. He has had some pruritus on his arms as well but has not noticed any rash. He denies any new medications, creams, lotions, detergents. He does report that his dog had a rash and has been treated with Benadryl. He has not noted any fleas on the dog. He has not noted any bed bugs at home. He was admitted in early September for NSTEMI and he did develop a rash for 2 days during his hospitalization which eventually resolved and he was discharged with Benadryl which he has been using. He denies any shortness of breath, swelling of lips, tongue, throat. No other complaints at this time. 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 ) Genitourinary: Yes (HEMATURIA, MALEERECTILE DISORDER) Kidney Stones: Yes Musculoskeletal: Yes (LUMBAR RADICULOPATHY , DISC DEGENERATIVE, ARTHROPATHY) Neurologic: No Psychiatric: No Respiratory: Yes (PNEUMOTHORAX, PLEURISY) Immunizations Current: Yes Myocardial Infarction: Yes Pneumonia: Yes Renal Failure: No Past Surgical History Abdominal Surgery: No Body Medical Devices: titanium plate in right wrist Cardiac Surgery: No Coronary Artery Bypass Graft: No Ear Surgery: No Endocrine Surgery: No Eye Surgery: No Genitourinary Surgery: No Gynecologic Surgery: No Oral Surgery: No Thoracic Surgery: No Other Surgery: Yes (LEFT CHEST TUBE) Social History Alcohol Use: Yes Tobacco Use: Yes ( PPD) Substance Use: No Allergies-Medications (Allergen,Severity, Reaction): Coded Allergies: No Known Allergies (Verified Allergy, Unknown, 09/17/17) Reported Meds & Prescriptions Reported Meds & Active Scripts Active Prednisone 20 Mg Tab 20 Mg PO BID 5 Days Sm Anti-Itch Extra Streng 2-0.1 % (Diphenhydramine-Zinc Acetate) 2 %-0.1 % Cre 1 Applic TOPICAL TID PRN Prednisone 10 Mg Tab 10 Mg PO DAILY TAKE WITH FOOD Fluticasone Nasal [place] 50 Mcg/Act Naspr 2 [place] EACH NARE DAILY 50 mcg/spray Tgt Aspirin (Aspirin) 81 Mg Chw 162 Mg PO DAILY Coreg (Carvedilol) 6.25 Mg Tab 6.25 Mg PO Q12HR Atorvastatin (Atorvastatin Calcium) 40 Mg Tab 40 Mg PO HS Plavix (Clopidogrel Bisulfate) 75 Mg Tab 75 Mg PO DAILY Benadryl Allergy (Diphenhydramine HCl) 25 Mg Cap 25 Mg PO Q4H PRN Proair Hfa 8.5 GM Inh (Albuterol Sulfate) 90 Mcg/Act Aer 2 Puff INH Q6H PRN 108 mcg/actuation Hydrocodone-Acetaminophen 10-325 mg Tab 1 Tab PO DAILY PRN Reported Zolpidem (Zolpidem Tartrate) 10 Mg Tab 10 Mg PO HS PRN Ibuprofen 800 Mg Tab 800 Mg PO Q12HR PRN Review of Systems Except as stated in HPI: all other systems reviewed are Neg Physical Exam Narrative GENERAL: This is a well-developed well-nourished male in no acute distress SKIN: Warm and dry. The patient is isolated wheals noted to the buttocks and posterior proximal thighs. There is some excoriation secondary to scratching. HEAD: Atraumatic. Normocephalic. EYES: Pupils equal and round. No scleral icterus. No injection or drainage. ENT: No nasal bleeding or discharge. Mucous membranes pink and moist. NECK: Trachea midline. No JVD. CARDIOVASCULAR: Regular rate and rhythm. No murmur appreciated. RESPIRATORY: No accessory muscle use. Clear to auscultation. Breath sounds equal bilaterally. GASTROINTESTINAL: Abdomen soft, non-tender, nondistended. Hepatic and splenic margins not palpable. MUSCULOSKELETAL: No obvious deformities. No clubbing. No cyanosis. No edema. NEUROLOGICAL: Awake and alert. No obvious cranial nerve deficits. Motor grossly within normal limits. Normal speech. PSYCHIATRIC: Appropriate mood and affect; insight and judgment normal. Data Data Last Documented VS Vital Signs Date Time Temp Pulse Resp B/P (MAP) Pulse Ox O2 Delivery O2 Flow Rate FiO2 10/09/17 05:17 97.4 75 18 131/78 (95) 100 Orders Orders Prednisone (Deltasone) (10/09/17 06:00) Ed Discharge Order (10/09/17 06:15) [facility] Medical Decision Making Medical Screen Exam Complete: Yes Emergency Medical Condition: Yes Medical Record Reviewed: Yes Differential Diagnosis Contact dermatitis, bug bites, bedbugs, fleabites, hives Narrative Course The patient has isolated wheals to his buttocks and proximal posterior thighs started just a few hours prior to arrival of uncertain etiology. The patient is currently taking Benadryl at home. He will be prescribed a course of prednisone. Discussed signs and symptoms that would warrant returning to the emergency room. Diagnosis Primary Impression: Pruritic rash Additional Instructions: Avoid scratching. Use Benadryl 50 mg every 6 hours as needed for itching, do not drive or drink alcohol and taking Benadryl. Prednisone as prescribed. Follow-up with primary care physician as needed and return for any emergent medical conditions. Med/Other Pt SpecificInfo: Prescription(s) given Scripts Prednisone (Prednisone) 20 Mg Tab 20 MG PO BID for 5 Days, #10 TAB 0 Refills Prov: Cas Panda MD 10/09/17 Disposition: 01 DISCHARGE HOME Condition: Stable Shen Fong Oct 09, 2017 05:57
[2017-10-09] MEDS ORDERED: predniSONE 20 MG TAB PO ONE (06:00)
[2017-10-09] MEDS ORDERED: PRED20 PO (06:14)
== END 2017-10-09 06:36 | disposition home or self-care (01) ==
LOC: NEPD 05:15
DX: R21 Rash and other nonspecific skin eruption (principal); I25.10 Atherosclerotic heart disease of native coronary artery without angina pectoris; F17.200 Nicotine dependence, unspecified, uncomplicated; Z79.02 Long term (current) use of antithrombotics/antiplatelets
CPT/HCPCS: 99283; J7512

== ENCOUNTER 2017-12-06 08:59 | Observation (INO) | payer OTHER ==
[2017-12-06] VITALS (9 sets, daily range): BP systolic 113–143; BP diastolic 55–71; PULSE 62–81; RESP 15–20; TEMP 97.3–97.5; O2SAT 96–99
[~2017-12-06] VITALS: Ht 172.7 cm; Wt 98.8 kg
[~2017-12-06 08:59] MED LIST changes: -NICO14DI4 T-DERMAL; +PRED20 PO
[2017-12-06] MEDS ORDERED: MINO100 PO (09:27)
--- NOTE | 2017-12-06 09:44 | PD ---
HPI Chief Complaint: Chest Pain Time Seen by Provider: 09:21 Travel History International Travel<30 days: No Contact w/Intl Traveler<30days: No Traveled to known affect area: No History of Present Illness HPI The patient is a 67-year-old male who presents to the emergency department from the [place] [facility] for chest pain. The patient states he had a heart attack in September 2017 and underwent cardiac catheterization by Dr. Mata and had stents placed. The patient states he was doing well until when he developed chest pain that was located in the right side of the chest radiating up into the jaw. The patient then developed chest pain that went across the sternum and is now located substernal. The patient describes the chest pain as pressure, so she was shortness of breath and diaphoresis, but no nausea or vomiting. The chest pain is worse with activity such as walking and eating, is alleviated at rest. The patient went to the [place] clinic earlier today who provided him with 325 mg of aspirin and referred him to the emergency department. The patient's symptoms are moderate. He does have a history of coronary artery disease with previous stent placement as well as tobacco use, quit smoking in September after his heart attack. The patient states he has been compliant with his medications. 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 , ABLATION ) Genitourinary: Yes (HEMATURIA, MALEERECTILE DISORDER) Heparin Induced Thrombocytopen: No Kidney Stones: Yes Medical other: Yes (PRESBYOPIA ) Musculoskeletal: Yes (LUMBAR RADICULOPATHY , DISC DEGENERATIVE, ARTHROPATHY) Neurologic: No Psychiatric: No Reproductive: No Respiratory: Yes (PNEUMOTHORAX, PLEURISY) Immunizations Current: Yes Myocardial Infarction: Yes Pneumonia: Yes Past Surgical History Abdominal Surgery: No Body Medical Devices: titanium plate in right wrist Cardiac Surgery: No Coronary Artery Bypass Graft: No Coronary Stent: Yes (X 2 10/2017) Ear Surgery: No Endocrine Surgery: No Eye Surgery: No Genitourinary Surgery: No Gynecologic Surgery: No Neurologic Surgery: No Oral Surgery: No Thoracic Surgery: No Other Surgery: Yes (LEFT CHEST TUBE) Family History Family Myocardial Infarction: No Social History Alcohol Use: No Tobacco Use: No (QUIT 2 MONTHS AGO ) Substance Use: No Allergies-Medications (Allergen,Severity, Reaction): Coded Allergies: No Known Allergies (Verified Allergy, Unknown, 09/17/17) Reported Meds & Prescriptions Reported Meds & Active Scripts Active Sm Anti-Itch Extra Streng 2-0.1 % (Diphenhydramine-Zinc Acetate) 2 %-0.1 % Cre 1 Applic TOPICAL TID PRN Fluticasone Nasal [place] 50 Mcg/Act Naspr 2 [place] EACH NARE DAILY 50 mcg/spray Tgt Aspirin (Aspirin) 81 Mg Chw 162 Mg PO DAILY Coreg (Carvedilol) 6.25 Mg Tab 6.25 Mg PO Q12HR Atorvastatin (Atorvastatin Calcium) 40 Mg Tab 40 Mg PO HS Plavix (Clopidogrel Bisulfate) 75 Mg Tab 75 Mg PO DAILY Benadryl Allergy (Diphenhydramine HCl) 25 Mg Cap 25 Mg PO Q4H PRN Proair Hfa 8.5 GM Inh (Albuterol Sulfate) 90 Mcg/Act Aer 2 Puff INH Q6H PRN 108 mcg/actuation Hydrocodone-Acetaminophen 10-325 mg Tab 1 Tab PO DAILY PRN Reported Minocycline (Minocycline HCl) 100 Mg Cap 100 Mg PO BID Zolpidem (Zolpidem Tartrate) 10 Mg Tab 10 Mg PO HS PRN Ibuprofen 800 Mg Tab 800 Mg PO Q12HR PRN Review of Systems Except as stated in HPI: all other systems reviewed are Neg General / Constitutional: No: Fever HENT: No: Lightheadedness Cardiovascular: Positive: Chest Pain or Discomfort, Diaphoresis, Dyspnea on exertion Respiratory: Positive: Shortness of Breath Gastrointestinal: No: Nausea, Vomiting, Abdominal Pain Physical Exam Narrative GENERAL: Awake, alert, pleasant 67-year-old male who appears his stated age and is in no acute respiratory distress. SKIN: Focused skin assessment warm/dry. HEAD: Atraumatic. Normocephalic. EYES: Pupils equal and round. No scleral icterus. No injection or drainage. ENT: No nasal bleeding or discharge. Poor dentition. NECK: Trachea midline. No JVD. CARDIOVASCULAR: Regular rate and rhythm. No murmur appreciated. RESPIRATORY: No accessory muscle use. Clear to auscultation. Breath sounds equal bilaterally. GASTROINTESTINAL: Abdomen soft, non-tender, nondistended. No epigastric tenderness. MUSCULOSKELETAL: No obvious deformities. No clubbing. No cyanosis. Trace edema. NEUROLOGICAL: Awake and alert. No obvious cranial nerve deficits. Motor grossly within normal limits. Normal speech. PSYCHIATRIC: Appropriate mood and affect; insight and judgment normal. Data Data Last Documented VS Vital Signs Date Time Temp Pulse Resp B/P (MAP) Pulse Ox O2 Delivery O2 Flow Rate FiO2 12/06/17 12:00 63 18 113/60 (77) 97 Nasal [place] 2.00 12/06/17 09:05 97.5 Orders Orders Electrocardiogram (12/06/17 09:40) Ckmb (Isoenzyme) Profile (12/06/17 09:40) Complete Blood Count With Diff (12/06/17 09:40) Comprehensive Metabolic Panel (12/06/17 09:40) Magnesium (Mg) (12/06/17 09:40) Prothrombin Time / Inr (Pt) (12/06/17 09:40) Act Partial Throm Time (Ptt) (12/06/17 09:40) Troponin I (12/06/17 09:40) Lipase (12/06/17 09:40) Ecg Monitoring (12/06/17 09:40) Bilateral Bp Monitoring (12/06/17 09:40) Iv Access Insert/Monitor (12/06/17 09:40) Oximetry (12/06/17 09:40) Oxygen Administration (12/06/17 09:40) Sodium Chloride 0.9% Flush (Ns Flush) (12/06/17 09:45) Chest, Pa & Lat (12/06/17 09:40) CKMB (12/06/17 09:15) CKMB% (12/06/17 09:15) Aspirin Chew (Aspirin Chew) (12/07/17 09:00) Atorvastatin (Lipitor) (12/06/17 21:00) Carvedilol (Coreg) (12/06/17 21:00) Clopidogrel (Plavix) (12/07/17 09:00) Fluticasone [place] Spr (Flonase [place] Spr) (12/07/17 09:00) Acetamin-Hydrocod 325-10 Mg ([place] 10-32 (12/06/17 12:30) Minocycline (Minocin) (12/06/17 21:00) Zolpidem (Ambien) (12/06/17 12:30) Admit Order (Ed Use Only) (12/06/17 12:25) Labs Laboratory Tests Test 12/06/17 09:15 White Blood Count 7.5 TH/MM3 Red Blood Count 5.44 MIL/MM3 Hemoglobin 16.6 GM/DL Hematocrit 48.3 % Mean Corpuscular Volume 88.8 FL Mean Corpuscular Hemoglobin 30.5 PG Mean Corpuscular Hemoglobin Concent 34.4 % Red Cell Distribution Width 14.6 % Platelet Count 220 TH/MM3 Mean Platelet Volume 7.8 FL Neutrophils (%) (Auto) 63.9 % Lymphocytes (%) (Auto) 24.8 % Monocytes (%) (Auto) 7.1 % Eosinophils (%) (Auto) 3.8 % Basophils (%) (Auto) 0.4 % Neutrophils # (Auto) 4.8 TH/MM3 Lymphocytes # (Auto) 1.9 TH/MM3 Monocytes # (Auto) 0.5 TH/MM3 Eosinophils # (Auto) 0.3 TH/MM3 Basophils # (Auto) 0.0 TH/MM3 CBC Comment DIFF FINAL Differential Comment Prothrombin Time 11.0 SEC Prothromb Time International Ratio 1.1 RATIO Activated Partial Thromboplast Time 27.3 SEC Blood Urea Nitrogen 15 MG/DL Creatinine 1.28 MG/DL Random Glucose 120 MG/DL Total Protein 7.3 GM/DL Albumin 3.3 GM/DL Calcium Level 8.5 MG/DL Magnesium Level 2.3 MG/DL Alkaline Phosphatase 133 U/L Aspartate Amino Transf (AST/SGOT) 47 U/L Alanine Aminotransferase (ALT/SGPT) 53 U/L Total Bilirubin 0.6 MG/DL Sodium Level 139 MEQ/L Potassium Level 4.6 MEQ/L Chloride Level 109 MEQ/L Carbon Dioxide Level 19.8 MEQ/L Anion Gap 10 MEQ/L Estimat Glomerular Filtration Rate 56 ML/MIN Total Creatine Kinase 108 U/L Creatine Kinase MB 0.9 NG/ML Troponin I LESS THAN 0.02 NG/ML Lipase 132 U/L Exceptions Acute Myocardial Infarction ASA Not Given on Arrival: Already taken by patient MDM Medical Decision Making Medical Screen Exam Complete: Yes Emergency Medical Condition: Yes Medical Record Reviewed: Yes Interpretation(s) EKG reveals sinus rhythm with first-degree AV block, AL interval 211 ms. RSR prime in V1. Inverted T-wave in lead III. Laboratory Tests Test 12/06/17 09:15 White Blood Count 7.5 TH/MM3 Red Blood Count 5.44 MIL/MM3 Hemoglobin 16.6 GM/DL Hematocrit 48.3 % Mean Corpuscular Volume 88.8 FL Mean Corpuscular Hemoglobin 30.5 PG Mean Corpuscular Hemoglobin Concent 34.4 % Red Cell Distribution Width 14.6 % Platelet Count 220 TH/MM3 Mean Platelet Volume 7.8 FL Neutrophils (%) (Auto) 63.9 % Lymphocytes (%) (Auto) 24.8 % Monocytes (%) (Auto) 7.1 % Eosinophils (%) (Auto) 3.8 % Basophils (%) (Auto) 0.4 % Neutrophils # (Auto) 4.8 TH/MM3 Lymphocytes # (Auto) 1.9 TH/MM3 Monocytes # (Auto) 0.5 TH/MM3 Eosinophils # (Auto) 0.3 TH/MM3 Basophils # (Auto) 0.0 TH/MM3 CBC Comment DIFF FINAL Differential Comment Prothrombin Time 11.0 SEC Prothromb Time International Ratio 1.1 RATIO Activated Partial Thromboplast Time 27.3 SEC Blood Urea Nitrogen 15 MG/DL Creatinine 1.28 MG/DL Random Glucose 120 MG/DL Total Protein 7.3 GM/DL Albumin 3.3 GM/DL Calcium Level 8.5 MG/DL Magnesium Level 2.3 MG/DL Alkaline Phosphatase 133 U/L Aspartate Amino Transf (AST/SGOT) 47 U/L Alanine Aminotransferase (ALT/SGPT) 53 U/L Total Bilirubin 0.6 MG/DL Sodium Level 139 MEQ/L Potassium Level 4.6 MEQ/L Chloride Level 109 MEQ/L Carbon Dioxide Level 19.8 MEQ/L Anion Gap 10 MEQ/L Estimat Glomerular Filtration Rate 56 ML/MIN Total Creatine Kinase 108 U/L Creatine Kinase MB 0.9 NG/ML Troponin I LESS THAN 0.02 NG/ML Lipase 132 U/L Last Impressions Chest X-Ray 12/06/17 0940 Signed Impressions: CONCLUSION: Mild interstitial edema. Differential Diagnosis Differential diagnosis includes unstable angina, acute coronary syndrome, STEMI , GERD, esophageal spasm, deconditioning, cardia myopathy, pericardial effusion , pulmonary embolism, costochondritis. Narrative Course IV was established, labs are drawn and sent, and the patient was placed on cardiac telemetry monitoring and continuous pulse oximetry monitoring. EKG was ordered and interpreted. Chest x-ray was obtained. The patient received aspirin prior to arrival. Patient was advised to notify nursing staff immediately if he redevelops chest pain as we will repeat EKG in Place Nitropaste on at that time. Chest x-ray reveals minimal interstitial edema. The patient's initial troponin is less than 0.02. However, the patient has new onset of chest pain with exertion that is relieved at rest, consistent with angina, has known coronary artery disease and was advised he may need bypass in the future. Therefore, the patient will be admitted to the on-call medical service with a consultation to his injection machine operator who placed his stents in September. Patient agrees and understands the plan of care. Physician Communication Physician Communication I discussed the patient with Dr. Monroy who agrees with admission. Diagnosis Primary Impression: Unstable angina Admitting Information Admitting Physician Requests: Admit Condition: Stable Cas Panda MD Dec 06, 2017 09:44
[2017-12-06] MEDS ORDERED: SODIUM CHLORIDE 0.9% FLUSH 10 ML FLUSH IVF PRN (09:45)
[2017-12-06 10:15] LABS: AUTOMATED NEUTROPHIL # 4.8 TH/MM3 (1.8-7.7); BASOPHIL % 0.4 % (0.0-2.0); EOSINOPHIL # 0.3 TH/MM3 (0-0.4); EOSINOPHIL % 3.8 % (0.0-4.0); HEMATOCRIT 48.3 % (39.0-51.0); HEMOGLOBIN 16.6 GM/DL (13.0-17.0); LYMPH % 24.8 % (9.0-44.0); LYMPHOCYTE # 1.9 TH/MM3 (1.0-4.8); MEAN CELL VOLUME 88.8 FL (80.0-100.0); MEAN CORPUSCULAR HEMOGLOBIN 30.5 PG (27.0-34.0); MEAN CORPUSCULAR HGB CONC 34.4 % (32.0-36.0); MEAN PLATELET VOLUME 7.8 FL (7.0-11.0); MONO % 7.1 % (0.0-8.0); MONOCYTE # 0.5 TH/MM3 (0-0.9); NEUT % 63.9 % (16.0-70.0); PLATELET COUNT 220 TH/MM3 (150-450); RED BLOOD COUNT 5.44 MIL/MM3 (4.50-5.90); RED CELL DISTRIBUTION WIDTH 14.6 % (11.6-17.2); WHITE BLOOD COUNT 7.5 TH/MM3 (4.0-11.0)
[2017-12-06 10:33] LABS: CREATININE 1.28 MG/DL (0.60-1.30); GLOMERULAR FILTRATION RATE 56 ML/MIN (>89)
[2017-12-06 10:36] LABS: INTERNATIONAL NORMALIZED RATIO 1.1 RATIO
[2017-12-06 10:43] LABS: ALBUMIN 3.3 GM/DL (3.4-5.0); ALKALINE PHOSPHATASE 133 U/L (45-117); ALT (GPT) 53 U/L (12-78); AST (GOT) 47 U/L (15-37); BICARBONATE 19.8 MEQ/L (21.0-32.0); BLOOD UREA NITROGEN 15 MG/DL (7-18); CALCIUM 8.5 MG/DL (8.5-10.1); CHLORIDE 109 MEQ/L (98-107); GLUCOSE,RANDOM 120 MG/DL (74-106); MAGNESIUM 2.3 MG/DL (1.5-2.5); SODIUM (NA) 139 MEQ/L (136-145); TOTAL BILIRUBIN ADULT 0.6 MG/DL (0.2-1.0); TOTAL PROTEIN 7.3 GM/DL (6.4-8.2); TROPONIN I LESS THAN 0.02 NG/ML (0.02-0.05)
--- NOTE | 2017-12-06 10:47 | RADRPT ---
EXAM DATE: 12/06/2017 10:23 AM EDT AGE/SEX: 67 years / Male INDICATIONS: Chest pain. CLINICAL DATA: This is the patient's initial encounter. Patient reports that signs and symptoms have been present for 1 day and indicates a pain score of 5/10. MEDICAL/SURGICAL HISTORY: Cardiovascular disease. Renal calculi. Myocardial infarction. None . COMPARISON: No prior exams available for comparison. FINDINGS: Mild cardiomegaly with minimal interstitial prominence. No alveolar consolidation, pneumothorax or pl eural effusion. The portion of the bony skeleton visualized is unremarkable. CONCLUSION: Mild interstitial edema. Electronically signed by: Nabil Lawson MD 12/06/2017 10:46 AM EDT
[2017-12-06] MEDS ORDERED: IOHEXOL 350 MG/ML 100 ML BTL (for Cath Lab) OTHER ONE (12:27)
[2017-12-06] MEDS ORDERED: IOHEXOL 350 MG/ML 50 ML BTL (for Cath Lab) OTHER ONE (12:27)
[2017-12-06] MEDS ORDERED: ZOLPIDEM TARTRATE 10 MG TAB PO PRN (12:30)
[2017-12-06] MEDS ORDERED: LACTULOSE SYRUP 20 GM/30 ML CUP PO PRN (12:30)
[2017-12-06] MEDS ORDERED: MAGNESIUM HYDROXIDE SUSP 30 ML CUP PO PRN (12:30)
[2017-12-06] MEDS ORDERED: BISACODYL 10 MG SUPP RECTAL PRN (12:30)
[2017-12-06] MEDS ORDERED: NALOXONE HCL 0.4 MG/ML AMP IV PUSH PRN (12:30)
[2017-12-06] MEDS ORDERED: ONDANSETRON HCL 4 MG/2 ML VIAL IVP PRN (12:30)
[2017-12-06] MEDS ORDERED: SENNOSIDES 8.6 MG TAB PO PRN (12:30)
[2017-12-06] MEDS ORDERED: SODIUM CHLORIDE 0.9% FLUSH 10 ML FLUSH IV FLUSH PRN (12:30)
[2017-12-06] MEDS ORDERED: CLOPIDOGREL 75 MG TAB PO ONE (12:30)
[2017-12-06] MEDS ORDERED: ACETAMINOPHEN 325 MG TAB PO PRN ×2 (12:30)
[2017-12-06] MEDS: HEPARIN SODIUM - SQ 10,000 UNITS/ML VIAL SQ SCH ×2 (14:57→21:27)
--- NOTE | 2017-12-06 17:33 | HHI.HP ---
HPI Service [facility] Primary Care Physician No Primary Care Physician Admission Diagnosis Unstable angina Diagnoses: Chief Complaint: Chest pain Travel History International Travel<30 Days: No Contact w/Intl Traveler <30 Da: No Traveled to Known Affected Are: No History of Present Illness 67-year-old male who was sent to the emergency room from the [place] because of chest pain. It started 4 days ago when he developed mild exertional heavy sensation over his right chest radiating up into his jaw then later across the sternum. It is associated with shortness of breath and diaphoresis no nausea, vomiting, dizziness and palpitations. Pain is relieved with rest. It is also exacerbated with eating. Patient has history of coronary artery disease status post bare-metal stent in the RPDA and mid LAD and has been compliant with aspirin, Plavix, metoprolol and statin. He has quit smoking since September when he had a heart attack. At this time he is pain-free. Discussed with cardiology , for cardiac catheterization in vomiting in the morning. All other systems reviewed negative Review of Systems Except as stated in HPI: all other systems reviewed are Neg Past Family Social History Past Medical History Osteoarthritis, SVT status post ablation, NSVT, chronic low back pain, pneumothorax and pleurisy Past Surgical History As previously mentioned, right wrist titanium plate, left chest tube Reported Medications Sm Anti-Itch Extra Streng 2-0.1 % (Diphenhydramine-Zinc Acetate) 2 %-0.1 % Cre 1 Applic TOPICAL TID PRN Fluticasone Nasal [place] 50 Mcg/Act Naspr 2 [place] EACH NARE DAILY 50 mcg/spray Tgt Aspirin (Aspirin) 81 Mg Chw 162 Mg PO DAILY Coreg (Carvedilol) 6.25 Mg Tab 6.25 Mg PO Q12HR Atorvastatin (Atorvastatin Calcium) 40 Mg Tab 40 Mg PO HS Plavix (Clopidogrel Bisulfate) 75 Mg Tab 75 Mg PO DAILY Benadryl Allergy (Diphenhydramine HCl) 25 Mg Cap 25 Mg PO Q4H PRN Proair Hfa 8.5 GM Inh (Albuterol Sulfate) 90 Mcg/Act Aer 2 Puff INH Q6H PRN 108 mcg/actuation Hydrocodone-Acetaminophen 10-325 mg Tab 1 Tab PO DAILY PRN Reported Minocycline (Minocycline HCl) 100 Mg Cap 100 Mg PO BID Zolpidem (Zolpidem Tartrate) 10 Mg Tab 10 Mg PO HS PRN Ibuprofen 800 Mg Tab 800 Mg PO Q12HR PRN Allergies: Coded Allergies: No Known Allergies (Verified Allergy, Unknown, 09/17/17) prasugrel (Verified Allergy, Unknown, Rash, 12/06/17) Family History No CAD Social History Quit smoking 2 months ago does not drink Physical Exam Vital Signs Vital Signs Date Time Temp Pulse Resp B/P (MAP) Pulse Ox O2 Delivery O2 Flow Rate FiO2 12/06/17 16:54 71 12/06/17 12:00 63 18 113/60 (77) 97 Nasal Cannula 2.00 12/06/17 11:00 66 18 99 12/06/17 10:05 62 16 118/59 (78) 97 Nasal Cannula 2.00 12/06/17 09:58 97 Nasal Cannula 2.00 12/06/17 09:56 69 18 118/59 (78) 97 Nasal Cannula 2.00 12/06/17 09:56 66 15 118/59 (78) 97 Nasal Cannula 2.00 12/06/17 09:53 72 16 115/55 (75) 98 Room Air 12/06/17 09:13 98 Room Air 12/06/17 09:05 97.5 77 20 143/66 (91) 98 Physical Exam GENERAL: This is an obese, well-developed patient, in no apparent distress. SKIN: No rashes, ecchymoses or lesions. Cool and dry. HEAD: Atraumatic. Normocephalic. No temporal or scalp tenderness. EYES: Pupils equal round and reactive. Extraocular motions intact. No scleral icterus. No injection or drainage. ENT: Nose without bleeding, purulent drainage or septal hematoma. Throat without erythema, tonsillar hypertrophy or exudate. Uvula midline. Airway patent. NECK: Trachea midline. No JVD or lymphadenopathy. Supple, nontender, no meningeal signs. CARDIOVASCULAR: Regular rate and rhythm without murmurs, gallops, or rubs. RESPIRATORY: Clear to auscultation. Breath sounds equal bilaterally. No wheezes , rales, or rhonchi. GASTROINTESTINAL: Abdomen soft, non-tender, nondistended. No guarding. MUSCULOSKELETAL: Extremities without clubbing, cyanosis, or edema. No joint tenderness, effusion, or edema noted. No calf tenderness. Negative Homans sign bilaterally. NEUROLOGICAL: Awake and alert. Cranial nerves II through XII intact. Motor and sensory grossly within normal limits. Five out of 5 muscle strength in all muscle groups. Normal speech. Laboratory Laboratory Tests Test 12/06/17 09:15 White Blood Count 7.5 Red Blood Count 5.44 Hemoglobin 16.6 Hematocrit 48.3 Mean Corpuscular Volume 88.8 Mean Corpuscular Hemoglobin 30.5 Mean Corpuscular Hemoglobin Concent 34.4 Red Cell Distribution Width 14.6 Platelet Count 220 Mean Platelet Volume 7.8 Neutrophils (%) (Auto) 63.9 Lymphocytes (%) (Auto) 24.8 Monocytes (%) (Auto) 7.1 Eosinophils (%) (Auto) 3.8 Basophils (%) (Auto) 0.4 Neutrophils # (Auto) 4.8 Lymphocytes # (Auto) 1.9 Monocytes # (Auto) 0.5 Eosinophils # (Auto) 0.3 Basophils # (Auto) 0.0 CBC Comment DIFF FINAL Differential Comment Prothrombin Time 11.0 Prothromb Time International Ratio 1.1 Activated Partial Thromboplast Time 27.3 Blood Urea Nitrogen 15 Creatinine 1.28 Random Glucose 120 Total Protein 7.3 Albumin 3.3 Calcium Level 8.5 Magnesium Level 2.3 Alkaline Phosphatase 133 Aspartate Amino Transf (AST/SGOT) 47 Alanine Aminotransferase (ALT/SGPT) 53 Total Bilirubin 0.6 Sodium Level 139 Potassium Level 4.6 Chloride Level 109 Carbon Dioxide Level 19.8 Anion Gap 10 Estimat Glomerular Filtration Rate 56 Total Creatine Kinase 108 Creatine Kinase MB 0.9 Troponin I LESS THAN 0.02 Lipase 132 Result Diagram: 12/06/1791412/06/1715 Caprini VTE Risk Assessment Caprini VTE Risk Assessment: Mod/High Risk (score >= 2) Caprini Risk Assessment Model Point Value = 1 Point Value = 2 Point Value = 3 Point Value = 5 Age 41-60 Minor surgery BMI > 25 kg/m2 Swollen legs Varicose veins or History of unexplained or recurrent spontaneous Oral contraceptives or hormone replacement Sepsis (< 1 month) Serious lung disease, including pneumonia (< 1 month) Abnormal pulmonary function Acute myocardial infarction Congestive heart failure (< 1 month) History of inflammatory bowel disease Medical patient at bed rest Age 61-74 Arthroscopic surgery Major open surgery (> 45 min) Laparoscopic surgery (> 45 min) Malignancy Confined to bed (> 72 hours) Immobilizing plaster cast Central venous access Age >= 75 History of VTE Family history of VTE Factor V Leiden Prothrombin [id number] Lupus anticoagulant Anticardiolipin antibodies Elevated serum homocysteine Heparin-induced thrombocytopenia Other congenital or acquired thrombophilia Stroke (< 1 month) Elective arthroplasty Hip, pelvis, or leg fracture Acute spinal cord injury (< 1 month) Prophylaxis Regimen Total Risk Factor Score Risk Level Prophylaxis Regimen 0-1 Low Early ambulation 2 Moderate Order ONE of the following: *Sequential Compression Device (SCD) *Heparin 5000 units SQ BID 3-4 Higher Order ONE of the following medications: *Heparin 5000 units SQ TID *Enoxaparin/Lovenox 40 mg SQ daily (WT < 150 kg, CrCl > 30 mL/min) *Enoxaparin/Lovenox 30 mg SQ daily (WT < 150 kg, CrCl > 10-29 mL/min) *Enoxaparin/Lovenox 30 mg SQ BID (WT < 150 kg, CrCl > 30 mL/min) AND/OR *Sequential Compression Device (SCD) 5 or more Highest Order ONE of the following medications: *Heparin 5000 units SQ TID (Preferred with Epidurals) *Enoxaparin/Lovenox 40 mg SQ daily (WT < 150 kg, CrCl > 30 mL/min) *Enoxaparin/Lovenox 30 mg SQ daily (WT < 150 kg, CrCl > 10-29 mL/min) *Enoxaparin/Lovenox 30 mg SQ BID (WT < 150 kg, CrCl > 30 mL/min) AND *Sequential Compression Device (SCD) Assessment and Plan Assessment and Plan 67-year-old male who was sent to the emergency room from the [place] because of exertional heavy sensation over sternum associated with shortness of breath and diaphoresis Chest pain in a patient with history of CAD status post cardiac stent 2. Initial EKG with no ST elevation (tracing interpreted by me) as well as unremarkable cardiac enzymes. Chest x-ray image interpreted by me with no acute cardiopulmonary disease. Currently pain-free. Trend cardiac enzymes. Continue aspirin, Plavix, beta-vivian, statin and sublingual nitroglycerin. If recurrent chest pain or positive cardiac enzymes, patient will be started on heparin drip. For cardiac catheterization in the morning. Multiple medical conditions of osteoarthritis, SVT status post ablation, NSVT, chronic low back pain, pneumothorax and pleurisy. Continue outpatient medications as appropriate DVT prophylaxis with SCD and subcu heparin Discussed Condition With Patient Hank Monroy MD Dec 06, 2017 17:32
--- NOTE | 2017-12-06 19:35 | EKG ---
Date Performed: 12/06/2017 Time Performed: 15:27:14 PTAGE: 67 years EKG: Sinus rhythm WITH FIRST DEGREE AV BLOCK INCOMPLETE RIGHT BUNDLE BRANCH BLOCK ABNORMAL ECG No significant change f rom prior electrocardiogram. PREVIOUS TRACING : 12/06/2017 09.13 DOCTOR: Pillo Worthy Interpretating Date/Time 12/06/2017 19:33:48
[2017-12-06] MEDS: MINOCYCLINE HCL 100 MG CAP PO SCH (21:00)
[2017-12-06] MEDS: DOCUSATE SODIUM 50 MG/SENNA 8.6 MG TAB PO SCH (21:00)
[2017-12-06] MEDS: ATORVASTATIN 40 MG TAB PO SCH (21:25)
[2017-12-06] MEDS: SODIUM CHLORIDE 0.9% FLUSH 10 ML FLUSH IV FLUSH SCH (21:26)
[2017-12-06] MEDS: CARVEDILOL 6.25 MG TAB PO SCH (21:26)
[2017-12-06] MEDS: ACETAMINOPHEN/HYDROcodone 325 MG/10 MG TAB PO PRN (21:28)
[2017-12-06 21:43] LABS: TROPONIN I LESS THAN 0.02 NG/ML (0.02-0.05)
--- NOTE | 2017-12-06 22:30 | EKG ---
Date Performed: 12/06/2017 Time Performed: 21:43:25 PTAGE: 67 years EKG: Sinus rhythm WITH FIRST DEGREE AV BLOCK WITH OCCASIONAL VENTRICULAR PREMATURE COMPLEXES INCOMPLETE RIGHT BUNDLE B RANCH BLOCK ABNORMAL ECG Compared to prior electrocardiogram, Premature ventricular contractions are now present . PREVIOUS TRACING : 12/06/2017 15.27 DOCTOR: Pillo Worthy Interpretating Date/Time 12/06/2017 22:29:27
--- NOTE | 2017-12-06 22:42 | EKG ---
Date Performed: 12/06/2017 Time Performed: 09:13:23 PTAGE: 67 years EKG: Sinus rhythm WITH FIRST DEGREE AV BLOCK INCOMPLETE RIGHT BUNDLE BRANCH BLOCK POSSIBLE RIGHT VENTRICULAR HYPERTROP HY ABNORMAL ECG PREVIOUS TRACING : 09/18/2017 05.18 Compared to previous tracing, no longer noted to be in big eminy DOCTOR: Devin Whittington Interpretating Date/Time 12/06/2017 22:41:14
[2017-12-07] VITALS (19 sets, daily range): BP systolic 95–161; BP diastolic 54–77; PULSE 58–130; RESP 18–23; TEMP 97.1–100.8; O2SAT 94–100
[2017-12-07 03:24] LABS: AUTOMATED NEUTROPHIL # 4.1 TH/MM3 (1.8-7.7); BASOPHIL # 0.1 TH/MM3 (0-0.2); BASOPHIL % 0.9 % (0.0-2.0); EOSINOPHIL # 0.4 TH/MM3 (0-0.4); HEMATOCRIT 46.7 % (39.0-51.0); LYMPH % 32.7 % (9.0-44.0); LYMPHOCYTE # 2.6 TH/MM3 (1.0-4.8); MEAN CELL VOLUME 88.5 FL (80.0-100.0); MEAN CORPUSCULAR HEMOGLOBIN 30.3 PG (27.0-34.0); MEAN CORPUSCULAR HGB CONC 34.3 % (32.0-36.0); MEAN PLATELET VOLUME 7.7 FL (7.0-11.0); MONOCYTE # 0.8 TH/MM3 (0-0.9); NEUT % 51.4 % (16.0-70.0); PLATELET COUNT 236 TH/MM3 (150-450); RED BLOOD COUNT 5.28 MIL/MM3 (4.50-5.90); RED CELL DISTRIBUTION WIDTH 14.7 % (11.6-17.2)
[2017-12-07 03:56] LABS: BICARBONATE 22.9 MEQ/L (21.0-32.0); CALCIUM 8.3 MG/DL (8.5-10.1); CREATININE 1.14 MG/DL (0.60-1.30)
[2017-12-07 04:02] LABS: TROPONIN I LESS THAN 0.02 NG/ML (0.02-0.05)
[2017-12-07] MEDS: HEPARIN SODIUM - SQ 10,000 UNITS/ML VIAL SQ SCH ×3 (04:04→20:01)
--- NOTE | 2017-12-07 08:02 | MB ---
cc: Esvin Mata MD DATE: 12/06/2017 HISTORY OF PRESENT ILLNESS: Holger is a very pleasant 67-year-old gentleman with history of coronary artery disease, status post PCI, with bare metal stent of the LAD and right coronary artery in September. He had been having nonsustained V-tach. AT THAT TIME, HE HAD AN ALLERGIC REACTION TO EFFIENT. He continues to smoke. He has been compliant. He presents to the ER with chief complaint of chest pain. Currently, he is comfortable, in no acute distress. His chest pain started , located on the right side of the chest, radiating into the jaw, also occurring in the substernal area, described as pressure-like, associated with shortness of breath, diaphoresis, worse with walking and eating, alleviated with rest. He was seen at the [place] clinic, they referred him to the ER. PAST MEDICAL HISTORY: As per history of present illness. He has a history of osteoarthritis, SVT, coronary artery disease, colonic polyps, hematuria, presbyopia, lumbar radiculopathy, disk degenerative disease, arthropathy, pneumothorax, pleurisy, history of myocardial infarction, titanium plate in the right wrist, left chest tube. SOCIAL HISTORY: He denies alcohol use. He quit smoking 2 months ago. ALLERGIES: NONE. MEDICATIONS PRIOR TO ADMISSION: Included fluticasone, aspirin 162 mg daily, Coreg 6.25 every 12 hours, atorvastatin 40 mg at bedtime, Plavix 75 mg daily, Benadryl, ProAir, hydrocodone, minocycline, zolpidem, ibuprofen 800 mg every 12 hours p.r.n. MEDICATIONS IN THE HOSPITAL: Aspirin 162 mg daily, clopidogrel 75 mg daily, fluticasone, Lipitor 40 mg at bedtime, Coreg 6.25 every 12 hours, heparin 5000 subcutaneous every 8 hours, zolpidem p.r.n. PHYSICAL EXAMINATION: VITAL SIGNS: Blood pressure 113/60, pulse 63, respiratory rate 18, sats 97% on 2 liters, 98% on room air when he came in. temperature 97.5. GENERAL: He is alert and oriented x 3, in no acute distress. NECK: Supple. No JVD. No bruit. CARDIOVASCULAR: S1, S2. No murmurs, rubs or gallops. LUNGS: Clear to auscultation bilaterally. ABDOMEN: Soft, nontender, nondistended, with positive bowel sounds. EXTREMITIES: Lower extremity edema. IMAGING STUDIES: Chest x-ray shows mild interstitial edema. LABORATORY DATA: White count 7.5, hemoglobin 16.6, hematocrit 48.3, platelet count 220. Sodium 139, potassium 4.6, chloride 109, bicarbonate 19.8, BUN 15, creatinine 1.28, glucose 120. AST 47, ALT 53. Troponin less than 0.02. INR is 1.1. ECHOCARDIOGRAM: Normal sinus rhythm at 77 beats per minute, incomplete right bundle branch block, otherwise normal. HE HAS THE FOLLOWING DIAGNOSES: 1. Unstable angina. 2. [place] [employer] Class IV angina. 3. Coronary artery disease. DISCUSSION: At this point in time, agree with aspirin and Lipitor, Plavix, Coreg. As the patient is 2 months out from stenting, concern would be for restenosis and/or de laron plaque progression given his multiple cardiac risk factors and stent placement in September 2017. Therefore, I do think left heart catheterization is medically necessary. We will keep the patient n.p.o. after midnight. The patient agrees to the plan. I discussed the case in detail . MD RONIT Casillas/ANA , 05:02 PM , 05:47 PM
[2017-12-07] MEDS: diphenhydrAMINE HCL 50 MG/ML VIAL IV ONE ×2 (08:10→20:10)
--- NOTE | 2017-12-07 08:12 | HHI.PR ---
Subjective Remarks Follow-up angina. Complains sharp pain in his sternum after dinner last night. States it was relieved with antacids Objective Vitals Vital Signs Date Time Temp Pulse Resp B/P (MAP) Pulse Ox O2 Delivery O2 Flow Rate FiO2 12/07/17 06:00 97.1 58 18 114/56 (75) 96 12/07/17 04:45 59 12/07/17 04:17 Room Air 12/07/17 00:00 Room Air 12/07/17 00:00 69 12/07/17 00:00 97.3 79 18 118/70 (86) 96 12/06/17 21:20 97.3 76 20 123/71 (88) 96 12/06/17 20:00 Room Air 12/06/17 20:00 81 12/06/17 16:54 71 12/06/17 12:00 63 18 113/60 (77) 97 Nasal Cannula 2.00 12/06/17 11:00 66 18 99 12/06/17 10:05 62 16 118/59 (78) 97 Nasal Cannula 2.00 12/06/17 09:58 97 Nasal Cannula 2.00 12/06/17 09:56 69 18 118/59 (78) 97 Nasal Cannula 2.00 12/06/17 09:56 66 15 118/59 (78) 97 Nasal Cannula 2.00 12/06/17 09:53 72 16 115/55 (75) 98 Room Air 12/06/17 09:13 98 Room Air 12/06/17 09:05 97.5 77 20 143/66 (91) 98 I/O 12/06/17 12/06/17 12/06/17 12/07/17 12/07/17 12/07/17 07:00 15:00 23:00 07:00 15:00 23:00 Intake Total 360 ml Output Total 350 ml Balance 10 ml Intake Oral 360 ml Output Urine Total 350 ml # Bowel Movements 0 Result Diagram: 12/07/1731112/07/17311 Imaging Last Impressions Chest X-Ray 12/06/17 0940 Signed Impressions: CONCLUSION: Mild interstitial edema. Objective Remarks GENERAL: This is an obese, well-developed patient, in no apparent distress. SKIN: No rashes, ecchymoses or lesions. Cool and dry. CARDIOVASCULAR: Regular rate and rhythm without murmurs, gallops, or rubs. RESPIRATORY: Clear to auscultation. Breath sounds equal bilaterally. No wheezes , rales, or rhonchi. GASTROINTESTINAL: Abdomen soft, non-tender, nondistended. No guarding. MUSCULOSKELETAL: Extremities without clubbing, cyanosis, or edema. No joint tenderness, effusion, or edema noted. No calf tenderness. Negative Homans sign bilaterally. NEUROLOGICAL: Awake and alert. Cranial nerves II through XII intact. Motor and sensory grossly within normal limits. Five out of 5 muscle strength in all muscle groups. Normal speech. A/P Problem List: (1) Unstable angina ICD Code: I20.0 - Unstable angina Status: Acute Assessment and Plan 67-year-old male who was sent to the emergency room from [place] clinic because of exertional heavy sensation over sternum associated with shortness of breath and diaphoresis Unstable angina with history of CAD status post cardiac stent 2. Patient ruled out for NM. Currently pain-free. Continue aspirin, Plavix, beta-vivian , statin and sublingual nitroglycerin. For cardiac catheterization this morning. Possible heartburn. Antireflux mechanism discussed with patientis . Start PPI and antacids. Outpatient follow-up with GI for endoscopy Multiple medical conditions of osteoarthritis, SVT status post ablation, NSVT, chronic low back pain, pneumothorax and pleurisy. Continue outpatient medications as appropriate DVT prophylaxis with SCD and subcu heparin Discharge Planning Possible discharge today pending authorization Hank Monroy MD Dec 07, 2017 08:12
[2017-12-07] MEDS ORDERED: FAMO20TA2 PO (08:14)
--- NOTE | 2017-12-07 08:14 | HHI.DCPOC ---
Discharge Care Plan Diagnosis: (1) Unstable angina Your Health Problems Are: Difficulty with ADL Exercise Tolerance Goals to Promote Your Health * To prevent worsening of your condition and complications * To maintain your health at the optimal level Directions to Meet Your Goals Take your medications as prescribed Follow your dietary instruction Follow activity as directed Keep your appointments as scheduled Take your immunizations and boosters as scheduled If your symptoms worsen call your PCP, if no PCP go to Urgent Care Center or Emergency Room Smoking is Dangerous to Your Health. Avoid second hand smoke Call the 24-hour hour crisis hotline for domestic abuse at Hank Monroy MD Dec 07, 2017 08:14
[2017-12-07] MEDS ORDERED: ALUMINUM/MAGNESIUM/SIMETH 30 ML CUP PO PRN (08:15)
[2017-12-07] MEDS: FLUTICASONE PROPIONATE 50 MCG/ACT 16 GM NASAL SPRAY EACH NARE SCH (09:00)
[2017-12-07] MEDS: DOCUSATE SODIUM 50 MG/SENNA 8.6 MG TAB PO SCH ×2 (09:00→20:04)
[2017-12-07] MEDS: MINOCYCLINE HCL 100 MG CAP PO SCH ×2 (10:26→22:00)
[2017-12-07] MEDS: CLOPIDOGREL 75 MG TAB PO SCH (10:27)
[2017-12-07] MEDS: ASPIRIN 81 MG CHEW TAB PO SCH (10:27)
[2017-12-07] MEDS: CARVEDILOL 6.25 MG TAB PO SCH ×2 (10:27→20:02)
[2017-12-07] MEDS: FAMOTIDINE 20 MG TAB PO SCH ×2 (10:27→20:02)
[2017-12-07] MEDS: SODIUM CHLORIDE 0.9% FLUSH 10 ML FLUSH IV FLUSH SCH ×3 (10:30→20:03)
[2017-12-07] MEDS ORDERED: MIDAZOLAM HCL 2 MG/2 ML VIAL ONE ×2 (12:26→12:51)
[2017-12-07] MEDS ORDERED: HEPARIN-NS/PF INJ 1,000 ML ONE (12:26)
[2017-12-07] MEDS ORDERED: HEPARIN SODIUM - IV 10,000 UNITS/10 ML VIAL ONE (12:27)
[2017-12-07] MEDS ORDERED: NITROGLYCERIN INJ 5 ML ONE (13:05)
[2017-12-07] MEDS ORDERED: CLOPIDOGREL 300 MG TAB ONE (13:05)
[2017-12-07] MEDS ORDERED: TIROFIBAN INFUSION INJ 250 ML IV ONE (13:05)
[2017-12-07] MEDS: TIROFIBAN INFUSION INJ 250 ML IV SCH (13:11)
--- NOTE | 2017-12-07 13:29 | CATHPROC ---
[employer] HIS Report Study Information Study Number Admission Scheduled Start Study Start [id number] Dec 06 2017 12:26PM 12/07/2017 Dec 07 2017 12:23PM [place] [facility] Cardiac Catheterization Admit Source Facility Department Emergency department [facility] Physician and Clinical Staff Initial Esvin [employer] Engineering Technologist López Lynn,RN Scrub Lucille Jacobsen ,RT(R) Procedures Performed Procedure Location (Site) Vessel Name Coronary Angiograms LCA Left Coronary Coronary Angiograms RCA Right Coronary LV Gram-hand inj. LV LV Ventricle PTCA PDA Prox Right Coronary Wire insertion Fem Art (right) Femoral Art Equipment Time Sieve Repairer Description Size Mfg Part Number Used/Scraped [id number] 12:45 [employer] WIRE, ASAHI PROWATER 180CM 180CM Used *[id number] 12:54 [employer] WIRE, ASAHI PROWATER 180CM 180CM Used *[id number] TRANSDUCER, TRUWAVE [id number] 12:34 BOX STOCKTON * Used W/STOCKCOCK *[id number] [id number] *[id number] *[id number] *[id number] 12:34 [employer] BLANKET,WARM AIR CCL * Used *[id number] 12:34 [employer] PACK, CCL CUSTOM * Used *[id number] 12:34 [employer] PACER PEN, SKIN DUAL W/ RULER * Used *[id number] 13:02 [employer] BALLOON, 2.5 X 12MM EUPHORA 12MM Used *[id number] 12:56 [employer] BALLOON, 2.5 X 6MM EUPHORA 6MM Used *[id number] 12:58 [employer] MEDICAL 30 YOLA INDEFLATOR Used *[id number] 12:48 [employer] MEDICAL SHEATH, FR6.5 PRELUDE 11CM FR 6.5 038ACT Used *[id number] 12:34 [employer] MEDICAL WIRE, 3MMJ .035 180CM 180CM Used *[id number] 12:34 NAMIC MANIFOLD, 4 PORT * Used *[id number] 12:34 [employer] OMNIPAQUE, 350 MG, 150ML 150ML [id number] Used [id number] 12:34 [employer] MEDICAL SHEATH, FR4 TERUMO (10CM) FR 4 Used *[id number] History: Current Medications Medication Dosage/Unit Route Frequency Last Date/Time Taken ASA EFFIENT Beta Jennifer Statins (any) History: Allergies Allergy Reaction No Known Allergies History: Risk Factors Family History of Hypertension Dyslipidemia Previous OH Previous Heart Failure Premature CAD Yes Yes No No No Prior Valve Prior PCI Prior PCIDate Prior CABG Surgery No Yes 09/16/2017 No Cerebrovascular Peripheral Artery Chronic Lung On Dialysis Diabetes Disease Disease Disease No No No No No History: Risk Factors Selection Items Current Smoker History: Symptoms/Diagnosis Selection Items Chest pain SOB History: Stress Tests Stress or Imaging Studies Performed No History: Arrhythmias Selection Items Non-sustained VT History: Other Current Smoker Method Packs a Day Years Used Pack Years Yes Cigarettes 1 60 60 Labs Hgb (g/dl) Hct (%) WBC (l/cumm) Platelets (thousands) 11.60-17.00 35.00-51.00 4.00-11.00 150.00-450.00 16.0 46.7 8 236 Glucose (mg/dl) BUN (mg/dl) 74.00-106.00 7.00-18.00 103 16 INR (PTT:PT) 0.90-1.10 1.1 Troponin I (ng/ml) CPK (u/l) 0.02-0.05 26.00-308.00 0.02 108 Medication Medication Total Dose (Bolus/Oral) Medication Total Dosage/Unit 1% XYLOCAINE 20 mL AGGRASTAT BOLUS 50 mL FENTANYL 100 mcg HEPARIN 6900 units NTG (IC) 200 mcg PLAVIX 600 mg VERSED 3 mg Medications (Bolus/Oral) Medication Time Given Dosage/Unit Administered By Reason VERSED 12/07/2017 12:33:36 PM 1 mg López Lynn 1 mg VERSED given in lab by López Lynn RN in Left Hand via Peripheral IV. Ordered by Leon Mata. FENTANYL 12/07/2017 12:34:55 PM 25 mcg López Lynn 25 mcg FENTANYL given in lab by López Lynn RN in Left Hand via Peripheral IV. Ordered by Esvin Mata. 1% XYLOCAINE 12/07/2017 12:39:46 PM 20 mL Esvin Mata 20 mL 1% XYLOCAINE given in lab by Esvin Mata in Right Groin via Subcutaneous. Ordered by Esvin Christian. VERSED 12/07/2017 12:40:30 PM 1 mg Leah, López 1 mg VERSED given in lab by López Lynn RN via Peripheral IV. Ordered by Esvin Mata. FENTANYL 12/07/2017 12:41:10 PM 25 mcg Leah, López 25 mcg FENTANYL given in lab by López Lynn RN via Peripheral IV. Ordered by Esvin Mata. HEPARIN 12/07/2017 12:45:20 PM 6900 units Leah, López 6900 units HEPARIN given in lab by López Lynn RN via Peripheral IV. Ordered by Esvin Mata. FENTANYL 12/07/2017 12:49:26 PM 25 mcg Leah, López 25 mcg FENTANYL given in lab by López Lynn RN via Peripheral IV. Ordered by Esvin Mata. VERSED 12/07/2017 12:52:50 PM 1 mg Leah, López 1 mg VERSED given in lab by López Lynn RN via Peripheral IV. Ordered by Esvin Mata. FENTANYL 12/07/2017 12:59:01 PM 25 mcg Leah, López 25 mcg FENTANYL given in lab by López Lynn RN via Peripheral IV. Ordered by Esvin Mata. NTG (IC) 12/07/2017 1:05:25 PM 200 mcg Esvin Mata 200 mcg NTG (IC) given in lab by Esvin Mata via Intra-coronary. Ordered by Esvin Mata. AGGRASTAT BOLUS 12/07/2017 1:11:40 PM 50 mL López Lynn 50 mL AGGRASTAT BOLUS given in lab by López Lynn RN via Peripheral IV. Ordered by Esvin Mata . PLAVIX 12/07/2017 1:17:24 PM 600 mg Leah, López 600 mg PLAVIX given in lab by López Lynn RN via Oral. Ordered by Esvin Mata. Medication (Drip) Medication Time Given Dosage/Unit Concentration/Unit Diluent (ml) Solution AGGRASTAT DRIP 12/07/2017 1:15:42 PM 0.15 mcg/kg/min 12.5 mg 250 NaCl .9 0.15 mcg/kg/min AGGRASTAT DRIP given in lab by López Lynn RN via Peripheral IV. Pump/Drip Flow = 1 7.86 ml/hr using NaCl .9 with a concentration of 12.5 mg in 250 ml. Ordered by Esvin Mata. IV Solutions 12/07/2017 12:25:27 PM 50 mL (IV) NaCl .9 IV Solutions given in lab by López Lynn RN in Left Hand via Peripheral IV. Pump/Drip Flow using Na Cl .9. Initial Case Assessment Cardiovascular HR Rhythm NIBP Chest Pain 76 sr 168/92 0 Edema Present Skin color Skin None Normal Warm Dry Circulatory - Right Pulses Dorsalis Pedis Femoral 2 2 Scale (0,1,2,3,4,d) Circulatory - Left Pulses Dorsalis Pedis Femoral 1 1 Scale (0,1,2,3,4,d) Neurological State Oriented to time-place- Alert Moves all extremities person Respiration - General Respiration Rate SpO2 (%) O2 (lpm) (B/min) 18 96 0 Final Case Assessment Cardiovascular HR Rhythm NIBP Chest Pain 70 sr 143/95 1 Edema Present Skin color Skin None Normal Warm Dry Circulatory - Right Pulses Dorsalis Pedis Femoral 2 2 Scale (0,1,2,3,4,d) Circulatory - Left Pulses Dorsalis Pedis Femoral 1 1 Scale (0,1,2,3,4,d) Neurological State Oriented to time-place- Alert Moves all extremities person Respiration - General Respiration Rate SpO2 (%) O2 (lpm) (B/min) 18 94 0 Chronological Log Time Study Chronological Log 12:23:04 Patient arrived via Bed. 12:23:07 Patient Name, D.O.B, / Armband Verified By R.N. 12:23:09 Consent signed by the physician and the patient and verified by the [facility] staff. 12:23:11 Pre-op and post- op instructions given; patient acknowledges understanding of instructions. 12:23:16 Verbal Stimulation=2 Physical Stimulation=2 Airway=2 Respiration=2 TOTAL=8. (0=absent, 1=li mited, 2=present) 12:23:25 Patient has been NPO for More than 6Hrs. 12:23:29 Skin Breakdown-none per pt 12:23:30 Patient Warmer Placed on the Table. 12:23:32 Sharee Prominences Protected 12:23:39 A # 20 IV was noted in the thumb (left). Grade = ~GRADE~ 12:25:27 IV Solutions given in lab by López Lynn RN in Left Hand via Peripheral IV. Pump/Drip Tee w using NaCl .9. 12:25:58 History and physical on the chart or being dictated. Assessment: Initial Case, HR=76 BPM, Rhythm=sr, SDBE=746/92 mmhg, Chest Pain=0, Edema=None, Col or=Normal, Skin = Warm, Dry Right Pulses: Mumtaz Ped=2, Femoral=2 12:26:00 Left Pulses: Mumtaz Ped=1, Femoral=1 Neurological: State=Alert, Ox3, ESTRELLA Respiration: Resp=18 B/min, SpO2=96 %, O2=0 lpm Vitals capture started with the following parameters, Patient=Adult, Interval=5 min, Initial Pr bfylpm=989 mmHg, 12:31:59 Deflation Rate=5 mmHg, Cuff placed on Left Arm 12:32:17 Reference ECG taken 12:32:41 HR=68 bpm, NVUW=455/92 mmhg, SpO2=97.0 %, Resp=16 B/min, Pain=0, Cisco=10, Escobedo=2 12:33:36 1 mg VERSED given in lab by López Lynn RN in Left Hand via Peripheral IV. Ordered by Esvin Marquez. 12:34:55 25 mcg FENTANYL given in lab by López Lynn RN in Left Hand via Peripheral IV. Ordered by Esvin Mata. 12:35:07 Bilateral groins prepped with 2% chlorhexidine, and draped after a 3 minute waiting time. 12:35:22 MD arrived. 12:37:38 HR=72 bpm, NFSA=931/89 mmhg, SpO2=98.0 %, Resp=16 B/min Time Out. Correct patient, correct procedure, correct physician, labs, allergies, and equipment verified with laboratory associate 12:37:58 team present. Fire risk assesment completed (see hard stop sheet for coding). Time Out Conc urred by MD and individual staff in procedure. 12:38:08 Case Start 12:39:39 Pressure channel 1 zeroed. 20 mL 1% XYLOCAINE given in lab by Esvin Mata in Right Groin via Subcutaneous. Ordered by Esperanza 12:39:46 Esvin. 12:39:54 Access site was Right Femoral Artery. 12:40:00 A SHEATH, FR4 TERUMO (10CM) FR 4 was advanced into the Fem Art (right) using the Percutaneo us technique. 12:40:30 1 mg VERSED given in lab by López Lynn RN via Peripheral IV. Ordered by Esvin Mata . A JR 4.0 INFINITI CATHETER FR 4 was advanced over a wire. OMNIPAQUE, 350 MG, 150ML 150ML was us ed for 12:40:37 injections. 12:41:10 25 mcg FENTANYL given in lab by López Lynn RN via Peripheral IV. Ordered by Blayne Mata. Recorded Pressure: LV, HR=76, Condition=Condition 1 12:41:45 (Left Ventricle) LV 135/14/20 12:41:48 The LV was manually injected with 8 cc's and visualized. OMNIPAQUE, 350 MG, 150ML 150ML use d. Recorded Pressure: LV, Ao, HR=72, Condition=Condition 1 12:41:58 (Left Ventricle) LV 135/13/14, (Aorta) Ao 126/74/95 12:42:27 The RCA was injected and visualized at various angles. OMNIPAQUE, 350 MG, 150ML 150ML used . 12:42:39 HR=72 bpm, BTAB=234/85 mmhg, SpO2=97.0 %, Resp=13 B/min 12:44:12 Catheter was removed A JL 4.0 INFINITI CATHETER FR 4 was advanced over a wire. OMNIPAQUE, 350 MG, 150ML 150ML was us ed for 12:44:15 injections. 12:44:30 The LCA was injected and visualized at various angles. OMNIPAQUE, 350 MG, 150ML 150ML used . 12:45:20 6900 units HEPARIN given in lab by López Lynn RN via Peripheral IV. Ordered by Esvin Mata. 12:46:44 Catheter was removed 12:47:38 HR=78 bpm, RMXX=568/91 mmhg, SpO2=97.0 %, Resp=15 B/min A SHEATH, FR6.5 PRELUDE 11CM FR 6.5 was exchanged in the Fem Art (right). This was necessary in order to 12:48:10 accomodate a larger catheter. A JR 4.0 GUIDE CATHETER FR 6 was advanced over a wire. OMNIPAQUE, 350 MG, 150ML 150ML was used for 12:49:25 injections. 12:49:26 25 mcg FENTANYL given in lab by López Lynn RN via Peripheral IV. Ordered by Blayne Mata. 12:52:37 HR=80 bpm, SXFB=995/87 mmhg, SpO2=97.0 %, Resp=12 B/min, Escobedo=2 12:52:50 1 mg VERSED given in lab by López Lynn RN via Peripheral IV. Ordered by Esvin Mata . 12:53:05 A WIRE, ASAHI PROWATER 180CM 180CM was inserted via Fem Art (right). 12:53:10 Interventional wire has crossed the lesion 12:54:27 A WIRE, ASAHI PROWATER 180CM 180CM was inserted via Fem Art (right). 12:55:27 Interventional wire has crossed the lesion 12:56:08 A BALLOON, 2.5 X 6MM EUPHORA 6MM was inserted over WIRE, ASAHI PROWATER 180CM 180CM via the PDA Prox. A BALLOON, 2.5 X 6MM EUPHORA 6MM over a WIRE, ASAHI PROWATER 180CM 180CM in the PDA Prox was in flated 12:57:49 using a 30 YOLA INDEFLATOR at 4 yola for 9 sec. 12:58:19 HR=80 bpm, ENRZ=168/112 mmhg, SpO2=97.0 %, Resp=26 B/min, Escobedo=2 A BALLOON, 2.5 X 6MM EUPHORA 6MM over a WIRE, ASAHI PROWATER 180CM 180CM in the PDA Prox was in flated 12:58:51 using a 30 YOLA INDEFLATOR at 8 yola for 10 sec. 12:59:01 25 mcg FENTANYL given in lab by López Lynn RN via Peripheral IV. Ordered by Blayne Mata. A BALLOON, 2.5 X 6MM EUPHORA 6MM over a WIRE, ASAHI PROWATER 180CM 180CM in the PDA Prox was in flated 12:59:15 using a 30 YOLA INDEFLATOR at 7 yola for 6 sec. A BALLOON, 2.5 X 6MM EUPHORA 6MM over a WIRE, ASAHI PROWATER 180CM 180CM in the PDA Prox was in flated 12:59:46 using a 30 YOLA INDEFLATOR at 5 yola for 6 sec. A BALLOON, 2.5 X 6MM EUPHORA 6MM over a WIRE, ASAHI PROWATER 180CM 180CM in the PDA Prox was in flated 13:00:05 using a 30 YOLA INDEFLATOR at 5 yola for 5 sec. 13:00:27 Balloon Removed. 13:02:23 ACT (Normal Range 90-180) = 284 13:02:34 A BALLOON, 2.5 X 12MM EUPHORA 12MM was inserted over WIRE, ASAHI PROWATER 180CM 180CM via t he PDA Prox. 13:02:45 HR=83 bpm, GTKK=097/114 mmhg, SpO2=97.0 %, Resp=18 B/min, Escobedo=2 A BALLOON, 2.5 X 12MM EUPHORA 12MM over a WIRE, ASAHI PROWATER 180CM 180CM in the PDA Prox was inflated 13:02:50 using a 30 YOLA INDEFLATOR at 9 yola for 10 sec. 13:03:47 Balloon Removed. 13:04:13 Wires removed 13:05:25 200 mcg NTG (IC) given in lab by Esvin Mata via Intra-coronary. Ordered by Esvin Mata. 13:07:14 Catheter was removed 13:07:40 HR=83 bpm, RCQE=587/95 mmhg, SpO2=94.0 %, Resp=12 B/min, Escobedo=2 13:08:14 Case End (Physician broke scrub) Assessment: Final Case, HR=70 BPM, Rhythm=sr, YULG=350/95 mmhg, Chest Pain=1, Edema=None, Color =Normal, Skin = Warm, Dry Right Pulses: Mumtaz Ped=2, Femoral=2 13:09:29 Left Pulses: Mumtaz Ped=1, Femoral=1 Neurological: State=Alert, Ox3, ESTRELLA Respiration: Resp=18 B/min, SpO2=94 %, O2=0 lpm 13:11:10 Catheter(s) removed without difficulty 13:11:33 No case complications noted. 13:11:35 Cine recording checked. 13:11:40 50 mL AGGRASTAT BOLUS given in lab by López Lynn RN via Peripheral IV. Ordered by Esvin Aj. 13:11:43 Bedside Report will be given. 13:13:03 In the Fem Art (right) the SHEATH, FR6.5 PRELUDE 11CM FR 6.[address] by Esvin Aj. 13:13:22 HR=82 bpm, CSPF=913/87 mmhg, SpO2=97.0 %, Resp=6 B/min, Escobedo=2 13:13:27 Vitals capture stopped. 13:13:36 Sterile dressing applied to site 13:13:37 No case complications noted. 13:13:39 Cine recording checked. 13:13:43 Bedside Report will be given. 0.15 mcg/kg/min AGGRASTAT DRIP given in lab by López Lynn, RN via Peripheral IV. Pump/Drip Fl ow = 17.86 ml/hr 13:15:42 using NaCl .9 with a concentration of 12.5 mg in 250 ml. Ordered by Esvin Mata. 13:16:32 Reference ECG taken 13:17:24 600 mg PLAVIX given in lab by López Lynn, RN via Oral. Ordered by Esvin Mata. 13:27:33 Patient moved to [facility] End Study - Contrast Media Used In Study Contrast Total Opened (mL) Total Used (mL) Total Wasted (mL) Omnipaque 130 130 0 End Study - Radiation Exposure Fluoro Time (minutes) 7.5 End Study - Patient Disposition Complications Transferred To Telemetry Bed
[2017-12-07] MEDS ORDERED: SODIUM CHLORIDE 0.9% FLUSH 10 ML FLUSH IV FLUSH PRN (13:30)
[2017-12-07] MEDS ORDERED: CLOPIDOGREL 300 MG TAB PO ONE (13:30)
--- NOTE | 2017-12-07 14:36 | MA ---
cc: Esvin Mata MD DATE: 12/07/2017 PROCEDURE PERFORMED: Left heart catheterization, left ventriculography, coronary angiography, PTCA of the ostial right PDA. INDICATION: Unstable angina, [place] Cardiovascular Society class 3 angina, coronary artery disease. PROCEDURE: The patient was brought to the cardiac catheterization laboratory, prepped and draped in the usual sterile fashion. A 10 mL of 1% lidocaine was used to locally anesthetize the right common femoral artery. A 4-Solomon Islander sheath was placed in the right common femoral artery. 4-Sol[place] Islander JR4 and JL4 catheters were used to perform left and right coronary angiography and left ventriculography. FINDINGS: The LV pressures are 140/16-17. The right coronary artery is dominant and has mild to moderate disease in the proximal and mid segment up to 30-40% angiographically. The proximal RCA has a 50%-60% stenosis. The right PDA has an ostial 95% stenosis. The right ELLIOT has a 75% ostial stenosis. The left main coronary artery has no significant disease angiographically. Left circumflex vessel has mild diffuse disease up to 10% angiographically in the mid to distal segment in the AV groove. First obtuse marginal vessel has an ostial 30% stenosis. Reference vessel diameter of 2.5 mm. Proximal mid segment has 30%-40% stenosis proximal to a bifurcation. Both branches of the bifurcation are 2.25-2.5 mm vessels with no significant disease angiographically. The LAD has a 70% in-stent stenosis. The diagonal vessel at that stent is jailed and has a 95% stenosis, is a medium sized vessel. A 6-Solomon Islander sheath was exchanged with a 4-Solomon Islander sheath, 70 units per kilo of heparin was given. ACT ____. A 6-Solomon Islander JR4 guide and a 0.014 Prowater guidewire was placed into the right PDA and a second 0.014 Prowater guidewire was placed into the right posterolateral artery to protect it during angioplasty of the ostial right PDA. I used a 256 Euphora balloon; however, was not able to balloon angioplasty the in-stent segment due to persistent watermelon seeding at about 5 atmospheres pressure. Therefore, I had to use a 2512 Euphora balloon, used one inflation 9 atmospheres for 20 seconds. Stenosis went from 95% to a residual 40%. During angioplasty, this reproduced the patient's typical angina. Postprocedure, the patient was completely chest pain free. CONCLUSION: 1. Unstable angina with culprit 95% in-stent stenosis of the ostial right PDA as detailed above. 2. 75% in-stent stenosis of the mid LAD stent with a 95% stenosis of the ostial diagonal vessel. 3. 50-60% disease in the proximal right coronary artery. 4. Preserved left ventricular systolic function, ejection fraction of 60%. 5. Successful PTCA of the 95% ostial right PDA in-stent stenosis to 40% with SANDY 3 flow. PLAN: Recommend aspirin at 162 mg daily indefinitely. Reload with Plavix 600 mg, then 75 mg a day for 12-15 months. Aggrastat drip per protocol. Continue statin as indicated clinically. Will also get a CT surgery consult anticipating that the patient very likely may need a CABG. The patient did not want to have CABG during this procedure. I explained to him that due to the multivessel disease and the 75% lesion in the LAD that this has a significant probability of progressing and ultimately he will need CABG, if he continues to have symptoms after angioplasty of the right PDA. The patient understands. Again, will place CT surgery consult to review the films and the patient's case. MD RONIT Casillas/TL/ , 01:19 PM , 01:57 PM
[2017-12-07] MEDS ORDERED: PROMETHAZINE HCL 25 MG SUPP RECTAL PRN (18:30)
[2017-12-07] MEDS ORDERED: hydrOXYzine PAMOATE 25 MG CAP PO PRN (18:30)
[2017-12-07] MEDS ORDERED: METOCLOPRAMIDE HCL 10 MG/2 ML VIAL IV PUSH PRN (18:30)
[2017-12-07] MEDS: ATORVASTATIN 40 MG TAB PO SCH (20:02)
[2017-12-07] MEDS ORDERED: diphenhydrAMINE HCL 50 MG/ML VIAL ONE (20:06)
[2017-12-07] MEDS ORDERED: METOPROLOL TARTRATE 5 MG/5 ML VIAL IV PUSH ONE (21:45)
[2017-12-07] MEDS ORDERED: diphenhydrAMINE HCL 50 MG/ML VIAL IV PUSH ONE (21:45)
[2017-12-07] MEDS ORDERED: methylPREDNISolone SOD SUCC 125 MG/2 ML VIAL IV PUSH ONE (21:45)
[2017-12-07] MEDS ORDERED: FAMOTIDINE 20 MG/2 ML VIAL IV SCH (22:45)
[2017-12-08] VITALS (27 sets, daily range): BP systolic 103–125; BP diastolic 57–64; PULSE 60–110; RESP 15–22; TEMP 98–98.4; O2SAT 94–98
[2017-12-08] MEDS: TIROFIBAN INFUSION INJ 250 ML IV SCH (03:22)
[2017-12-08] MEDS: HEPARIN SODIUM - SQ 10,000 UNITS/ML VIAL SQ SCH ×3 (04:23→20:04)
[2017-12-08 07:21] LABS: AUTOMATED NEUTROPHIL # 14.2 TH/MM3 (1.8-7.7); BASOPHIL % 0.1 % (0.0-2.0); EOSINOPHIL % 0.2 % (0.0-4.0); HEMOGLOBIN 16.7 GM/DL (13.0-17.0); LYMPH % 3.5 % (9.0-44.0); LYMPHOCYTE # 0.5 TH/MM3 (1.0-4.8); MEAN CELL VOLUME 89.1 FL (80.0-100.0); MEAN CORPUSCULAR HEMOGLOBIN 30.4 PG (27.0-34.0); MEAN CORPUSCULAR HGB CONC 34.1 % (32.0-36.0); MEAN PLATELET VOLUME 8.3 FL (7.0-11.0); MONO % 3.5 % (0.0-8.0); MONOCYTE # 0.5 TH/MM3 (0-0.9); NEUT % 92.7 % (16.0-70.0); PLATELET COUNT 233 TH/MM3 (150-450); RED CELL DISTRIBUTION WIDTH 14.8 % (11.6-17.2); WHITE BLOOD COUNT 15.3 TH/MM3 (4.0-11.0)
[2017-12-08 07:43] LABS: BICARBONATE 21.2 MEQ/L (21.0-32.0); CALCIUM 8.7 MG/DL (8.5-10.1); CREATININE 1.82 MG/DL (0.60-1.30)
[2017-12-08 07:46] LABS: CHOLESTEROL/ HDL RATIO 4.13 RATIO; HDL CHOLESTEROL 30.2 MG/DL (40.0-60.0)
[2017-12-08] MEDS: ASPIRIN 81 MG CHEW TAB PO SCH ×2 (09:00→09:01)
[2017-12-08] MEDS: SODIUM CHLORIDE 0.9% FLUSH 10 ML FLUSH IV FLUSH SCH ×4 (09:00→20:05)
[2017-12-08] MEDS: DOCUSATE SODIUM 50 MG/SENNA 8.6 MG TAB PO SCH ×2 (09:00→20:02)
[2017-12-08] MEDS: FLUTICASONE PROPIONATE 50 MCG/ACT 16 GM NASAL SPRAY EACH NARE SCH (09:00)
[2017-12-08] MEDS: CLOPIDOGREL 75 MG TAB PO SCH ×2 (09:00→09:01)
[2017-12-08] MEDS: CARVEDILOL 6.25 MG TAB PO SCH ×2 (09:02→20:01)
[2017-12-08] MEDS: FAMOTIDINE 20 MG TAB PO SCH ×2 (09:02→20:01)
[2017-12-08] MEDS: MINOCYCLINE HCL 100 MG CAP PO SCH ×2 (09:03→20:02)
--- NOTE | 2017-12-08 09:36 | PD.CAR.PN ---
CVT Progress Note Subjective/Hospital Course: pt seen and evaluated/ full consult to follow sts data discussed with pt risk of mortality 2.6% morbidity or mortality 21.6% DSW infection 0.749% length of stay 8.3% permanent stroke 1.059% prolonged ventilation 13.4% renal failure 8.15% reoperation 6.8% short length of stay 36% Objective: Vital Signs Date Time Temp Pulse Resp B/P (MAP) Pulse Ox O2 Delivery O2 Flow Rate FiO2 12/08/17 09:00 101 12/08/17 08:00 90 12/08/17 07:15 98.4 95 16 116/64 (81) 95 12/08/17 07:00 94 12/08/17 06:00 104 12/08/17 05:07 87 12/08/17 04:08 86 12/08/17 03:12 96 Room Air 12/08/17 03:12 98.2 93 22 106/60 (75) 98 12/08/17 03:00 90 12/08/17 02:00 90 12/08/17 01:00 85 12/08/17 00:00 110 12/07/17 23:14 100.8 114 22 95/54 (68) 96 12/07/17 23:14 96 Room Air 12/07/17 23:00 111 12/07/17 22:28 98 12/07/17 22:00 130 12/07/17 21:21 129 128/61 (83) 12/07/17 21:00 124 12/07/17 20:00 128 12/07/17 19:28 100 Room Air 12/07/17 19:28 98.2 112 23 161/77 (105) 100 12/07/17 19:00 127 12/07/17 18:43 98.6 112 18 141/72 (95) 98 12/07/17 18:32 100 12/07/17 17:22 86 12/07/17 17:21 97.9 91 18 138/74 (95) 100 12/07/17 17:19 97.9 91 18 136/71 (92) 100 12/07/17 15:47 96 Room Air 12/07/17 12:00 67 Labs: Laboratory Tests Test 12/08/17 06:04 White Blood Count 15.3 TH/MM3 (4.0-11.0) Red Blood Count 5.50 MIL/MM3 (4.50-5.90) Hemoglobin 16.7 GM/DL (13.0-17.0) Hematocrit 49.0 % (39.0-51.0) Mean Corpuscular Volume 89.1 FL (80.0-100.0) Mean Corpuscular Hemoglobin 30.4 PG (27.0-34.0) Mean Corpuscular Hemoglobin Concent 34.1 % (32.0-36.0) Red Cell Distribution Width 14.8 % (11.6-17.2) Platelet Count 233 TH/MM3 (150-450) Mean Platelet Volume 8.3 FL (7.0-11.0) Neutrophils (%) (Auto) 92.7 % (16.0-70.0) Lymphocytes (%) (Auto) 3.5 % (9.0-44.0) Monocytes (%) (Auto) 3.5 % (0.0-8.0) Eosinophils (%) (Auto) 0.2 % (0.0-4.0) Basophils (%) (Auto) 0.1 % (0.0-2.0) Neutrophils # (Auto) 14.2 TH/MM3 (1.8-7.7) Lymphocytes # (Auto) 0.5 TH/MM3 (1.0-4.8) Monocytes # (Auto) 0.5 TH/MM3 (0-0.9) Eosinophils # (Auto) 0.0 TH/MM3 (0-0.4) Basophils # (Auto) 0.0 TH/MM3 (0-0.2) CBC Comment DIFF FINAL Differential Comment Blood Urea Nitrogen 22 MG/DL (7-18) Creatinine 1.82 MG/DL (0.60-1.30) Random Glucose 146 MG/DL (74-106) Calcium Level 8.7 MG/DL (8.5-10.1) Sodium Level 141 MEQ/L (136-145) Potassium Level 4.0 MEQ/L (3.5-5.1) Chloride Level 108 MEQ/L (98-107) Carbon Dioxide Level 21.2 MEQ/L (21.0-32.0) Anion Gap 12 MEQ/L (5-15) Estimat Glomerular Filtration Rate 38 ML/MIN (>89) Total Creatine Kinase 55 U/L (39-308) Triglycerides Level 153 MG/DL (42-150) Cholesterol Level 125 MG/DL (120-200) LDL Cholesterol 64 MG/DL (0-99) HDL Cholesterol 30.2 MG/DL (40.0-60.0) Cholesterol/HDL Ratio 4.13 RATIO Result Diagram: 12/08/17 0604 12/08/17 0604 Ange Giorn Dec 08, 2017 09:36
--- NOTE | 2017-12-08 10:19 | HHI.PR ---
Subjective Remarks Follow-up unstable angina. Developed allergic reaction and received IV Solu- Medrol last night. At this time he feels good no respiratory symptoms and wants to go home Objective Vitals Vital Signs Date Time Temp Pulse Resp B/P (MAP) Pulse Ox O2 Delivery O2 Flow Rate FiO2 12/08/17 09:00 101 12/08/17 08:00 90 12/08/17 07:15 98.4 95 16 116/64 (81) 95 12/08/17 07:00 97 Room Air 12/08/17 07:00 94 12/08/17 06:00 104 12/08/17 05:07 87 12/08/17 04:08 86 12/08/17 03:12 96 Room Air 12/08/17 03:12 98.2 93 22 106/60 (75) 98 12/08/17 03:00 90 12/08/17 02:00 90 12/08/17 01:00 85 12/08/17 00:00 110 12/07/17 23:14 100.8 114 22 95/54 (68) 96 12/07/17 23:14 96 Room Air 12/07/17 23:00 111 12/07/17 22:28 98 12/07/17 22:00 130 12/07/17 21:21 129 128/61 (83) 12/07/17 21:00 124 12/07/17 20:00 128 12/07/17 19:28 100 Room Air 12/07/17 19:28 98.2 112 23 161/77 (105) 100 12/07/17 19:00 127 12/07/17 18:43 98.6 112 18 141/72 (95) 98 12/07/17 18:32 100 12/07/17 17:22 86 12/07/17 17:21 97.9 91 18 138/74 (95) 100 12/07/17 17:19 97.9 91 18 136/71 (92) 100 12/07/17 15:47 96 Room Air 12/07/17 12:00 67 I/O 12/07/17 12/07/17 12/07/17 12/08/17 12/08/17 12/08/17 07:00 15:00 23:00 07:00 15:00 23:00 Intake Total 360 ml 700 ml 680 ml Output Total 350 ml 450 ml 400 ml Balance 10 ml 250 ml 280 ml Intake Oral 360 ml 480 ml 680 ml IV Total 220 ml Output Urine Total 350 ml 450 ml 400 ml # Bowel Movements 0 0 Result Diagram: 12/08/17 0612/08/17 06 Imaging Last Impressions Chest X-Ray 12/06/17 0940 Signed Impressions: CONCLUSION: Mild interstitial edema. Objective Remarks GENERAL: This is an obese, well-developed patient, in no apparent distress. SKIN: No rashes, ecchymoses or lesions. Cool and dry. CARDIOVASCULAR: Regular rate and rhythm without murmurs, gallops, or rubs. RESPIRATORY: Clear to auscultation. Breath sounds equal bilaterally. No wheezes , rales, or rhonchi. GASTROINTESTINAL: Abdomen soft, non-tender, nondistended. No guarding. MUSCULOSKELETAL: Extremities without clubbing, cyanosis, or edema. No joint tenderness, effusion, or edema noted. No calf tenderness. Negative Homans sign bilaterally. NEUROLOGICAL: Awake and alert. Cranial nerves II through XII intact. Motor and sensory grossly within normal limits. Five out of 5 muscle strength in all muscle groups. Normal speech. Procedures Cardiac catheterization A/P Problem List: (1) Unstable angina ICD Code: I20.0 - Unstable angina Status: Acute Assessment and Plan 67-year-old male who was sent to the emergency room from the [place] clinic because of exertional heavy sensation over sternum associated with shortness of breath and diaphoresis Unstable angina with culprit 95% in-stent stenosis of the ostial right PDA, 75% in-stent stenosis of the mid LAD stent with a 95% stenosis of the ostial diagonal vessel, 50-60% disease in the proximal right coronary artery, Preserved left ventricular systolic function, ejection fraction of 60% Successful PTCA of the 95% ostial right PDA in-stent stenosis to 40% with SANDY 3 flow. Hx BMS RPDA and mid LAD 09/29 Continue aspirin, Plavix, beta-vivian, statin and sublingual nitroglycerin. CTS for CABG Acute kidney injury. Start IV hydration check urinalysis and avoid nephrotoxins Leukocytosis status post steroids. Will monitor Possible heartburn. Antireflux mechanism discussed with patientis . Ct PPI and antacids. Outpatient follow-up with GI for endoscopy Multiple medical conditions of osteoarthritis, SVT status post ablation, NSVT, chronic low back pain, pneumothorax and pleurisy. Continue outpatient medications as appropriate DVT prophylaxis with SCD and subcu heparin Discharge Planning May need CABG if not possible discharge tomorrow Hank Monroy MD Dec 08, 2017 10:19
[2017-12-08] MEDS: SODIUM CHLOR 0.9% 1000 ML INJ 1,000 ML IV SCH ×2 (11:23→20:30)
[2017-12-08] MEDS ORDERED: PILL SPLITTER OTHER PRN (12:00)
[2017-12-08 12:48] LABS: BACTERIA, URINE MOD /hpf; BILIRUBIN, URINE NEG (NEG); BLOOD, URINE LARGE (NEG); GLUCOSE,URINE NEG (NEG); HYALINE CAST, URINE 15 /lpf (RARE); KETONE, URINE NEG (NEG); MUCUS URINE MANY /lpf (OCC); NITRITE,URINE NEG (NEG); URINE COLOR Amber (YELLW/STRAW); URINE LEUKOCYTE ESTERASE NEG (NEG)
--- NOTE | 2017-12-08 13:11 | MB ---
cc: Ange Giron Sohit MD DATE: 12/08/2017 DATE OF : 1950 HISTORY OF PRESENT ILLNESS: A 67-year-old male, [facility] Blue Team, Dr. Diana Martin, also Dr. Mata. History of coronary artery disease, has had prior bare metal stent of the LAD and right coronary artery in September. He also had an episode of nonsustained ventricular tachycardia at that time, he had ALLERGY TO EFFIENT, continues to smoke, has been compliant with his medications. He presented to the emergency room with the chief complaint of chest pain. The pain was on the right side of his chest radiating into his jaw, described as a pressure-type, associated with shortness of breath, diaphoresis, worse with exertion. They [facility] here to the emergency department. PAST MEDICAL HISTORY: Includes osteoarthritis, SVT, nonsustained V-tach, coronary artery disease, colon polyps, hematuria, peripheral arterial disease, osteoarthritis, kidney stones, hyperlipidemia, erectile dysfunction. He has had a history of an MS. He has a titanium plate in his right wrist. He has had a cardiac ablation in [place] 2 years ago, had a history of a left pneumothorax status post chest tube obviously removed, and cardiac stents x2. ALLERGIES:. NO KNOWN DRUG ALLERGIES. HOME MEDICATIONS: Include: 1. Benadryl p.r.n. 2. Minocycline 100 twice daily. 3. Albuterol. 4. Plavix 5. Atorvastatin. 6. Coreg. 7. Aspirin. 8. Ibuprofen. 9. [place]. 10. Zolpidem. 11. Flonase. 12. Famotidine. FAMILY HISTORY: Noncontributory. SOCIAL HISTORY: Smoked for 56 years. He was up to 6 packs per day at one point, then he went down to 3-4 packs a day, then he quit when he had his MS in September. No illicit drugs. No alcohol. He is single, no children, lives with his significant other. He is retired. REVIEW OF SYSTEMS: GENERAL: No night sweats, fever, heat and cold intolerance. SKIN: No psoriasis, itching or hives. HEENT: No blurred vision, hearing loss. RESPIRATORY: Some shortness of breath. CARDIOVASCULAR: As above in the HPI. GASTROINTESTINAL: No diarrhea or vomiting. GENITOURINARY: No burning, frequency, urgency. CENTRAL NERVOUS SYSTEM: No history of TIA, CVA or seizure disorder. ENDOCRINOLOGY: No history of diabetes or hypothyroidism. PHYSICAL EXAMINATION: VITAL SIGNS: Blood pressure 103/60, heart rate of 94, afebrile on room air, 96 percent sat. GENERAL: Awake, alert, in no acute distress. HEENT: Head is normocephalic, atraumatic. Pupils equal and reactive. Oral mucosa pink, moist. He does have some poor dentition. He has about 5 teeth in the front with some decay of the right, dental caries. He has full denture to the top, but he does not wear a partial to the bottom. NECK: Supple. No JVD. HEART: Sounds S1, S2. Regular rate and rhythm. No audible rubs, murmurs, or gallops. LUNGS: Clear to auscultation. No wheezes, rales or rhonchi. ABDOMEN: Soft, nontender. No masses or organomegaly. EXTREMITIES: No cyanosis, clubbing, or edema. LABORATORY DATA: Shows hemoglobin of 16, hematocrit of 49, white cell count of 15, platelet count of 233. Sodium 141, potassium 4.0, BUN of 22, creatinine 1.82, admission creatinine 1.28. INR 1.1. Urinalysis is pending. Chest x-ray: Mild cardiomegaly. IMPRESSION: This is a 67-year-old male with history of coronary artery disease with prior percutaneous coronary intervention bare metal stent of the left anterior descending and right coronary artery in September who presented with chest pain. The patient underwent cardiac catheterization with the above disease with a 70% distal left anterior descending, diagonal 95, the RCA 95. The patient underwent an angioplasty of the ostial right posterior descending artery, bringing it from 95 down to 40 percent. PLAN: Again, we were consulted for potential need for surgery in the future. Full consult has been dictated and we have given the patient our card, that in the future if he will require any bypass surgery, he has our information. Further planning and discharge as per Dr. Mata. TRUMAN Amezquita MD JRT/WILBER , 12:43 PM , 01:09 PM MTDD
--- NOTE | 2017-12-08 16:11 | PD.CARD.PN ---
Subjective Subjective Remarks assymptomatic, states he feels "much better" s/p ptca, ambulating halls Objective Medications Current Medications Medications (Trade) Dose Ordered Sig/Anny Route Start Time Stop Time Status Last Admin (NS Flush) 2 ml UNSCH PRN IVF 12/06/17 09:45 (Aspirin Chew) 162 mg DAILY PO 12/07/17 09:00 12/08/17 09:01 (Lipitor) 40 mg HS PO 12/06/17 21:00 12/07/17 20:02 (Coreg) 6.25 mg Q12HR PO 12/06/17 21:00 12/08/17 09:02 (Plavix) 75 mg DAILY PO 12/07/17 09:00 12/08/17 09:01 (Flonase [place]gin Spr) 2 spray DAILY EACH NARE 12/07/17 09:00 12/08/17 09:00 ([place] 10-325 Mg) 1 tab DAILY PRN PO 12/06/17 12:30 12/06/17 21:28 (Minocin) 100 mg BID PO 12/06/17 21:00 12/08/17 09:03 (Ambien) 10 mg HS PRN PO 12/06/17 12:30 (NS Flush) 2 ml UNSCH PRN IV FLUSH 12/06/17 12:30 (NS Flush) 2 ml BID IV FLUSH 12/06/17 21:00 12/08/17 09:02 (Tylenol) 650 mg Q4H PRN PO 12/06/17 12:30 12/07/17 22:12 (Heparin Inj) 5,000 units Q8H SQ 12/06/17 13:00 12/08/17 12:45 (Tylenol) 650 mg Q6H PRN PO 12/06/17 12:30 (Narcan Inj) 0.4 mg UNSCH PRN IV PUSH 12/06/17 12:30 (Bernadette-Colace) 1 tab BID PO 12/06/17 21:00 (Milk Of Magnesia Liq) 30 ml Q12H PRN PO 12/06/17 12:30 (Senokot) 17.2 mg Q12H PRN PO 12/06/17 12:30 (Dulcolax Supp) 10 mg DAILY PRN RECTAL 12/06/17 12:30 (Lactulose Liq) 30 ml DAILY PRN PO 12/06/17 12:30 (Mag-Al Plus Susp Liq) 30 ml Q6H PRN PO 12/07/17 08:15 (Tums Chew) 500 mg Q6H PRN CHEW 12/07/17 08:15 (NS Flush) 2 ml UNSCH PRN IV FLUSH 12/07/17 13:30 (NS Flush) 2 ml BID IV FLUSH 12/07/17 21:00 (Aspirin Chew) 162 mg DAILY PO 12/08/17 09:00 (Plavix) 75 mg DAILY PO 12/08/17 09:00 (Vistaril) 25 mg Q6H PRN PO 12/07/17 18:30 12/07/17 19:25 (Reglan Inj) 5 mg Q6H PRN IV PUSH 12/07/17 18:30 12/07/17 18:42 (Phenergan Supp) 25 mg Q6H PRN RECTAL 12/07/17 18:30 Sodium Chloride 1,000 ml @ 100 mls/hr Q10H IV 12/08/17 10:30 12/08/17 11:23 (Pepcid) 10 mg BID PO 12/08/17 21:00 (Pill Splitter) 1 ea UNSCH PRN OTHER 12/08/17 12:00 Vital Signs / I&O Vital Signs Date Time Temp Pulse Resp B/P (MAP) Pulse Ox O2 Delivery O2 Flow Rate FiO2 12/08/17 16:00 95 12/08/17 15:00 90 12/08/17 14:00 88 12/08/17 13:00 100 12/08/17 12:00 94 12/08/17 11:00 86 12/08/17 11:00 98.0 88 15 103/57 (72) 96 12/08/17 11:00 96 Room Air 12/08/17 10:00 96 12/08/17 09:00 101 12/08/17 08:00 90 12/08/17 07:15 98.4 95 16 116/64 (81) 95 12/08/17 07:00 97 Room Air 12/08/17 07:00 94 12/08/17 06:00 104 12/08/17 05:07 87 12/08/17 04:08 86 12/08/17 03:12 96 Room Air 12/08/17 03:12 98.2 93 22 106/60 (75) 98 12/08/17 03:00 90 12/08/17 02:00 90 12/08/17 01:00 85 12/08/17 00:00 110 12/07/17 23:14 100.8 114 22 95/54 (68) 96 12/07/17 23:14 96 Room Air 12/07/17 23:00 111 12/07/17 22:28 98 12/07/17 22:00 130 12/07/17 21:21 129 128/61 (83) 12/07/17 21:00 124 12/07/17 20:00 128 12/07/17 19:28 100 Room Air 12/07/17 19:28 98.2 112 23 161/77 (105) 100 12/07/17 19:00 127 12/07/17 18:43 98.6 112 18 141/72 (95) 98 12/07/17 18:32 100 12/07/17 17:22 86 12/07/17 17:21 97.9 91 18 138/74 (95) 100 12/07/17 17:19 97.9 91 18 136/71 (92) 100 I/O 12/07/17 12/07/17 12/07/17 12/08/17 12/08/17 12/08/17 07:00 15:00 23:00 07:00 15:00 23:00 Intake Total 360 ml 700 ml 680 ml Output Total 350 ml 450 ml 400 ml Balance 10 ml 250 ml 280 ml Intake Oral 360 ml 480 ml 680 ml IV Total 220 ml Output Urine Total 350 ml 450 ml 400 ml # Bowel Movements 0 0 Physical Exam GENERAL: SKIN: Warm and dry. HEAD: Normocephalic. EYES: No scleral icterus. No injection or drainage. NECK: Supple, trachea midline. No JVD or lymphadenopathy. CARDIOVASCULAR: Regular rate and rhythm without murmurs, gallops, or rubs. RESPIRATORY: Breath sounds equal bilaterally. No accessory muscle use. GASTROINTESTINAL: Abdomen soft, non-tender, nondistended. MUSCULOSKELETAL: No cyanosis, or edema. BACK: Nontender without obvious deformity. No CVA tenderness. Laboratory Laboratory Tests Test 12/08/17 06:04 12/08/17 12:00 White Blood Count 15.3 TH/MM3 Red Blood Count 5.50 MIL/MM3 Hemoglobin 16.7 GM/DL Hematocrit 49.0 % Mean Corpuscular Volume 89.1 FL Mean Corpuscular Hemoglobin 30.4 PG Mean Corpuscular Hemoglobin Concent 34.1 % Red Cell Distribution Width 14.8 % Platelet Count 233 TH/MM3 Mean Platelet Volume 8.3 FL Neutrophils (%) (Auto) 92.7 % Lymphocytes (%) (Auto) 3.5 % Monocytes (%) (Auto) 3.5 % Eosinophils (%) (Auto) 0.2 % Basophils (%) (Auto) 0.1 % Neutrophils # (Auto) 14.2 TH/MM3 Lymphocytes # (Auto) 0.5 TH/MM3 Monocytes # (Auto) 0.5 TH/MM3 Eosinophils # (Auto) 0.0 TH/MM3 Basophils # (Auto) 0.0 TH/MM3 CBC Comment DIFF FINAL Differential Comment Blood Urea Nitrogen 22 MG/DL Creatinine 1.82 MG/DL Random Glucose 146 MG/DL Calcium Level 8.7 MG/DL Sodium Level 141 MEQ/L Potassium Level 4.0 MEQ/L Chloride Level 108 MEQ/L Carbon Dioxide Level 21.2 MEQ/L Anion Gap 12 MEQ/L Estimat Glomerular Filtration Rate 38 ML/MIN Total Creatine Kinase 55 U/L Triglycerides Level 153 MG/DL Cholesterol Level 125 MG/DL LDL Cholesterol 64 MG/DL HDL Cholesterol 30.2 MG/DL Cholesterol/HDL Ratio 4.13 RATIO Urine Color Lara Urine Turbidity CLOUDY Urine pH 5.0 Urine Specific [place] 1.033 Urine Protein 30 mg/dL Urine Glucose (UA) NEG mg/dL Urine Ketones NEG mg/dL Urine Occult Blood LARGE Urine Nitrite NEG Urine Bilirubin NEG Urine Urobilinogen LESS THAN 2 mg/dL Urine Leukocyte Esterase NEG Urine RBC /hpf Urine WBC 6 /hpf Urine Bacteria MOD /hpf Urine Hyaline Casts 15 /lpf Urine Mucus MANY /lpf Microscopic Urinalysis Comment CULTURE INDICATED Assessment and Plan Problem List: (1) CAD (coronary artery disease) ICD Codes: I25.10 - Atherosclerotic heart disease of [place] coronary artery without angina pectoris (2) Unstable angina ICD Codes: I20.0 - Unstable angina Status: Acute (3) Renal insufficiency ICD Codes: N28.9 - Disorder of kidney and ureter, unspecified Status: Acute Assessment and Plan 1.) CAD - pod #1 s/p ptca isr ostial rpda, residual 75% isr mid lad and ostial rpla; assymptomatic, continue aspirin, plavix, i explained to him symptoms are likely to return and if/when they re occur cabg should be strongly considered 2.) ARF - ivf, f/u trends in creatinine Esvin Mata MD Dec 08, 2017 16:11
[2017-12-08] MEDS: CALCIUM CARBONATE 500 MG CHEWABLE TAB CHEW PRN (16:19)
[2017-12-08] MEDS: ATORVASTATIN 40 MG TAB PO SCH (20:02)
[2017-12-08] MEDS: ACETAMINOPHEN/HYDROcodone 325 MG/10 MG TAB PO PRN (20:04)
--- NOTE | 2017-12-08 20:25 | EKG ---
Date Performed: 12/08/2017 Time Performed: 05:22:24 PTAGE: 67 years EKG: Sinus rhythm Indeterminate axis Anteroseptal T wave changes are nonspecific Borderline ECG Compared to PREVIOUS TRACING , rate slower DOCTOR: Jimena Oates Interpretating Date/Time 12/08/2017 20:24:48
--- NOTE | 2017-12-08 20:45 | EKG ---
Date Performed: 12/07/2017 Time Performed: 21:54:52 PTAGE: 67 years EKG: Sinus tachycardia with PVC(s). Right axis deviation Septal T wave changes are nonspecific A bnormal ECG Compared to PREVIOUS TRACING , ST now present DOCTOR: Jimnea Oates Interpretating Date/Time 12/08/2017 20:44:41
[2017-12-08] MEDS: diphenhydrAMINE HCL 50 MG/ML VIAL IV PUSH PRN (20:50)
[2017-12-09] VITALS (25 sets, daily range): BP systolic 99–134; BP diastolic 59–75; PULSE 65–100; RESP 16–20; TEMP 97.5–98.3; O2SAT 96–98
[2017-12-09] MEDS: ACETAMINOPHEN/HYDROcodone 325 MG/10 MG TAB PO PRN (01:31)
[2017-12-09] MEDS: CALCIUM CARBONATE 500 MG CHEWABLE TAB CHEW PRN (03:09)
[2017-12-09 03:43] LABS: AUTOMATED NEUTROPHIL # 16.7 TH/MM3 (1.8-7.7); BASOPHIL % 0.2 % (0.0-2.0); EOSINOPHIL # 0.2 TH/MM3 (0-0.4); EOSINOPHIL % 0.9 % (0.0-4.0); HEMATOCRIT 43.8 % (39.0-51.0); HEMOGLOBIN 14.8 GM/DL (13.0-17.0); LYMPH % 5.7 % (9.0-44.0); LYMPHOCYTE # 1.1 TH/MM3 (1.0-4.8); MEAN CORPUSCULAR HEMOGLOBIN 29.7 PG (27.0-34.0); MEAN CORPUSCULAR HGB CONC 33.8 % (32.0-36.0); MEAN PLATELET VOLUME 8.1 FL (7.0-11.0); MONO % 5.6 % (0.0-8.0); MONOCYTE # 1.1 TH/MM3 (0-0.9); NEUT % 87.6 % (16.0-70.0); PLATELET COUNT 222 TH/MM3 (150-450); RED BLOOD COUNT 4.98 MIL/MM3 (4.50-5.90); RED CELL DISTRIBUTION WIDTH 15.1 % (11.6-17.2); WHITE BLOOD COUNT 19.1 TH/MM3 (4.0-11.0)
[2017-12-09 04:04] LABS: BICARBONATE 21.2 MEQ/L (21.0-32.0); CALCIUM 8.2 MG/DL (8.5-10.1); CREATININE 1.48 MG/DL (0.60-1.30); MAGNESIUM 2.2 MG/DL (1.5-2.5)
[2017-12-09] MEDS: diphenhydrAMINE HCL 50 MG/ML VIAL IV PUSH PRN ×3 (06:44→18:09)
[2017-12-09] MEDS: HEPARIN SODIUM - SQ 10,000 UNITS/ML VIAL SQ SCH ×3 (06:45→20:15)
[2017-12-09] MEDS: SODIUM CHLOR 0.9% 1000 ML INJ 1,000 ML IV SCH ×2 (06:45→16:00)
[2017-12-09] MEDS: FAMOTIDINE 20 MG TAB PO SCH ×2 (08:12→20:14)
[2017-12-09] MEDS: MINOCYCLINE HCL 100 MG CAP PO SCH ×2 (08:12→20:15)
[2017-12-09] MEDS: CARVEDILOL 6.25 MG TAB PO SCH ×2 (08:12→20:15)
[2017-12-09] MEDS: ASPIRIN 81 MG CHEW TAB PO SCH ×2 (08:13)
[2017-12-09] MEDS: CLOPIDOGREL 75 MG TAB PO SCH ×2 (08:13→08:15)
[2017-12-09] MEDS: DOCUSATE SODIUM 50 MG/SENNA 8.6 MG TAB PO SCH ×2 (08:14→20:16)
[2017-12-09] MEDS: FLUTICASONE PROPIONATE 50 MCG/ACT 16 GM NASAL SPRAY EACH NARE SCH (08:14)
[2017-12-09] MEDS: SODIUM CHLORIDE 0.9% FLUSH 10 ML FLUSH IV FLUSH SCH ×4 (08:14→20:16)
--- NOTE | 2017-12-09 11:31 | HHI.PR ---
Subjective Remarks Resting comfortably in bed No event overnight Denied chest and or short of breath No fever or chills Patient wants to go home Objective Vitals Vital Signs Date Time Temp Pulse Resp B/P (MAP) Pulse Ox O2 Delivery O2 Flow Rate FiO2 12/09/17 10:00 76 12/09/17 09:00 80 12/09/17 08:00 80 12/09/17 07:25 97.5 71 16 118/72 (87) 97 12/09/17 07:00 82 12/09/17 07:00 97 Room Air 12/09/17 06:07 77 12/09/17 05:16 73 12/09/17 04:08 87 12/09/17 03:44 77 12/09/17 03:44 97.9 82 19 134/73 (93) 97 12/09/17 03:44 Room Air 12/09/17 02:36 97 12/09/17 01:33 82 12/09/17 00:18 89 12/08/17 23:53 98.4 88 20 112/63 (79) 94 12/08/17 23:53 Room Air 12/08/17 23:53 84 12/08/17 22:22 93 12/08/17 21:00 94 12/08/17 20:00 96 12/08/17 19:57 97 12/08/17 19:00 98.0 94 20 125/63 (83) 95 12/08/17 19:00 93 12/08/17 19:00 Room Air 12/08/17 18:00 98 12/08/17 17:00 100 12/08/17 16:00 95 12/08/17 15:00 90 12/08/17 15:00 96 Room Air 12/08/17 15:00 98.3 93 15 109/60 (76) 96 12/08/17 14:00 88 12/08/17 13:00 100 12/08/17 12:00 94 I/O 12/08/17 12/08/17 12/08/17 12/09/17 12/09/17 12/09/17 07:00 15:00 23:00 07:00 15:00 23:00 Intake Total 680 ml 1921 ml 480 ml Output Total 400 ml 450 ml 1175 ml Balance 280 ml 1471 ml -695 ml Intake Oral 680 ml 1380 ml 480 ml IV Total 541 ml Output Urine Total 400 ml 450 ml 1175 ml # Voids 3 # Bowel Movements 0 0 Result Diagram: 12/09/1725612/09/17256 Objective Remarks GENERAL: This is a well-nourished, well-developed patient, in no apparent distress. CARDIOVASCULAR: RRR, no gallops, or rubs. RESPIRATORY: Fair air entry bilaterally. No W, R, or R GASTROINTESTINAL: Abdomen soft, non-tender, nondistended. Positive bowel sounds MUSCULOSKELETAL: Extremities without clubbing, cyanosis, or edema. Pedal pulses appreciated NEUROLOGICAL: Awake and alert. Moves all extremity. Normal speech.no focal neurological deficit Procedures Cardiac catheterization A/P Problem List: (1) Unstable angina ICD Code: I20.0 - Unstable angina Status: Acute Assessment and Plan 67-year-old male who was sent to the emergency room from the [place] clinic because of exertional heavy sensation over sternum associated with shortness of breath and diaphoresis Unstable angina with culprit 95% in-stent stenosis of the ostial right PDA, 75% in-stent stenosis of the mid LAD stent with a 95% stenosis of the ostial diagonal vessel, 50-60% disease in the proximal right coronary artery, Preserved left ventricular systolic function, ejection fraction of 60% Successful PTCA of the 95% ostial right PDA in-stent stenosis to 40% with SANDY 3 flow. Hx BMS RPDA and mid LAD 09/29 Continue aspirin, Plavix, beta-vivian, statin and sublingual nitroglycerin. CTS for CABG Acute kidney injury. Start IV hydration check urinalysis and avoid nephrotoxins , Leukocytosis status post steroids Solu-Medrol 125 mg once, today increased to 19 K. Will monitor, repeat CBC in a H/O osteoarthritis, SVT status post ablation, NSVT, chronic low back pain, pneumothorax and pleurisy. Continue outpatient medications as appropriate DVT prophylaxis with SCD and subcu heparin Jv Gerardo MD Dec 09, 2017 11:31
--- NOTE | 2017-12-09 15:03 | PD.CARD.PN ---
Subjective Subjective Remarks assymptomatic, states he feels "much better" s/p ptca, ambulating halls Objective Medications Current Medications Medications (Trade) Dose Ordered Sig/Anny Route Start Time Stop Time Status Last Admin (NS Flush) 2 ml UNSCH PRN IVF 12/06/17 09:45 (Aspirin Chew) 162 mg DAILY PO 12/07/17 09:00 12/09/17 08:13 (Lipitor) 40 mg HS PO 12/06/17 21:00 12/08/17 20:02 (Coreg) 6.25 mg Q12HR PO 12/06/17 21:00 12/09/17 08:12 (Plavix) 75 mg DAILY PO 12/07/17 09:00 12/09/17 08:13 (Flonase [place] Spr) 2 spray DAILY EACH NARE 12/07/17 09:00 12/09/17 08:14 (Leopold 10-325 Mg) 1 tab DAILY PRN PO 12/06/17 12:30 12/09/17 01:31 (Minocin) 100 mg BID PO 12/06/17 21:00 12/09/17 08:12 (Ambien) 10 mg HS PRN PO 12/06/17 12:30 (NS Flush) 2 ml UNSCH PRN IV FLUSH 12/06/17 12:30 (NS Flush) 2 ml BID IV FLUSH 12/06/17 21:00 12/09/17 08:14 (Tylenol) 650 mg Q4H PRN PO 12/06/17 12:30 12/07/17 22:12 (Heparin Inj) 5,000 units Q8H SQ 12/06/17 13:00 12/09/17 13:11 (Tylenol) 650 mg Q6H PRN PO 12/06/17 12:30 (Narcan Inj) 0.4 mg UNSCH PRN IV PUSH 12/06/17 12:30 (Bernadette-Colace) 1 tab BID PO 12/06/17 21:00 12/08/17 20:02 (Milk Of Magnesia Liq) 30 ml Q12H PRN PO 12/06/17 12:30 (Senokot) 17.2 mg Q12H PRN PO 12/06/17 12:30 (Dulcolax Supp) 10 mg DAILY PRN RECTAL 12/06/17 12:30 (Lactulose Liq) 30 ml DAILY PRN PO 12/06/17 12:30 (Mag-Al Plus Susp Liq) 30 ml Q6H PRN PO 12/07/17 08:15 (Tums Chew) 500 mg Q6H PRN CHEW 12/07/17 08:15 12/09/17 03:09 (NS Flush) 2 ml UNSCH PRN IV FLUSH 12/07/17 13:30 (NS Flush) 2 ml BID IV FLUSH 12/07/17 21:00 12/08/17 20:05 (Aspirin Chew) 162 mg DAILY PO 12/08/17 09:00 (Plavix) 75 mg DAILY PO 12/08/17 09:00 (Vistaril) 25 mg Q6H PRN PO 12/07/17 18:30 12/07/17 19:25 (Reglan Inj) 5 mg Q6H PRN IV PUSH 12/07/17 18:30 12/07/17 18:42 (Phenergan Supp) 25 mg Q6H PRN RECTAL 12/07/17 18:30 Sodium Chloride 1,000 ml @ 100 mls/hr Q10H IV 12/08/17 10:30 12/09/17 06:45 (Pepcid) 10 mg BID PO 12/08/17 21:00 12/09/17 08:12 (Pill Splitter) 1 ea UNSCH PRN OTHER 12/08/17 12:00 (Benadryl Inj) 50 mg Q4H PRN IV PUSH 12/08/17 20:30 12/09/17 13:10 Vital Signs / I&O Vital Signs Date Time Temp Pulse Resp B/P (MAP) Pulse Ox O2 Delivery O2 Flow Rate FiO2 12/09/17 13:00 78 12/09/17 12:00 72 12/09/17 11:00 97.5 71 16 114/65 (81) 96 12/09/17 11:00 78 12/09/17 11:00 96 Room Air 12/09/17 10:00 76 12/09/17 09:00 80 12/09/17 08:00 80 12/09/17 07:25 97.5 71 16 118/72 (87) 97 12/09/17 07:00 82 12/09/17 07:00 97 Room Air 12/09/17 06:07 77 12/09/17 05:16 73 12/09/17 04:08 87 12/09/17 03:44 77 12/09/17 03:44 97.9 82 19 134/73 (93) 97 12/09/17 03:44 Room Air 12/09/17 02:36 97 12/09/17 01:33 82 12/09/17 00:18 89 12/08/17 23:53 98.4 88 20 112/63 (79) 94 12/08/17 23:53 Room Air 12/08/17 23:53 84 12/08/17 22:22 93 12/08/17 21:00 94 12/08/17 20:00 96 12/08/17 19:57 97 12/08/17 19:00 98.0 94 20 125/63 (83) 95 12/08/17 19:00 93 12/08/17 19:00 Room Air 12/08/17 18:00 98 12/08/17 17:00 100 12/08/17 16:00 95 12/08/17 15:00 90 12/08/17 15:00 96 Room Air 12/08/17 15:00 98.3 93 15 109/60 (76) 96 I/O 12/08/17 12/08/17 12/08/17 12/09/17 12/09/17 12/09/17 07:00 15:00 23:00 07:00 15:00 23:00 Intake Total 680 ml 1921 ml 480 ml Output Total 400 ml 450 ml 1175 ml Balance 280 ml 1471 ml -695 ml Intake Oral 680 ml 1380 ml 480 ml IV Total 541 ml Output Urine Total 400 ml 450 ml 1175 ml # Voids 3 # Bowel Movements 0 0 Physical Exam GENERAL: SKIN: Warm and dry. HEAD: Normocephalic. EYES: No scleral icterus. No injection or drainage. NECK: Supple, trachea midline. No JVD or lymphadenopathy. CARDIOVASCULAR: Regular rate and rhythm without murmurs, gallops, or rubs. RESPIRATORY: Breath sounds equal bilaterally. No accessory muscle use. GASTROINTESTINAL: Abdomen soft, non-tender, nondistended. MUSCULOSKELETAL: No cyanosis, or edema. BACK: Nontender without obvious deformity. No CVA tenderness. Laboratory Laboratory Tests Test 12/09/17 02:57 White Blood Count 19.1 TH/MM3 Red Blood Count 4.98 MIL/MM3 Hemoglobin 14.8 GM/DL Hematocrit 43.8 % Mean Corpuscular Volume 88.0 FL Mean Corpuscular Hemoglobin 29.7 PG Mean Corpuscular Hemoglobin Concent 33.8 % Red Cell Distribution Width 15.1 % Platelet Count 222 TH/MM3 Mean Platelet Volume 8.1 FL Neutrophils (%) (Auto) 87.6 % Lymphocytes (%) (Auto) 5.7 % Monocytes (%) (Auto) 5.6 % Eosinophils (%) (Auto) 0.9 % Basophils (%) (Auto) 0.2 % Neutrophils # (Auto) 16.7 TH/MM3 Lymphocytes # (Auto) 1.1 TH/MM3 Monocytes # (Auto) 1.1 TH/MM3 Eosinophils # (Auto) 0.2 TH/MM3 Basophils # (Auto) 0.0 TH/MM3 CBC Comment DIFF FINAL Differential Comment Blood Urea Nitrogen 30 MG/DL Creatinine 1.48 MG/DL Random Glucose 122 MG/DL Calcium Level 8.2 MG/DL Magnesium Level 2.2 MG/DL Sodium Level 141 MEQ/L Potassium Level 4.3 MEQ/L Chloride Level 112 MEQ/L Carbon Dioxide Level 21.2 MEQ/L Anion Gap 8 MEQ/L Estimat Glomerular Filtration Rate 48 ML/MIN Assessment and Plan Problem List: (1) CAD (coronary artery disease) ICD Codes: I25.10 - Atherosclerotic heart disease of [place] coronary artery without angina pectoris (2) Unstable angina ICD Codes: I20.0 - Unstable angina Status: Acute (3) Renal insufficiency ICD Codes: N28.9 - Disorder of kidney and ureter, unspecified Status: Acute Assessment and Plan 1.) CAD - pod #2 s/p ptca isr ostial rpda, residual 75% isr mid lad and ostial rpla; assymptomatic, continue aspirin, plavix, i explained to him symptoms are likely to return and if/when they re occur cabg should be strongly considered 2.) ARF - ivf, trends in creatinine improving Esvin Mata MD Dec 09, 2017 15:03
[2017-12-09] MEDS: ATORVASTATIN 40 MG TAB PO SCH (20:15)
[2017-12-10] VITALS (12 sets, daily range): BP systolic 114–128; BP diastolic 58–71; PULSE 60–80; RESP 19–20; TEMP 97.5–97.8; O2SAT 95–97
[2017-12-10] MEDS: HEPARIN SODIUM - SQ 10,000 UNITS/ML VIAL SQ SCH (05:00)
[2017-12-10 05:34] LABS: BICARBONATE 23.1 MEQ/L (21.0-32.0); CALCIUM 8.1 MG/DL (8.5-10.1); CREATININE 1.41 MG/DL (0.60-1.30)
[2017-12-10] MEDS: SODIUM CHLOR 0.9% 1000 ML INJ 1,000 ML IV SCH (05:41)
[2017-12-10] MEDS: CLOPIDOGREL 75 MG TAB PO SCH ×2 (09:00→10:33)
[2017-12-10] MEDS: SODIUM CHLORIDE 0.9% FLUSH 10 ML FLUSH IV FLUSH SCH ×2 (09:00→10:33)
[2017-12-10] MEDS: ASPIRIN 81 MG CHEW TAB PO SCH ×2 (09:00→10:33)
[2017-12-10] MEDS: DOCUSATE SODIUM 50 MG/SENNA 8.6 MG TAB PO SCH (09:00)
[2017-12-10] MEDS: CARVEDILOL 6.25 MG TAB PO SCH (10:33)
[2017-12-10] MEDS: FAMOTIDINE 20 MG TAB PO SCH (10:33)
[2017-12-10] MEDS: FLUTICASONE PROPIONATE 50 MCG/ACT 16 GM NASAL SPRAY EACH NARE SCH (10:35)
[2017-12-10 11:06] LABS: HEMATOCRIT 44.1 % (39.0-51.0); HEMOGLOBIN 15.1 GM/DL (13.0-17.0); MEAN CELL VOLUME 88.4 FL (80.0-100.0); MEAN CORPUSCULAR HEMOGLOBIN 30.3 PG (27.0-34.0); MEAN CORPUSCULAR HGB CONC 34.3 % (32.0-36.0); MEAN PLATELET VOLUME 7.7 FL (7.0-11.0); PLATELET COUNT 216 TH/MM3 (150-450); RED BLOOD COUNT 4.99 MIL/MM3 (4.50-5.90); WHITE BLOOD COUNT 7.8 TH/MM3 (4.0-11.0)
--- NOTE | 2017-12-10 21:03 | HHI.DS ---
Discharge Summary Admission Date Dec 06, 2017 at 12:26 Discharge Date: Dec 10, 2017 Admitting Diagnosis Unstable angina (1) Unstable angina ICD Code: I20.0 - Unstable angina Status: Acute Procedures Cardiac catheterization Brief History - From Admission 67-year-old male who was sent to the emergency room from the [place] [facility] because of chest pain. It started 4 days ago when he developed mild exertional heavy sensation over his right chest radiating up into his jaw then later across the sternum. It is associated with shortness of breath and diaphoresis no nausea, vomiting, dizziness and palpitations. Pain is relieved with rest. It is also exacerbated with eating. Patient has history of coronary artery disease status post bare-metal stent in the RPDA and mid LAD and has been compliant with aspirin, Plavix, metoprolol and statin. He has quit smoking since September when he had a heart attack. At this time he is pain-free. Discussed with cardiology , for cardiac catheterization in vomiting in the morning. All other systems reviewed negative CBC/BMP: 12/10/17 1030 12/10/17 0423 Significant Findings Laboratory Tests Test 12/08/17 06:04 12/08/17 12:00 12/09/17 02:57 12/10/17 04:23 White Blood Count 15.3 TH/MM3 (4.0-11.0) 19.1 TH/MM3 (4.0-11.0) Neutrophils (%) (Auto) 92.7 % (16.0-70.0) 87.6 % (16.0-70.0) Lymphocytes (%) (Auto) 3.5 % (9.0-44.0) 5.7 % (9.0-44.0) Neutrophils # (Auto) 14.2 TH/MM3 (1.8-7.7) 16.7 TH/MM3 (1.8-7.7) Lymphocytes # (Auto) 0.5 TH/MM3 (1.0-4.8) Blood Urea Nitrogen 22 MG/DL (7-18) 30 MG/DL (7-18) 29 MG/DL (7-18) Creatinine 1.82 MG/DL (0.60-1.30) 1.48 MG/DL (0.60-1.30) 1.41 MG/DL (0.60-1.30) Random Glucose 146 MG/DL (74-106) 122 MG/DL (74-106) Chloride Level 108 MEQ/L (98-107) 112 MEQ/L (98-107) 111 MEQ/L (98-107) Estimat Glomerular Filtration Rate 38 ML/MIN (>89) 48 ML/MIN (>89) 50 ML/MIN (>89) Triglycerides Level 153 MG/DL (42-150) HDL Cholesterol 30.2 MG/DL (40.0-60.0) Urine Turbidity CLOUDY (CLEAR) Urine Protein 30 mg/dL (NEG-TRACE) Urine Occult Blood LARGE (NEG) Urine WBC 6 /hpf (0-5) Urine Bacteria MOD /hpf (NONE) Urine Mucus MANY /lpf (OCC) Monocytes # (Auto) 1.1 TH/MM3 (0-0.9) Calcium Level 8.2 MG/DL (8.5-10.1) 8.1 MG/DL (8.5-10.1) Test 12/10/17 10:30 PE at Discharge GENERAL: This is a well-nourished, well-developed patient, in no apparent distress. CARDIOVASCULAR: RRR, no gallops, or rubs. RESPIRATORY: Fair air entry bilaterally. No W, R, or R GASTROINTESTINAL: Abdomen soft, non-tender, nondistended. Positive bowel sounds MUSCULOSKELETAL: Extremities without clubbing, cyanosis, or edema. Pedal pulses appreciated NEUROLOGICAL: Awake and alert. Moves all extremity. Normal speech.no focal neurological deficit Hospital Course 67-year-old male who was sent to the emergency room from the [place] [facility] because of exertional heavy sensation over sternum associated with shortness of breath and diaphoresis Unstable angina with culprit 95% in-stent stenosis of the ostial right PDA, 75% in-stent stenosis of the mid LAD stent with a 95% stenosis of the ostial diagonal vessel, 50-60% disease in the proximal right coronary artery, Preserved left ventricular systolic function, ejection fraction of 60% Successful PTCA of the 95% ostial right PDA in-stent stenosis to 40% with SANDY 3 flow. Hx BMS RPDA and mid LAD 09/29 Continue aspirin, Plavix, beta-vivian, statin and sublingual nitroglycerin. [facility] were consulted to assist for CABG, decision make to discharge patient and monitor closely with his varnish melter if any recurrent angina patient will go for CABG Acute kidney injury. Improved on IV hydration Leukocytosis status post steroids Solu-Medrol 125 mg once, trended down to normal level on day of discharge [id number] encounter performed with the patient on discharge day, as well as physical exam, summary of hospitalization course and postdischarge plan has been D/W the patient. D/W nurse D/W hospice case manager. Discharge medications reviewed and printed and signed, post discharge follow up visit with PCP and other specialist as well as Brief hospital course and discharge summary has been placed. Pt Condition on Discharge: Fair Discharge Disposition: Discharge Home Discharge Time: > 30 minutes Discharge Instructions DIET: Follow Instructions for: Heart Healthy Diet Activities you can perform: Weight Bearing as Arlene Follow up Referrals: Cardiology - 1 Week PCP Follow-up - 1 Week New Medications: Famotidine (Famotidine) 20 Mg Tab 20 MG PO BID for Manage Heartburn, #60 TAB Continued Medications: Albuterol 8.5 GM Inh (Proair Hfa 8.5 GM Inh) 90 Mcg/Act Aer 2 PUFF INH Q6H PRN for SHORTNESS OF BREATH, #1 INHALER 0 Refills 108 mcg/actuation Aspirin (Tgt Aspirin) 81 Mg Chw 162 MG PO DAILY for Blood Clot Prevention, #180 EA Atorvastatin (Atorvastatin) 40 Mg Tab 40 MG PO HS for Cholesterol Management, #90 TAB Carvedilol (Coreg) 6.25 Mg Tab 6.25 MG PO Q12HR for Blood Pressure Management, #180 TAB Clopidogrel (Plavix) 75 Mg Tab 75 MG PO DAILY for Blood Clot Prevention, #90 TAB Diphenhydramine HCl (Benadryl Allergy) 25 Mg Cap 25 MG PO Q4H PRN for itching, #60 CAP Diphenhydramine-Zinc Acetate (Sm Anti-Itch Extra Streng 2-0.1 %) 2 %-0.1 % Cre 1 APPLIC TOPICAL TID PRN for ITCHING, #1 TUBE Fluticasone Nasal [place] (Fluticasone Nasal [place]) 50 Mcg/Act Naspr 2 SPRAY EACH NARE DAILY for Allergies, #1 BOTTLE 50 mcg/spray Hydrocodone-Acetaminophen (Hydrocodone-Acetaminophen) 10-325 mg Tab 1 TAB PO DAILY PRN for PAIN, #10 TAB 0 Refills Minocycline (Minocycline) 100 Mg Cap 100 MG PO BID for Mgmt Bacterial Infection, CAP 0 Refills Zolpidem (Zolpidem) 10 Mg Tab 10 MG PO HS PRN for INSOMNIA, TAB 0 Refills Jv Gerardo MD Dec 10, 2017 21:03
== END 2017-12-10 13:40 | disposition home or self-care (01) ==
LOC: NEPC 08:59 → INTOOBSV 12:26 → NEDA 12:26 → N04B 16:07 → HCIS 12-07 12:58 → HCPC 12-07 17:00
PROVIDERS: ADMIT Hospitalist; ATTEND Hospitalist
DX: I25.110 Atherosclerotic heart disease of native coronary artery with unstable angina pectoris (principal); I47.2 Ventricular tachycardia; I44.0 Atrioventricular block, first degree; T82.855A Stenosis of coronary artery stent, initial encounter; I45.10 Unspecified right bundle-branch block; I25.2 Old myocardial infarction; R61 Generalized hyperhidrosis; R06.02 Shortness of breath; M19.90 Unspecified osteoarthritis, unspecified site; M12.9 Arthropathy, unspecified; M54.16 Radiculopathy, lumbar region; F17.200 Nicotine dependence, unspecified, uncomplicated; R31.9 Hematuria, unspecified; D72.829 Elevated white blood cell count, unspecified; Z79.01 Long term (current) use of anticoagulants
CPT/HCPCS: 71046; 80048; 80053; 80061; 81001; 82550; 82552; 83690; 83735; 84484; 85002; 85025; 85027; 85610; 85730; 87086; 92920; 93005; 93458; 96361; 96372; 96374; 96375; 96376; 97162; 97530; 99152; 99153; 99285; C1725; C1769; C1887; C1893; G0378; G8987; G8988; J1200; J1644; J2250; J2405; J2765; J2930; J3010; J7030; Q0177; J3246; Q9967

== ENCOUNTER 2017-12-15 10:09 | Observation (INO) ==
[2017-12-15] MEDS ORDERED: Morphine Inj 4 MG/ML Vial IV.PUSH ONE (10:55)
[2017-12-15] MEDS ORDERED: Sod Chloride 0.9% Inj 1,000 ML IV.SIG ONE (10:55)
[2017-12-15 11:26] LABS: Baso # (Auto) 0.1 th/mm3 (0.0-0.2); Baso % (Auto) 0.8 % (0.0-2.0); Eos # (Auto) 0.2 th/mm3 (0.0-0.4); Eos % (Auto) 1.6 % (0.0-4.0); Hematocrit 47.9 % (39.0-51.0); Lymph # (Auto) 2.3 th/mm3 (1.0-4.8); Lymph % (Auto) 19.7 % (9.0-44.0); Mean Corpuscular HGB Conc 33.5 % (32.0-36.0); Mean Corpuscular Hemoglobin 30.2 pg (27.0-34.0); Mean Corpuscular Volume 90.2 fL (80.0-100.0); Mean Platelet Volume 7.9 fL (7.0-11.0); Mono # (Auto) 1.2 th/mm3 (0.0-0.9); Mono % (Auto) 10.2 % (0.0-8.0); Neut # (Auto) 7.9 th/mm3 (1.8-7.7); Neut % (Auto) 67.7 % (16.0-70.0); Platelet Count 264 th/mm3 (150-450); Red Blood Count 5.31 mil/mm3 (4.50-5.90); Red Cell Distribution Width 14.8 % (11.6-17.2); White Blood Count 11.7 th/mm3 (4.0-11.0)
[2017-12-15 11:39] LABS: Activated Partial Thrombo Time 24.8 sec (24.3-30.1); INR 1.1 Ratio
--- NOTE | 2017-12-15 11:45 | XR ---
EXAM DATE: 12/15/2017 11:37 AM EDT AGE/SEX: 67 years / Male INDICATIONS: Severe abdominal and lower chest pain. CLINICAL DATA: This is the patient's initial encounter. Patient reports that signs and symptoms have been present for 1 day and indicates a pain score of 8/10. MEDICAL/SURGICAL HISTORY: None. . Cardiac ablation. Cardiac stents. [place] [facility] [place]. . FINDINGS: A single AP view of the chest demonstrates the lungs to be symmetrically aerated without evidence of mass, infiltrate or effusion. The cardiomediastinal contours are unremarkable. Osseous structures a re intact. CONCLUSION: No acute cardiopulmonary disease Electronically signed by: Killian العلي MD 12/15/2017 11:43 AM EDT
[2017-12-15 11:47] LABS: Albumin 3.8 g/dL (3.4-5.0); Anion Gap 10 meq/L (5-15); Aspartate Aminotransferase 26 U/L (15-37); Blood Urea Nitrogen 18 mg/dL (7-18); Calcium 8.6 mg/dL (8.5-10.1); Carbon Dioxide 20.9 meq/L (21.0-32.0); Chloride 111 meq/L (98-107); Glomerular Filtration Rate 55 mL/min (>89); Glucose,Random 110 mg/dL (74-106); Lipase 139 U/L (73-393); Potassium 4.1 meq/L (3.5-5.1); Sodium 142 meq/L (136-145)
[2017-12-15 11:52] LABS: Alanine Aminotransferase 85 U/L (12-78); Alkaline Phosphatase 109 U/L (45-117); Total Protein 7.6 g/dL (6.4-8.2)
[2017-12-15 11:57] LABS: Creatine Kinase 44 U/L (39-308)
[2017-12-15 12:12] LABS: Bacteria,Urine Rare /hpf; Bilirubin,Urine Negative (Negative); Clarity,Urine Hazy (Clear); Color,Urine Yellow (Yellw/Straw); Glucose,Urine (UA) Negative (Negative); Leukocyte Esterase,Urine Negative (Negative); Mucus,Urine Few /lpf (Occasional); Nitrite,Urine Negative (Negative); Specific Gravity,Urine 1.016 (1.002-1.035); Uric Acid Crystals,Urine Moderate /hpf
[2017-12-15] MEDS ORDERED: HYDROmorphone PF Inj 2 MG/ML Vial IV.PUSH ONE (12:13)
--- NOTE | 2017-12-15 12:17 | ED ---
HPI General Chief Complaint: Abdominal Pain Stated Complaint: chest pain and abdominal pain Time Seen by Provider: 12/15/17 10:49 History of Present Illness HPI narrative: Patient presents to the emergency department complaining of abdominal pain that began at 2:00 this morning. Pain is described as being in suprapubic area, similar pain in the past and was secondary to kidney stones, nonradiating, 10 out of 10, sharp, constant. He denies fever, chills, nausea, vomiting, hematuria, reports difficulty urinating. He is passing flatus but is complaining of possible constipation, for which he took Ex-Lax and stool softener. Also reporting chest pain sternal area radiating to the right side, 5 out of 10, intermittent, minutes in duration, aggravated by exertion, no alleviating factors. States that he believes that the abdominal pain is radiating up to his chest causing the pain. Complete Quality Measures for STEMI Alert Patients Related Data Home Medications Medication Instructions Recorded Confirmed aspirin [Aspir-81] 81 mg PO DAILY 12/15/17 12/15/17 clopidogrel [Plavix] 75 mg PO DAILY 12/15/17 12/15/17 nitroglycerin [Nitrostat] 12/15/17 Allergies Allergy/AdvReac Type Severity Reaction Status Date / Time prasugrel Allergy Unknown Rash Verified 12/06/17 17:09 tirofiban AdvReac Severe Rash, Verified 12/08/17 10:27 Tachycardic, Fever, Hypertension No Known Allergies Allergy Unknown Uncoded 09/17/17 16:24 Review of Systems ROS Unobtainable All other systems reviewed negative except as stated in HPI [facility] Medical History Medical History High blood pressure (Acute) Open forearm fracture (Acute) Surgical History Surgical History Hx of heart artery stent (Acute) Social History Social History Substance History: No History of Abuse Second Hand Smoke Exposure: No Smoking Status: Former smoker How Often Do You Have a Drink Containing Alcohol: Monthly or less Recent Travel in [facility] within the Last 8 Weeks: No Recent Out of Country Travel within the Last 8 Weeks: No Immunization History Tetanus Immunization: Unsure Hx Influenza Vaccine This Season: No Exam Narrative Exam Narrative: GENERAL: Positive discomfort SKIN: Focused skin assessment warm/dry. HEAD: Atraumatic. Normocephalic. EYES: Pupils equal and round. No scleral icterus. No injection or drainage. ENT: No nasal bleeding or discharge. Mucous membranes pink and moist. NECK: Trachea midline. No JVD. CARDIOVASCULAR: Regular rate and rhythm. No murmur appreciated. RESPIRATORY: No accessory muscle use. Clear to auscultation. Breath sounds equal bilaterally. GASTROINTESTINAL: Abdomen soft, supra pubic tenderness, nondistended. No CVA tenderness. MUSCULOSKELETAL: No obvious deformities. No clubbing. No cyanosis. No edema. NEUROLOGICAL: Awake and alert. No obvious cranial nerve deficits. Motor grossly within normal limits. Normal speech. PSYCHIATRIC: Appropriate mood and affect; insight and judgment normal. Course Initial Documented Vital Signs Temperature 97.7 F 12/15/17 10:11 Pulse Rate 68 12/15/17 10:11 Respiratory Rate 26 H 12/15/17 10:11 Blood Pressure 163/87 H 12/15/17 10:11 Pulse Oximetry 100 12/15/17 10:11 Last Documented Vital Signs Temperature 97.7 F 12/15/17 10:11 Pulse Rate 68 12/15/17 17:00 Respiratory Rate 12 12/15/17 17:00 Blood Pressure 151/85 H 12/15/17 17:00 Pulse Oximetry 99 12/15/17 17:00 Medical Decision Making [facility] Narrative Medical decision making narrative: Patient presents to the emergency department complaining of abdominal pain and chest pain. Patient placed on cardiac nurse specialist , continuous pulse ox, and IV access obtained. Lab/CT scan/chest x-ray/EKG and 4 mg IV morphine and 1 L normal saline ordered. Patient still complained of pain given 1 mg IV Dilaudid. ECG: Sinus rhythm, rate 77, PVCs, degree AV block, QTC 414, normal axis, incomplete right bundle branch block, Labs: Increased WBC count, normal coags, elevated creatinine, ALT; UA + Bacteria , blood, uric acid crystals, normal troponin and CK and BNP CXR: No acute process CT A/P: CONCLUSION:1. Obstructing left ureteral calculi.2. Small fat- containing inguinal hernias Dr. Keller, Urologist supersonic engineer, has been paged a total of 7 times about this patient. 1430: Dr. Keller-Give 30mg IV toradol and he will come assess patient. 2nd troponin ordered as well as 500cc IV NS. 1807: Dr Keller at bedside, wants patient admitted, wants cards to clear for possible stent placement in the morning. Differential Diagnosis Differential Diagnosis: Pyelonephritis, UTI, kidney stones, ACS, Lab Data Result diagrams: 12/15/17 11:10 12/15/17 11:10 Lab Results 12/15/17 12/15/17 12/15/17 Range/Units 11:10 11:10 11:10 WBC 11.7 H (4.0-11.0) th/mm3 RBC 5.31 (4.50-5.90) mil/mm3 Hgb 16.0 (13.0-17.0) gm/dL Hct 47.9 (39.0-51.0) % MCV 90.2 (80.0-100.0) fL MCH 30.2 (27.0-34.0) pg MCHC 33.5 (32.0-36.0) % RDW 14.8 (11.6-17.2) % Plt Count 264 (150-450) th/mm3 MPV 7.9 (7.0-11.0) fL Neut % (Auto) 67.7 (16.0-70.0) % Lymph % (Auto) 19.7 (9.0-44.0) % [place] % (Auto) 10.2 H (0.0-8.0) % Eos % (Auto) 1.6 (0.0-4.0) % Baso % (Auto) 0.8 (0.0-2.0) % Neut # (Auto) 7.9 H (1.8-7.7) th/mm3 Lymph # (Auto) 2.3 (1.0-4.8) th/mm3 [place] # (Auto) 1.2 H (0.0-0.9) th/mm3 Eos # (Auto) 0.2 (0.0-0.4) th/mm3 Baso # (Auto) 0.1 (0.0-0.2) th/mm3 WBC Differential . Differential Comment Auto diff final PT 11.0 (9.8-11.6) sec INR 1.1 Ratio APTT 24.8 (24.3-30.1) sec Sodium 142 (136-145) meq/L Potassium 4.1 (3.5-5.1) meq/L Chloride 111 H (98-107) meq/L Carbon Dioxide 20.9 L (21.0-32.0) meq/L Anion Gap 10 (5-15) meq/L BUN 18 (7-18) mg/dL Creatinine 1.31 H (0.60-1.30) mg/dL Estimated GFR 55 L (>89) mL/min Random Glucose 110 H (74-106) mg/dL Lactic Acid (0.4-2.0) mmol/L Calcium 8.6 (8.5-10.1) mg/dL Total Bilirubin 0.7 (0.2-1.0) mg/dL AST 26 (15-37) U/L ALT 85 H (12-78) U/L Alkaline Phosphatase 109 (45-117) U/L Total Creatine Kinase 44 (39-308) U/L Troponin I Less than 0.02 L (0.02-0.05) ng/mL B-Natriuretic Peptide (0-100) pg/mL Total Protein 7.6 (6.4-8.2) g/dL Albumin 3.8 (3.4-5.0) g/dL Lipase 139 (73-393) U/L Urine Color (Yellw/Straw) Urine Clarity (Clear) Urine pH (5.0-8.5) Ur Specific [place] (1.002-1.035) Urine Protein (Neg-Trace) mg/dL Urine Glucose (UA) (Negative) mg/dL Urine Ketones (Negative) mg/dL Urine Occult Blood (Negative) Urine Nitrate (Negative) Urine Bilirubin (Negative) Urine Urobilinogen (Less than 2) mg/dL Ur Leukocyte Esterase (Negative) Urine RBC (0-3) /hpf Urine WBC (0-5) /hpf Uric Acid Crystals (None) /hpf Urine Bacteria (None) /hpf Urine Mucus (Occasional) /lpf Micro UA Comment Urine Culture Comments 12/15/17 12/15/17 12/15/17 Range/Units 11:10 11:10 11:30 WBC (4.0-11.0) th/mm3 RBC (4.50-5.90) mil/mm3 Hgb (13.0-17.0) gm/dL Hct (39.0-51.0) % MCV (80.0-100.0) fL MCH (27.0-34.0) pg MCHC (32.0-36.0) % RDW (11.6-17.2) % Plt Count (150-450) th/mm3 MPV (7.0-11.0) fL Neut % (Auto) (16.0-70.0) % Lymph % (Auto) (9.0-44.0) % [place] % (Auto) (0.0-8.0) % Eos % (Auto) (0.0-4.0) % Baso % (Auto) (0.0-2.0) % Neut # (Auto) (1.8-7.7) th/mm3 Lymph # (Auto) (1.0-4.8) th/mm3 [place] # (Auto) (0.0-0.9) th/mm3 Eos # (Auto) (0.0-0.4) th/mm3 Baso # (Auto) (0.0-0.2) th/mm3 WBC Differential Differential Comment PT (9.8-11.6) sec INR Ratio APTT (24.3-30.1) sec Sodium (136-145) meq/L Potassium (3.5-5.1) meq/L Chloride (98-107) meq/L Carbon Dioxide (21.0-32.0) meq/L Anion Gap (5-15) meq/L BUN (7-18) mg/dL Creatinine (0.60-1.30) mg/dL Estimated GFR (>89) mL/min Random Glucose (74-106) mg/dL Lactic Acid 1.5 (0.4-2.0) mmol/L Calcium (8.5-10.1) mg/dL Total Bilirubin (0.2-1.0) mg/dL AST (15-37) U/L ALT (12-78) U/L Alkaline Phosphatase (45-117) U/L Total Creatine Kinase Cancelled (39-308) U/L Troponin I (0.02-0.05) ng/mL B-Natriuretic Peptide (0-100) pg/mL Total Protein (6.4-8.2) g/dL Albumin (3.4-5.0) g/dL Lipase (73-393) U/L Urine Color Yellow (Yellw/Straw) Urine Clarity Hazy H (Clear) Urine pH 5.0 (5.0-8.5) Ur Specific [place] 1.016 (1.002-1.035) Urine Protein Negative (Neg-Trace) mg/dL Urine Glucose (UA) Negative (Negative) mg/dL Urine Ketones Negative (Negative) mg/dL Urine Occult Blood Large H (Negative) Urine Nitrate Negative (Negative) Urine Bilirubin Negative (Negative) Urine Urobilinogen Less than 2 (Less than 2) mg/dL Ur Leukocyte Esterase Negative (Negative) Urine RBC (0-3) /hpf Urine WBC 1 (0-5) /hpf Uric Acid Crystals Moderate H (None) /hpf Urine Bacteria Rare H (None) /hpf Urine Mucus Few H (Occasional) /lpf Micro UA Comment Culture not ind Urine Culture Comments Culture not ind 12/15/17 Range/Units 11:41 WBC (4.0-11.0) th/mm3 RBC (4.50-5.90) mil/mm3 Hgb (13.0-17.0) gm/dL Hct (39.0-51.0) % MCV (80.0-100.0) fL MCH (27.0-34.0) pg MCHC (32.0-36.0) % RDW (11.6-17.2) % Plt Count (150-450) th/mm3 MPV (7.0-11.0) fL Neut % (Auto) (16.0-70.0) % Lymph % (Auto) (9.0-44.0) % [place] % (Auto) (0.0-8.0) % Eos % (Auto) (0.0-4.0) % Baso % (Auto) (0.0-2.0) % Neut # (Auto) (1.8-7.7) th/mm3 Lymph # (Auto) (1.0-4.8) th/mm3 [place] # (Auto) (0.0-0.9) th/mm3 Eos # (Auto) (0.0-0.4) th/mm3 Baso # (Auto) (0.0-0.2) th/mm3 WBC Differential Differential Comment PT (9.8-11.6) sec INR Ratio APTT (24.3-30.1) sec Sodium (136-145) meq/L Potassium (3.5-5.1) meq/L Chloride (98-107) meq/L Carbon Dioxide (21.0-32.0) meq/L Anion Gap (5-15) meq/L BUN (7-18) mg/dL Creatinine (0.60-1.30) mg/dL Estimated GFR (>89) mL/min Random Glucose (74-106) mg/dL Lactic Acid (0.4-2.0) mmol/L Calcium (8.5-10.1) mg/dL Total Bilirubin (0.2-1.0) mg/dL AST (15-37) U/L ALT (12-78) U/L Alkaline Phosphatase (45-117) U/L Total Creatine Kinase (39-308) U/L Troponin I (0.02-0.05) ng/mL B-Natriuretic Peptide 9 (0-100) pg/mL Total Protein (6.4-8.2) g/dL Albumin (3.4-5.0) g/dL Lipase (73-393) U/L Urine Color (Yellw/Straw) Urine Clarity (Clear) Urine pH (5.0-8.5) Ur Specific [place] (1.002-1.035) Urine Protein (Neg-Trace) mg/dL Urine Glucose (UA) (Negative) mg/dL Urine Ketones (Negative) mg/dL Urine Occult Blood (Negative) Urine Nitrate (Negative) Urine Bilirubin (Negative) Urine Urobilinogen (Less than 2) mg/dL Ur Leukocyte Esterase (Negative) Urine RBC (0-3) /hpf Urine WBC (0-5) /hpf Uric Acid Crystals (None) /hpf Urine Bacteria (None) /hpf Urine Mucus (Occasional) /lpf Micro UA Comment Urine Culture Comments Imaging Data Radiologist's impression: ITS Impressions Abdomen/Pelvis CT 12/15/17 10:55 CONCLUSION: 1. Obstructing left ureteral calculi. 2. Small fat-containing inguinal hernias Chest X-Ray 12/15/17 10:55 CONCLUSION: No acute cardiopulmonary disease Discharge Plan Discharge Disposition Patient Disposition: 30 Still Patient Discharge Condition Condition: Stable Discharge Details Discharge Problem: Chest pain, Kidney stone Physicians Team ED Provider: Kenyatta Boothe Primary Care Provider: Primary Care PhysiciNorma Rxs /Orders / Referrals /Forms Prescriptions: No Action nitroglycerin [Nitrostat] 0.3 mg Tablet, Sublingual RF: 0 clopidogrel [Plavix] 75 mg Tablet 75 mg PO DAILY RF: 0 aspirin [Aspir-81] 81 mg Tablet,Delayed Release (Dr/Ec) 81 mg PO DAILY RF: 0 Discharge Instructions Patient Printed Instructions: Chest Pain (ED) Discharge Interventions Interventions: Vital Signs Last Done: 12/15/17 17:00 Status ED Status: With Doctor
[2017-12-15] MEDS ORDERED: Sodium Chlor 0.9% Inj 500 ML IV.SIG ONE (14:31)
[2017-12-15] MEDS ORDERED: Ketorolac Inj 30 MG/ML (IVP) Vial IV.PUSH ONE (14:31)
[2017-12-15] MEDS ORDERED: Temazepam 15 MG Capsule PO PRN (18:05)
[2017-12-15] MEDS ORDERED: Acetaminophen 325 MG Tablet PO PRN (18:05)
[2017-12-15] MEDS ORDERED: Bisacodyl 10 MG Supp RECTAL PRN (18:05)
[2017-12-15] MEDS ORDERED: Zolpidem Tartrate 5 MG Tablet PO PRN (18:05)
[2017-12-15] MEDS: Enoxaparin Inj 30 MG/0.3 ML Syringe SQ SCH (18:18)
--- NOTE | 2017-12-15 18:18 | P.CONURO ---
History of Present Illness Consult date: 12/15/17 Reason for Consult: Nephrolithiasis Primary Care Provider: Norma Primary Care Physician Family Provider: [facility] Chief Complaint: Ab pain History of Present Illness: 67yo male with significant cardiac history with stents and angina currently on plavix with plans for eventual CABG now with left sided flank pain and nephrolithiasis. Patient report she began to experience severe left flank pain early this morning, radiating to the left groin, 10/10, sharp. He reported to the ED where CT scan identified a left proximal 6mm ureteral stone as well as a left distal 3mm ureteral stone with moderate hydronephrosis and perinephric stranding. He has had kidney stones in the past with prior surgeries for his stone burden. No fever, no N/V. No dysuria, some hematuria noted. Review of Systems All other systems reviewed negative except as stated in HPI Constitutional: Denies anorexia Eyes: Denies blind spots Ears, Nose, Mouth, and Throat: Denies abnormal hearing, Denies bleeding gums Cardiovascular: Reports chest pain Respiratory: Denies cough Gastrointestinal: Reports abdominal pain Genitourinary: Reports blood in urine, Denies scrotal swelling, Denies urinary incontinence Musculoskeletal: Reports back pain Skin/Breast: Denies bleeding lesions Neurologic: Denies abnormal hearing Psychiatric: Denies anxiety, Denies confusion Hematologic/Lymphatic: Reports easy bleeding PMFSH - History History Provided By: Patient - Medical History Medical History: Medical History (Last Reviewed 12/15/17 @ 18:15 by Evens Keller MD) High blood pressure Open forearm fracture - Surgical History Surgical History: Surgical History (Last Reviewed 12/15/17 @ 18:15 by Evens Keller MD) Hx of heart artery stent - Tobacco History Second Hand Smoke Exposure: No Tobacco Use In Past 30 Days: No Smoking Status: Former smoker - Alcohol History How Often Do You Have a Drink Containing Alcohol: Monthly or less - Substance Use History Substance History: No History of Abuse - Travel History Recent Travel in the [place] Within the Last 8 Weeks: No Recent Travel Out of the Country Within the Last 8 Weeks: No - Immunization History Tetanus Immunization: Unsure Hx Influenza Vaccine This Season: No Medications and Allergies Allergies Allergy/AdvReac Type Severity Reaction Status Date / Time prasugrel Allergy Unknown Rash Verified 12/06/17 17:09 tirofiban AdvReac Severe Rash, Verified 12/08/17 10:27 Tachycardic, Fever, Hypertension No Known Allergies Allergy Unknown Uncoded 09/17/17 16:24 Home Medications Medication Instructions Recorded Confirmed Type aspirin [Aspir-81] 81 mg PO DAILY 12/15/17 12/15/17 History clopidogrel [Plavix] 75 mg PO DAILY 12/15/17 12/15/17 History nitroglycerin [Nitrostat] 12/15/17 History Physical Exam Vital Signs - 24 hr 12/15/17 10:11 12/15/17 10:30 12/15/17 11:45 Temperature 97.7 F Pulse Rate 68 74 74 Respiratory Rate 26 H 22 22 Blood Pressure 163/87 H 138/94 H 158/89 H Pulse Oximetry 100 99 98 12/15/17 11:50 12/15/17 12:00 12/15/17 13:00 Temperature Pulse Rate 76 Respiratory Rate 22 22 14 Blood Pressure 184/97 H 154/78 H Pulse Oximetry 100 96 12/15/17 15:00 12/15/17 16:00 12/15/17 17:00 Temperature Pulse Rate 76 72 68 Respiratory Rate 12 12 12 Blood Pressure 152/85 H 140/79 151/85 H Pulse Oximetry 99 96 99 Physical Exam: GENERAL: This is a well-nourished, well-developed patient, in no apparent distress. SKIN: No rashes, ecchymoses or lesions. Cool and dry. HEAD: Atraumatic. Normocephalic. EYES: Extraocular motions intact. No scleral icterus. No injection or drainage. ENT: Nose without bleeding, purulent drainage. Airway patent. NECK: Trachea midline. No JVD or lymphadenopathy. CARDIOVASCULAR: Normal pulse RESPIRATORY: Nonlabnored GASTROINTESTINAL: Abdomen soft, non-tender, nondistended. MUSCULOSKELETAL: Extremities without clubbing, cyanosis, or edema. . NEUROLOGICAL: Awake and alert. Motor and sensory grossly within normal limits. Normal speech. Lab results reviewed: Yes Laboratory Results - last 24 hr 12/15/17 12/15/17 12/15/17 11:10 11:10 11:10 WBC 11.7 H RBC 5.31 Hgb 16.0 Hct 47.9 MCV 90.2 MCH 30.2 MCHC 33.5 RDW 14.8 Plt Count 264 MPV 7.9 Neut % (Auto) 67.7 Lymph % (Auto) 19.7 Mcmullen % (Auto) 10.2 H Eos % (Auto) 1.6 Baso % (Auto) 0.8 Neut # (Auto) 7.9 H Lymph # (Auto) 2.3 Mcmullen # (Auto) 1.2 H Eos # (Auto) 0.2 Baso # (Auto) 0.1 WBC Differential . Differential Comment Auto diff final PT 11.0 INR 1.1 APTT 24.8 Sodium 142 Potassium 4.1 Chloride 111 H Carbon Dioxide 20.9 L Anion Gap 10 BUN 18 Creatinine 1.31 H Estimated GFR 55 L Random Glucose 110 H Lactic Acid Calcium 8.6 Total Bilirubin 0.7 AST 26 ALT 85 H Alkaline Phosphatase 109 Total Creatine Kinase 44 Troponin I Less than 0.02 L B-Natriuretic Peptide Total Protein 7.6 Albumin 3.8 Lipase 139 Urine Color Urine Clarity Urine pH Ur Specific [place] Urine Protein Urine Glucose (UA) Urine Ketones Urine Occult Blood Urine Nitrate Urine Bilirubin Urine Urobilinogen Ur Leukocyte Esterase Urine RBC Urine WBC Uric Acid Crystals Urine Bacteria Urine Mucus Micro UA Comment Urine Culture Comments 12/15/17 12/15/17 12/15/17 11:10 11:10 11:30 WBC RBC Hgb Hct MCV MCH MCHC RDW Plt Count MPV Neut % (Auto) Lymph % (Auto) Mcmullen % (Auto) Eos % (Auto) Baso % (Auto) Neut # (Auto) Lymph # (Auto) Mcmullen # (Auto) Eos # (Auto) Baso # (Auto) WBC Differential Differential Comment PT INR APTT Sodium Potassium Chloride Carbon Dioxide Anion Gap BUN Creatinine Estimated GFR Random Glucose Lactic Acid 1.5 Calcium Total Bilirubin AST ALT Alkaline Phosphatase Total Creatine Kinase Cancelled Troponin I B-Natriuretic Peptide Total Protein Albumin Lipase Urine Color Yellow Urine Clarity Hazy H Urine pH 5.0 Ur Specific [place] 1.016 Urine Protein Negative Urine Glucose (UA) Negative Urine Ketones Negative Urine Occult Blood Large H Urine Nitrate Negative Urine Bilirubin Negative Urine Urobilinogen Less than 2 Ur Leukocyte Esterase Negative Urine RBC Urine WBC 1 Uric Acid Crystals Moderate H Urine Bacteria Rare H Urine Mucus Few H Micro UA Comment Culture not ind Urine Culture Comments Culture not ind 12/15/17 11:41 WBC RBC Hgb Hct MCV MCH MCHC RDW Plt Count MPV Neut % (Auto) Lymph % (Auto) Mcmullen % (Auto) Eos % (Auto) Baso % (Auto) Neut # (Auto) Lymph # (Auto) Mcmullen # (Auto) Eos # (Auto) Baso # (Auto) WBC Differential Differential Comment PT INR APTT Sodium Potassium Chloride Carbon Dioxide Anion Gap BUN Creatinine Estimated GFR Random Glucose Lactic Acid Calcium Total Bilirubin AST ALT Alkaline Phosphatase Total Creatine Kinase Troponin I B-Natriuretic Peptide 9 Total Protein Albumin Lipase Urine Color Urine Clarity Urine pH Ur Specific [place] Urine Protein Urine Glucose (UA) Urine Ketones Urine Occult Blood Urine Nitrate Urine Bilirubin Urine Urobilinogen Ur Leukocyte Esterase Urine RBC Urine WBC Uric Acid Crystals Urine Bacteria Urine Mucus Micro UA Comment Urine Culture Comments Result Diagrams: 12/15/17 11:10 12/15/17 11:10 Personally reviewed images: Yes Imaging: ITS Impressions Abdomen/Pelvis CT 12/15/17 10:55 CONCLUSION: 1. Obstructing left ureteral calculi. 2. Small fat-containing inguinal hernias Chest X-Ray 12/15/17 10:55 CONCLUSION: No acute cardiopulmonary disease Assessment and Plan - Assessment (1) Nephrolithiasis Code(s): N20.0 - Calculus of kidney Status: Acute - Plan -CT scan reviewed with left ureteral stones noted -We discussed left ureteral stent placement to alleviate pain. However intervention to remove stone would require holding plavix for 5-7 days -Recommend cardiology evaluation given his significant cardiac history and clearance for stent placement and potential ureteroscopy with laser lithotripsy in the future in relation to potential plans for CABG in the future -Plan discussed with patient who understands and agrees -NPO at midnight -Plan for left ureteral stent tomorrow pending cardiac clearance
[2017-12-15] MEDS: Sod Chloride 0.9% Inj 1,000 ML IV.CONT SCH (18:19)
[2017-12-15 19:15] LABS: Bacteria,Urine Few /hpf; Bilirubin,Urine Negative (Negative); Clarity,Urine Hazy (Clear); Color,Urine Yellow (Yellw/Straw); Glucose,Urine (UA) Negative (Negative); Leukocyte Esterase,Urine Negative (Negative); Mucus,Urine Few /lpf (Occasional); Nitrite,Urine Negative (Negative); Specific Gravity,Urine 1.011 (1.002-1.035)
--- NOTE | 2017-12-15 21:34 | ECG ---
Date Performed: 12/15/2017 Time Performed: 10:24:33 PTAGE: 67 years EKG: Sinus rhythm WITH FIRST DEGREE AV BLOCK WITH OCCASIONAL VENTRICULAR PREMATURE COMPLEXES BORDERLINE RIGHT AXIS DEV IATION INCOMPLETE RIGHT BUNDLE BRANCH BLOCK ABNORMAL ECG PREVIOUS TRACING : 12/08/2017 05.22 Since the previous tracing, no significant change noted DOCTOR: Jimena Oates Interpretating Date/Time 12/15/2017 21:33:44
[2017-12-15] MEDS: Senna/Docusate Sodium 8.6/50 MG Tablet PO SCH (23:59)
--- NOTE | 2017-12-16 00:12 | P.HPIM ---
History of Present Illness Primary Care Physician: No Primary Care Physician Chief Complaint: Ab pain History of Present Illness: 67-year-old male with a history of coronary artery disease status post stenting 2 months ago, follows with Dr. Robles. Patient presents with 1 day history of constant sharp left lower quadrant/flank pain radiating to left groin worse with urination but without dysuria. Patient also reports that when the pain is bad, this causes dull nonradiating substernal chest pain which is similar to his chronic angina. Patient reports chronic angina with exertion. Patient has received pain medication, and reports that pain has currently resolved. He denies any fevers, chills, shortness of breath, lightheadedness, dizziness, diarrhea, constipation. - Inpatient Certification If this patient has been admitted as an Inpatient: I certify that the inpatient services were ordered in accordance with Medicare regulations governing the order. This includes certification that hospital inpatient services are reasonable and necessary and in the case of services not specified as inpatient-only under 42 CFR 419.22(n), that they are appropriately provided as inpatient services in accordance to with the 2-midnight benchmark under 43 CFR 412.3(e) Review of Systems All other systems reviewed negative except as stated in HPI PMFSH - History History Provided By: Patient - Medical History Medical History: Medical History (Last Reviewed 12/15/17 @ 18:15 by Evens Keller MD) High blood pressure Open forearm fracture - Surgical History Surgical History: Surgical History (Last Reviewed 12/15/17 @ 18:15 by Evens Keller MD) Hx of heart artery stent - Family History Family History: Family History (Last Updated 12/16/17 @ 00:11 by Casimiro Bee MD) Father CAD (coronary artery disease) - Tobacco History Second Hand Smoke Exposure: No Tobacco Use In Past 30 Days: No Smoking Status: Former smoker Tobacco Type: Cigarettes - Alcohol History How Often Do You Have a Drink Containing Alcohol: Never - Substance Use History Substance History: No History of Abuse - Travel History Recent Travel in the [place] Within the Last 8 Weeks: No Recent Travel Out of the Country Within the Last 8 Weeks: No - Immunization History Tetanus Immunization: Unsure Hx Influenza Vaccine This Season: No Medications and Allergies Active Medications: Active Medications Acetaminophen (Tylenol) 650 mg PO Q4H PRN PRN Reason: Temp > 100.4 Al Hydroxide/Mg Hydroxide (Milk Of Magnesia Liq) 30 ml PO Q12H PRN PRN Reason: Mild Constipation Aspirin (Ecotrin) 81 mg PO DAILY [facility] Bisacodyl (Dulcolax Supp) 10 mg RECTAL DAILY PRN PRN Reason: SEVERE CONSITIPATION Clopidogrel Bisulfate (Plavix) 75 mg PO DAILY [facility] Enoxaparin Sodium (Lovenox Inj) 30 mg SQ Q24H [facility] Last Admin: 12/15/17 18:18 Dose: 30 mg Sodium Chloride (Ns Inj) 1,000 mls @ 100 mls/hr IV.CONT .Q10H [facility] Last Admin: 12/15/17 18:19 Dose: 100 mls/hr Lactulose (Lactulose Liq) 30 ml PO DAILY PRN PRN Reason: SEVERE CONSITIPATION Metoclopramide HCl (Reglan Inj) 5 mg IV.PUSH Q6HR PRN; Protocol PRN Reason: NAUSEA OR VOMITING Morphine Sulfate (Morphine Inj) 2 mg IV.PUSH Q4H PRN PRN Reason: pain 2-10 Nitroglycerin (Nitrostat Sl) 0.4 mg SL Q5M PRN PRN Reason: CHEST PAIN Senna/Docusate Sodium (Bernadette-Colace) 1 tab PO BID [facility] Last Admin: 12/15/17 23:59 Dose: Not Given Sennosides (Senokot) 17.2 mg PO Q12H PRN PRN Reason: Moderate Constipation Temazepam (Restoril) 15 mg PO HS PRN PRN Reason: INSOMNIA Zolpidem Tartrate (Ambien) 5 mg PO HS PRN PRN Reason: INSOMNIA Allergies Allergy/AdvReac Type Severity Reaction Status Date / Time prasugrel Allergy Unknown Rash Verified 12/06/17 17:09 tirofiban AdvReac Severe Rash, Verified 12/08/17 10:27 Tachycardic, Fever, Hypertension No Known Allergies Allergy Unknown Uncoded 09/17/17 16:24 Home Medications Medication Instructions Recorded Confirmed Type aspirin [Aspir-81] 81 mg PO DAILY 12/15/17 12/15/17 History clopidogrel [Plavix] 75 mg PO DAILY 12/15/17 12/15/17 History nitroglycerin [Nitrostat] 12/15/17 History Exam Vital signs: Vital Signs 12/15/17 10:11 12/15/17 10:30 12/15/17 11:45 Temperature 97.7 F Pulse Rate 68 74 74 Respiratory Rate 26 H 22 22 Blood Pressure 163/87 H 138/94 H 158/89 H Pulse Oximetry 100 99 98 12/15/17 11:50 12/15/17 12:00 12/15/17 13:00 Temperature Pulse Rate 76 Respiratory Rate 22 22 14 Blood Pressure 184/97 H 154/78 H Pulse Oximetry 100 96 12/15/17 15:00 12/15/17 16:00 12/15/17 17:00 Temperature Pulse Rate 76 72 68 Respiratory Rate 12 12 12 Blood Pressure 152/85 H 140/79 151/85 H Pulse Oximetry 99 96 99 12/15/17 18:00 12/15/17 20:00 Temperature 98.8 F Pulse Rate 74 73 Respiratory Rate 15 18 Blood Pressure 174/96 H 122/67 Pulse Oximetry 100 96 Intake & Output 12/15/17 12/15/17 12/16/17 06:59 18:59 06:59 Intake Total 1000 / 1000 500 / 500 Output Total 1075 / 1075 Balance -75 / -75 500 / 500 Weight 94.347 kg Intake: IV 1000 / 1000 500 / 500 NS Inj 1,000 ML @ Wide Open IV. 1000 / 1000 SIG BOLUS ONE Rx#:[id number] NS Inj 500 ML @ Wide Open IV. 500 / 500 SIG BOLUS ONE Rx#:[id number] Output: Urine 1075 / 1075 Other: # Voids 1 Narrative: GENERAL: In bed. Appears comfortable. Alert and oriented 3. SKIN: Warm and dry. HEAD: Atraumatic. Normocephalic. EYES: Pupils equal and round. No scleral icterus. No injection or drainage. ENT: No nasal bleeding or discharge. Mucous membranes pink and moist. NECK: Trachea midline. No JVD. CARDIOVASCULAR: Regular rate and rhythm. RESPIRATORY: No accessory muscle use. Clear to auscultation. Breath sounds equal bilaterally. GASTROINTESTINAL: Abdomen soft, non-tender, nondistended. Hepatic and splenic margins not palpable. No rebound or guarding. MUSCULOSKELETAL: Extremities without clubbing, cyanosis, or edema. No obvious deformities. NEUROLOGICAL: Awake and alert. No obvious cranial nerve deficits. Motor grossly within normal limits. Five out of 5 muscle strength in the arms and legs. Normal speech. PSYCHIATRIC: Appropriate mood and affect; insight and judgment normal. Results - Labs CBC & Chem 7: 07/04/18 11:10 12/15/17 11:10 Labs: Short CBC 12/15/17 Range/Units 11:10 WBC 11.7 H (4.0-11.0) th/mm3 Hgb 16.0 (13.0-17.0) gm/dL Hct 47.9 (39.0-51.0) % Plt Count 264 (150-450) th/mm3 BMP 12/15/17 11:10 Sodium 142 Potassium 4.1 Chloride 111 H Carbon Dioxide 20.9 L BUN 18 Creatinine 1.31 H Calcium 8.6 Cardiac Enzymes 12/15/17 12/15/17 12/15/17 Range/Units 11:10 11:10 14:45 Total Creatine Kinase 44 Cancelled (39-308) U/L Troponin I Less than 0.02 L Less than 0.02 L (0.02-0.05) ng/mL 12/15/17 Range/Units 22:50 Total Creatine Kinase (39-308) U/L Troponin I Less than 0.02 L (0.02-0.05) ng/mL Liver Function 12/15/17 Range/Units 11:10 Total Bilirubin 0.7 (0.2-1.0) mg/dL AST 26 (15-37) U/L ALT 85 H (12-78) U/L Alkaline Phosphatase 109 (45-117) U/L Albumin 3.8 (3.4-5.0) g/dL Urine 12/15/17 12/15/17 Range/Units 11:30 18:25 Urine Color Yellow Yellow (Yellw/Straw) Urine Clarity Hazy H Hazy H (Clear) Urine pH 5.0 6.0 (5.0-8.5) Ur Specific [place] 1.016 1.011 (1.002-1.035) Urine Protein Negative Negative (Neg-Trace) mg/dL Urine Glucose (UA) Negative Negative (Negative) mg/dL - Imaging Impressions Abdomen/Pelvis CT 12/15/17 10:55 CONCLUSION: 1. Obstructing left ureteral calculi. 2. Small fat-containing inguinal hernias Chest X-Ray 12/15/17 10:55 CONCLUSION: No acute cardiopulmonary disease Caprini VTE Risk Assessment Caprini VTE Risk Assessment: Moderate/High Risk (score >= 2) Caprini Risk Assessment Model: Point Value = 1 Point Value = 2 Point Value = 3 Point Value = 5 Age 41-60 Minor surgery BMI > 25 kg/m2 Swollen legs Varicose veins or History of unexplained or recurrent spontaneous Oral contraceptives or hormone replacement Sepsis (< 1 month) Serious lung disease, including pneumonia (< 1 month) Abnormal pulmonary function Acute myocardial infarction Congestive heart failure (< 1 month) History of inflammatory bowel disease Medical patient at bed rest Age 61-74 Arthroscopic surgery Major open surgery (> 45 min) Laparoscopic surgery (> 45 min) Malignancy Confined to bed (> 72 hours) Immobilizing plaster cast Central venous access Age >= 75 History of VTE Family history of VTE Factor V Leiden Prothrombin [id number] Lupus anticoagulant Anticardiolipin antibodies Elevated serum homocysteine Heparin-induced thrombocytopenia Other congenital or acquired thrombophilia Stroke (< 1 month) Elective arthroplasty Hip, pelvis, or leg fracture Acute spinal cord injury (< 1 month) Prophylaxis Regimen: Total Risk Factor Score Risk Level Prophylaxis Regimen 0-1 Low Early ambulation 2 Moderate Order ONE of the following: *Sequential Compression Device (SCD) *Heparin 5000 units SQ BID 3-4 Higher Order ONE of the following medications: *Heparin 5000 units SQ TID *Enoxaparin/Lovenox 40 mg SQ daily (WT < 150 kg, CrCl > 30 mL/min) *Enoxaparin/Lovenox 30 mg SQ daily (WT < 150 kg, CrCl > 10-29 mL/min) *Enoxaparin/Lovenox 30 mg SQ BID (WT < 150 kg, CrCl > 30 mL/min) AND/OR *Sequential Compression Device (SCD) 5 or more Highest Order ONE of the following medications: *Heparin 5000 units SQ TID (Preferred with Epidurals) *Enoxaparin/Lovenox 40 mg SQ daily (WT < 150 kg, CrCl > 30 mL/min) *Enoxaparin/Lovenox 30 mg SQ daily (WT < 150 kg, CrCl > 10-29 mL/min) *Enoxaparin/Lovenox 30 mg SQ BID (WT < 150 kg, CrCl > 30 mL/min) AND *Sequential Compression Device (SCD) Assessment and Plan - Plan //Left-sided ureterolithiasis //Hematuria = As seen on CT abdomen. -Narcotics for pain control. IV fluids. = Consult urology, but due to recent cardiac stenting, patient cannot stop Plavix. May need ureteral stenting. Pending cardiology clearance. //Coronary artery disease status post stenting //Chest pain = Chest pain appears to have improved with treatment of ureterolithiasis pain above. EKG with no change from baseline, troponin not elevated. Will continue to trend. Cardiology consulted. Follow-up recommendations. Continue home medications. //Hypertension. Systolic blood pressures elevated in the 170s. Continue home medications and adjust as necessary. Continue to monitor. Discussed Condition With: Patient, nurse, Dr. Kaur H&P: Quality - VTE Deep Vein Thrombosis/Pulmonary Embolism Present on Admission: No
[2017-12-16] MEDS: Sod Chloride 0.9% Inj 1,000 ML IV.CONT SCH ×2 (03:18→17:29)
[2017-12-16 06:38] LABS: Calcium 7.6 mg/dL (8.5-10.1); Carbon Dioxide 21.2 meq/L (21.0-32.0); Potassium 3.8 meq/L (3.5-5.1)
[2017-12-16 06:53] LABS: Hemoglobin 15.4 gm/dL (13.0-17.0); Red Blood Count 5.01 mil/mm3 (4.50-5.90); White Blood Count 8.4 th/mm3 (4.0-11.0)
[2017-12-16 06:54] LABS: Baso % (Auto) 0.6 % (0.0-2.0); Eos # (Auto) 0.2 th/mm3 (0.0-0.4); Eos % (Auto) 2.7 % (0.0-4.0); Hematocrit 44.8 % (39.0-51.0); Lymph # (Auto) 2.1 th/mm3 (1.0-4.8); Lymph % (Auto) 25.6 % (9.0-44.0); Mean Corpuscular HGB Conc 34.5 % (32.0-36.0); Mean Corpuscular Hemoglobin 30.9 pg (27.0-34.0); Mean Corpuscular Volume 89.4 fL (80.0-100.0); Mean Platelet Volume 8.3 fL (7.0-11.0); Mono # (Auto) 0.8 th/mm3 (0.0-0.9); Neut # (Auto) 5.2 th/mm3 (1.8-7.7); Neut % (Auto) 62.1 % (16.0-70.0); Platelet Count 227 th/mm3 (150-450)
[2017-12-16] MEDS: Senna/Docusate Sodium 8.6/50 MG Tablet PO SCH ×2 (09:12→21:37)
[2017-12-16] MEDS ORDERED: Neostigmine Inj 5 MG/5 ML Syringe IV.PUSH ONE (11:11)
[2017-12-16] MEDS ORDERED: Glycopyrrolate Inj 1 MG/5 ML Syringe IV.PUSH ONE (11:11)
[2017-12-16] MEDS ORDERED: Lidocaine PF 1% Inj 5 ML Syringe INFILTRATN ONE (11:11)
[2017-12-16] MEDS ORDERED: Phenylephrine/NS 1000 MCG/10ML Syringe IV.PUSH ONE (11:11)
--- NOTE | 2017-12-16 11:17 | P.PN ---
Subjective Interval history: Follow-up visit CAD with stent placement 2 months ago, obstructive left-sided ureterolithiasis. Patient seen and examined today. Reports he is doing okay. Pain is manageable. States he has been voiding since he has IV fluids. Otherwise, Denies pain and discomfort. Denies SOB/ dyspnea. Denies chest pain , palpitations, headaches, dizziness. Denies fevers, chills, n/v/d. Physical Exam Vital signs: Vital Signs 12/15/17 11:45 12/15/17 11:50 12/15/17 12:00 Temperature Pulse Rate 74 Respiratory Rate 22 22 22 Blood Pressure 158/89 H 184/97 H Pulse Oximetry 98 100 12/15/17 13:00 12/15/17 15:00 12/15/17 16:00 Temperature Pulse Rate 76 76 72 Respiratory Rate 14 12 12 Blood Pressure 154/78 H 152/85 H 140/79 Pulse Oximetry 96 99 96 12/15/17 17:00 12/15/17 18:00 12/15/17 20:00 Temperature 98.8 F Pulse Rate 68 74 73 Respiratory Rate 12 15 18 Blood Pressure 151/85 H 174/96 H 122/67 Pulse Oximetry 99 100 96 12/16/17 00:00 12/16/17 03:20 12/16/17 08:33 Temperature 98.7 F 98.7 F 98.9 F Pulse Rate 67 75 76 Respiratory Rate 16 18 16 Blood Pressure 131/70 141/81 H 139/74 Pulse Oximetry 99 98 Intake & Output 12/15/17 12/16/17 12/16/17 18:59 06:59 18:59 Intake Total 1000 / 1000 1400 / 1400 Output Total 1075 / 1075 550 / 550 Balance -75 / -75 1400 / 1400 -550 / -550 Weight 94.347 kg Intake: IV 1000 / 1000 1400 / 1400 NS Inj 1,000 ML @ 100 mls/hr IV 900 / 900 .CONT .Q10H MIGUEL Rx#:[id number] NS Inj 1,000 ML @ Wide Open IV. 1000 / 1000 SIG BOLUS ONE Rx#:[id number] NS Inj 500 ML @ Wide Open IV. 500 / 500 SIG BOLUS ONE Rx#:[id number] Output: Urine 1075 / 1075 550 / 550 Other: # Voids 1 Narrative: GENERAL: This is a well-nourished, well-developed patient, in no apparent distress. SKIN: Warm and dry. Multiple tattoos throughout the body HEENT: Normocephalic. Pupils equal round and reactive. Nose without bleeding. Airway patent. NECK: Trachea midline. No JVD. Supple. CARDIOVASCULAR: Regular rate and rhythm without murmurs, gallops, or rubs. RESPIRATORY: Clear to auscultation. Breath sounds equal bilaterally. No wheezes , rales, or rhonchi. GASTROINTESTINAL: Abdomen soft, non-tender, nondistended. Bowel Sounds normoactive x4. MUSCULOSKELETAL: Extremities without clubbing, cyanosis, or edema. NEUROLOGICAL: Awake and alert. Oriented to time, place, person. No focal neuro deficit. Moves all extremities. Normal speech. Results - Labs CBC & Chem 7: 12/16/17 05:06 12/16/17 05:06 Laboratory Results - last 24 hr 12/15/17 12/15/17 12/15/17 11:10 11:10 11:10 WBC 11.7 H RBC 5.31 Hgb 16.0 Hct 47.9 MCV 90.2 MCH 30.2 MCHC 33.5 RDW 14.8 Plt Count 264 MPV 7.9 Neut % (Auto) 67.7 Lymph % (Auto) 19.7 [place] % (Auto) 10.2 H Eos % (Auto) 1.6 Baso % (Auto) 0.8 Neut # (Auto) 7.9 H Lymph # (Auto) 2.3 [place] # (Auto) 1.2 H Eos # (Auto) 0.2 Baso # (Auto) 0.1 WBC Differential . Differential Comment Auto diff final Hematology Comments PT 11.0 INR 1.1 APTT 24.8 Sodium 142 Potassium 4.1 Chloride 111 H Carbon Dioxide 20.9 L Anion Gap 10 BUN 18 Creatinine 1.31 H Estimated GFR 55 L Random Glucose 110 H Lactic Acid Calcium 8.6 Total Bilirubin 0.7 AST 26 ALT 85 H Alkaline Phosphatase 109 Total Creatine Kinase 44 Troponin I Less than 0.02 L B-Natriuretic Peptide Total Protein 7.6 Albumin 3.8 Lipase 139 Urine Color Urine Clarity Urine pH Ur Specific [place] Urine Protein Urine Glucose (UA) Urine Ketones Urine Occult Blood Urine Nitrate Urine Bilirubin Urine Urobilinogen Ur Leukocyte Esterase Urine RBC Urine WBC Uric Acid Crystals Urine Bacteria Urine Mucus Micro UA Comment Urine Culture Comments 07/09/2912/15/17 12/15/17 11:10 11:10 11:30 WBC RBC Hgb Hct MCV MCH MCHC RDW Plt Count MPV Neut % (Auto) Lymph % (Auto) [place] % (Auto) Eos % (Auto) Baso % (Auto) Neut # (Auto) Lymph # (Auto) [place] # (Auto) Eos # (Auto) Baso # (Auto) WBC Differential Differential Comment Hematology Comments PT INR APTT Sodium Potassium Chloride Carbon Dioxide Anion Gap BUN Creatinine Estimated GFR Random Glucose Lactic Acid 1.5 Calcium Total Bilirubin AST ALT Alkaline Phosphatase Total Creatine Kinase Cancelled Troponin I B-Natriuretic Peptide Total Protein Albumin Lipase Urine Color Yellow Urine Clarity Hazy H Urine pH 5.0 Ur Specific [place] 1.016 Urine Protein Negative Urine Glucose (UA) Negative Urine Ketones Negative Urine Occult Blood Large H Urine Nitrate Negative Urine Bilirubin Negative Urine Urobilinogen Less than 2 Ur Leukocyte Esterase Negative Urine RBC Urine WBC 1 Uric Acid Crystals Moderate H Urine Bacteria Rare H Urine Mucus Few H Micro UA Comment Culture not ind Urine Culture Comments Culture not ind 12/15/17 12/15/17 12/15/17 11:41 14:45 18:25 WBC RBC Hgb Hct MCV MCH MCHC RDW Plt Count MPV Neut % (Auto) Lymph % (Auto) [place] % (Auto) Eos % (Auto) Baso % (Auto) Neut # (Auto) Lymph # (Auto) [place] # (Auto) Eos # (Auto) Baso # (Auto) WBC Differential Differential Comment Hematology Comments PT INR APTT Sodium Potassium Chloride Carbon Dioxide Anion Gap BUN Creatinine Estimated GFR Random Glucose Lactic Acid Calcium Total Bilirubin AST ALT Alkaline Phosphatase Total Creatine Kinase Troponin I Less than 0.02 L B-Natriuretic Peptide 9 Total Protein Albumin Lipase Urine Color Yellow Urine Clarity Hazy H Urine pH 6.0 Ur Specific [place] 1.011 Urine Protein Negative Urine Glucose (UA) Negative Urine Ketones Negative Urine Occult Blood Large H Urine Nitrate Negative Urine Bilirubin Negative Urine Urobilinogen Less than 2 Ur Leukocyte Esterase Negative Urine RBC Urine WBC 12 H Uric Acid Crystals Urine Bacteria Few H Urine Mucus Few H Micro UA Comment Culture indicated Urine Culture Comments Culture indicated 12/15/17 12/16/17 12/16/17 22:50 05:06 05:06 WBC 8.4 RBC 5.01 Hgb 15.4 Hct 44.8 MCV 89.4 MCH 30.9 MCHC 34.5 RDW 15.0 Plt Count 227 MPV 8.3 Neut % (Auto) 62.1 Lymph % (Auto) 25.6 [place] % (Auto) 9.0 H Eos % (Auto) 2.7 Baso % (Auto) 0.6 Neut # (Auto) 5.2 Lymph # (Auto) 2.1 [place] # (Auto) 0.8 Eos # (Auto) 0.2 Baso # (Auto) 0.0 WBC Differential . Differential Comment Auto diff final Hematology Comments PT INR APTT Sodium 143 Potassium 3.8 Chloride 110 H Carbon Dioxide 21.2 Anion Gap 12 BUN 17 Creatinine 1.13 Estimated GFR 65 L Random Glucose 96 Lactic Acid Calcium 7.6 L D Total Bilirubin AST ALT Alkaline Phosphatase Total Creatine Kinase Troponin I Less than 0.02 L B-Natriuretic Peptide Total Protein Albumin Lipase Urine Color Urine Clarity Urine pH Ur Specific [place] Urine Protein Urine Glucose (UA) Urine Ketones Urine Occult Blood Urine Nitrate Urine Bilirubin Urine Urobilinogen Ur Leukocyte Esterase Urine RBC Urine WBC Uric Acid Crystals Urine Bacteria Urine Mucus Micro UA Comment Urine Culture Comments - Imaging Impressions Abdomen/Pelvis CT 12/15/17 10:55 CONCLUSION: 1. Obstructing left ureteral calculi. 2. Small fat-containing inguinal hernias Chest X-Ray 12/15/17 10:55 CONCLUSION: No acute cardiopulmonary disease Assessment and Plan - Plan 67-year-old male with a history of coronary artery disease status post stenting 2 months ago, follows with Dr. Robles who presents with 1 day history of constant sharp left lower quadrant/flank pain radiating to left groin worse with urination but without dysuria. Left-sided ureterolithiasis Hematuria -CT abdomen and pelvis showed obstructing left ureteral calculi. Small fat- containing inguinal hernias. -Narcotics for pain control. IV fluids. -Consult urology, but due to recent cardiac stenting, patient cannot stop Plavix. May need ureteral stenting. -Cardiology clearance, cleared for stent placement. Plavix will not be stopped as per recommendation. Coronary artery disease status post stenting Chest pain -Chest pain appears to have improved with treatment of ureterolithiasis pain above. -EKG with no change from baseline, troponin not elevated. -Continue home medications. Hypertension. -Continue home medications and adjust as necessary -Continue to monitor. DVT prop lovenox, hold for procedure and restart after Code Status: Full Code Discussed Condition With: Patient, nurse Discharge Planning: When to DC home when clinically improved
--- NOTE | 2017-12-16 13:58 | P.PNURO ---
Subjective Patient symptoms today: Pt was seen at bedside today. Pain is controlled. afebrile. no nausea/vomiting. Consented for OR procedure for stent placement later today. Was seen by Cardiology, cleared for OR procedure on Plavix. Pt states that has minor chect discomfort but thinks its because he is nervous a little and also can be GERD related. Objective Vital Signs: Vital Signs 12/15/17 15:00 12/15/17 16:00 12/15/17 17:00 Temperature Pulse Rate 76 72 68 Respiratory Rate 12 12 12 Blood Pressure 152/85 H 140/79 151/85 H Pulse Oximetry 99 96 99 12/15/17 18:00 12/15/17 20:00 12/16/17 00:00 Temperature 98.8 F 98.7 F Pulse Rate 74 73 67 Respiratory Rate 15 18 16 Blood Pressure 174/96 H 122/67 131/70 Pulse Oximetry 100 96 12/16/17 03:20 12/16/17 08:33 12/16/17 13:11 Temperature 98.7 F 98.9 F 98.7 F Pulse Rate 75 76 64 Respiratory Rate 18 16 18 Blood Pressure 141/81 H 139/74 142/75 H Pulse Oximetry 99 98 100 Intake & Output 12/15/17 12/16/17 12/16/17 18:59 06:59 18:59 Intake Total 1000 / 1000 1400 / 1400 1000 / 1000 Output Total 1075 / 1075 550 / 550 Balance -75 / -75 1400 / 1400 450 / 450 Weight 94.347 kg Intake: IV 1000 / 1000 1400 / 1400 1000 / 1000 NS Inj 1,000 ML @ 100 mls/hr IV 900 / 900 1000 / 1000 .CONT .Q10H MIGUEL Rx#:[id number] NS Inj 1,000 ML @ Wide Open IV. 1000 / 1000 SIG BOLUS ONE Rx#:[id number] NS Inj 500 ML @ Wide Open IV. 500 / 500 SIG BOLUS ONE Rx#:[id number] Output: Urine 1075 / 1075 550 / 550 Other: # Voids 1 Result Diagrams: 12/16/17 05:06 12/16/17 05:06 Medications and IVs: Active Medications Generic Name Dose Route Start Last Admin Trade Name Freq PRN Reason Stop Dose Admin Acetaminophen 650 mg 12/15/17 18:05 Tylenol PO Q4H PRN Temp > 100.4 Al Hydroxide/Mg Hydroxide 30 ml 12/15/17 18:05 Milk Of Magnesia Liq PO Q12H PRN Mild Constipation Aspirin 81 mg 12/16/17 09:00 12/16/17 09:15 Ecotrin PO 81 mg DAILY MIGUEL Administration Bisacodyl 10 mg 12/15/17 18:05 Dulcolax Supp RECTAL DAILY PRN SEVERE CONSITIPATION Clopidogrel Bisulfate 75 mg 12/16/17 09:00 12/16/17 09:12 Plavix PO 75 mg DAILY MIGUEL Administration Enoxaparin Sodium 30 mg 12/15/17 18:15 12/15/17 18:18 Lovenox Inj SQ 30 mg Q24H MIGUEL Administration Sodium Chloride 1,000 mls @ 100 mls/hr 12/15/17 18:15 12/16/17 13:41 Ns Inj IV.CONT Infused .Q10H MIGUEL Infusion Lactulose 30 ml 12/15/17 18:05 Lactulose Liq PO DAILY PRN SEVERE CONSITIPATION Metoclopramide HCl 5 mg 12/15/17 18:05 Reglan Inj IV.PUSH Q6HR PRN NAUSEA OR VOMITING Protocol Morphine Sulfate 2 mg 12/15/17 18:18 Morphine Inj IV.PUSH Q4H PRN pain 2-10 Nitroglycerin 0.4 mg 12/15/17 18:14 Nitrostat Sl SL Q5M PRN CHEST PAIN Senna/Docusate Sodium 1 tab 12/15/17 21:00 12/16/17 09:12 Bernadette-Colace PO 1 tab BID MIGUEL Administration Sennosides 17.2 mg 12/15/17 18:05 Senokot PO Q12H PRN Moderate Constipation Temazepam 15 mg 12/15/17 18:05 Restoril PO HS PRN INSOMNIA Zolpidem Tartrate 5 mg 12/15/17 18:05 Ambien PO HS PRN INSOMNIA Assessment and Plan - Plan - Cleared by cardiology for OR procedure. Needs to stay on Plavix. - [facility] to evaluate pt as well to see if he is a good candidate for procedure today - Liang pt NPO -Plan for left ureteral stent later today if ok by other services
[2017-12-16] MEDS ORDERED: Sugammadex Inj 200 MG/2 ML Vial IV.PUSH ONE (15:42)
--- NOTE | 2017-12-16 15:59 | P.PNURO ---
Subjective Patient symptoms today: Successful left ureteral stent placement -Patient may be discharged once medically cleared with followup in Urology clinic to discuss definitive stone management -Given his significant cardiac history and plavix, treatment for his stone will need to be coordinated with cardiology -Please call with questions Objective Vital Signs: Vital Signs 12/15/17 16:00 12/15/17 17:00 12/15/17 18:00 Temperature Pulse Rate 72 68 74 Respiratory Rate 12 12 15 Blood Pressure 140/79 151/85 H 174/96 H Pulse Oximetry 96 99 100 12/15/17 20:00 12/16/17 00:00 12/16/17 03:20 Temperature 98.8 F 98.7 F 98.7 F Pulse Rate 73 67 75 Respiratory Rate 18 16 18 Blood Pressure 122/67 131/70 141/81 H Pulse Oximetry 96 99 12/16/17 08:33 12/16/17 13:11 Temperature 98.9 F 98.7 F Pulse Rate 76 64 Respiratory Rate 16 18 Blood Pressure 139/74 142/75 H Pulse Oximetry 98 100 Intake & Output 12/15/17 12/16/17 12/16/17 18:59 06:59 18:59 Intake Total 1000 / 1000 1400 / 1400 1000 / 1000 Output Total 1075 / 1075 550 / 550 Balance -75 / -75 1400 / 1400 450 / 450 Weight 94.347 kg Intake: IV 1000 / 1000 1400 / 1400 1000 / 1000 NS Inj 1,000 ML @ 100 mls/hr IV 900 / 900 1000 / 1000 .CONT .Q10H MIGUEL Rx#:[id number] NS Inj 1,000 ML @ Wide Open IV. 1000 / 1000 SIG BOLUS ONE Rx#:[id number] NS Inj 500 ML @ Wide Open IV. 500 / 500 SIG BOLUS ONE Rx#:[id number] Output: Urine 1075 / 1075 550 / 550 Other: # Voids 1 Result Diagrams: 12/16/17 05:06 12/16/17 05:06 Medications and IVs: Active Medications Generic Name Dose Route Start Last Admin Trade Name Freq PRN Reason Stop Dose Admin Acetaminophen 650 mg 12/15/17 18:05 Tylenol PO Q4H PRN Temp > 100.4 Al Hydroxide/Mg Hydroxide 30 ml 12/15/17 18:05 Milk Of Magnesia Liq PO Q12H PRN Mild Constipation Aspirin 81 mg 12/16/17 09:00 12/16/17 09:15 Ecotrin PO 81 mg DAILY MIGUEL Administration Bisacodyl 10 mg 12/15/17 18:05 Dulcolax Supp RECTAL DAILY PRN SEVERE CONSITIPATION Clopidogrel Bisulfate 75 mg 12/16/17 09:00 12/16/17 09:12 Plavix PO 75 mg DAILY MIGUEL Administration Enoxaparin Sodium 30 mg 12/15/17 18:15 12/15/17 18:18 Lovenox Inj SQ 30 mg Q24H MIGUEL Administration Sodium Chloride 1,000 mls @ 100 mls/hr 12/15/17 18:15 12/16/17 13:41 Ns Inj IV.CONT Infused .Q10H MIGUEL Infusion Lactulose 30 ml 12/15/17 18:05 Lactulose Liq PO DAILY PRN SEVERE CONSITIPATION Metoclopramide HCl 5 mg 12/15/17 18:05 Reglan Inj IV.PUSH Q6HR PRN NAUSEA OR VOMITING Protocol Morphine Sulfate 2 mg 12/15/17 18:18 Morphine Inj IV.PUSH Q4H PRN pain 2-10 Nitroglycerin 0.4 mg 12/15/17 18:14 Nitrostat Sl SL Q5M PRN CHEST PAIN Senna/Docusate Sodium 1 tab 12/15/17 21:00 12/16/17 09:12 Bernadette-Colace PO 1 tab BID MIGUEL Administration Sennosides 17.2 mg 12/15/17 18:05 Senokot PO Q12H PRN Moderate Constipation Temazepam 15 mg 12/15/17 18:05 Restoril PO HS PRN INSOMNIA Zolpidem Tartrate 5 mg 12/15/17 18:05 Ambien PO HS PRN INSOMNIA Assessment and Plan - Assessment (1) Nephrolithiasis Code(s): N20.0 - Calculus of kidney Status: Acute
[2017-12-16] MEDS ORDERED: fentaNYL Citrate Inj 100 MCG/2 ML Ampul ONE (16:14)
--- NOTE | 2017-12-16 16:29 | MP ---
cc: Evens Keller MD DATE OF OPERATION: 12/16/2017 DATE OF OPERATION: 12/16/2017 PREOPERATIVE DIAGNOSIS: Left side nephrolithiasis. POSTOPERATIVE DIAGNOSIS: Left side nephrolithiasis. SURGEON: Evens Keller MD PROCEDURE PERFORMED: 1. Cystoscopy. 2. Left ureteral stent placement. PERTINENT FINDINGS: 1. Impacted left distal ureteral stone, difficulty in passing a wire beyond. 2. Successful placement of 5 x 24 double-J ureteral stent on the left. HISTORY OF PRESENT ILLNESS: Blu Valdovinos is a 67-year-old male with history of kidney stones, found to have left-sided nephrolithiasis, significant left flank pain. CT scan identified a left 3 mm distal obstructing ureteral stone with a 6 mm proximal ureteral stone. The patient is without fevers. The patient presents now for treatment with left ureteral stent placement. The patient understands the stent is temporary and requires definitive ureteroscopy and laser lithotripsy to remove the stone. PROCEDURE IN DETAIL: After proper informed consent was obtained, the patient brought to the operating room and placed supine on the operating room table . Bilateral lower extremity SCDs were in place. The patient was then placed under general anesthesia. The patient was placed in lithotomy position, prepped and draped in standard surgical fashion. After a proper timeout was completed, the rigid cystoscope was inserted through then urethra and bladder inspected. Mucosa was within normal limits without any abnormalities of lesions identified throughout. After entering the bladder, bilateral ureteral orifices were identified. The left ureteral orifice was then cannulated using the guidewire; however, resistance was met at the very distal ureter. An open-ended ureteral catheter was passed over the wire and passed into the distal ureter and manipulation was undertaken to try to pass the stone. After manipulation, the wire was able to be passed beyond the stone, up into the left renal pelvis. At this point, a 5 x 24 double-J ureteral stent was then successfully placed over the wire into the left collecting system with good curl in renal pelvis as well as in the bladder. This was confirmed in position via fluoroscopy. At this point, the patient's bladder was emptied and the scope was removed. The patient tolerated the procedure well with no complication. DISPOSITION: The patient was discharged home to follow up in clinic for definitive stone management. MD TAMIKA Bryan/WILBER , 03:56 PM , 04:27 PM
[2017-12-16] MEDS: Enoxaparin Inj 30 MG/0.3 ML Syringe SQ SCH (17:41)
--- NOTE | 2017-12-16 18:59 | ECG ---
Date Performed: 12/16/2017 Time Performed: 00:57:40 PTAGE: 67 years EKG: Sinus rhythm INDETERMINATE AXIS INCOMPLETE RIGHT BUNDLE BRANCH BLOCK NONSPECIFIC T-WAVE ABNORMALITY BORDERLINE EC G PROBABLE RIGHT VENTRICULAR HYPERTROPHY PREVIOUS TRACING : 12/15/2017 10.24 Since the prior tracing, there has been an increase i n the septal T-wave changes. The PVC's have resolved. Clinical correlation is recommended. DOCTOR: Nidhi West Interpretating Date/Time 12/16/2017 18:57:39
--- NOTE | 2017-12-16 19:30 | MB ---
cc: Jimena Oates MD, Ot[place]ar MD DATE: 12/16/2017 HISTORY OF PRESENT COMPLAINT: A 67-year-old white male with a history of coronary artery disease and recent PTCA by Dr. Mata, who presented with left lower quadrant flank pain radiating to the left groin. This was controlled with medications. He has not had any angina, dyspnea on exertion, PND, orthopnea, or peripheral edema. He recently underwent cardiac catheterization and PTCA of the 95% ostial right PDA in-stent restenosis with Dr. Mata for unstable angina. He was loaded with Plavix, which was supposed to be continued for at least 12 months and also was supposed to continue his aspirin. He was referred to Dr. Ferraro for consideration of future coronary bypass. PAST MEDICAL HISTORY: Coronary artery disease as above, hypertension, open forearm fracture. PAST SURGICAL HISTORY: Previous history of coronary stenting and recent history of PTCA of in-stent restenosis. MEDICATIONS: 1. Bernadette-Colace. 2. Lovenox. 3. Plavix. 4. Baby aspirin. ALLERGIES: PRASUGREL SOCIAL HISTORY: The patient does not smoke but used to smoke in the past and does not drink alcohol. FAMILY HISTORY: Positive for heart disease. REVIEW OF SYSTEMS: Otherwise negative. PHYSICAL EXAMINATION: VITAL SIGNS: Blood pressure 139/74, pulse 76 and regular. HEENT: Negative, 2+ carotid upstrokes, no bruits. LUNGS: Clear. HEART: Regular with no murmur or gallop. ABDOMEN: Soft, no bruits. EXTREMITIES: Without edema. 2+ distal pulses. NEUROLOGIC: Grossly intact. SKIN: With multiple tattoos. CARDIOLOGY STUDIES: EKG was reviewed and showed normal sinus rhythm, first degree AV block, PVCs, right axis, incomplete right bundle-branch block. LABORATORY DATA: Hemoglobin 15.4, potassium 3.8, creatinine 1.1. DIAGNOSES: 1. Coronary artery disease. 2. History of coronary stenting and recent coronary angioplasty. 3. Hypertension. 4. Nephrolithiasis. DISPOSITION: Mr. Valdovinos will undergo cystoscopy and left ureteral stent placement as planned. He has been seen by urology. I recommend to proceed with his surgery as planned. He had recent angioplasty of stent restenosis and he needs to stay on Plavix and aspirin long-term to decrease the chance of stent thrombosis and acute myocardial infarction. I recommend to continue aggressive modification of his cardiac risk factors. He will follow up with Dr. Robles next week as planned. MD WALT Abad/ , 06:58 PM , 07:27 PM ABIMAEL
[2017-12-16] MEDS: Morphine Inj 4 MG/ML Vial IV.PUSH PRN (21:36)
[2017-12-17] MEDS: Morphine Inj 4 MG/ML Vial IV.PUSH PRN (04:28)
[2017-12-17] MEDS: Sod Chloride 0.9% Inj 1,000 ML IV.CONT SCH (04:30)
[2017-12-17] MEDS: Senna/Docusate Sodium 8.6/50 MG Tablet PO SCH (08:54)
--- NOTE | 2017-12-17 10:04 | P.PN ---
Subjective Interval history: Follow-up visit CAD with stent placement 2 months ago, obstructive left-sided ureterolithiasis. Patient seen and examined today. Patient is status post urethral stent placement by Dr. Keller. States he is doing well. Reports hematuria but states that Dr. Garcia and he states that it is going to be normal for him. Discussed with patient that he will need to continue Plavix and aspirin as recommended by cardiology. Patient states that he is being followed by Dr. Robles and the plan was to get him into surgery for a bypass. States that he already has an appointment with Dr. Robles. States he continues to have some chest pain on and off right side of the chest and left side of the chest is not worsening but it still present. Otherwise, Denies SOB/ dyspnea. Denies palpitations, headaches, dizziness. Denies fevers, chills, n/v/d. Denies dysuria. Physical Exam Vital signs: Vital Signs 12/16/17 13:11 12/16/17 16:06 12/16/17 16:15 Temperature 98.7 F 98.1 F 98.1 F Pulse Rate 64 74 69 Respiratory Rate 18 14 14 Blood Pressure 142/75 H 139/75 126/74 Pulse Oximetry 100 100 96 12/16/17 16:30 12/16/17 16:55 12/16/17 20:00 Temperature 98.1 F 98.1 F 99.2 F Pulse Rate 62 58 L 82 Respiratory Rate 14 14 20 Blood Pressure 124/68 97/63 L 118/67 Pulse Oximetry 97 97 96 12/17/17 00:00 12/17/17 04:00 12/17/17 07:56 Temperature 99.1 F 98.7 F Pulse Rate 65 72 Respiratory Rate 16 16 Blood Pressure 98/65 L 119/66 183/84 H Pulse Oximetry 95 96 Intake & Output 12/16/17 12/17/17 12/17/17 18:59 06:59 18:59 Intake Total 1800 / 1800 Output Total 650 / 650 Balance 1150 / 1150 Intake: IV 1000 / 1000 NS Inj 1,000 ML @ 100 mls/hr IV 1000 / 1000 .CONT .Q10H MIGUEL Rx#:[id number] Anesthesia Amount 800 / 800 Output: Urine 650 / 650 Estimated Blood Loss 0 / 0 Other: # Voids 1 Narrative: GENERAL: This is a well-nourished, well-developed patient, in no apparent distress. SKIN: Warm and dry. Multiple tattoos throughout the body HEENT: Normocephalic. Pupils equal round and reactive. Nose without bleeding. Airway patent. NECK: Trachea midline. No JVD. Supple. CARDIOVASCULAR: Regular rate and rhythm without murmurs, gallops, or rubs. RESPIRATORY: Clear to auscultation. Breath sounds equal bilaterally. No wheezes , rales, or rhonchi. GASTROINTESTINAL: Abdomen soft, non-tender, nondistended. Bowel Sounds normoactive x4. MUSCULOSKELETAL: Extremities without clubbing, cyanosis, or edema. NEUROLOGICAL: Awake and alert. Oriented to time, place, person. No focal neuro deficit. Moves all extremities. Normal speech. Results - Labs CBC & Chem 7: 12/16/17 05:06 12/16/17 05:06 Microbiology 12/15/17 18:25 Clean Catch Urine Urine Culture - Final No growth in 48 hours Assessment and Plan - Plan 67-year-old male with a history of coronary artery disease status post stenting 2 months ago, follows with Dr. Robles who presents with 1 day history of constant sharp left lower quadrant/flank pain radiating to left groin worse with urination but without dysuria. S/P ureteral stent placement by Dr. Keller 12/16/17 Left-sided ureterolithiasis Hematuria -CT abdomen and pelvis showed obstructing left ureteral calculi. Small fat- containing inguinal hernias. -Narcotics for pain control. IV fluids. -Consult urology, but due to recent cardiac stenting, patient cannot stop Plavix. May need ureteral stenting. -Cardiology clearance, cleared for stent placement. Plavix will not be stopped as per recommendation. -Follow up with Dr. Keller and Dr. Robles in the outpatient. CBC and BMP in 5 days in outpatient. Coronary artery disease status post stenting Chest pain -Chest pain appears to have improved with treatment of ureterolithiasis pain above. -EKG with no change from baseline, troponin not elevated. -Continue home medications. Hypertension. -Continue home medications and adjust as necessary -Continue to monitor. DVT prop lovenox, hold for procedure Code Status: Full Code Discussed Condition With: patient, nursing, Dr. Salvador Discharge Planning: When to DC home when clinically improved
--- NOTE | 2017-12-17 10:04 | P.DS ---
Date of admission: 12/15/17 18:06 Primary care physician: No Primary Care Physician Attending physician on discharge: Tod Salvador Anticipated date of discharge: 12/17/17 Brief History from admission: 67-year-old male with a history of coronary artery disease status post stenting 2 months ago, follows with Dr. Robles. Patient presents with 1 day history of constant sharp left lower quadrant/flank pain radiating to left groin worse with urination but without dysuria. Patient also reports that when the pain is bad, this causes dull nonradiating substernal chest pain which is similar to his chronic angina. Patient reports chronic angina with exertion. Patient has received pain medication, and reports that pain has currently resolved. He denies any fevers, chills, shortness of breath, lightheadedness, dizziness, diarrhea, constipation. DS: Diagnosis - Discharge Diagnosis (1) CAD (coronary artery disease) Status: Acute (2) Stented coronary artery Status: Acute (3) History of urethral stent Status: Acute (4) Nephrolithiasis Status: Acute DS: Summary Hospital Course: 67-year-old male with a history of coronary artery disease status post stenting 2 months ago, follows with Dr. Robles who presents with 1 day history of constant sharp left lower quadrant/flank pain radiating to left groin worse with urination but without dysuria. Patient found to have left-sided ureteral lithiasis with hematuria. CT of the abdomen and pelvis showed obstructing left ureteral calculi. Small fat-containing inguinal hernias. She is given narcotics for pain control. And IV fluids. Patient was seen by urologist but due to recent cardiac stenting patient cannot stop Plavix. Patient status post urethral stenting by Dr. Keller. He continues to have slight hematuria. Cardiology MD Dr. Oates have seen the patient and his cleared him for stent placement. As per cardiology recommendation Plavix and aspirin should not be stopped. Patient follows with Dr. George Alexandre and outpatient. They already have a plan for him to have possible bypass surgery. On his hospitalization patient also complains of mild chest pain which has improved after ureteral stent placement. His EKG has been reviewed with no change from the baseline. His troponin was negative. May resume all his medications from home and follow- up with cardiology as an outpatient. Patient has met maximal benefits of hospitalization. Clinically stable for discharge. - Time Spent with Patient Total time spent providing and/or coordinating discharge services: Less than 30 minutes - Quality: VTE Deep Vein Thrombosis/Pulmonary Embolism Present on Admission: No Exam Vital signs: Vital Signs 12/16/17 13:11 12/16/17 16:06 12/16/17 16:15 Temperature 98.7 F 98.1 F 98.1 F Pulse Rate 64 74 69 Respiratory Rate 18 14 14 Blood Pressure 142/75 H 139/75 126/74 Pulse Oximetry 100 100 96 12/16/17 16:30 12/16/17 16:55 12/16/17 20:00 Temperature 98.1 F 98.1 F 99.2 F Pulse Rate 62 58 L 82 Respiratory Rate 14 14 20 Blood Pressure 124/68 97/63 L 118/67 Pulse Oximetry 97 97 96 12/17/17 00:00 12/17/17 04:00 12/17/17 07:56 Temperature 99.1 F 98.7 F Pulse Rate 65 72 Respiratory Rate 16 16 Blood Pressure 98/65 L 119/66 183/84 H Pulse Oximetry 95 96 Intake & Output 12/16/17 12/17/17 12/17/17 18:59 06:59 18:59 Intake Total 1800 / 1800 Output Total 650 / 650 Balance 1150 / 1150 Intake: IV 1000 / 1000 NS Inj 1,000 ML @ 100 mls/hr IV 1000 / 1000 .CONT .Q10H [facility] Rx#:[id number] Anesthesia Amount 800 / 800 Output: Urine 650 / 650 Estimated Blood Loss 0 / 0 Other: # Voids 1 Narrative: GENERAL: This is a well-nourished, well-developed patient, in no apparent distress. SKIN: Warm and dry. Multiple tattoos throughout the body HEENT: Normocephalic. Pupils equal round and reactive. Nose without bleeding. Airway patent. NECK: Trachea midline. No JVD. Supple. CARDIOVASCULAR: Regular rate and rhythm without murmurs, gallops, or rubs. RESPIRATORY: Clear to auscultation. Breath sounds equal bilaterally. No wheezes , rales, or rhonchi. GASTROINTESTINAL: Abdomen soft, non-tender, nondistended. Bowel Sounds normoactive x4. : Slight hematuria MUSCULOSKELETAL: Extremities without clubbing, cyanosis, or edema. NEUROLOGICAL: Awake and alert. Oriented to time, place, person. No focal neuro deficit. Moves all extremities. Normal speech. Results Procedures completed during hospitalization: Status post Left ureteral stent placement - Impressions ITS Impressions Abdomen/Pelvis CT 12/15/17 10:55 CONCLUSION: 1. Obstructing left ureteral calculi. 2. Small fat-containing inguinal hernias Chest X-Ray 12/15/17 10:55 CONCLUSION: No acute cardiopulmonary disease Discharge Plan - Discharge Disposition Patient Disposition: 01 Discharge Home - Discharge Condition Condition: Stable - Discharge Order Discharge Orders: Discharge Order (Routine); Ordered 12/17/17 Ordered By: Ariadne Lomeli - Physicians Team Primary Care Provider: Primary Care Norma Puckett Attending Provider: Tod Salvador Other Providers: Jimena Oates MD ; Evens Keller MD
--- NOTE | 2017-12-17 14:58 | P.PNCA ---
Addendum entered and electronically signed by TRUMAN Linder 12/17/17 16:35: The patient was seen and evaluated by Dr. Oates who participated in care, management and decision making. Original Note: <Brandi Ramsey - Last Filed: 12/17/17 14:47> Subjective Interval history: LATE ENTRY pt was seen this morning before D/C. Pt denies any CP, dizziness, palpitations, pressure or SOB. pt is still having hematuria due to urethral stent placement and being on plavix and ASA. Physical Exam Vital signs: Vital Signs 12/16/17 16:06 12/16/17 16:15 12/16/17 16:30 Temperature 98.1 F 98.1 F 98.1 F Pulse Rate 74 69 62 Respiratory Rate 14 14 14 Blood Pressure 139/75 126/74 124/68 Pulse Oximetry 100 96 97 12/16/17 16:55 12/16/17 20:00 12/17/17 00:00 Temperature 98.1 F 99.2 F 99.1 F Pulse Rate 58 L 82 65 Respiratory Rate 14 20 16 Blood Pressure 97/63 L 118/67 98/65 L Pulse Oximetry 97 96 95 12/17/17 04:00 12/17/17 07:56 12/17/17 11:02 Temperature 98.7 F Pulse Rate 72 72 Respiratory Rate 16 Blood Pressure 119/66 183/84 H Pulse Oximetry 96 Intake & Output 12/16/17 12/17/17 12/17/17 18:59 06:59 18:59 Intake Total 1800 / 1800 Output Total 650 / 650 Balance 1150 / 1150 Intake: IV 1000 / 1000 NS Inj 1,000 ML @ 100 mls/hr IV 1000 / 1000 .CONT .Q10H [facility] Rx#:[id number] Anesthesia Amount 800 / 800 Output: Urine 650 / 650 Estimated Blood Loss 0 / 0 Other: # Voids 1 - Constitutional no acute distress - Routine HEENT Exam Head: Present: normocephalic Eye: Present: PERRL ENT: Present: mucous membranes moist - Routine Neck Exam Present: supple - Routine Respiratory Exam Present: CTA bilaterally - Routine Cardiovascular Exam Present: RRR. Absent: murmur, rubs - Routine Abdominal Exam Present: soft - Routine Exam Comments: Hematuria noted - Routine Extremities Exam Present: full ROM. Absent: edema - Routine Neurological Exam Present: oriented X3 - Routine Psychiatric Exam Present: normal affect Assessment and Plan - Plan Continue with current plan of care. Pt instructed to continue the Plavix and ASA. Pt cleared for D/C from cardiac standpoint. Pt instructed to follow up with Dr. Robles on Wednesday. <Jimena Oates - Last Filed: 12/17/17 16:39> Physical Exam Vital signs: Vital Signs 12/16/17 16:55 12/16/17 20:00 12/17/17 00:00 Temperature 98.1 F 99.2 F 99.1 F Pulse Rate 58 L 82 65 Respiratory Rate 14 20 16 Blood Pressure 97/63 L 118/67 98/65 L Pulse Oximetry 97 96 95 12/17/17 04:00 12/17/17 07:56 12/17/17 11:02 Temperature 98.7 F Pulse Rate 72 72 Respiratory Rate 16 Blood Pressure 119/66 183/84 H Pulse Oximetry 96 Intake & Output 12/16/17 12/17/17 12/17/17 18:59 06:59 18:59 Intake Total 1800 / 1800 Output Total 650 / 650 Balance 1150 / 1150 Intake: IV 1000 / 1000 NS Inj 1,000 ML @ 100 mls/hr IV 1000 / 1000 .CONT .Q10H [facility] Rx#:[id number] Anesthesia Amount 800 / 800 Output: Urine 650 / 650 Estimated Blood Loss 0 / 0 Other: # Voids 1 Assessment and Plan - Attending Attestation Patient seen and examined. I reviewed and agree with the findings and plan presented. Continue Plavix and ASA to prevent stent thrombosis. DC home. F/u with Dr. Robles as scheduled on
== END 2017-12-17 12:37 | disposition home or self-care (01) ==
LOC: NEDA 10:09 → NEPC 10:09 → NEPGCP 10:09
PROVIDERS: ADMIT Family Medicine; ATTEND Family Medicine